=== PATIENT | male | born 1940 | race Caucasian/White ===

== ENCOUNTER 2017-08-22 21:49 | Inpatient (IN) | payer OTHER ==
--- OUTSIDE RECORDS SUMMARY | 2017-08-22 21:52 | XMS REPORT | Clinical Summary ---
:1940 Author Organization [facility] Address [address] [place] [address] Phone Care Team Providers Name Role Phone Unavailable Primary Care Provider Unavailable Allergies Active Allergy Reactions Severity Noted Date Comments Penicillins Other (See Comments) 02/26/2017 Pt doesn't remember reaction; it was over 30 years ago Current Medications Prescription Sig. Disp. Refills Start Date End Date Status acetaminophen Take 2 tablets (650 30 tablet 0 03/25/2017 Active (TYLENOL) 325 MG mg total) by mouth 8 tablet every 4 (four) hours as needed for up to 360 days. allopurinol Take 1 tablet (100 0 03/26/2017 Active (ZYLOPRIM) 100 MG mg total) by mouth 8 tablet daily. amiodarone Take 1 tablet (200 0 03/26/2017 Active (PACERONE) 200 MG mg total) by mouth 8 tablet daily. aspirin 81 MG EC Take 1 tablet (81 mg 0 03/26/2017 Active tablet total) by mouth 8 daily. atorvastatin Take 1 tablet (40 mg 0 03/25/2017 Active (LIPITOR) 40 MG total) by mouth 8 tablet nightly. bisacodyl (DULCOLAX) Place 1 suppository 0 03/25/2017 Active 10 mg suppository (10 mg total) rectally daily as needed. budesonide Take 2 mLs (0.5 mg 0 03/25/2017 Active (PULMICORT) 0.5 mg/2 total) by 8 mL nebulizer nebulization 2 (two) solution times daily. gabapentin Take 2 capsules (200 0 03/25/2017 Active (NEURONTIN) 100 MG mg total) by mouth 3 8 capsule (three) times daily. glimepiride (AMARYL) Take 1 tablet (1 mg 0 03/26/2017 Active 1 MG tablet total) by mouth 8 daily with breakfast. glucagon, human Inject 1 mL (1 mg 0 03/25/2017 Active recombinant, 1 mg/mL total) SolR injection intramuscularly as needed. insulin lispro Inject 0-16 Units 10 mL 0 03/25/2017 Active (HUMALOG) 100 subcutaneously as 8 unit/mL injection needed (High blood sugar). insulin lispro Inject 0-4 Units 10 mL 0 03/25/2017 Active (HUMALOG) 100 subcutaneously every 8 unit/mL injection night as needed (High blood sugar). magnesium hydroxide Take 30 mLs by mouth 0 03/25/2017 Active (MILK OF MAGNESIA) daily as needed. 400 mg/5 mL Susp melatonin 10 mg Tab Take 10 mg by mouth 0 03/25/2017 Active nightly. pantoprazole Take 1 tablet (40 mg 0 03/25/2017 Active (PROTONIX) 40 MG total) by mouth tablet daily. QUEtiapine Take 1 tablet (25 mg 0 03/25/2017 Active (SEROQUEL) 25 MG total) by mouth tablet nightly. simethicone Take 1 tablet (80 mg 0 03/25/2017 Active (MYLICON) 80 MG total) by mouth chewable tablet every 8 (eight) hours as needed (abd gas/bloating). spironolactone Take 1 tablet (25 mg 0 03/26/2017 Active (ALDACTONE) 25 MG total) by mouth 8 tablet daily. tamsulosin (FLOMAX) Take 1 capsule (0.4 0 03/26/2017 Active 0.4 mg Cp24 24 hr mg total) by mouth capsule daily. torsemide (DEMADEX) Take 1 tablet (20 mg 0 03/26/2017 Active 20 MG tablet total) by mouth 8 daily. lidocaine (LIDODERM) Place 1 patch onto 30 patch 0 03/26/2017 5 % patch the skin daily for 7 30 days Remove & Discard patch within 12 hours or as directed by MD. vancomycin 125 Take 2.5 mLs (125 mg 100 mL 0 03/25/2017 mg/2.5 mL Syrg total) by mouth 4 7 (four) times daily for 1 day. Active Problems Problem Noted Date S/P CABG (coronary artery bypass graft) 03/25/2017 Acute drug-induced gout of right knee 03/25/2017 Acute kidney injury (HCC) 03/25/2017 PAF (paroxysmal atrial fibrillation) ([facility]) 03/25/2017 Other emphysema ([facility]) 03/25/2017 Acute systolic heart failure ([facility]) 03/03/2017 Acute respiratory failure with hypoxia ([facility]) 03/03/2017 Hyperglycemia 03/03/2017 Postoperative anemia due to acute blood loss 03/03/2017 Thrombocytopenia ([facility]) 03/03/2017 Acute pulmonary insufficiency following thoracic surgery ([facility]) 02/27/2017 Cardiogenic shock ([facility]) 02/27/2017 NSTEMI (non-ST elevated myocardial infarction) ([facility]) 02/26/2017 Coronary artery disease 02/26/2017 LVAD (left ventricular assist device) present ([facility]) 02/26/2017 Tachycardia Encounters Date Type Specialty Care Team Description 03/31/2017 Office Visit Cardiology Hiram Rowe Visit for wound MD Lex check (Primary Dx) 03/16/2017 Anesthesia Event Gastroenterology René Griggs MD 03/16/2017 Procedure Pass Gastroenterology 03/16/2017 Surgery Gastroenterology Bud, COLONOSCOPY Pedro James MD 02/27/2017 Procedure Pass 02/27/2017 Surgery Abdirizak Garza IABP INSERTION MD Sarah MCR - IP PROC ONLY 02/27/2017 Anesthesia Event Alec Haji MD 02/27/2017 Procedure Pass 02/27/2017 Surgery Hiram Rowe BYPASS,AORTO MD Lex CORONARY SIRENA/SVG 02/26/2017 Hospital Cardiology Jeni NSTEMI (non-ST - Encounter Tremayne Benitez MD elevated myocardial 03/25/2017 Elian Ray infarction) ([facility]) MD Ramirez (Primary Dx);Acute pulmonary insufficiency following thoracic surgery ([facility]);Cardiogenic shock ([facility]);LVAD (left ventricular assist device) present ([facility]);Hypovolemic shock ([facility]) 02/26/2017 Orders Only General Internal Medicine 02/26/2017 Procedure Pass 02/26/2017 Surgery Jeni, L CATH & PCI Tremayne Benitez MD after 08/21/2016 Social History Tobacco Use Types Packs/Day Years Used Date Never Assessed Sex Assigned at Date Recorded Not on file Last Filed Vital Signs Vital Sign Reading Time Taken Blood Pressure 124/58 03/25/2017 4:00 PM MANAGER LAN Pulse 82 03/25/2017 4:00 PM MANAGER LAN Temperature 36.4 C (97.5 F) 03/25/2017 4:00 PM MANAGER LAN Respiratory Rate 20 03/25/2017 4:00 PM MANAGER LAN Oxygen Saturation 95% 03/25/2017 4:00 PM MANAGER LAN Inhaled Oxygen Concentration - - Weight 94 kg (207 lb 4.8 oz) 03/24/2017 3:58 AM MANAGER LAN Height 182.9 cm (6') 02/26/2017 7:00 PM CDT Body Mass Index 28.11 03/24/2017 3:58 AM MANAGER LAN Plan of Treatment Health Maintenance Due Date Last Done Comments INFLUENZA VACCINE 02/08/2018 Implants Implanted Type Area Urinalysis Technician Device Expiration Model / Identifier Date Serial / Lot Sut Surg Stl 7 18g 18in Mls Mp M655g - [id number] [place]/Arthroscop N/A: J 09/07/2021 [id number] / Implanted: Qty: 1 on 02/27/2017 by Hiram Rowe MD y Sternum &J :ETHINANCI / [id number] Sut Surg Stl 7 18g 18in Mls Mp M655g - [id number] [place]/Arthroscop N/A: J 12/08/2021 [id number] / Implanted: Qty: 1 on 02/27/2017 by Hiram Rowe MD y Sternum &J :ETHINANCI / [id number] Sternal Zipfix Ndl Strl [id number] - [id number] Cardiovascular N/A: SYNTHES:SYNTHE 12/08/2021 [id number] / Implanted: Qty: 2 on 02/27/2017 by Hiram Rowe MD [facility] / [id number] Procedures Procedure Name Priority Date/Time Associated Diagnosis Comments COLONOSCOPY 03/16/2017 11:00 AM GI Bleed MANAGER LAN IABP INSERTION [facility] - 02/27/2017 5:03 PM cp IP PROC ONLY CDT REMOVAL,IMPELLA PUMP 02/27/2017 7:30 AM CAD CDT IABP INSERTION [facility] - 02/27/2017 7:30 AM CAD IP PROC ONLY CDT BYPASS,FEMORAL-FEMORAL 02/27/2017 7:30 AM CAD CDT ENDOSCOPIC HARVEST,VEIN 02/27/2017 7:30 AM CAD CDT BYPASS,AORTO CORONARY 02/27/2017 7:30 AM CAD SIRENA/SVG CDT L CATH & PCI 02/26/2017 7:25 PM NSTEMI CDT after 08/21/2016 Results RHYTHM STRIP - SCAN (03/30/2017 6:30 AM)Only the most recent of3 resultswithin the time period is included.EKG-SCANNED (03/26/2017 10:41 AM)PERMANENT LAB REPORT - SCAN (03/26/2017 10:41 AM)VASCULAR DIAGRAM -SCAN (03/26/2017 10:41 AM) POC-Glucose meter (03/25/2017 11:58 AM)Only the most recent of125 resultswithin the time period is included. Component Value Ref Range POC-Glucose Meter 174 (H)Comment: TESTED AT [address] 70 - 110 mg/[place] [address] Specimen Performing Laboratory Blood [address] [address] B-type Natriuretic Factor (BNP) (03/25/2017 6:58 AM)Only the most recent of5 resultswithin the time period is included. Component Value Ref Range BNP 725 (H) 0 - 100 pg/mL Specimen Performing Laboratory Blood [address] [address] Basic Metabolic Panel (03/25/2017 6:58 AM)Only the most recent of29 resultswithin the time period is included. Component Value Ref Range Sodium 140 136 - 145 meq/L Potassium 3.7 3.5 - 5.1 meq/L Chloride 104 98 - 107 meq/L CO2 28 22 - 29 meq/L BUN 25 (H) 7 - 21 mg/dL Creatinine 1.11 0.57 - 1.25 mg/dL Glucose 71 70 - 105 mg/dL Calcium 8.3 (L) 8.4 - 10.2 mg/dL EGFR 64Comment: ESTIMATED GFR IS NOT ACCURATE mL/min/1.73 sq m CREATININE CLEARANCE IN PREDICTING GLOMERULAR FILTRATION RATE. ESTIMATED GFR IS NOT APPLICABLE FOR DIALYSIS PATIENTS. Specimen Performing Laboratory Blood [address] [address] REPORT OF PROCEDURE - ENDOSCOPY URL (03/23/2017 2:36 PM)Magnesium (03/23/2017 5:44 AM)Only the most recent of37 resultswithin the time period is included. Component Value Ref Range Magnesium 1.6 1.6 - 2.6 mg/dL Specimen Performing Laboratory Blood [address] [address] CBC with platelet count + automated diff (03/22/2017 10:39 AM)Only the most recent of28 resultswithin the time period is included. Component Value Ref Range WBC 9.4 3.5 - 10.5 K/L RBC 2.69 (L) 4.63 - 6.08 M/L Hemoglobin 8.1 (L) 13.7 - 17.5 GM/DL Hematocrit 25.9 (L) 40.1 - 51.0 % MCV 96.3 (H) 79.0 - 92.2 fL MCH 30.1 25.7 - 32.2 pg MCHC 31.3 (L) 32.3 - 36.5 GM/DL RDW 17.8 (H) 11.6 - 14.4 % Platelets 274 150 - 450 K/CU MM MPV 10.0 9.4 - 12.4 fL nRBC 0 0 - 0 /100 WBC % Neutros 79 % % Lymphs 8 % % Monos 10 % % Eos 4 % % Baso 0 % # Neutros 7.39 (H) 1.78 - 5.38 K/L # Lymphs 0.72 (L) 1.32 - 3.57 K/L # Monos 0.90 (H) 0.30 - 0.82 K/L # Eos 0.33 0.04 - 0.54 K/L # Baso 0.02 0.01 - 0.08 K/L Immature Granulocytes-Relative 1 0 - 1 % Specimen Performing Laboratory Blood - Line, Venous [address] [address] CBC with platelet count + automated diff (03/22/2017 10:39 AM)Only the most recent of28 resultswithin the time period is included. Specimen Performing Laboratory Blood Narrative The following orders were created for panel order CBC with platelet count + automated diff. Procedure Abnormality Status --------- ------ CBC with platelet count ...[[id number]]AbnormalFinal result Please view results for these tests on the individual orders. TRANSFUSION SERVICE REPORT - SCAN (03/19/2017 5:02 PM)Only the most recent of12 resultswithin the time period is included.XR chest 1 view portable / bedside (03/19/2017 2:44 PM)Only the most recent of20 resultswithin the time period is included. Specimen Performing Laboratory GE RIS Narrative FINAL REPORT TECHNIQUE: Frontal chest radiograph dated 03/19/2017. CLINICAL HISTORY: CHF COMPARISON STUDY: Chest radiograph dated 03/14/2017 IMPRESSION: Right PICC is unchanged in position. Lungs are clear. No pleural effusion or pneumothorax. Cardiomediastinal silhouette is stable in size. No pulmonary edema. Midline sternotomy wires are intact and well aligned. No fracture. Signed: Angeles Wheat MD Report Verified Date/Time:03/19/2017 16:06:30 Reading Location: [facility] Radiology Reading Room Procedure Note Interface, External Ris In - 03/19/2017 4:08 PM MANAGER LAN FINAL REPORT TECHNIQUE: Frontal chest radiograph dated 03/19/2017. CLINICAL HISTORY: CHF COMPARISON STUDY: Chest radiograph dated 03/14/2017 IMPRESSION: Right PICC is unchanged in position. Lungs are clear. No pleural effusion or pneumothorax. Cardiomediastinal silhouette is stable in size. No pulmonary edema. Midline sternotomy wires are intact and well aligned. No fracture. Signed: Angeles Wheat MD Report Verified Date/Time: 03/19/2017 16:06:30 Reading Location: [facility] Radiology Reading Room Prepare Leuko-Red RBC (03/18/2017 11:54 PM)Only the most recent of6 resultswithin the time period is included. Component Value Ref Range CROSSMATCH COMPATIBLE Unit ABO A Pos UNIT NUMBER [id number] Status TRANSFUSED Blood Bank Product RED BLOOD CELLS PRODUCT CODE [id number] Specimen Performing Laboratory Other [place] Type and screen, automated (03/18/2017 6:00 AM)Only the most recent of4 resultswithin the time period is included. Component Value Ref Range ABO/RH AUTOMATED (BEAKER) A POSITIVE Ab Scrn NEGATIVE Specimen Performing Laboratory Blood [place] [address] Transfuse Leuko-Red RBC (03/17/2017 5:55 PM)Only the most recent of13 resultswithin the time period is included.Manual Differential (03/17/2017 4:19 AM)Only the most recent of3 resultswithin the time period is included. Specimen [place] [address] Prepare RBC (03/16/2017 11:54 PM)Only the most recent of4 resultswithin the time period is included. Component Value Ref Range CROSSMATCH COMPATIBLE Unit ABO A Pos UNIT NUMBER [id number] Status TRANSFUSED Blood Bank Product RED BLOOD CELLS PRODUCT CODE [id number] Specimen Performing Laboratory [place] Hemoglobin and hematocrit (03/15/2017 9:23 AM)Only the most recent of5 resultswithin the time period is included. Component Value Ref Range Hemoglobin 5.6 (LL) 13.7 - 17.5 GM/DL Hematocrit 17.6 (L) 40.1 - 51.0 % Specimen [place] [address] Clostridium difficile Toxin PCR (03/14/2017 9:08 PM) Component Value Ref Range C.Diff Toxin, PCR Detected (A) Not Detected Specimen Performing Laboratory Stool [address] [address] Narrative This qualitative real-time polymerase chain reaction assay detects the tcdB gene, encoded on the C.difficile pathogenicity locus (PaLoc).The product of tcdB , toxin B, is a cytotoxin essential for causing C.difficile-associated disease (CDAD) and is found in virtually all toxigenic C.difficile. This assay is performed for patients suspected of having either community- acquired or nosocomial CDAD.Accordingly, only symptomatic patients should be tested and formed stools will be rejected unless ileus is present (i.e., specified when ordering).Patients may be colonized with toxigenic C.difficile strains not causing active disease; therefore, clinical correlation is needed when deciding how to manage patients with a positive test result. The assay has not been validated as a test of cure as amplifiable nucleic acid may persist after effective treatment; therefore, follow-up testing of a positive result is not recommended. XR abdomen / KUB 1 view (03/14/2017 7:35 PM) Specimen Performing Laboratory GE RIS Narrative FINAL REPORT Comparison examination: None Abdomen: Nonspecific bowel gas pattern. Mildly distended air-filled stomach. Several partially fluid-filled loops of small bowel. No free intraperitoneal air. Posterior surgical constructs stabilize L3-L5. No acute skeletal abnormalities. IMPRESSION: Nonspecific bowel gas pattern. Impression: No acute abnormalities. Signed: Tejas Gomez MD Report Verified Date/Time:03/14/2017 19:47:30 Reading Location: [address] Ortho Consult Reading Room Procedure Note Interface, External Ris In - 03/14/2017 7:49 PM CDT FINAL REPORT Comparison examination: None Abdomen: Nonspecific bowel gas pattern. Mildly distended air-filled stomach. Several partially fluid-filled loops of small bowel. No free intraperitoneal air. Posterior surgical constructs stabilize L3-L5. No acute skeletal abnormalities. IMPRESSION: Nonspecific bowel gas pattern. Impression: No acute abnormalities. Signed: Tejas Gomez MD Report Verified Date/Time: 03/14/2017 19:47:30 Reading Location: [facility] C0[facility] Ortho Consult Reading Room Occult blood, stool (03/14/2017 5:23 AM) Component Value Ref Range Occult blood Positive (A) Negative Specimen Performing Laboratory Stool - Per Rectum [address] [address] XR knee complete 4 views right (03/13/2017 4:31 PM) Specimen Performing Laboratory GE RIS Narrative FINAL REPORT Right knee, four views HISTORY: Knee pain COMPARISON: None. IMPRESSION: No acute displaced fracture or dislocation. Small knee effusion. Prominent vascular calcifications. Signed: Tico Aggarwal MD Report Verified Date/Time:03/13/2017 17:53:33 Reading Location: [facility] C013 Consult Reading Room Procedure Note Interface, External Ris In - 03/13/2017 5:55 PM CDT FINAL REPORT Right knee, four views HISTORY: Knee pain COMPARISON: None. IMPRESSION: No acute displaced fracture or dislocation. Small knee effusion. Prominent vascular calcifications. Signed: Tico Aggarwal MD Report Verified Date/Time: 03/13/2017 17:53:33 Reading Location: [facility] [id number] Consult Reading Room Urine culture (03/12/2017 4:53 PM)Only the most recent of3 resultswithin the time period is included. Component Value Ref Range Result No growth Specimen Performing Laboratory Urine - Urine, [place] [address] [address] Vitamin B12 and Folate (03/12/2017 9:29 AM) Component Value Ref Range Vitamin B12 773 213 - 816 pg/mL Folate 10.8 >=7.0 ng/mL Specimen Performing Laboratory Blood - Central Venous Line [address] [address] Iron, TIBC, % sat. (without ferritin) (03/12/2017 9:29 AM) Component Value Ref Range Iron 19 (L) 40 - 160 ug/dL TIBC 155 (L) 250 - 450 ug/dL Iron % Saturation 12 (L) 20 - 55 % Specimen Performing Laboratory Blood - Central Venous Line [address] [address] aPTT (03/12/2017 9:29 AM)Only the most recent of8 resultswithin the time period is included. Component Value Ref Range PTT 37.2 (H) 22.5 - 36.0 seconds Specimen Performing Laboratory Blood - Central Venous Line [address] [address] Uric acid (03/12/2017 9:29 AM) Component Value Ref Range Uric Acid 11.6 (H) 2.6 - 7.2 mg/dL Specimen Performing Laboratory Blood - Central Venous Line [address] [address] Ferritin (03/12/2017 9:29 AM) Component Value Ref Range Ferritin 1371 (H) 5 - 275 ng/mL Specimen Performing Laboratory Blood - Central Venous Line [address] [address] PERIPHERAL VASCULAR REPORT - SCAN (03/12/2017 7:20 AM)Only the most recent of2 resultswithin the time period is included.Urinalysis w/Microscopic (03/11/2017 6:06 PM) Component Value Ref Range Color, UA Yellow Clarity, UA Hazy Specific [place], UA 1.017 1.001 - 1.035 pH, UA 5.0 5.0 - 8.0 Protein, UA 30 mg/dL (A) Negative Glucose, UA Negative Negative Ketones, UA Trace (A) Negative Bilirubin, UA Negative Negative Blood, UA Trace (A) Negative Nitrite, UA Negative Negative Leukocytes, UA Moderate (A) Negative Urobilinogen, UA 2.0 (H) 0.2 - 1.0 mg/dL RBC, UA 6 /HPF WBC, UA 31 /HPF Bacteria, UA Occasional Mucus Few Squam Epithel, UA 2 /HPF Hyaline Casts, UA 10 /LPF Specimen Source Urine, [place] Specimen Performing Laboratory Urine - Urine, [place] [address] [address] ECHOCARDIOGRAM REPORT - SCAN (03/11/2017 5:20 PM)Only the most recent of4 resultswithin the time period is included.Venous doppler legs bilateral (2016 2:01 PM)Only the most recent of2 resultswithin the time period is included. Component Value Ref Range Ejection Fraction Specimen Performing Laboratory SLE ECHO [facility]ART[facility] MKCKESSON CPACS Impressions Right Impression 1. There is no deep venous obstruction in the common femoral, profunda femoral, femoral, popliteal, posterior tibial or peroneal veins. 2. There is no superficial venous obstruction in the great saphenous vein. Left Impression 1. There is no deep venous obstruction in the common femoral, profunda femoral, femoral, popliteal or posterior tibial veins. 2. There is partial acute deep vein thrombosis of the peroneal veins. 3. The great saphenous has been harvested. Conclusions Summary Venous duplex imaging and compression of the bilateral lower extremities were performed. The veins were adequately visualized on very technically difficult patient. The right deep and superficial venous systems were patent and compressible with no evidence of thrombus. The left deep venous system was positive with acute thrombus. The left great saphenous vein had been harvested. Signature Velocities are measured in cm/s ; Diameters are measured in cm Narrative [facility] - Lower Extremities DVT Study Demographics Patient NameKAYLEY ARMIJO Date of Study 2017 76 Visit [id number] Male of 1940 Number Referring Ngozi Savage Number [id number] Physician Visual Journalist Tom Starr. InterpretingJ. Lex Rowe RVT, AMYSPkristineciBALDEMAR holt MD Procedure Type of Study: Veins: Lower Extremities DVT Study, VENOUS DOPPLER LEG, BILATERAL. Indications for Study:Edema and Dyspnea. Patient Status:STAT. Study Location:Vascular Lab. Technical Quality:Technically Difficult. - Results were reported to:Nurse(Lex) at 13:10 on 03/11/2017.. Risk Factors History of Disease + +----+--------+ !Diagnosis !Date!Comments! + +----+--------+ !History/Risk Factors: !!CAD, ACB! + +----+--------+ Procedure Note Interface, External Ris In - 03/11/2017 7:05 PM CDT [facility] - Lower Extremities DVT Study Demographics Patient Name KAYLEY ARMIJO Date of Study 03/11/2017 Age 76 Visit Number [id number] Gender Male Date of 1940 Number Referring Javid Crawford MD Room Number 1150 Physician Visual Journalist Tom Starr. Interpreting Aaron Rowe T, ARS Physician , RPVI Procedure Type of Study: Veins: Lower Extremities DVT Study, VENOUS DOPPLER LEG, BILATERAL. Indications for Study:Edema and Dyspnea. Patient Status:STAT. Study Location:Vascular Lab. Technical Quality:Technically Difficult. - Results were reported to:NurseCari) at 13:10 on 03/11/2017.. Risk Factors History of Disease + +----+--------+ !Diagnosis !Date!Comments! + +----+--------+ !History/Risk Factors: ! !CAD, ACB! + +----+--------+ Impressions Right Impression 1. There is no deep venous obstruction in the common femoral, profunda femoral, femoral, popliteal, posterior tibial or peroneal veins. 2. There is no superficial venous obstruction in the great saphenous vein. Left Impression 1. There is no deep venous obstruction in the common femoral, profunda femoral, femoral, popliteal or posterior tibial veins. 2. There is partial acute deep vein thrombosis of the peroneal veins. 3. The great saphenous has been harvested. Conclusions Summary Venous duplex imaging and compression of the bilateral lower extremities were performed. The veins were adequately visualized on very technically difficult patient. The right deep and superficial venous systems were patent and compressible with no evidence of thrombus. The left deep venous system was positive with acute thrombus. The left great saphenous vein had been harvested. Signature Velocities are measured in cm/s ; Diameters are measured in cm POC-Lactic Acid, Arterial (03/11/2017 12:43 PM) Component Value Ref Range POC-Lactic Acid, Arterial 0.8Comment: TESTED AT [address] 0.4 - 1.3 mmol/L [place] [address] Specimen Performing Laboratory Blood [facility] [address] [address] POCT-HEMATOCRIT (03/11/2017 12:37 PM) Component Value Ref Range POC-Hematocrit 25 (L)Comment: TESTED AT [address] [address] 40 - 50 % Specimen Performing Laboratory Blood [address] [address] POCT-HEMOGLOBIN (03/11/2017 12:37 PM) Component Value Ref Range POC-Hemoglobin 8.5 (L)Comment: TESTED AT [address] 13.0 - 16.8 g/[place] [address] Specimen Performing Laboratory Blood [address] [address] POCT-GLUCOSE (03/11/2017 12:37 PM) Component Value Ref Range POC-Glucose 171 (H)Comment: TESTED AT [address] 70 - 110 mg/dL [address] Specimen Performing Laboratory Blood [address] [address] POC-Sodium (03/11/2017 12:37 PM) Component Value Ref Range POC-Sodium 138Comment: TESTED AT [address] [address] 135 - 148 meq/L Specimen Performing Laboratory Blood [address] [address] POC-Potassium (03/11/2017 12:37 PM) Component Value Ref Range POC-Potassium 3.7Comment: TESTED AT [address] 3.6 - 5.5 meq/L [facility] Specimen Performing Laboratory Blood [address] [address] POC-Calcium ionized (03/11/2017 12:37 PM) Component Value Ref Range POC-Calcium Ionized 1.08 (L)Comment: TESTED AT [address] 1.12 - 1.27 mmol/L [place] [address] Specimen Performing Laboratory Blood [address] [address] POC-Blood gases, arterial (03/11/2017 12:37 PM) Component Value Ref Range Temp. Celsius-POC 37.0 FIO2-POC Comment: TESTED AT [facility] [address] [place] [address] pH, Arterial-POC 7.458 (H) 7.350 - 7.450 PCO2, Arterial-POC 42.0 35.0 - 45.0 mm Hg PO2, Arterial-POC 136.0 (H) 80.0 - 90.0 mm Hg SO2, Arterial-POC 99.0 (H) 96.0 - 97.0 % HCO3, Arterilal-POC 29.7 (H) 21.0 - 29.0 meq/L BE, Arterial-POC 6.0 (H) -2.0 - 3.0 meq/L Specimen Performing Laboratory Blood [facility] [address] [address] Limited 2D Echocardiogram (03/11/2017 11:43 AM) Component Value Ref Range Ejection Fraction Specimen Performing Laboratory SLE ECHO HEARTLAB MKCKESSON CPACS Narrative Transthoracic Echocardiography Report (TTE) Demographics Patient Name KAYLEY ARMIJO Date of Study 03/11/2017 [id number] Male Visit Number [id number] Unknown [id number] Room Number 1150 Number Date of Birth1940Referring Physician Age76 year(s)Visual Journalist Amarilis Gregory AnalystAriadna Interpreting Kana Dooley Physician Procedure Type of Study TTE procedure:LIMITED 2D ECHOCARDIOGRAM (STAT) Indications:Shortness of breath. Clinical History CAD RESPIRATORY FAILURE CAD TACHYCARDIA NSTEMI ANEMIA ACUTE SYSTOLIC HEART FAILURE HGB 8.0 HCT 25.4 % Height: 72 inches Weight: 103.87 kg (229 lbs) BSA: 2.26 m^2 BMI: 31.06 kg/m^2 HR: 89 bpm BP: 136/61 mmHg Summary 1. The following segment(s) appear akinetic: [place], base and mid inferior. LVEF by Slater's method of disk assessment is mildly reduced (45-49%) 2. The right ventricular chamber size and systolic function are within normal limits. 3. A small pericardial effusion is present . Previous Study Compared to the previous study there was no significant change. Signature Findings Rhythm/BPAtrial fibrillation with controlled ventricular response. Left Ventricle LV endocardium is well visualized with IV contrast. The left ventricle is chamber size (by vol index) is normal (male - LVED vol - 34-74ml/m2). Mild concentric LV hypertrophy. The following segment(s) appear akinetic: [place], base and mid inferior. The following segment(s) appear severely hypokinetic: base and mid anteroseptal, base and mid inferoseptal. The other segments are mildly hypokinetic. LVEF by Slater's method of disk assessment is mildly reduced (45-49%) . Left AtriumLA size is normal (16-34 ml/m2) . Right VentricleThe right ventricular chamber size and systolic function are within normal limits. Right Atrium RA size is normal. Atrial SeptumThe interatrial septum is not well visualized. Aortic Valve Mild AoV cusp calcification. Aortic annulus appears calcified . Mitral Valve Mild MV leaflet thickening. Mild mitral annular calcification. Tricuspid ValveTV is not well visualized. Pulmonic Valve PV is not visualized. AortaAortic root size (SInus of Valsalva diameter) is normal . PericardiumA small pericardial effusion is present . IVC/SVC/PA/PV/PleuralThe estimated RA pressure by IVC dynamics 0-5mmHg . Chambers/Structures Left Atrium LA Volume: 52.35 ml LA Area: 16.45 cm^ 2 LA Vol. Index: 23 ml/m^2 Left Ventricle LVIDd: 4.81 cm LV Septum Diastolic: 1.11 cm LV PW Diastolic: 1.18 cm LVEDV BP Slater's:118.8 ml LVESV BP Slater's:62.24 ml LVEF BP Slater's: 46.7 % LVOT Diameter: 2.05 cm Right Atrium RA Vol. (Sngl Plane): 73.66 ml Aorta Ao Annulus: 2.05 cm Ao Root S of Monica.: 2.8 cm Doppler/Quantitative Measurements LVOT LVOT Diameter: 2.05 cm LVOT Area: 3.3 cm^2 Procedure Note Interface, External Ris In - 03/11/2017 4:47 PM CDT Transthoracic Echocardiography Report (TTE) Demographics Patient Name KAYLEY ARMIJO Date of Study 03/11/2017 Gender Male Visit Number [id number] Race Unknown Room Number 1150 Number Date of 1940 Referring Physician Age 76 year(s) Visual Journalist Amarilis Gregory High Value Associate Debo Interpreting Kana Dooley Physician Procedure Type of Study TTE procedure:LIMITED 2D ECHOCARDIOGRAM (STAT) Indications:Shortness of breath. Clinical History CAD RESPIRATORY FAILURE CAD TACHYCARDIA NSTEMI ANEMIA ACUTE SYSTOLIC HEART FAILURE HGB 8.0 HCT 25.4 % Height: 72 inches Weight: 103.87 kg (229 lbs) BSA: 2.26 m^2 BMI: 31.06 kg/m^2 HR: 89 bpm BP: 136/61 mmHg Summary 1. The following segment(s) appear akinetic: [place], base and mid inferior. LVEF by Slater's method of disk assessment is mildly reduced (45-49%) 2. The right ventricular chamber size and systolic function are within normal limits. 3. A small pericardial effusion is present . Previous Study Compared to the previous study there was no significant change. Signature Findings Rhythm/BP Atrial fibrillation with controlled ventricular response. Left Ventricle LV endocardium is well visualized with IV contrast. The left ventricle is chamber size (by vol index) is normal (male - LVED vol - 34-74ml/m2). Mild concentric LV hypertrophy. The following segment(s) appear akinetic: [place], base and mid inferior. The following segment(s) appear severely hypokinetic: base and mid anteroseptal, base and mid inferoseptal. The other segments are mildly hypokinetic. LVEF by Slater's method of disk assessment is mildly reduced (45-49%) . Left Atrium LA size is normal (16-34 ml/m2) . Right Ventricle The right ventricular chamber size and systolic function are within normal limits. Right Atrium RA size is normal. Atrial Septum The interatrial septum is not well visualized. Aortic Valve Mild AoV cusp calcification. Aortic annulus appears calcified . Mitral Valve Mild MV leaflet thickening. Mild mitral annular calcification. Tricuspid Valve TV is not well visualized. Pulmonic Valve PV is not visualized. Aorta Aortic root size (SInus of Valsalva diameter) is normal . Pericardium A small pericardial effusion is present . IVC/SVC/PA/PV/Pleural The estimated RA pressure by IVC dynamics 0-5mmHg . Chambers/Structures Left Atrium LA Volume: 52.35 ml LA Area: 16.45 cm^2 LA Vol. Index: 23 ml/m^2 Left Ventricle LVIDd: 4.81 cm LV Septum Diastolic: 1.11 cm LV PW Diastolic: 1.18 cm LVEDV BP Slater's:118.8 ml LVESV BP Slater's:62.24 ml LVEF BP Slater's: 46.7 % LVOT Diameter: 2.05 cm Right Atrium RA Vol. (Sngl Plane): 73.66 ml Aorta Ao Annulus: 2.05 cm Ao Root S of Monica.: 2.8 cm Doppler/Quantitative Measurements LVOT LVOT Diameter: 2.05 cm LVOT Area: 3.3 cm^2 Blood culture (03/10/2017 10:36 AM)Only the most recent of5 resultswithin the time period is included. Component Value Ref Range Result No growth in 5 days Specimen Performing Laboratory Blood - Arm, Left [facility] [address] [address] Urinalysis w/Microscopic + Reflex to Culture (03/09/2017 3:52 PM)Only the most recent of2 resultswithin the time period is included. Component Value Ref Range Color, UA Yellow Clarity, UA Clear Specific [place], UA 1.009 1.001 - 1.035 pH, UA 5.0 5.0 - 8.0 Protein, UA 20 mg/dL (A) Negative Glucose, UA Negative Negative Ketones, UA Negative Negative Bilirubin, UA Negative Negative Blood, UA Small (A) Negative Nitrite, UA Negative Negative Leukocytes, UA Moderate (A) Negative Urobilinogen, UA 0.2 0.2 - 1.0 mg/dL RBC, UA 2 /HPF WBC, UA 9 /HPF Bacteria, UA Occasional Squam Epithel, UA 1 /HPF Hyaline Casts, UA 17 /LPF Specimen Source Specimen Performing Laboratory Urine - Urine, Clean Catch [address] [address] Hemoglobin A1c (03/09/2017 6:46 AM) Component Value Ref Range Hemoglobin A1C 6.0 4.3 - 6.1 % Specimen Performing Laboratory Blood - Central Venous Line [address] [address] Oxygen saturation, measured (03/07/2017 3:18 AM)Only the most recent of18 resultswithin the time period is included. Component Value Ref Range O2 Saturation (Measured) 61.8 % Specimen Performing Laboratory Blood [address] [address] Potassium (03/07/2017 3:18 AM)Only the most recent of18 resultswithin the time period is included. Component Value Ref Range Potassium 3.7 3.5 - 5.1 meq/L Specimen Performing Laboratory Blood [address] [address] Hepatic function panel (03/06/2017 3:44 AM)Only the most recent of6 resultswithin the time period is included. Component Value Ref Range Protein, Total 5.1 (L) 6.0 - 8.3 gm/dL Albumin 2.7 (L) 3.5 - 5.0 g/dL Total Bilirubin 1.9 (H) 0.2 - 1.2 mg/dL Bilirubin, Direct 1.2 (H) 0.1 - 0.5 mg/dL Alkaline Phosphatase 65 40 - 150 U/L AST 34 5 - 34 U/L ALT 27 6 - 55 U/L Specimen Performing Laboratory Blood [address] [address] 2D Echo W/Doppler(CW/PW/Color) (03/05/2017 9:56 PM)Only the most recent of3 resultswithin the time period is included. Component Value Ref Range Ejection Fraction Specimen Performing Laboratory [facility] ECHO HEARTLAB SUSAN CPACS Narrative Transthoracic Echocardiography Report (TTE) Demographics Patient Name Batool ARMIJO of Study 2016 [id number] GenderMale Visit Number [id number] Race[place] [id number] Number [id number] Number Date of Birth1940 Referring Physician Elham Mariee Age76 year(s) Visual Journalist Roger Grossman, [facility] AnalystGCuca Callaway MD [facility] Procedure Type of Study TTE procedure:2DECHO W DOPPLER(CW/PW/COLOR) (Routine) Indications:Evaluation of LV Function Post AMI. Clinical History HGB 8.1 HCT 25 % NSTEMI Height: 72 inches Weight: 102.06 kg (225 lbs) BSA: 2.24 m^2 BMI: 30.52 kg/m^2 HR: 90 bpm BP: 94/49 mmHg Summary 1. Normal LV size. LVEF is mildly depressed. LVEF is 40-44%. Wall motion abnormalities consistent with 3 vessel disease. 2. Diastology: Grade 2 diastology dysfunction. 3. Normal RV size and function 4. No significant valvular heart disease. 5. Trace TR. Estimated RVSP is 55-60 mm Hg. 6. Small pericardial effusion without signs of hemodynamic compromise. Signature Findings Technical Quality: Technically adequate exam. Left Ventricle LV endocardium is adequately visualized with IV contrast. The left ventricle is chamber size (by PSLAX dimension) is normal (male - LVIDd 4.2-5.8cm) . No evidence of LV hypertrophy. Estimated LVEF by qualitative assessment is mildly reduced (40-44%) . The LVEF was measured using Slater's bi-plane method of disk . Grade 2 diastolic dysfunction (moderately increased LA pressure). Left AtriumLA size is normal (16-34 ml/m2) . Right VentricleNormal right ventricle structure and function. Right Atrium Normal right atrium. Aortic Valve Mild thickening and calcification noted. Mitral Valve Mild mitral regurgitation. Tricuspid ValveNormal tricuspid valve structure and function. A trace of tricuspid regurgitation. Estimated peak systolic PA pressure is 55-60 mmHg . Pulmonic Valve Normal PV structure and function by limited views and Doppler. AortaNormal aorta dimensions. PericardiumA small pericardial effusion is present posteriorly . IVC/SVC/PA/PV/PleuralThe estimated RA pressure by IVC dynamics 5-10mmHg . Chambers/Structures Left Atrium LA Volume: 58.75 mlLA Area: 21.6 cm^2 LA Vol. Index: 26 ml/m^2 Left Ventricle LVIDd: 4.69 cmLVEDV 2D:101.88 ml LVIDs: 3.63 cmLVESV 2D :55.37 ml LV Septum Diastolic: 1.11 cm LV PW Diastolic: 1.09 cm LV FS: 22.6 % LV ESV (Cubed):47.83 cc LVOT Diameter: 2.1 cm LV ESV (Teich):55.53 ml LV SV (Teich):46.33 ml LV SI (Teich):20.68 ml/m^2 LVEF 2D Teich: 45.7 % Shunts QS:55.73 ml Doppler/Quantitative Measurements Aortic Valve Peak Velocity: 1.81 m/sMean Velocity: 1.24 m/s Peak Gradient: 13.06 mmHgMean Gradient: 6.98 mmHg AV Area (continuity): 2.12 cm^2 AV VTI: 26.28 cm AV DVI: 0.61 LVOT Peak Velocity: 0.99 m/s Peak Gradient: 3.91 mmHg Mean Velocity: 0.64 m/s Mean Gradient: 1.93 mmHg LVOT Diameter: 2.1 cm LVOT VTI: 16.09 cm LVOT Area: 3.46 cm^2LVOT SV:55.7 ml LVOT CO: 5.01 l/min LVOT CI: 2.24 l/min/m^2 Tricuspid Valve TR Velocity: 3.41 m/s TR Gradient: 46.63 mmHg Procedure Note Interface, External Ris In - 03/06/2017 9:27 AM CDT Transthoracic Echocardiography Report (TTE) Demographics Patient Name KAYLEY ARMIJO Date of Study 03/05/2017 Gender Male Visit Number [id number] Race Unknown Room Number C830 Number Date of 1940 Referring Physician Elham Mariee Age 76 year(s) Visual Journalist Roger Grossman [facility] High Value Associate Roger Grossman, Interpreting Clay Vasquez MD [facility] Physician Procedure Type of Study TTE procedure:2DECHO W DOPPLER(CW/PW/COLOR) (Routine) Indications:Evaluation of LV Function Post AMI. Clinical History HGB 8.1 HCT 25 % NSTEMI Height: 72 inches Weight: 102.06 kg (225 lbs) BSA: 2.24 m^2 BMI: 30.52 kg/m^2 HR: 90 bpm BP: 94/49 mmHg Summary 1. Normal LV size. LVEF is mildly depressed. LVEF is 40-44%. Wall motion abnormalities consistent with 3 vessel disease. 2. Diastology: Grade 2 diastology dysfunction. 3. Normal RV size and function 4. No significant valvular heart disease. 5. Trace TR. Estimated RVSP is 55-60 mm Hg. 6. Small pericardial effusion without signs of hemodynamic compromise. Signature Findings Technical Quality: Technically adequate exam. Left Ventricle LV endocardium is adequately visualized with IV contrast. The left ventricle is chamber size (by PSLAX dimension) is normal (male - LVIDd 4.2-5.8cm) . No evidence of LV hypertrophy. Estimated LVEF by qualitative assessment is mildly reduced (40-44%) . The LVEF was measured using Slater's bi-plane method of disk . Grade 2 diastolic dysfunction (moderately increased LA pressure). Left Atrium LA size is normal (16-34 ml/m2) . Right Ventricle Normal right ventricle structure and function. Right Atrium Normal right atrium. Aortic Valve Mild thickening and calcification noted. Mitral Valve Mild mitral regurgitation. Tricuspid Valve Normal tricuspid valve structure and function. A trace of tricuspid regurgitation. Estimated peak systolic PA pressure is 55-60 mmHg . Pulmonic Valve Normal PV structure and function by limited views and Doppler. Aorta Normal aorta dimensions. Pericardium A small pericardial effusion is present posteriorly . IVC/SVC/PA/PV/Pleural The estimated RA pressure by IVC dynamics 5-10mmHg . Chambers/Structures Left Atrium LA Volume: 58.75 ml LA Area: 21.6 cm^2 LA Vol. Index: 26 ml/m^2 Left Ventricle LVIDd: 4.69 cm LVEDV 2D:101.88 ml LVIDs: 3.63 cm LVESV 2D:55.37 ml LV Septum Diastolic: 1.11 cm LV PW Diastolic: 1.09 cm LV FS: 22.6 % LV ESV (Cubed):47.83 cc LVOT Diameter: 2.1 cm LV ESV (Teich):55.53 ml LV SV (Teich):46.33 ml LV SI (Teich):20.68 ml/m^2 LVEF 2D Teich: 45.7 % Shunts QS:55.73 ml Doppler/Quantitative Measurements Aortic Valve Peak Velocity: 1.81 m/s Mean Velocity: 1.24 m/s Peak Gradient: 13.06 mmHg Mean Gradient: 6.98 mmHg AV Area (continuity): 2.12 cm^2 AV VTI: 26.28 cm AV DVI: 0.61 LVOT Peak Velocity: 0.99 m/s Peak Gradient: 3.91 mmHg Mean Velocity: 0.64 m/s Mean Gradient: 1.93 mmHg LVOT Diameter: 2.1 cm LVOT VTI: 16.09 cm LVOT Area: 3.46 cm^2 LVOT SV:55.7 ml LVOT CO: 5.01 l/min LVOT CI: 2.24 l/min/m^2 Tricuspid Valve TR Velocity: 3.41 m/s TR Gradient: 46.63 mmHg Calcium, Ionized (03/05/2017 4:25 AM)Only the most recent of16 resultswithin the time period is included. Component Value Ref Range Calcium, Ion 1.07 (L) 1.12 - 1.27 mmol/L pH, Blood 7.57 Specimen Performing Laboratory Blood [address] [address] Blood gas, arterial (03/05/2017 4:25 AM)Only the most recent of16 resultswithin the time period is included. Component Value Ref Range pH, Arterial 7.57 (H) 7.35 - 7.45 pCO2, Arterial 31 (L) 35 - 45 mmHg pO2, Arterial 75 (L) 80 - 90 mmHg O2 Sat, Arterial 96.9 96.0 - 97.0 % HCO3, Arterial 27 21 - 29 mmol/L Base Excess, Arterial 5.2 (H) -2.0 - 3.0 mmol/L Patient Temperature 36.6 C FIO2 75.0 % Specimen Performing Laboratory Blood [address] [address] ECG 12 lead (03/04/2017 6:42 PM)Only the most recent of3 resultswithin the time period is included. Specimen Performing Laboratory GE MUSE Narrative Ventricular Rate 133 BPM Atrial Rate 133 BPM P-R Interval 154 ms QRS Duration 74 ms Q-T Interval 262 ms QTC Calculation(Bazett) 389 ms P [place] 241 degrees R [place] 67 degrees T [place] 196 degrees Atrial flutter with 2 to 1 block Anteroseptal infarct (cited on or before 26-FEB-2017) ST & T wave abnormality, consider lateral ischemia Abnormal ECG Confirmed by MD Shakira, Rigo ([id number]) on 03/05/2017 10:33:56 AM Procedure Note Interface, External Ris In - 03/05/2017 10:34 AM CDT Ventricular Rate 133 BPM Atrial Rate 133 BPM P-R Interval 154 ms QRS Duration 74 ms Q-T Interval 262 ms QTC Calculation(Bazett) 389 ms P [place] 241 degrees R [place] 67 degrees T [place] 196 degrees Atrial flutter with 2 to 1 block Anteroseptal infarct (cited on or before 26-FEB-2017) ST & T wave abnormality, consider lateral ischemia Abnormal ECG Confirmed by MD Rosenberg Roberto ([id number]) on 03/05/2017 10:33:56 AM PT/aPTT (03/04/2017 4:33 AM)Only the most recent of6 resultswithin the time period is included. Component Value Ref Range Protime 16.5 (H) 11.7 - 14.7 seconds INR 1.3 <=5.9 PTT 34.6 22.5 - 36.0 seconds Specimen Performing Laboratory Blood [address] [address] Narrative RECOMMENDED COUMADIN/WARFARIN INR THERAPY RANGES STANDARD DOSE: 2.0 - 3.0 Includes: PROPHYLAXIS for venous thrombosis, systemic embolization; TREATMENT for venous thrombosis and/or pulmonary embolus. HIGH RISK: Target INR is 2.5-3.5 for patients with mechanical heart valves. Prothrombin time/INR (03/04/2017 4:33 AM)Only the most recent of7 resultswithin the time period is included. Component Value Ref Range Protime 16.5 (H) 11.7 - 14.7 seconds INR 1.3 <=5.9 Specimen Performing Laboratory Blood [address] [address] Narrative RECOMMENDED COUMADIN/WARFARIN INR THERAPY RANGES STANDARD DOSE: 2.0 - 3.0 Includes: PROPHYLAXIS for venous thrombosis, systemic embolization; TREATMENT for venous thrombosis and/or pulmonary embolus. HIGH RISK: Target INR is 2.5-3.5 for patients with mechanical heart valves. Insert arterial line (03/03/2017 11:41 PM) Narrative Don Dumont PA 03/03/2017 11:41 PM Insert Arterial Line Date/Time: 03/03/2017 11:38 PM Performed by: DON DUMONT Authorized by: DON DUMONT Consent: Verbal consent obtained. Written consent not obtained. Risks and benefits: risks, benefits and alternatives were discussed Consent given by: patient Patient understanding: patient states understanding of the procedure being performed Patient consent: the patient's understanding of the procedure matches consent given Procedure consent: procedure consent matches procedure scheduled Patient identity confirmed: verbally with patient, arm band, provided demographic data and hospital-assigned identification number Time out: Immediately prior to procedure a "time out" was called to verify the correct patient, procedure, equipment, academic support specialist and site/side marked as required. Preparation: Patient was prepped and draped in the usual sterile fashion. Indications: multiple ABGs and hemodynamic monitoring Location: left radial Anesthesia: local infiltration Anesthesia: Local Anesthetic: lidocaine 1% without epinephrine Anesthetic total: 4 mL Sedation: Patient sedated: no Manish's test normal: yes Needle gauge: 20 Seldinger technique used: Rewire. Number of attempts: 1 Post-procedure: line sutured Post-procedure CMS: unchanged Patient tolerance: Patient tolerated the procedure well with no immediate complications CBC (Hemogram only) (03/03/2017 8:43 PM)Only the most recent of3 resultswithin the time period is included. Component Value Ref Range WBC 13.4 (H) 3.5 - 10.5 K/L RBC 2.70 (L) 4.63 - 6.08 M/L Hemoglobin 8.0 (L) 13.7 - 17.5 GM/DL Hematocrit 24.5 (L) 40.1 - 51.0 % MCV 90.7 79.0 - 92.2 fL MCH 29.6 25.7 - 32.2 pg MCHC 32.7 32.3 - 36.5 GM/DL RDW 15.1 (H) 11.6 - 14.4 % Platelets 94 (L) 150 - 450 K/CU MM MPV 11.6 9.4 - 12.4 fL nRBC 2 (H) 0 - 0 /100 WBC Specimen Performing Laboratory Blood - Line, Arterial [address] [address] Lactate dehydrogenase (LDH) (03/03/2017 3:13 AM)Only the most recent of6 resultswithin the time period is included. Component Value Ref Range LDH 688 (H) 125 - 220 U/L Specimen Performing Laboratory Blood - Line, Arterial [address] [address] CARDIAC CATH REPORT - SCAN (03/02/2017 10:50 PM)Only the most recent of2 resultswithin the time period is included.Lactic acid, arterial, whole blood ( 4:33 PM)Only the most recent of5 resultswithin the time period is included. Component Value Ref Range Lactate, Art 1.2 0.5 - 2.2 mmol/L Specimen Performing Laboratory Blood, Arterial [address] [address] Narrative Effective 09/12/2015: Units/Reference Range Change New: 0.5-2.2 mmol/LPrevious: 5-20 mg/dL Glucose-Stat Lab (03/02/2017 8:58 AM)Only the most recent of13 resultswithin the time period is included. Component Value Ref Range Glucose 99 70 - 110 mg/dL Specimen Performing Laboratory Blood, Arterial [address] [address] Vancomycin level, random (03/02/2017 4:20 AM) Component Value Ref Range Vancomycin Rm 27.4 ug/mL Specimen Performing Laboratory Blood [address] [address] Narrative Reference Range: No Normals RRL Critical Labs (ABG,NA,K,H&H,GLU) (03/01/2017 11:58 AM)Only the most recent of9 resultswithin the time period is included. Specimen Performing Laboratory Blood, Arterial Narrative The following orders were created for panel order RRL Critical Labs (ABG,NA,K,H&H,GLU). Procedure Abnormality Status --------- ------ Blood gas, arterial[[id number]]AbnormalFinal result Sodium Na-Stat Lab[[id number]] NormalFinal result Potassium-Stat Lab[[id number]] Glucose-Stat Lab[[id number]] HGB/HCT (H&H)-Stat Lab[[id number]] AbnormalFinal result Please view results for these tests on the individual orders. Sodium Na-Stat Lab (03/01/2017 11:58 AM)Only the most recent of11 resultswithin the time period is included. Component Value Ref Range Sodium 145 135 - 148 meq/L Specimen Performing Laboratory Blood, Arterial [address] [address] HGB/HCT (H&H)-Stat Lab (03/01/2017 11:58 AM)Only the most recent of11 resultswithin the time period is included. Component Value Ref Range Hemoglobin 9.2 (L) 13.0 - 16.8 g/dL Hematocrit 27.0 (L) 40.0 - 50.0 % Specimen Performing Laboratory Blood, Arterial [address] [address] Vancomycin level, trough (03/01/2017 11:58 AM) Component Value Ref Range Vancomycin Tr 39.8 (HH) 10.0 - 20.0 ug/mL Specimen Performing Laboratory Blood [address] [address] Prepare plasma (02/28/2017 11:55 PM)Only the most recent of2 resultswithin the time period is included. Component Value Ref Range Unit ABO A Pos UNIT NUMBER [id number] Status TRANSFUSED Blood Bank Product FFP PRODUCT CODE L1228A12 Unit ABO A Neg UNIT NUMBER [id number] Status TRANSFUSED Blood Bank Product FFP PRODUCT CODE [id number] Specimen Performing Laboratory SAFETRACE [place] Prepare PLT (02/28/2017 11:54 PM) Component Value Ref Range Unit ABO B Pos UNIT NUMBER [id number] Status TRANSFUSED Blood Bank Product PLATELETS PRODUCT CODE W1025B70 Unit ABO A Pos UNIT NUMBER [id number] Status TRANSFUSED Blood Bank Product PLATELETS PRODUCT CODE K6723L56 Specimen Performing Laboratory [employer] [place] Prepare cryoprecipitate (02/28/2017 11:54 PM) Component Value Ref Range Unit ABO O Pos UNIT NUMBER [id number] Status TRANSFUSED Blood Bank Product CRYOPRECIPITATE PRODUCT CODE [id number] Unit ABO O Pos UNIT NUMBER [id number] Status TRANSFUSED Blood Bank Product CRYOPRECIPITATE PRODUCT CODE [id number] Specimen Performing Laboratory [place] [place] Glucose (02/28/2017 5:21 AM) Component Value Ref Range Glucose 137 (H) 70 - 105 mg/dL Specimen Performing Laboratory Blood [address] [address] Narrative PRN - repeat glucose levels every 1 hour or as specified by insulin titration orders until glucose level is less than 450 mg/dL Potassium-Stat Lab (02/28/2017 12:24 AM)Only the most recent of10 resultswithin the time period is included. Component Value Ref Range Potassium 4.1 3.6 - 5.5 meq/L Specimen Performing Laboratory Blood, Arterial [address] [address] Thromboelastograph (TEG) (02/27/2017 2:08 PM)Only the most recent of2 resultswithin the time period is included. Component Value Ref Range TEG Activated Clotting Time 5.5 4.0 - 7.0 minutes TEG Fibrinogen Activity 68.4 61.0 - 73.0 degrees TEG Platelet Aggregation 63.9 55.0 - 65.0 MM TEG Fibrinolysis 0.0 0.0 - 5.0 % TEG-H Activated Clotting Time 5.3 4.0 - 7.0 minutes TEG-H Fibrinogen Activity 70.6 61.0 - 73.0 degrees TEG-H Platelet Aggregation 62.9 55.0 - 65.0 MM TEG-H Fibrinolysis 0.0 0.0 - 5.0 % Specimen Performing Laboratory Blood [address] [address] Fibrinogen (02/27/2017 2:07 PM)Only the most recent of3 resultswithin the time period is included. Component Value Ref Range Fibrinogen 317 225 - 434 mg/dl Specimen Performing Laboratory Blood [address] [address] Comprehensive metabolic panel (02/27/2017 2:07 PM) Component Value Ref Range Protein, Total 4.9 (L)Comment: Specimen slightly hemolyzed 6.0 - 8.3 gm/dL Albumin 3.0 (L)Comment: Specimen slightly hemolyzed 3.5 - 5.0 g/dL Alkaline Phosphatase 40 40 - 150 U/L Total Bilirubin 2.2 (H)Comment: Specimen slightly hemolyzed 0.2 - 1.2 mg/dL Sodium 146 (H) 136 - 145 meq/L Potassium 3.4 (L)Comment: Specimen slightly hemolyzed 3.5 - 5.1 meq/L Chloride 108 (H) 98 - 107 meq/L CO2 22 22 - 29 meq/L BUN 43 (H) 7 - 21 mg/dL Creatinine 1.86 (H)Comment: Specimen slightly hemolyzed 0.57 - 1.25 mg/dL Glucose 209 (H) 70 - 105 mg/dL Calcium 8.0 (L) 8.4 - 10.2 mg/dL AST 140 (H)Comment: Specimen slightly hemolyzed 5 - 34 U/L ALT 24Comment: Specimen slightly hemolyzed 6 - 55 U/L EGFR 35Comment: ESTIMATED GFR IS NOT ACCURATE mL/min/1.73 sq m CREATININE CLEARANCE IN PREDICTING GLOMERULAR FILTRATION RATE. ESTIMATED GFR IS NOT APPLICABLE FOR DIALYSIS PATIENTS. Specimen Performing Laboratory Blood [address] [address] Platelet count (02/27/2017 12:48 PM)Only the most recent of2 resultswithin the time period is included. Component Value Ref Range Platelets 151 150 - 450 K/CU MM Specimen Performing Laboratory Blood [address] [address] ANESTHESIA ERIS (02/27/2017 10:32 AM) Chandler Barney MD 02/27/2017 10:32 AM ERIS Date: 02/27/2017 8:00 AM Sex: Male Location: OR Requesting Physician: HIRAM ROWE Examiner: CHANDLER DE LEON Indication: ACBIntubatedSedated Patient screened for esoph disease: Yes Insertion: easy Probe Type: multiplane Modalities: 2D, CFM, CWD and PWD Aorta Size Dissection Plaque Thick Plaque Mobile Ascending Ao normal NoNo Ao Arch normal NoNo Descending Ao normal NoNo Valves Annulus Stenosis Area (cm3) Gradient Regurgitation Leaflet Morphology Leaflet Motion Not Visualized Aortic valve normal none none normal normal Mitral valve normal none mild (2+) normal normal Tricuspid normal none trivial (1+) normal normal Atria Size SEC Thrombus Tumor Device Right Atrium normal No No No Left Atrium normal No Nodevice Interatrial Septum: Morphology: normal ASD: Shunt: Interventricular Septum: Morphology: normal Defect: Shunt: Ventricles Cavity size Dimension Hypertrophy Thrombus Global FXN EF Right ventricle normal Left ventricle normal Pre Intervention Summary: 76 yo male with CAD here for ACB LV: moderately depressed LVEF of about 30-35%, diskinetic, IL and inferior hypokinetic, grade 2 diastolic dysfunction (E/A 1, S/D 0.7) LA: Chamber size appears normal AV: trileaflet morphology, Impella visualized across AV MV: normal morphology, mild to moderate MR IAS: no PFO visualized with CFD niquist limit at 20cm/s RV: systolic function and chamber size appear normal RA: chamber size appears normal TV: normal morphology, trace TR PV: not well visualized Ao: no dissection or aneurysm, grade 3 (<5mm) atherosclerotic plaque in descending thoracic Ao Post Intervention Summary:S/p ACB x3 LV: , IL and inf pan with improved kinetics, LVEF preserved AV: Impella across AV into LV MV: moderate MR remains Ao: no dissection, impella visualized All other findings unchanged, findings discussed with surgeon Procedure Note Chandler De Leon MD - 02/27/2017 9:28 AM CDT Formatting of this note may be different from the original. ERIS Date: 02/27/2017 8:00 AM Sex: Male Location: OR Requesting Physician: HIRAM ROWE Examiner: CHANDLER DE LEON Indication: ACB Intubated Sedated Patient screened for esoph disease: Yes Insertion: easy Probe Type: multiplane Modalities: 2D, CFM, CWD and PWD Aorta Size Dissection Plaque Thick Plaque Mobile Ascending Ao normal No No Ao Arch normal No No Descending Ao normal No No Valves Annulus Stenosis Area (cm3) Gradient Regurgitation Leaflet Morphology Leaflet Motion Not Visualized Aortic valve normal none none normal normal Mitral valve normal none mild (2+) normal normal Tricuspid normal none trivial (1+) normal normal Atria Size SEC Thrombus Tumor Device Right Atrium normal No No No Left Atrium normal No No device Interatrial Septum: Morphology: normal ASD: Shunt: Interventricular Septum: Morphology: normal Defect: Shunt: Ventricles Cavity size Dimension Hypertrophy Thrombus Global FXN EF Right ventricle normal Left ventricle normal Pre Intervention Summary: 76 yo male with CAD here for ACB LV: moderately depressed LVEF of about 30-35%, diskinetic, IL and inferior hypokinetic, grade 2 diastolic dysfunction (E/A 1, S/D 0.7) LA: Chamber size appears normal AV: trileaflet morphology, Impella visualized across AV MV: normal morphology, mild to moderate MR IAS: no PFO visualized with CFD niquist limit at 20cm/s RV: systolic function and chamber size appear normal RA: chamber size appears normal TV: normal morphology, trace TR PV: not well visualized Ao: no dissection or aneurysm, grade 3 (<5mm) atherosclerotic plaque in descending thoracic Ao Post Intervention Summary: S/p ACB x3 LV: , IL and inf pan with improved kinetics, LVEF preserved AV: Impella across AV into LV MV: moderate MR remains Ao: no dissection, impella visualized All other findings unchanged, findings discussed with surgeon POC ACTIVATED CLOTTING TIME (02/27/2017 10:16 AM)Only the most recent of6 resultswithin the time period is included. Component Value Ref Range Activated Clotting Time 125Comment: TESTED AT [address] sec [id number] Specimen Performing Laboratory Blood [address] [address] Blood gas, venous (02/27/2017 8:31 AM) Component Value Ref Range pH, Harsha 7.15 (LL) 7.32 - 7.42 pCO2, Harsha 65 (H) 41 - 51 mmHg pO2, Harsha 49 (H) 25 - 40 mmHg O2 Sat, Harsha 73.8 (H) 40.0 - 70.0 % HCO3, Harsha 22 21 - 29 mmol/L Base Excess, Harsha -6.4 (L) -2.0 - 3.0 mmol/L Patient Temperature 36.5 C FIO2 80.0 % Specimen Performing Laboratory Blood [address] [address] Troponin I (02/27/2017 5:37 AM)Only the most recent of3 resultswithin the time period is included. Component Value Ref Range Troponin I 76.70 (HH) 0.00 - 0.03 ng/mL Specimen Performing Laboratory Blood [address] [address] Narrative Troponin I (TnI) levels must be interpreted in the context of the presenting symptoms and the clinical findings. Elevated TnI levels indicate myocardial damage, but are not specific for ischemic heart disease. Elevated TnI levels are seen in patients with other cardiac conditions (including myocarditis and congestive heart failure), and slight TnI elevations occur in patients with other conditions, including sepsis, renal failure, acidosis, acute neurological disease, and persistent tachyarrhythmia. Creatine Kinase (CK), Total and MB (02/27/2017 5:37 AM)Only the most recent of3 resultswithin the time period is included. Component Value Ref Range Total CK 3294 (H) 29 - 200 U/L CK-MB 349.7 (H) 0.0 - 6.6 ng/mL MB Relative Index 10.6 % Specimen Performing Laboratory Blood [facility] [address] [address] Narrative CK-MB Reference Range: <6.7Normal 6.7-10.0Borderline >10.0 Abnormal after 08/21/2016
--- OUTSIDE RECORDS SUMMARY | 2017-08-22 21:58 | XMS REPORT ---
:1940 [facility] Address [address] [place] [address] [address] [place] [address] Care Team Providers Name Role Phone Eli CHOUDHARY Unavailable Unavailable Problems This patient has no known problems. Allergies, Adverse Reactions, Alerts This patient has no known allergies or adverse reactions. Medications This patient has no known medications. Results Test Description Test Time Test Comments Text Results Atomic Results Result Comments POCT-GLUCOSE METER 2017-03-25 12:22:00 Test Item Value Reference Range Comments POC-GLUCOSE METER (BEAKER) (test 174 mg/dL 70-110 TESTED AT [facility] [address] [facility] pkut=6852) [facility] [address] BASIC METABOLIC [id number] 09:41:00 Test Item Value Reference Range Comments SODIUM (BEAKER) (test 140 meq/L 136-145 mlic=901) POTASSIUM (BEAKER) (test 3.7 meq/L 3.5-5.1 gcca=679) CHLORIDE (BEAKER) (test 104 meq/L 98-107 jrhr=405) CO2 (BEAKER) (test 28 meq/L 22-29 nupr=294) BLOOD UREA NITROGEN 25 mg/dL 7-21 (BEAKER) (test ippb=245) CREATININE (BEAKER) (test 1.11 mg/dL 0.57-1.25 hctb=966) GLUCOSE RANDOM (BEAKER) 71 mg/dL 70-105 (test xgvi=442) CALCIUM (BEAKER) (test 8.3 mg/dL 8.4-10.2 rtzy=297) EGFR (BEAKER) (test 64 mL/min/1.73 sq m ESTIMATED GFR IS NOT pime=0024) ACCURATE CREATININE CLEARANCE IN PREDICTING GLOMERULAR FILTRATION RATE. ESTIMATED GFR IS NOT APPLICABLE FOR DIALYSIS PATIENTS. B-TYPE NATRIURETIC FACTOR (BNP)2017-03-25 09:40:00 Test Item Value Reference Range Comments B-TYPE NATRIURETIC PEPTIDE (BEAKER) (test 725 pg/mL 0-100 upkl=583) POCT-GLUCOSE [id number] 08:47:00 Test Item Value Reference Range Comments POC-GLUCOSE METER (BEAKER) 99 mg/dL 70-110 TESTED AT [address] (test cdqw=1875) [facility] [address] POCT-GLUCOSE [id number] 21:43:00 Test Item Value Reference Range Comments POC-GLUCOSE METER (BEAKER) 107 mg/dL 70-110 TESTED AT [address] (test zlul=5549) [facility] [address] POCT-GLUCOSE [id number] 17:51:00 Test Item Value Reference Range Comments POC-GLUCOSE METER (BEAKER) 77 mg/dL 70-110 TESTED AT [address] (test skzy=0348) [facility] [address] POCT-GLUCOSE [id number] 17:51:00 Test Item Value Reference Range Comments POC-GLUCOSE METER (BEAKER) 60 mg/dL 70-110 TESTED AT [address] (test jbie=6730) [facility] [address] POCT-GLUCOSE [id number] 12:29:00 Test Item Value Reference Range Comments POC-GLUCOSE METER (BEAKER) 155 mg/dL 70-110 TESTED AT [address] (test iwoh=5297) [facility] [address] POCT-GLUCOSE [id number] 07:30:00 Test Item Value Reference Range Comments POC-GLUCOSE METER (BEAKER) 77 mg/dL 70-110 TESTED AT [address] (test apce=8021) [facility] [address] POCT-GLUCOSE [id number] 22:14:00 Test Item Value Reference Range Comments POC-GLUCOSE METER (BEAKER) 105 mg/dL 70-110 TESTED AT [address] (test arxm=4031) [facility] [address] POCT-GLUCOSE [id number] 19:15:00 Test Item Value Reference Range Comments POC-GLUCOSE METER (BEAKER) 141 mg/dL 70-110 TESTED AT [address] (test pzvu=2737) [facility] [address] POCT-GLUCOSE [id number] 16:59:00 Test Item Value Reference Range Comments POC-GLUCOSE METER (BEAKER) 59 mg/dL 70-110 Notified SILVIA SIMS/TESTED AT [facility] (test yyhw=6726) [address] [place] [address] POCT-GLUCOSE [id number] 12:29:00 Test Item Value Reference Range Comments POC-GLUCOSE METER (BEAKER) 128 mg/dL 70-110 TESTED AT [address] (test wbrc=0414) [facility] [address] POCT-GLUCOSE [id number] 08:44:00 Test Item Value Reference Range Comments POC-GLUCOSE METER (BEAKER) 83 mg/dL 70-110 TESTED AT [address] (test lerm=8788) [facility] [address] POCT-GLUCOSE [id number] 08:34:00 Test Item Value Reference Range Comments POC-GLUCOSE METER (BEAKER) 78 mg/dL 70-110 TESTED AT [address] (test tlme=4212) [facility] [address] BASIC METABOLIC [id number] 07:15:00 Test Item Value Reference Range Comments SODIUM (BEAKER) (test 141 meq/L 136-145 jaki=353) POTASSIUM (BEAKER) (test 3.8 meq/L 3.5-5.1 bojx=857) CHLORIDE (BEAKER) (test 104 meq/L 98-107 ayrj=246) CO2 (BEAKER) (test 26 meq/L 22-29 wrcw=779) BLOOD UREA NITROGEN 32 mg/dL 7-21 (BEAKER) (test enks=080) CREATININE (BEAKER) (test 1.29 mg/dL 0.57-1.25 qgkn=898) GLUCOSE RANDOM (BEAKER) 70 mg/dL 70-105 (test pvdr=710) CALCIUM (BEAKER) (test 7.9 mg/dL 8.4-10.2 qklg=373) EGFR (BEAKER) (test 54 mL/min/1.73 sq m ESTIMATED GFR IS NOT hiwj=2286) ACCURATE CREATININE CLEARANCE IN PREDICTING GLOMERULAR FILTRATION RATE. ESTIMATED GFR IS NOT APPLICABLE FOR DIALYSIS PATIENTS. [id number] 06:56:00 Test Item Value Reference Range Comments MAGNESIUM (BEAKER) (test bpth=827) 1.6 mg/dL 1.6-2.6 POCT-GLUCOSE [id number] 22:13:00 Test Item Value Reference Range Comments POC-GLUCOSE METER (BEAKER) 99 mg/dL 70-110 TESTED AT [facility] [address] [facility] (test tolm=3334) [facility] [address] POCT-GLUCOSE [id number] 17:29:00 Test Item Value Reference Range Comments POC-GLUCOSE METER (BEAKER) 97 mg/dL 70-110 TESTED AT [facility] [address] [facility] (test sgve=2664) [facility] [address] POCT-GLUCOSE [id number] 17:11:00 Test Item Value Reference Range Comments POC-GLUCOSE METER (BEAKER) 65 mg/dL 70-110 Notified SILVIA SIMS/TESTED AT [facility] (test edkm=1018) [address] [facility] [address] BASIC METABOLIC [id number] 11:20:00 Test Item Value Reference Range Comments SODIUM (BEAKER) (test 139 meq/L 136-145 bsdq=529) POTASSIUM (BEAKER) (test 3.9 meq/L 3.5-5.1 mgyj=339) CHLORIDE (BEAKER) (test 103 meq/L 98-107 tuze=353) CO2 (BEAKER) (test 28 meq/L 22-29 mwab=686) BLOOD UREA NITROGEN 28 mg/dL 7-21 (BEAKER) (test bvul=715) CREATININE (BEAKER) (test 1.26 mg/dL 0.57-1.25 qupk=949) GLUCOSE RANDOM (BEAKER) 119 mg/dL 70-105 (test hyds=632) CALCIUM (BEAKER) (test 7.7 mg/dL 8.4-10.2 dzic=516) EGFR (BEAKER) (test 55 mL/min/1.73 sq m ESTIMATED GFR IS NOT gjnh=6025) ACCURATE CREATININE CLEARANCE IN PREDICTING GLOMERULAR FILTRATION RATE. ESTIMATED GFR IS NOT APPLICABLE FOR DIALYSIS PATIENTS. [id number] 11:15:00 Test Item Value Reference Range Comments MAGNESIUM (BEAKER) (test uksn=689) 1.8 mg/dL 1.6-2.6 CBC W/PLT COUNT & AUTO [id number] 10:52:00 Test Item Value Reference Range Comments WHITE BLOOD CELL COUNT (BEAKER) (test otfu=030) 9.4 K/ L 3.5-10.5 RED BLOOD CELL COUNT (BEAKER) (test dryp=203) 2.69 M/ L 4.63-6.08 HEMOGLOBIN (BEAKER) (test okym=772) 8.1 GM/DL 13.7-17.5 HEMATOCRIT (BEAKER) (test vbqe=651) 25.9 % 40.1-51.0 MEAN CORPUSCULAR VOLUME (BEAKER) (test tuio=731) 96.3 fL 79.0-92.2 MEAN CORPUSCULAR HEMOGLOBIN (BEAKER) (test 30.1 pg 25.7-32.2 onbt=151) MEAN CORPUSCULAR HEMOGLOBIN CONC (BEAKER) (test 31.3 GM/DL 32.3-36.5 iqoo=174) RED CELL DISTRIBUTION WIDTH (BEAKER) (test 17.8 % 11.6-14.4 avdh=146) PLATELET COUNT (BEAKER) (test uzgn=229) 274 K/CU MM 150-450 MEAN PLATELET VOLUME (BEAKER) (test lrkj=651) 10.0 fL 9.4-12.4 NUCLEATED RED BLOOD CELLS (BEAKER) (test 0 /100 WBC 0-0 hvrg=065) NEUTROPHILS RELATIVE PERCENT (BEAKER) (test 79 % phns=320) LYMPHOCYTES RELATIVE PERCENT (BEAKER) (test 8 % tpep=580) MONOCYTES RELATIVE PERCENT (BEAKER) (test 10 % mqwt=751) EOSINOPHILS RELATIVE PERCENT (BEAKER) (test 4 % foql=840) BASOPHILS RELATIVE PERCENT (BEAKER) (test 0 % idlt=155) NEUTROPHILS ABSOLUTE COUNT (BEAKER) (test 7.39 K/ L 1.78-5.38 iyqp=554) LYMPHOCYTES ABSOLUTE COUNT (BEAKER) (test 0.72 K/ L 1.32-3.57 nndo=066) MONOCYTES ABSOLUTE COUNT (BEAKER) (test 0.90 K/ L 0.30-0.82 xpke=430) EOSINOPHILS ABSOLUTE COUNT (BEAKER) (test 0.33 K/ L 0.04-0.54 powq=517) BASOPHILS ABSOLUTE COUNT (BEAKER) (test 0.02 K/ L 0.01-0.08 lmdh=514) IMMATURE GRANULOCYTES-RELATIVE PERCENT (BEAKER) 1 % 0-1 (test ygqj=0275) POCT-GLUCOSE [id number] 08:24:00 Test Item Value Reference Range Comments POC-GLUCOSE METER (BEAKER) 127 mg/dL 70-110 TESTED AT [address] (test ndlj=8795) [facility] [address] POCT-GLUCOSE [id number] 22:18:00 Test Item Value Reference Range Comments POC-GLUCOSE METER (BEAKER) 220 mg/dL 70-110 TESTED AT [address] (test aqih=1149) [facility] [address] POCT-GLUCOSE [id number] 16:58:00 Test Item Value Reference Range Comments POC-GLUCOSE METER (BEAKER) 87 mg/dL 70-110 TESTED AT [address] (test cfsk=5054) [facility] [address] POCT-GLUCOSE [id number] 12:47:00 Test Item Value Reference Range Comments POC-GLUCOSE METER (BEAKER) 96 mg/dL 70-110 TESTED AT [address] (test pzww=9251) [facility] [address] POCT-GLUCOSE [id number] 09:40:00 Test Item Value Reference Range Comments POC-GLUCOSE METER (BEAKER) 159 mg/dL 70-110 TESTED AT [address] (test dyop=0201) [facility] [address] BASIC METABOLIC [id number] 07:52:00 Test Item Value Reference Range Comments SODIUM (BEAKER) (test 140 meq/L 136-145 ejgs=511) POTASSIUM (BEAKER) (test 3.7 meq/L 3.5-5.1 eacv=076) CHLORIDE (BEAKER) (test 104 meq/L 98-107 ijew=296) CO2 (BEAKER) (test 28 meq/L 22-29 yurw=761) BLOOD UREA NITROGEN 32 mg/dL 7-21 (BEAKER) (test gcxp=707) CREATININE (BEAKER) (test 1.17 mg/dL 0.57-1.25 fyea=019) GLUCOSE RANDOM (BEAKER) 74 mg/dL 70-105 (test cvro=467) CALCIUM (BEAKER) (test 7.8 mg/dL 8.4-10.2 tack=494) EGFR (BEAKER) (test 60 mL/min/1.73 sq m ESTIMATED GFR IS NOT exlw=9058) ACCURATE CREATININE CLEARANCE IN PREDICTING GLOMERULAR FILTRATION RATE. ESTIMATED GFR IS NOT APPLICABLE FOR DIALYSIS PATIENTS. CBC W/PLT COUNT & AUTO [id number] 06:46:00 Test Item Value Reference Range Comments WHITE BLOOD CELL COUNT (BEAKER) (test bvcs=872) 9.8 K/ L 3.5-10.5 RED BLOOD CELL COUNT (BEAKER) (test yhvc=041) 2.71 M/ L 4.63-6.08 HEMOGLOBIN (BEAKER) (test stob=543) 8.2 GM/DL 13.7-17.5 HEMATOCRIT (BEAKER) (test fqvq=646) 26.1 % 40.1-51.0 MEAN CORPUSCULAR VOLUME (BEAKER) (test xoah=278) 96.3 fL 79.0-92.2 MEAN CORPUSCULAR HEMOGLOBIN (BEAKER) (test 30.3 pg 25.7-32.2 hgvy=999) MEAN CORPUSCULAR HEMOGLOBIN CONC (BEAKER) (test 31.4 GM/DL 32.3-36.5 eusr=908) RED CELL DISTRIBUTION WIDTH (BEAKER) (test 17.8 % 11.6-14.4 tbcw=813) PLATELET COUNT (BEAKER) (test egat=334) 252 K/CU MM 150-450 MEAN PLATELET VOLUME (BEAKER) (test pbtt=998) 10.2 fL 9.4-12.4 NUCLEATED RED BLOOD CELLS (BEAKER) (test 0 /100 WBC 0-0 halv=426) NEUTROPHILS RELATIVE PERCENT (BEAKER) (test 75 % tcvl=908) LYMPHOCYTES RELATIVE PERCENT (BEAKER) (test 11 % sddl=854) MONOCYTES RELATIVE PERCENT (BEAKER) (test 10 % viah=434) EOSINOPHILS RELATIVE PERCENT (BEAKER) (test 4 % payf=909) BASOPHILS RELATIVE PERCENT (BEAKER) (test 0 % nckf=815) NEUTROPHILS ABSOLUTE COUNT (BEAKER) (test 7.29 K/ L 1.78-5.38 bgys=559) LYMPHOCYTES ABSOLUTE COUNT (BEAKER) (test 1.08 K/ L 1.32-3.57 phpe=585) MONOCYTES ABSOLUTE COUNT (BEAKER) (test 0.95 K/ L 0.30-0.82 bhog=694) EOSINOPHILS ABSOLUTE COUNT (BEAKER) (test 0.39 K/ L 0.04-0.54 kyjp=278) BASOPHILS ABSOLUTE COUNT (BEAKER) (test 0.01 K/ L 0.01-0.08 jwjf=960) IMMATURE GRANULOCYTES-RELATIVE PERCENT (BEAKER) 1 % 0-1 (test dbvs=7885) POCT-GLUCOSE [id number] 22:05:00 Test Item Value Reference Range Comments POC-GLUCOSE METER (BEAKER) 121 mg/dL 70-110 TESTED AT [address] (test ikkr=9535) [place] [address]30 POCT-GLUCOSE [id number] 16:47:00 Test Item Value Reference Range Comments POC-GLUCOSE METER (BEAKER) 103 mg/dL 70-110 TESTED AT [address] (test iivb=8846) [place] [address]30 POCT-GLUCOSE [id number] 13:03:00 Test Item Value Reference Range Comments POC-GLUCOSE METER (BEAKER) 107 mg/dL 70-110 TESTED AT [address] (test gokp=0722) [place] [address] POCT-GLUCOSE [id number] 08:19:00 Test Item Value Reference Range Comments POC-GLUCOSE METER (BEAKER) 132 mg/dL 70-110 TESTED AT [address] (test cpbj=5409) [place] [address]30 BASIC METABOLIC [id number] 07:13:00 Test Item Value Reference Range Comments SODIUM (BEAKER) (test 139 meq/L 136-145 nsqw=680) POTASSIUM (BEAKER) (test 4.0 meq/L 3.5-5.1 rkqx=770) CHLORIDE (BEAKER) (test 103 meq/L 98-107 aidr=852) CO2 (BEAKER) (test 27 meq/L 22-29 twnw=271) BLOOD UREA NITROGEN 35 mg/dL 7-21 (BEAKER) (test bvrg=297) CREATININE (BEAKER) (test 1.14 mg/dL 0.57-1.25 ytgy=726) GLUCOSE RANDOM (BEAKER) 110 mg/dL 70-105 (test wbha=852) CALCIUM (BEAKER) (test 7.9 mg/dL 8.4-10.2 qmsj=613) EGFR (BEAKER) (test 62 mL/min/1.73 sq m ESTIMATED GFR IS NOT twud=5790) ACCURATE CREATININE CLEARANCE IN PREDICTING GLOMERULAR FILTRATION RATE. ESTIMATED GFR IS NOT APPLICABLE FOR DIALYSIS PATIENTS. [id number] 06:53:00 Test Item Value Reference Range Comments MAGNESIUM (BEAKER) (test pzgn=231) 1.9 mg/dL 1.6-2.6 B-TYPE NATRIURETIC FACTOR (BNP)2017-03-20 06:52:00 Test Item Value Reference Range Comments B-TYPE NATRIURETIC PEPTIDE (BEAKER) (test 849 pg/mL 0-100 dwiv=261) CBC W/PLT COUNT & AUTO [id number] 06:26:00 Test Item Value Reference Range Comments WHITE BLOOD CELL COUNT (BEAKER) (test aups=715) 10.6 K/ L 3.5-10.5 RED BLOOD CELL COUNT (BEAKER) (test emqi=166) 2.89 M/ L 4.63-6.08 HEMOGLOBIN (BEAKER) (test uyuc=202) 8.5 GM/DL 13.7-17.5 HEMATOCRIT (BEAKER) (test bklr=405) 27.7 % 40.1-51.0 MEAN CORPUSCULAR VOLUME (BEAKER) (test kacu=823) 95.8 fL 79.0-92.2 MEAN CORPUSCULAR HEMOGLOBIN (BEAKER) (test 29.4 pg 25.7-32.2 ivep=613) MEAN CORPUSCULAR HEMOGLOBIN CONC (BEAKER) (test 30.7 GM/DL 32.3-36.5 oqfw=625) RED CELL DISTRIBUTION WIDTH (BEAKER) (test 18.2 % 11.6-14.4 gnad=578) PLATELET COUNT (BEAKER) (test hymm=443) 252 K/CU MM 150-450 MEAN PLATELET VOLUME (BEAKER) (test eafd=271) 10.3 fL 9.4-12.4 NUCLEATED RED BLOOD CELLS (BEAKER) (test 0 /100 WBC 0-0 hykc=670) NEUTROPHILS RELATIVE PERCENT (BEAKER) (test 74 % ruef=595) LYMPHOCYTES RELATIVE PERCENT (BEAKER) (test 12 % bxim=345) MONOCYTES RELATIVE PERCENT (BEAKER) (test 10 % gojp=928) EOSINOPHILS RELATIVE PERCENT (BEAKER) (test 4 % askp=033) BASOPHILS RELATIVE PERCENT (BEAKER) (test 0 % wqwe=144) NEUTROPHILS ABSOLUTE COUNT (BEAKER) (test 7.82 K/ L 1.78-5.38 cktd=931) LYMPHOCYTES ABSOLUTE COUNT (BEAKER) (test 1.22 K/ L 1.32-3.57 zigf=313) MONOCYTES ABSOLUTE COUNT (BEAKER) (test 1.03 K/ L 0.30-0.82 datu=138) EOSINOPHILS ABSOLUTE COUNT (BEAKER) (test 0.37 K/ L 0.04-0.54 kuor=827) BASOPHILS ABSOLUTE COUNT (BEAKER) (test 0.01 K/ L 0.01-0.08 ubgu=226) IMMATURE GRANULOCYTES-RELATIVE PERCENT (BEAKER) 1 % 0-1 (test kdbc=8410) POCT-GLUCOSE [id number] 22:01:00 Test Item Value Reference Range Comments POC-GLUCOSE METER (BEAKER) 166 mg/dL 70-110 TESTED AT [address] (test gapz=7512) [place] [address] POCT-GLUCOSE [id number] 17:31:00 Test Item Value Reference Range Comments POC-GLUCOSE METER (BEAKER) 120 mg/dL 70-110 TESTED AT [address] (test ktzq=1817) [place] [address] RAD, CHEST, 1 VIEW, NON [id number] 16:06:00Reason for exam:->chfShould this be performed at the bedside?->YesFINAL REPORT TECHNIQUE: Frontal chest radiograph dated 03/19/2017. CLINICAL HISTORY: CHF COMPARISON STUDY: Chest radiograph dated 03/14/2017 IMPRESSION: Right PICC is unchanged inposition. Lungs are clear. No pleural effusion or pneumothorax. Cardiomediastinal silhouette is stable in size. No pulmonary edema. Midline sternotomy wires are intact and well aligned. No fracture. Signed: Angeles Wheat Verified Date/Time: 03/19/2017 16:06:30 Reading Location: [facility] Radiology Reading Room POCT-GLUCOSE [id number] 12:02:00 Test Item Value Reference Range Comments POC-GLUCOSE METER (BEAKER) 219 mg/dL 70-110 TESTED AT [address] (test idew=5231) [place] [address] CBC W/PLT COUNT & AUTO [id number] 08:05:00 Test Item Value Reference Range Comments WHITE BLOOD CELL COUNT (BEAKER) (test dgry=818) 13.1 K/ L 3.5-10.5 RED BLOOD CELL COUNT (BEAKER) (test tjcl=994) 2.76 M/ L 4.63-6.08 HEMOGLOBIN (BEAKER) (test rebk=840) 8.2 GM/DL 13.7-17.5 HEMATOCRIT (BEAKER) (test zajq=046) 26.4 % 40.1-51.0 MEAN CORPUSCULAR VOLUME (BEAKER) (test klfi=826) 95.7 fL 79.0-92.2 MEAN CORPUSCULAR HEMOGLOBIN (BEAKER) (test 29.7 pg 25.7-32.2 wqsp=286) MEAN CORPUSCULAR HEMOGLOBIN CONC (BEAKER) (test 31.1 GM/DL 32.3-36.5 jfjm=237) RED CELL DISTRIBUTION WIDTH (BEAKER) (test 18.5 % 11.6-14.4 iwoj=204) PLATELET COUNT (BEAKER) (test qjno=382) 253 K/CU MM 150-450 MEAN PLATELET VOLUME (BEAKER) (test zlpb=560) 10.7 fL 9.4-12.4 NUCLEATED RED BLOOD CELLS (BEAKER) (test 0 /100 WBC 0-0 qpwf=361) NEUTROPHILS RELATIVE PERCENT (BEAKER) (test 76 % mnzr=100) LYMPHOCYTES RELATIVE PERCENT (BEAKER) (test 11 % uauz=359) MONOCYTES RELATIVE PERCENT (BEAKER) (test 9 % unkv=756) EOSINOPHILS RELATIVE PERCENT (BEAKER) (test 3 % qjwj=472) BASOPHILS RELATIVE PERCENT (BEAKER) (test 0 % ibue=230) NEUTROPHILS ABSOLUTE COUNT (BEAKER) (test 9.91 K/ L 1.78-5.38 dzap=403) LYMPHOCYTES ABSOLUTE COUNT (BEAKER) (test 1.38 K/ L 1.32-3.57 sfca=109) MONOCYTES ABSOLUTE COUNT (BEAKER) (test 1.17 K/ L 0.30-0.82 gbta=677) EOSINOPHILS ABSOLUTE COUNT (BEAKER) (test 0.39 K/ L 0.04-0.54 zqcj=544) BASOPHILS ABSOLUTE COUNT (BEAKER) (test 0.02 K/ L 0.01-0.08 pylx=801) IMMATURE GRANULOCYTES-RELATIVE PERCENT (BEAKER) 2 % 0-1 (test guvh=1934) POCT-GLUCOSE [id number] 07:47:00 Test Item Value Reference Range Comments POC-GLUCOSE METER (BEAKER) 132 mg/dL 70-110 TESTED AT [address] (test yiah=6609) [place] [id number] BASIC METABOLIC [id number] 07:41:00 Test Item Value Reference Range Comments SODIUM (BEAKER) (test 142 meq/L 136-145 ddsp=157) POTASSIUM (BEAKER) (test 4.0 meq/L 3.5-5.1 sukv=953) CHLORIDE (BEAKER) (test 105 meq/L 98-107 eobf=739) CO2 (BEAKER) (test 29 meq/L 22-29 dkps=575) BLOOD UREA NITROGEN 38 mg/dL 7-21 (BEAKER) (test bkjb=963) CREATININE (BEAKER) (test 1.02 mg/dL 0.57-1.25 cecb=401) GLUCOSE RANDOM (BEAKER) 114 mg/dL 70-105 (test xfby=171) CALCIUM (BEAKER) (test 7.9 mg/dL 8.4-10.2 euic=237) EGFR (BEAKER) (test 71 mL/min/1.73 sq m ESTIMATED GFR IS NOT miet=7935) ACCURATE CREATININE CLEARANCE IN PREDICTING GLOMERULAR FILTRATION RATE. ESTIMATED GFR IS NOT APPLICABLE FOR DIALYSIS PATIENTS. [id number] 07:31:00 Test Item Value Reference Range Comments MAGNESIUM (BEAKER) (test xdln=664) 1.5 mg/dL 1.6-2.6 POCT-GLUCOSE [id number] 22:20:00 Test Item Value Reference Range Comments POC-GLUCOSE METER (BEAKER) 161 mg/dL 70-110 TESTED AT [address] (test hars=6716) [facility] [address] POCT-GLUCOSE [id number] 17:02:00 Test Item Value Reference Range Comments POC-GLUCOSE METER (BEAKER) 149 mg/dL 70-110 TESTED AT [address] (test wfxx=7755) [facility] [address] POCT-GLUCOSE [id number] 12:17:00 Test Item Value Reference Range Comments POC-GLUCOSE METER (BEAKER) 145 mg/dL 70-110 TESTED AT [address] (test skcq=9494) [place] [address] POCT-GLUCOSE [id number] 09:00:00 Test Item Value Reference Range Comments POC-GLUCOSE METER (BEAKER) 133 mg/dL 70-110 TESTED AT [facility] [address] [facility] (test sauk=0890) [facility] [address] BASIC METABOLIC [id number] 06:55:00 Test Item Value Reference Range Comments SODIUM (BEAKER) (test 142 meq/L 136-145 fjck=866) POTASSIUM (BEAKER) (test 4.6 meq/L 3.5-5.1 ouls=979) CHLORIDE (BEAKER) (test 112 meq/L 98-107 xkmn=097) CO2 (BEAKER) (test 24 meq/L 22-29 jbyq=982) BLOOD UREA NITROGEN 42 mg/dL 7-21 (BEAKER) (test bokn=047) CREATININE (BEAKER) (test 0.87 mg/dL 0.57-1.25 evrq=633) GLUCOSE RANDOM (BEAKER) 121 mg/dL 70-105 (test qqce=945) CALCIUM (BEAKER) (test 7.8 mg/dL 8.4-10.2 okdm=476) EGFR (BEAKER) (test 85 mL/min/1.73 sq m ESTIMATED GFR IS NOT twhh=7019) ACCURATE CREATININE CLEARANCE IN PREDICTING GLOMERULAR FILTRATION RATE. ESTIMATED GFR IS NOT APPLICABLE FOR DIALYSIS PATIENTS. [id number] 06:53:00 Test Item Value Reference Range Comments MAGNESIUM (BEAKER) (test oumh=684) 1.5 mg/dL 1.6-2.6 CBC W/PLT COUNT & AUTO [id number] 06:27:00 Test Item Value Reference Range Comments WHITE BLOOD CELL COUNT (BEAKER) (test agao=310) 12.9 K/ L 3.5-10.5 RED BLOOD CELL COUNT (BEAKER) (test xqcx=040) 2.60 M/ L 4.63-6.08 HEMOGLOBIN (BEAKER) (test nyua=272) 7.7 GM/DL 13.7-17.5 HEMATOCRIT (BEAKER) (test gzpm=734) 24.8 % 40.1-51.0 MEAN CORPUSCULAR VOLUME (BEAKER) (test mepn=619) 95.4 fL 79.0-92.2 MEAN CORPUSCULAR HEMOGLOBIN (BEAKER) (test 29.6 pg 25.7-32.2 zvzs=841) MEAN CORPUSCULAR HEMOGLOBIN CONC (BEAKER) (test 31.0 GM/DL 32.3-36.5 bted=881) RED CELL DISTRIBUTION WIDTH (BEAKER) (test 18.1 % 11.6-14.4 eeze=240) PLATELET COUNT (BEAKER) (test rpyx=137) 222 K/CU MM 150-450 MEAN PLATELET VOLUME (BEAKER) (test ugaz=636) 10.3 fL 9.4-12.4 NUCLEATED RED BLOOD CELLS (BEAKER) (test 0 /100 WBC 0-0 ujrc=333) NEUTROPHILS RELATIVE PERCENT (BEAKER) (test 77 % ypnu=951) LYMPHOCYTES RELATIVE PERCENT (BEAKER) (test 10 % hlzy=813) MONOCYTES RELATIVE PERCENT (BEAKER) (test 10 % bkgu=240) EOSINOPHILS RELATIVE PERCENT (BEAKER) (test 2 % nucb=281) BASOPHILS RELATIVE PERCENT (BEAKER) (test 0 % atud=951) NEUTROPHILS ABSOLUTE COUNT (BEAKER) (test 9.86 K/ L 1.78-5.38 zyew=205) LYMPHOCYTES ABSOLUTE COUNT (BEAKER) (test 1.30 K/ L 1.32-3.57 pbye=938) MONOCYTES ABSOLUTE COUNT (BEAKER) (test 1.30 K/ L 0.30-0.82 bcie=394) EOSINOPHILS ABSOLUTE COUNT (BEAKER) (test 0.25 K/ L 0.04-0.54 wlpf=269) BASOPHILS ABSOLUTE COUNT (BEAKER) (test 0.00 K/ L 0.01-0.08 rkew=083) IMMATURE GRANULOCYTES-RELATIVE PERCENT (BEAKER) 1 % 0-1 (test edrj=7368) POCT-GLUCOSE [id number] 21:42:00 Test Item Value Reference Range Comments POC-GLUCOSE METER (BEAKER) 199 mg/dL 70-110 TESTED AT [address] (test wgkm=6771) [facility] [address] POCT-GLUCOSE [id number] 17:08:00 Test Item Value Reference Range Comments POC-GLUCOSE METER (BEAKER) 189 mg/dL 70-110 TESTED AT [address] (test zbxv=5114) [facility] [address] POCT-GLUCOSE [id number] 12:58:00 Test Item Value Reference Range Comments POC-GLUCOSE METER (BEAKER) 185 mg/dL 70-110 TESTED AT [facility] [address] [facility] (test qqge=6473) [facility] [address] POCT-GLUCOSE [id number] 08:35:00 Test Item Value Reference Range Comments POC-GLUCOSE METER (BEAKER) 144 mg/dL 70-110 TESTED AT [facility] [address] [facility] (test qmlt=0217) [facility] [address] BASIC METABOLIC [id number] 05:38:00 Test Item Value Reference Range Comments SODIUM (BEAKER) (test 140 meq/L 136-145 xori=031) POTASSIUM (BEAKER) (test 4.7 meq/L 3.5-5.1 ypfq=337) CHLORIDE (BEAKER) (test 111 meq/L 98-107 zeex=215) CO2 (BEAKER) (test 24 meq/L 22-29 knex=062) BLOOD UREA NITROGEN 46 mg/dL 7-21 (BEAKER) (test nkxq=675) CREATININE (BEAKER) (test 0.97 mg/dL 0.57-1.25 kbjb=140) GLUCOSE RANDOM (BEAKER) 136 mg/dL 70-105 (test atqi=281) CALCIUM (BEAKER) (test 7.4 mg/dL 8.4-10.2 ntmm=733) EGFR (BEAKER) (test 75 mL/min/1.73 sq m ESTIMATED GFR IS NOT xmgz=0500) ACCURATE CREATININE CLEARANCE IN PREDICTING GLOMERULAR FILTRATION RATE. ESTIMATED GFR IS NOT APPLICABLE FOR DIALYSIS PATIENTS. [id number] 05:33:00 Test Item Value Reference Range Comments MAGNESIUM (BEAKER) (test vcek=061) 1.8 mg/dL 1.6-2.6 CBC W/PLT COUNT & AUTO [id number] 05:03:00 Test Item Value Reference Range Comments WHITE BLOOD CELL COUNT (BEAKER) (test yusj=464) 12.4 K/ L 3.5-10.5 RED BLOOD CELL COUNT (BEAKER) (test wpec=399) 2.34 M/ L 4.63-6.08 HEMOGLOBIN (BEAKER) (test vtfb=918) 7.1 GM/DL 13.7-17.5 HEMATOCRIT (BEAKER) (test aurz=276) 22.1 % 40.1-51.0 MEAN CORPUSCULAR VOLUME (BEAKER) (test tbea=263) 94.4 fL 79.0-92.2 MEAN CORPUSCULAR HEMOGLOBIN (BEAKER) (test 30.3 pg 25.7-32.2 nkgi=184) MEAN CORPUSCULAR HEMOGLOBIN CONC (BEAKER) (test 32.1 GM/DL 32.3-36.5 stbt=113) RED CELL DISTRIBUTION WIDTH (BEAKER) (test 15.3 % 11.6-14.4 uweq=510) PLATELET COUNT (BEAKER) (test zehs=105) 241 K/CU MM 150-450 MEAN PLATELET VOLUME (BEAKER) (test yviv=495) 10.3 fL 9.4-12.4 NUCLEATED RED BLOOD CELLS (BEAKER) (test 1 /100 WBC 0-0 lpcx=317) NEUTROPHILS RELATIVE PERCENT (BEAKER) (test 79 % oayf=407) LYMPHOCYTES RELATIVE PERCENT (BEAKER) (test 9 % xgma=765) MONOCYTES RELATIVE PERCENT (BEAKER) (test 10 % cniv=092) EOSINOPHILS RELATIVE PERCENT (BEAKER) (test 1 % yacv=492) BASOPHILS RELATIVE PERCENT (BEAKER) (test 0 % wjrb=206) NEUTROPHILS ABSOLUTE COUNT (BEAKER) (test 9.72 K/ L 1.78-5.38 juea=816) LYMPHOCYTES ABSOLUTE COUNT (BEAKER) (test 1.07 K/ L 1.32-3.57 utwt=481) MONOCYTES ABSOLUTE COUNT (BEAKER) (test 1.27 K/ L 0.30-0.82 ujnp=291) EOSINOPHILS ABSOLUTE COUNT (BEAKER) (test 0.11 K/ L 0.04-0.54 hvhf=392) BASOPHILS ABSOLUTE COUNT (BEAKER) (test 0.00 K/ L 0.01-0.08 supf=401) IMMATURE GRANULOCYTES-RELATIVE PERCENT (BEAKER) 2 % 0-1 (test oxhq=6847) POCT-GLUCOSE [id number] 21:31:00 Test Item Value Reference Range Comments POC-GLUCOSE METER (BEAKER) 234 mg/dL 70-110 TESTED AT [facility] [address] [facility] (test hpqv=2395) [facility] [address] CLOSTRIDIUM DIFFICILE TOXIN [id number] 14:08:00 Test Item Value Reference Range Comments CLOSTRIDIUM DIFFICILE TOXIN, PCR (BEAKER) (test Detected Not Detected uhwf=3186) This qualitative real-time polymerase chain reaction assay detects the tcdB gene , encoded on the C.difficile pathogenicity locus (PaLoc). The product of tcdB, toxin B, is a cytotoxin essential for causing C.difficile-associated disease ( CDAD) and is found in virtually all toxigenic C.difficile.This assay is performed for patients suspected of having either community-acquired or nosocomial CDAD. Accordingly, only symptomatic patients should be tested and formed stools will be rejected unless ileus is present (i.e., specified when ordering). Patients may be colonized with toxigenic C.difficile strains not causing active disease; therefore, clinical correlation is needed when deciding how to manage patients with a positive test result.The assay has not been validated as a test of cure as amplifiable nucleic acid may persist after effective treatment; therefore, follow-up testing of a positive result is not recommended.POCT-GLUCOSE [id number] 13:58:00 Test Item Value Reference Range Comments POC-GLUCOSE METER ([employer]) 186 mg/dL 70-110 TESTED AT [address] (test iljd=8626) [place] [address] POCT-GLUCOSE [id number] 12:45:00 Test Item Value Reference Range Comments POC-GLUCOSE METER ([employer]) 189 mg/dL 70-110 TESTED AT [address] (test yetv=0745) [place] [address] CBC W/PLT COUNT & AUTO [id number] 07:52:00 Test Item Value Reference Range Comments WHITE BLOOD CELL COUNT 14.0 K/ L 3.5-10.5 (BEAKER) (test fxda=329) RED BLOOD CELL COUNT (BEAKER) 2.91 M/ L 4.63-6.08 (test omed=982) HEMOGLOBIN (BEAKER) (test 8.6 GM/DL 13.7-17.5 Discordant result compared jerd=119) to previous result; clinical correlation required. HEMATOCRIT (BEAKER) (test 26.5 % 40.1-51.0 prgc=918) MEAN CORPUSCULAR VOLUME 91.1 fL 79.0-92.2 (BEAKER) (test bynu=473) MEAN CORPUSCULAR HEMOGLOBIN 29.6 pg 25.7-32.2 (BEAKER) (test jcvy=903) MEAN CORPUSCULAR HEMOGLOBIN 32.5 GM/DL 32.3-36.5 CONC (BEAKER) (test qjuz=726) RED CELL DISTRIBUTION WIDTH 14.7 % 11.6-14.4 (BEAKER) (test xocx=384) PLATELET COUNT (BEAKER) (test 268 K/CU MM 150-450 Discordant result compared expz=039) to previous result; clinical correlation required. MEAN PLATELET VOLUME (BEAKER) 10.7 fL 9.4-12.4 (test gaub=885) NUCLEATED RED BLOOD CELLS 0 /100 WBC 0-0 (BEAKER) (test ahtc=878) NEUTROPHILS RELATIVE PERCENT 78 % (BEAKER) (test dnvo=723) LYMPHOCYTES RELATIVE PERCENT 9 % (BEAKER) (test obyw=225) MONOCYTES RELATIVE PERCENT 11 % (BEAKER) (test sahk=613) EOSINOPHILS RELATIVE PERCENT 0 % (BEAKER) (test pdbj=190) BASOPHILS RELATIVE PERCENT 0 % (BEAKER) (test wars=698) NEUTROPHILS ABSOLUTE COUNT 10.94 K/ L 1.78-5.38 (BEAKER) (test inwx=189) LYMPHOCYTES ABSOLUTE COUNT 1.19 K/ L 1.32-3.57 (BEAKER) (test ffnf=789) MONOCYTES ABSOLUTE COUNT 1.52 K/ L 0.30-0.82 (BEAKER) (test eqsy=058) EOSINOPHILS ABSOLUTE COUNT 0.04 K/ L 0.04-0.54 (BEAKER) (test kfyx=708) BASOPHILS ABSOLUTE COUNT 0.01 K/ L 0.01-0.08 (BEAKER) (test sfko=800) IMMATURE 2 % 0-1 GRANULOCYTES-RELATIVE PERCENT (BEAKER) (test parp=6398) BASIC METABOLIC [id number] 07:35:00 Test Item Value Reference Range Comments SODIUM (BEAKER) (test 143 meq/L 136-145 qjry=606) POTASSIUM (BEAKER) (test 4.8 meq/L 3.5-5.1 scjy=577) CHLORIDE (BEAKER) (test 112 meq/L 98-107 dvxm=677) CO2 (BEAKER) (test 24 meq/L 22-29 ayre=738) BLOOD UREA NITROGEN 67 mg/dL 7-21 (BEAKER) (test kozm=129) CREATININE (BEAKER) (test 1.03 mg/dL 0.57-1.25 qari=828) GLUCOSE RANDOM (BEAKER) 139 mg/dL 70-105 (test jyrh=254) CALCIUM (BEAKER) (test 7.5 mg/dL 8.4-10.2 tvzb=860) EGFR (BEAKER) (test 70 mL/min/1.73 sq m ESTIMATED GFR IS NOT vlzf=6276) ACCURATE CREATININE CLEARANCE IN PREDICTING GLOMERULAR FILTRATION RATE. ESTIMATED GFR IS NOT APPLICABLE FOR DIALYSIS PATIENTS. [id number] 07:27:00 Test Item Value Reference Range Comments MAGNESIUM (BEAKER) (test olyt=167) 2.0 mg/dL 1.6-2.6 POCT-GLUCOSE [id number] 21:41:00 Test Item Value Reference Range Comments POC-GLUCOSE METER (BEAKER) 182 mg/dL 70-110 TESTED AT [address] (test rbmq=0386) [place] [id number] POCT-GLUCOSE [id number] 17:23:00 Test Item Value Reference Range Comments POC-GLUCOSE METER (BEAKER) 306 mg/dL 70-110 Notified SILVIA SIMS/TESTED AT [facility] (test gvdf=4422) [address] [place], [place] [id number] POCT-GLUCOSE [id number] 12:16:00 Test Item Value Reference Range Comments POC-GLUCOSE METER (BEAKER) 220 mg/dL 70-110 TESTED AT [address] (test airk=2277) [facility] [address] BLOOD [id number] 11:00:00 Test Item Value Reference Range Comments CULTURE (BEAKER) (test dyxa=0994) No growth in 5 days BLOOD [id number] 11:00:00 Test Item Value Reference Range Comments CULTURE (BEAKER) (test cqkk=1007) No growth in 5 days HEMOGLOBIN AND [id number] 10:15:00 Test Item Value Reference Range Comments HEMOGLOBIN (BEAKER) (test poii=067) 5.6 GM/DL 13.7-17.5 HEMATOCRIT (BEAKER) (test oeom=650) 17.6 % 40.1-51.0 POCT-GLUCOSE [id number] 07:49:00 Test Item Value Reference Range Comments POC-GLUCOSE METER (BEAKER) 171 mg/dL 70-110 TESTED AT [address] (test snph=6507) [facility] [address] CBC W/PLT COUNT & AUTO [id number] 07:11:00 Test Item Value Reference Range Comments WHITE BLOOD CELL COUNT (BEAKER) (test vupk=788) 13.0 K/ L 3.5-10.5 RED BLOOD CELL COUNT (BEAKER) (test aaen=002) 2.11 M/ L 4.63-6.08 HEMOGLOBIN (BEAKER) (test rgfc=322) 6.3 GM/DL 13.7-17.5 HEMATOCRIT (BEAKER) (test vcvx=134) 19.4 % 40.1-51.0 MEAN CORPUSCULAR VOLUME (BEAKER) (test ostq=346) 91.9 fL 79.0-92.2 MEAN CORPUSCULAR HEMOGLOBIN (BEAKER) (test 29.9 pg 25.7-32.2 zzhn=792) MEAN CORPUSCULAR HEMOGLOBIN CONC (BEAKER) (test 32.5 GM/DL 32.3-36.5 eays=560) RED CELL DISTRIBUTION WIDTH (BEAKER) (test 14.9 % 11.6-14.4 habn=211) PLATELET COUNT (BEAKER) (test ewhj=521) 335 K/CU MM 150-450 MEAN PLATELET VOLUME (BEAKER) (test ovfi=914) 10.7 fL 9.4-12.4 NUCLEATED RED BLOOD CELLS (BEAKER) (test 0 /100 WBC 0-0 rtyv=083) NEUTROPHILS RELATIVE PERCENT (BEAKER) (test 80 % cxkx=489) LYMPHOCYTES RELATIVE PERCENT (BEAKER) (test 8 % seuh=766) MONOCYTES RELATIVE PERCENT (BEAKER) (test 11 % cvaz=552) EOSINOPHILS RELATIVE PERCENT (BEAKER) (test 0 % ruwg=849) BASOPHILS RELATIVE PERCENT (BEAKER) (test 0 % cmgy=678) NEUTROPHILS ABSOLUTE COUNT (BEAKER) (test 10.37 K/ L 1.78-5.38 swcg=193) LYMPHOCYTES ABSOLUTE COUNT (BEAKER) (test 1.02 K/ L 1.32-3.57 kghh=392) MONOCYTES ABSOLUTE COUNT (BEAKER) (test 1.48 K/ L 0.30-0.82 oqdh=284) EOSINOPHILS ABSOLUTE COUNT (BEAKER) (test 0.00 K/ L 0.04-0.54 ofmb=838) BASOPHILS ABSOLUTE COUNT (BEAKER) (test 0.00 K/ L 0.01-0.08 ubol=430) IMMATURE GRANULOCYTES-RELATIVE PERCENT (BEAKER) 1 % 0-1 (test lrpx=3404) CBC W/PLT COUNT & AUTO [id number] 04:21:00 Test Item Value Reference Range Comments WHITE BLOOD CELL COUNT (BEAKER) (test uncc=367) 11.0 K/ L 3.5-10.5 RED BLOOD CELL COUNT (BEAKER) (test uxqk=160) 2.38 M/ L 4.63-6.08 HEMOGLOBIN (BEAKER) (test pkxa=571) 6.9 GM/DL 13.7-17.5 HEMATOCRIT (BEAKER) (test oajc=636) 21.3 % 40.1-51.0 MEAN CORPUSCULAR VOLUME (BEAKER) (test ybsd=731) 89.5 fL 79.0-92.2 MEAN CORPUSCULAR HEMOGLOBIN (BEAKER) (test 29.0 pg 25.7-32.2 dphq=906) MEAN CORPUSCULAR HEMOGLOBIN CONC (BEAKER) (test 32.4 GM/DL 32.3-36.5 weia=133) RED CELL DISTRIBUTION WIDTH (BEAKER) (test 14.6 % 11.6-14.4 hxea=274) PLATELET COUNT (BEAKER) (test oygo=478) 342 K/CU MM 150-450 MEAN PLATELET VOLUME (BEAKER) (test ncas=430) 10.6 fL 9.4-12.4 NUCLEATED RED BLOOD CELLS (BEAKER) (test 0 /100 WBC 0-0 hjxx=659) NEUTROPHILS RELATIVE PERCENT (BEAKER) (test 84 % hifo=500) LYMPHOCYTES RELATIVE PERCENT (BEAKER) (test 4 % gdli=904) MONOCYTES RELATIVE PERCENT (BEAKER) (test 11 % yikm=684) EOSINOPHILS RELATIVE PERCENT (BEAKER) (test 0 % vgge=740) BASOPHILS RELATIVE PERCENT (BEAKER) (test 0 % ocry=311) NEUTROPHILS ABSOLUTE COUNT (BEAKER) (test 9.22 K/ L 1.78-5.38 zzwl=420) LYMPHOCYTES ABSOLUTE COUNT (BEAKER) (test 0.45 K/ L 1.32-3.57 xfoo=128) MONOCYTES ABSOLUTE COUNT (BEAKER) (test 1.18 K/ L 0.30-0.82 djzo=553) EOSINOPHILS ABSOLUTE COUNT (BEAKER) (test 0.00 K/ L 0.04-0.54 ilcb=373) BASOPHILS ABSOLUTE COUNT (BEAKER) (test 0.01 K/ L 0.01-0.08 zgkx=269) IMMATURE GRANULOCYTES-RELATIVE PERCENT (BEAKER) 1 % 0-1 (test nkgw=6880) BASIC METABOLIC [id number] 01:04:00 Test Item Value Reference Range Comments SODIUM (BEAKER) (test 138 meq/L 136-145 cgin=409) POTASSIUM (BEAKER) (test 5.1 meq/L 3.5-5.1 dxwe=073) CHLORIDE (BEAKER) (test 107 meq/L 98-107 bkfc=934) CO2 (BEAKER) (test 25 meq/L 22-29 cslz=801) BLOOD UREA NITROGEN 88 mg/dL 7-21 (BEAKER) (test riel=322) CREATININE (BEAKER) (test 1.20 mg/dL 0.57-1.25 udvl=884) GLUCOSE RANDOM (BEAKER) 191 mg/dL 70-105 (test gbza=297) CALCIUM (BEAKER) (test 7.2 mg/dL 8.4-10.2 eord=905) EGFR (BEAKER) (test 59 mL/min/1.73 sq m ESTIMATED GFR IS NOT egrr=9261) ACCURATE CREATININE CLEARANCE IN PREDICTING GLOMERULAR FILTRATION RATE. ESTIMATED GFR IS NOT APPLICABLE FOR DIALYSIS PATIENTS. [id number] 00:54:00 Test Item Value Reference Range Comments MAGNESIUM (BEAKER) (test whlq=127) 2.3 mg/dL 1.6-2.6 POCT-GLUCOSE [id number] 21:30:00 Test Item Value Reference Range Comments POC-GLUCOSE METER (BEAKER) 212 mg/dL 70-110 TESTED AT [facility] [address] [facility] (test cwpr=5082) [place] [address] RAD, ABDOMEN/KUB, 1 VIEW [id number] 19:47:00Reason for exam:->abdominal painFINAL REPORT Comparison examination: None Abdomen: Nonspecific bowel gas pattern. Mildly distended air-filled stomach. Several partially fluid-filled loops of small bowel. No free intraperitoneal air. Posterior surgical constructs stabilize L3-L5. No acute skeletal abnormalities. IMPRESSION: Nonspecific bowel gas pattern. Impression: No acute abnormalities. Signed: Tejas Gomez MDReport Verified Date/Time: 03/14/2017 19:47:30 Reading Location: [facility] C013X Ortho Consult Reading Room POCT-GLUCOSE [id number] 18:07: 00 Test Item Value Reference Range Comments POC-GLUCOSE METER (BEAKER) 285 mg/dL 70-110 TESTED AT [address] (test krpg=4497) [place] [address] RAD, CHEST, 1 VIEW, NON [id number] 17:31:00Reason for exam:->shortness of breathShould this be performed at the bedside?->YesFINAL REPORT AP chest HISTORY: Shortness of breath COMPARISON: 03/11/2017 IMPRESSION:Cardiomegaly noted. Right arm PICC present with tip at upper SVC. No focal airspace disease, pleural effusion or pneumothorax. Signed: Lulú Rossort Verified Date/Time: 03/14/2017 17:31:55 Reading Location: [facility] C013X Ortho Consult Reading Room URINE [id number] 12:45:00 Test Item Value Reference Range Comments CULTURE (BEAKER) (test dxyb=6915) No growth POCT-GLUCOSE [id number] 12:15:00 Test Item Value Reference Range Comments POC-GLUCOSE METER (BEAKER) 194 mg/dL 70-110 TESTED AT [address] (test hnuz=7367) [place] [address] HEMOGLOBIN AND [id number] 12:10:00 Test Item Value Reference Range Comments HEMOGLOBIN (BEAKER) (test exso=719) 6.3 GM/DL 13.7-17.5 HEMATOCRIT (BEAKER) (test veqv=555) 20.2 % 40.1-51.0 OCCULT BLOOD, [id number] 08:38:00 Test Item Value Reference Range Comments FECAL OCCULT BLOOD (BEAKER) (test ipme=436) Positive Negative POCT-GLUCOSE [id number] 07:50:00 Test Item Value Reference Range Comments POC-GLUCOSE METER (BEAKER) 170 mg/dL 70-110 TESTED AT [facility] [address] [facility] (test drph=7608) [facility] [address] BASIC METABOLIC [id number] 06:57:00 Test Item Value Reference Range Comments SODIUM (BEAKER) (test 136 meq/L 136-145 nvgh=599) POTASSIUM (BEAKER) (test 4.2 meq/L 3.5-5.1 rhbs=174) CHLORIDE (BEAKER) (test 101 meq/L 98-107 gruu=088) CO2 (BEAKER) (test 25 meq/L 22-29 cufr=068) BLOOD UREA NITROGEN 83 mg/dL 7-21 (BEAKER) (test erah=612) CREATININE (BEAKER) (test 1.43 mg/dL 0.57-1.25 mvra=990) GLUCOSE RANDOM (BEAKER) 142 mg/dL 70-105 (test uioi=828) CALCIUM (BEAKER) (test 7.7 mg/dL 8.4-10.2 deeg=616) EGFR (BEAKER) (test 48 mL/min/1.73 sq m ESTIMATED GFR IS NOT zouz=6236) ACCURATE CREATININE CLEARANCE IN PREDICTING GLOMERULAR FILTRATION RATE. ESTIMATED GFR IS NOT APPLICABLE FOR DIALYSIS PATIENTS. [id number] 06:37:00 Test Item Value Reference Range Comments MAGNESIUM (BEAKER) (test bbtv=183) 2.3 mg/dL 1.6-2.6 CBC W/PLT COUNT & AUTO [id number] 05:33:00 Test Item Value Reference Range Comments WHITE BLOOD CELL COUNT (BEAKER) (test bwxd=488) 10.6 K/ L 3.5-10.5 RED BLOOD CELL COUNT (BEAKER) (test lqdn=402) 2.48 M/ L 4.63-6.08 HEMOGLOBIN (BEAKER) (test kwto=965) 7.1 GM/DL 13.7-17.5 HEMATOCRIT (BEAKER) (test jvcq=639) 22.5 % 40.1-51.0 MEAN CORPUSCULAR VOLUME (BEAKER) (test cyea=917) 90.7 fL 79.0-92.2 MEAN CORPUSCULAR HEMOGLOBIN (BEAKER) (test 28.6 pg 25.7-32.2 yimi=023) MEAN CORPUSCULAR HEMOGLOBIN CONC (BEAKER) (test 31.6 GM/DL 32.3-36.5 skls=491) RED CELL DISTRIBUTION WIDTH (BEAKER) (test 15.7 % 11.6-14.4 iiwr=547) PLATELET COUNT (BEAKER) (test cweb=470) 455 K/CU MM 150-450 MEAN PLATELET VOLUME (BEAKER) (test stdo=358) 10.7 fL 9.4-12.4 NUCLEATED RED BLOOD CELLS (BEAKER) (test 0 /100 WBC 0-0 zpox=029) NEUTROPHILS RELATIVE PERCENT (BEAKER) (test 84 % sajx=964) LYMPHOCYTES RELATIVE PERCENT (BEAKER) (test 4 % ivey=648) MONOCYTES RELATIVE PERCENT (BEAKER) (test 11 % rmjs=095) EOSINOPHILS RELATIVE PERCENT (BEAKER) (test 0 % ddlf=741) BASOPHILS RELATIVE PERCENT (BEAKER) (test 0 % umnf=195) NEUTROPHILS ABSOLUTE COUNT (BEAKER) (test 8.90 K/ L 1.78-5.38 pnry=518) LYMPHOCYTES ABSOLUTE COUNT (BEAKER) (test 0.43 K/ L 1.32-3.57 uenv=184) MONOCYTES ABSOLUTE COUNT (BEAKER) (test 1.15 K/ L 0.30-0.82 bqms=784) EOSINOPHILS ABSOLUTE COUNT (BEAKER) (test 0.01 K/ L 0.04-0.54 fgvr=821) BASOPHILS ABSOLUTE COUNT (BEAKER) (test 0.00 K/ L 0.01-0.08 fnxb=704) IMMATURE GRANULOCYTES-RELATIVE PERCENT (BEAKER) 1 % 0-1 (test pagg=9107) POCT-GLUCOSE [id number] 00:43:00 Test Item Value Reference Range Comments POC-GLUCOSE METER (BEAKER) 202 mg/dL 70-110 TESTED AT [facility] [address] [facility] (test madf=8392) [facility] [address] RAD, KNEE, COMPLETE (4 VIEWS), [id number] 17:53:00Reason for exam:-> right knee painFINAL REPORT Right knee, four views HISTORY: Knee pain COMPARISON: None. IMPRESSION: No acute displaced fracture or dislocation. Small knee effusion. Prominent vascular calcifications. Signed: Tico Aggarwal MDReport Verified Date/Time: 03/13/2017 17:53:33 Reading Location: [facility] C013W Consult Reading Room POCT-GLUCOSE [id number] 17:04:00 Test Item Value Reference Range Comments POC-GLUCOSE METER (BEAKER) 212 mg/dL 70-110 TESTED AT [place] [id number] [facility] (test uzad=6130) [facility] [address] POCT-GLUCOSE [id number] 12:48:00 Test Item Value Reference Range Comments POC-GLUCOSE METER (BEAKER) 204 mg/dL 70-110 TESTED AT [address] (test ahfs=1908) [facility] [address] POCT-GLUCOSE [id number] 08:31:00 Test Item Value Reference Range Comments POC-GLUCOSE METER (BEAKER) 175 mg/dL 70-110 TESTED AT [place] [id number] [facility] (test smut=9237) [facility] [address] [id number] 06:48:00 Test Item Value Reference Range Comments MAGNESIUM (BEAKER) (test pzqc=970) 2.3 mg/dL 1.6-2.6 BASIC METABOLIC [id number] 06:48:00 Test Item Value Reference Range Comments SODIUM (BEAKER) (test 136 meq/L 136-145 ydhw=815) POTASSIUM (BEAKER) (test 4.2 meq/L 3.5-5.1 wqzc=640) CHLORIDE (BEAKER) (test 100 meq/L 98-107 sfnd=827) CO2 (BEAKER) (test 23 meq/L 22-29 ymln=802) BLOOD UREA NITROGEN 73 mg/dL 7-21 (BEAKER) (test gfnb=903) CREATININE (BEAKER) (test 1.67 mg/dL 0.57-1.25 qvrd=403) GLUCOSE RANDOM (BEAKER) 163 mg/dL 70-105 (test azkz=755) CALCIUM (BEAKER) (test 8.1 mg/dL 8.4-10.2 uhnb=001) EGFR (BEAKER) (test 40 mL/min/1.73 sq m ESTIMATED GFR IS NOT uqri=3842) ACCURATE CREATININE CLEARANCE IN PREDICTING GLOMERULAR FILTRATION RATE. ESTIMATED GFR IS NOT APPLICABLE FOR DIALYSIS PATIENTS. CBC W/PLT COUNT & AUTO [id number] 06:22:00 Test Item Value Reference Range Comments WHITE BLOOD CELL COUNT (BEAKER) (test cjwy=024) 13.9 K/ L 3.5-10.5 RED BLOOD CELL COUNT (BEAKER) (test zimh=332) 2.78 M/ L 4.63-6.08 HEMOGLOBIN (BEAKER) (test ycsy=343) 7.9 GM/DL 13.7-17.5 HEMATOCRIT (BEAKER) (test yrck=148) 25.2 % 40.1-51.0 MEAN CORPUSCULAR VOLUME (BEAKER) (test cdas=253) 90.6 fL 79.0-92.2 MEAN CORPUSCULAR HEMOGLOBIN (BEAKER) (test 28.4 pg 25.7-32.2 gabu=569) MEAN CORPUSCULAR HEMOGLOBIN CONC (BEAKER) (test 31.3 GM/DL 32.3-36.5 pucj=003) RED CELL DISTRIBUTION WIDTH (BEAKER) (test 15.7 % 11.6-14.4 zzxy=533) PLATELET COUNT (BEAKER) (test xwdn=223) 451 K/CU MM 150-450 MEAN PLATELET VOLUME (BEAKER) (test tblg=453) 10.9 fL 9.4-12.4 NUCLEATED RED BLOOD CELLS (BEAKER) (test 0 /100 WBC 0-0 bfoo=487) NEUTROPHILS RELATIVE PERCENT (BEAKER) (test 88 % ighc=661) LYMPHOCYTES RELATIVE PERCENT (BEAKER) (test 3 % ihio=721) MONOCYTES RELATIVE PERCENT (BEAKER) (test 8 % yzmd=582) EOSINOPHILS RELATIVE PERCENT (BEAKER) (test 0 % fokq=244) BASOPHILS RELATIVE PERCENT (BEAKER) (test 0 % nkzk=192) NEUTROPHILS ABSOLUTE COUNT (BEAKER) (test 12.20 K/ L 1.78-5.38 scta=420) LYMPHOCYTES ABSOLUTE COUNT (BEAKER) (test 0.48 K/ L 1.32-3.57 qqny=649) MONOCYTES ABSOLUTE COUNT (BEAKER) (test 1.16 K/ L 0.30-0.82 htmu=947) EOSINOPHILS ABSOLUTE COUNT (BEAKER) (test 0.00 K/ L 0.04-0.54 bdpb=722) BASOPHILS ABSOLUTE COUNT (BEAKER) (test 0.01 K/ L 0.01-0.08 ivcu=937) IMMATURE GRANULOCYTES-RELATIVE PERCENT (BEAKER) 1 % 0-1 (test edsf=6930) POCT-GLUCOSE [id number] 21:09:00 Test Item Value Reference Range Comments POC-GLUCOSE METER (BEAKER) 285 mg/dL 70-110 TESTED AT [address] (test nmoj=0213) [facility] [address] POCT-GLUCOSE [id number] 17:29:00 Test Item Value Reference Range Comments POC-GLUCOSE METER (BEAKER) 206 mg/dL 70-110 TESTED AT [address] (test cudl=0717) [facility] [address] POCT-GLUCOSE [id number] 12:35:00 Test Item Value Reference Range Comments POC-GLUCOSE METER (BEAKER) 175 mg/dL 70-110 TESTED AT [address] (test aehv=7703) [facility] [address] [id number] 12:02:00 Test Item Value Reference Range Comments FERRITIN (BEAKER) (test onev=711) 1371 ng/mL 5-275 VITAMIN B12 AND [id number] 12:02:00 Test Item Value Reference Range Comments VITAMIN B12 (BEAKER) (test zdws=916) 773 pg/mL 213-816 FOLATE (BEAKER) (test rsdx=943) 10.8 ng/mL >=7.0 IRON, TIBC, % SAT. (WITHOUT FERRITIN)2017-03-12 10:30:00 Test Item Value Reference Range Comments IRON (BEAKER) (test psrl=280) 19 ug/dL 40-160 TOTAL IRON BINDING CAPACITY (BEAKER) (test 155 ug/dL 250-450 sqls=656) IRON % SATURATION (2) (BEAKER) (test aehg=3844) 12 % 20-55 URIC [id number] 10:22:00 Test Item Value Reference Range Comments URIC ACID (BEAKER) (test wddy=371) 11.6 mg/dL 2.6-7.2 [id number] 09:49:00 Test Item Value Reference Range Comments PARTIAL THROMBOPLASTIN TIME (BEAKER) (test 37.2 seconds 22.5-36.0 zkhw=316) HEMOGLOBIN AND [id number] 09:41:00 Test Item Value Reference Range Comments HEMOGLOBIN (BEAKER) (test vrqc=065) 8.1 GM/DL 13.7-17.5 HEMATOCRIT (BEAKER) (test twyz=701) 25.9 % 40.1-51.0 POCT-GLUCOSE [id number] 08:44:00 Test Item Value Reference Range Comments POC-GLUCOSE METER (BEAKER) 135 mg/dL 70-110 TESTED AT [facility] [address] [facility] (test qpcx=2252) [facility] [address] BASIC METABOLIC [id number] 07:17:00 Test Item Value Reference Range Comments SODIUM (BEAKER) (test 137 meq/L 136-145 ahys=026) POTASSIUM (BEAKER) (test 3.8 meq/L 3.5-5.1 dacq=966) CHLORIDE (BEAKER) (test 100 meq/L 98-107 khbz=102) CO2 (BEAKER) (test 27 meq/L 22-29 tscs=244) BLOOD UREA NITROGEN 65 mg/dL 7-21 (BEAKER) (test oiyy=606) CREATININE (BEAKER) (test 1.71 mg/dL 0.57-1.25 lfib=604) GLUCOSE RANDOM (BEAKER) 125 mg/dL 70-105 (test ticf=108) CALCIUM (BEAKER) (test 7.7 mg/dL 8.4-10.2 zpax=264) EGFR (BEAKER) (test 39 mL/min/1.73 sq m ESTIMATED GFR IS NOT nxuk=0524) ACCURATE CREATININE CLEARANCE IN PREDICTING GLOMERULAR FILTRATION RATE. ESTIMATED GFR IS NOT APPLICABLE FOR DIALYSIS PATIENTS. CBC W/PLT COUNT & AUTO [id number] 07:11:00 Test Item Value Reference Range Comments WHITE BLOOD CELL COUNT (BEAKER) (test ulwk=740) 13.6 K/ L 3.5-10.5 RED BLOOD CELL COUNT (BEAKER) (test pwck=913) 2.52 M/ L 4.63-6.08 HEMOGLOBIN (BEAKER) (test szdr=768) 7.4 GM/DL 13.7-17.5 HEMATOCRIT (BEAKER) (test uxnd=728) 23.2 % 40.1-51.0 MEAN CORPUSCULAR VOLUME (BEAKER) (test wihf=751) 92.1 fL 79.0-92.2 MEAN CORPUSCULAR HEMOGLOBIN (BEAKER) (test 29.4 pg 25.7-32.2 fdhr=473) MEAN CORPUSCULAR HEMOGLOBIN CONC (BEAKER) (test 31.9 GM/DL 32.3-36.5 dvjz=562) RED CELL DISTRIBUTION WIDTH (BEAKER) (test 15.8 % 11.6-14.4 kfut=947) PLATELET COUNT (BEAKER) (test vqpm=482) 404 K/CU MM 150-450 MEAN PLATELET VOLUME (BEAKER) (test imyx=132) 11.1 fL 9.4-12.4 NUCLEATED RED BLOOD CELLS (BEAKER) (test 0 /100 WBC 0-0 lenj=582) NEUTROPHILS RELATIVE PERCENT (BEAKER) (test 80 % caaq=766) LYMPHOCYTES RELATIVE PERCENT (BEAKER) (test 6 % ykzh=743) MONOCYTES RELATIVE PERCENT (BEAKER) (test 12 % ohwr=830) EOSINOPHILS RELATIVE PERCENT (BEAKER) (test 2 % fgpo=525) BASOPHILS RELATIVE PERCENT (BEAKER) (test 0 % pjra=495) NEUTROPHILS ABSOLUTE COUNT (BEAKER) (test 10.89 K/ L 1.78-5.38 mbgp=614) LYMPHOCYTES ABSOLUTE COUNT (BEAKER) (test 0.76 K/ L 1.32-3.57 ggej=049) MONOCYTES ABSOLUTE COUNT (BEAKER) (test 1.61 K/ L 0.30-0.82 zgdl=690) EOSINOPHILS ABSOLUTE COUNT (BEAKER) (test 0.21 K/ L 0.04-0.54 sqmc=068) BASOPHILS ABSOLUTE COUNT (BEAKER) (test 0.02 K/ L 0.01-0.08 hope=589) IMMATURE GRANULOCYTES-RELATIVE PERCENT (BEAKER) 1 % 0-1 (test ozra=5203) [id number] 07:10:00 Test Item Value Reference Range Comments MAGNESIUM (BEAKER) (test vicb=953) 1.8 mg/dL 1.6-2.6 [id number] 01:45:00 Test Item Value Reference Range Comments PARTIAL THROMBOPLASTIN TIME (BEAKER) (test 64.3 seconds 22.5-36.0 xbot=729) POCT-GLUCOSE [id number] 21:25:00 Test Item Value Reference Range Comments POC-GLUCOSE METER (BEAKER) 193 mg/dL 70-110 TESTED AT [address] (test czmd=6009) [facility] [address] URINALYSIS W/ [id number] 19:13:00 Test Item Value Reference Range Comments COLOR (BEAKER) (test hzar=749) Yellow CLARITY (BEAKER) (test oaah=126) Hazy SPECIFIC GRAVITY UA (BEAKER) (test hdnk=285) 1.017 1.001-1.035 PH UA (BEAKER) (test uqbs=800) 5.0 5.0-8.0 PROTEIN UA (BEAKER) (test hvze=899) 30 mg/dL Negative GLUCOSE UA (BEAKER) (test lrfl=720) Negative Negative KETONES UA (BEAKER) (test wpew=804) Trace Negative BILIRUBIN UA (BEAKER) (test aalp=352) Negative Negative BLOOD UA (BEAKER) (test sfim=871) Trace Negative NITRITE UA (BEAKER) (test boat=820) Negative Negative LEUKOCYTE ESTERASE UA (BEAKER) (test xelh=713) Moderate Negative UROBILINOGEN UA (BEAKER) (test bwmo=399) 2.0 mg/dL 0.2-1.0 RBC UA (BEAKER) (test srdk=682) 6 /HPF WBC UA (BEAKER) (test sdsx=570) 31 /HPF BACTERIA (BEAKER) (test zsrm=662) Occasional MUCUS (BEAKER) (test szif=4485) Few SQUAMOUS EPITHELIAL (BEAKER) (test hvgw=688) 2 /HPF HYALINE CASTS (BEAKER) (test jhud=432) 10 /LPF SOURCE(BEAKER) (test qtjk=0773) Urine, Olmos [id number] 18:13:00 Test Item Value Reference Range Comments PARTIAL THROMBOPLASTIN TIME (BEAKER) (test 40.5 seconds 22.5-36.0 ycpq=180) Prior to initiating heparinPOCT-GLUCOSE [id number] 16:52:00 Test Item Value Reference Range Comments POC-GLUCOSE METER (BEAKER) 200 mg/dL 70-110 TESTED AT [address] (test cuwf=5753) [facility] [address] POCT-LACTIC ACID, [id number] 12:54:00 Test Item Value Reference Range Comments POC-LACTIC ACID, ARTERIAL 0.8 mmol/L 0.4-1.3 TESTED AT [address] (BEAKER) (test pryx=9440) [place] [address] POCT-BLOOD GASES, [id number] 12:54:00 Test Item Value Reference Range Comments TEMP, CELSIUS-POC (BEAKER) 37.0 (test ostz=6714) FIO2-POC (BEAKER) (test TESTED AT [address] vvbu=2693) [place] [address] PH, ARTERIAL-POC (BEAKER) 7.458 7.350-7.450 (test kzwm=6003) PCO2, ARTERIAL-POC (BEAKER) 42.0 mm Hg 35.0-45.0 (test jmdo=9581) PO2, ARTERIAL-POC (BEAKER) 136.0 mm Hg 80.0-90.0 (test qazs=2079) SO2, ARTERIAL-POC (BEAKER) 99.0 % 96.0-97.0 (test vtwj=6660) HCO3, ARTERIAL-POC (BEAKER) 29.7 meq/L 21.0-29.0 (test cowr=9332) BASE EXCESS, ARTERIAL-POC 6.0 meq/L -2.0-3.0 (BEAKER) (test qtvw=8816) [id number] 12:54:00 Test Item Value Reference Range Comments POC-SODIUM (BEAKER) (test 138 meq/L 135-148 TESTED AT [address] qocf=2095) [place] [address] [id number] 12:54:00 Test Item Value Reference Range Comments POC-POTASSIUM (BEAKER) (test 3.7 meq/L 3.6-5.5 TESTED AT [address] tbwz=4253) [place] [address] [id number] 12:54:00 Test Item Value Reference Range Comments POC-GLUCOSE (BEAKER) (test 171 mg/dL 70-110 TESTED AT [address] mwkl=3425) [place] [address] POCT-CALCIUM [id number] 12:54:00 Test Item Value Reference Range Comments POC-CALCIUM IONIZED (BEAKER) 1.08 mmol/L 1.12-1.27 TESTED AT [address] (test wxhq=0083) [place] [address] [id number] 12:54:00 Test Item Value Reference Range Comments POC-HEMATOCRIT (BEAKER) (test 25 % 40-50 TESTED AT [address] yykx=1934) [place] [address] [id number] 12:54:00 Test Item Value Reference Range Comments POC-HEMOGLOBIN (BEAKER) 8.5 g/dL 13.0-16.8 TESTED AT [address] (test jjpi=9485) [place] [address] POCT-GLUCOSE [id number] 12:19:00 Test Item Value Reference Range Comments POC-GLUCOSE METER (BEAKER) 229 mg/dL 70-110 TESTED AT [address] (test qnyw=1663) [place] [address] URINE [id number] 12:15:00 Test Item Value Reference Range Comments CULTURE (BEAKER) (test ecjo=2709) No growth RAD, CHEST, 1 VIEW, NON [id number] 11:46:00Reason for exam:->short of breathShould this be performed at the bedside?->YesFINAL REPORT Chest one view. Clinical history: short of breath Comparison: March 09, 2017 Discussion: A frontal chest is provided. Cardiac silhouette is enlarged. Right PICC line is in stable position. There is mild degree of central vascular prominence. Small bilateral pleural effusions are present, with mild bibasilar atelectasis. No pneumothorax. Status post median sternotomy. No acute osseous abnormality. Signed: Alayna Munoz Verified Date/Time: 03/11/2017 11:46:39 Reading Location: [facility] Radiology Reading Room 11: 46 AMPOCT-GLUCOSE [id number] 08:01:00 Test Item Value Reference Range Comments POC-GLUCOSE METER (BEAKER) 166 mg/dL 70-110 TESTED AT [address] (test mmkw=9728) [facility] [address] BASIC METABOLIC [id number] 06:35:00 Test Item Value Reference Range Comments SODIUM (BEAKER) (test 140 meq/L 136-145 hudm=523) POTASSIUM (BEAKER) (test 3.8 meq/L 3.5-5.1 bxjc=066) CHLORIDE (BEAKER) (test 102 meq/L 98-107 xllr=950) CO2 (BEAKER) (test 27 meq/L 22-29 nrxq=664) BLOOD UREA NITROGEN 57 mg/dL 7-21 (BEAKER) (test sznv=011) CREATININE (BEAKER) (test 1.38 mg/dL 0.57-1.25 smcn=493) GLUCOSE RANDOM (BEAKER) 134 mg/dL 70-105 (test mujy=575) CALCIUM (BEAKER) (test 7.9 mg/dL 8.4-10.2 nhqa=266) EGFR (BEAKER) (test 50 mL/min/1.73 sq m ESTIMATED GFR IS NOT fpob=6482) ACCURATE CREATININE CLEARANCE IN PREDICTING GLOMERULAR FILTRATION RATE. ESTIMATED GFR IS NOT APPLICABLE FOR DIALYSIS PATIENTS. [id number] 06:32:00 Test Item Value Reference Range Comments MAGNESIUM (BEAKER) (test zrdx=367) 1.9 mg/dL 1.6-2.6 CBC W/PLT COUNT & AUTO [id number] 06:18:00 Test Item Value Reference Range Comments WHITE BLOOD CELL COUNT (BEAKER) (test send=154) 13.7 K/ L 3.5-10.5 RED BLOOD CELL COUNT (BEAKER) (test zxue=804) 2.72 M/ L 4.63-6.08 HEMOGLOBIN (BEAKER) (test kdpx=297) 8.0 GM/DL 13.7-17.5 HEMATOCRIT (BEAKER) (test puzr=509) 25.4 % 40.1-51.0 MEAN CORPUSCULAR VOLUME (BEAKER) (test uxaa=675) 93.4 fL 79.0-92.2 MEAN CORPUSCULAR HEMOGLOBIN (BEAKER) (test 29.4 pg 25.7-32.2 gkov=445) MEAN CORPUSCULAR HEMOGLOBIN CONC (BEAKER) (test 31.5 GM/DL 32.3-36.5 wexs=763) RED CELL DISTRIBUTION WIDTH (BEAKER) (test 15.7 % 11.6-14.4 ffnu=503) PLATELET COUNT (BEAKER) (test pxbe=648) 390 K/CU MM 150-450 MEAN PLATELET VOLUME (BEAKER) (test dkxg=962) 10.6 fL 9.4-12.4 NUCLEATED RED BLOOD CELLS (BEAKER) (test 0 /100 WBC 0-0 llie=191) NEUTROPHILS RELATIVE PERCENT (BEAKER) (test 81 % ivkh=992) LYMPHOCYTES RELATIVE PERCENT (BEAKER) (test 5 % wvht=809) MONOCYTES RELATIVE PERCENT (BEAKER) (test 12 % rgvc=997) EOSINOPHILS RELATIVE PERCENT (BEAKER) (test 1 % mjoh=862) BASOPHILS RELATIVE PERCENT (BEAKER) (test 0 % jdoy=246) NEUTROPHILS ABSOLUTE COUNT (BEAKER) (test 11.16 K/ L 1.78-5.38 zqvz=183) LYMPHOCYTES ABSOLUTE COUNT (BEAKER) (test 0.63 K/ L 1.32-3.57 pslv=723) MONOCYTES ABSOLUTE COUNT (BEAKER) (test 1.62 K/ L 0.30-0.82 kbov=843) EOSINOPHILS ABSOLUTE COUNT (BEAKER) (test 0.19 K/ L 0.04-0.54 mwoi=026) BASOPHILS ABSOLUTE COUNT (BEAKER) (test 0.03 K/ L 0.01-0.08 bdrr=370) IMMATURE GRANULOCYTES-RELATIVE PERCENT (BEAKER) 1 % 0-1 (test mzkt=8414) POCT-GLUCOSE [id number] 17:10:00 Test Item Value Reference Range Comments POC-GLUCOSE METER (BEAKER) 127 mg/dL 70-110 TESTED AT [address] (test yojc=4242) [place] [address] POCT-GLUCOSE [id number] 12:25:00 Test Item Value Reference Range Comments POC-GLUCOSE METER (BEAKER) 163 mg/dL 70-110 TESTED AT [address] (test vfxp=7780) [place] [id number] CBC W/PLT COUNT & AUTO [id number] 08:00:00 Test Item Value Reference Range Comments WHITE BLOOD CELL COUNT (BEAKER) (test blzs=593) 14.8 K/ L 3.5-10.5 RED BLOOD CELL COUNT (BEAKER) (test rxmx=118) 2.91 M/ L 4.63-6.08 HEMOGLOBIN (BEAKER) (test iped=734) 8.4 GM/DL 13.7-17.5 HEMATOCRIT (BEAKER) (test qoyv=149) 26.9 % 40.1-51.0 MEAN CORPUSCULAR VOLUME (BEAKER) (test ojpx=907) 92.4 fL 79.0-92.2 MEAN CORPUSCULAR HEMOGLOBIN (BEAKER) (test 28.9 pg 25.7-32.2 tsrq=763) MEAN CORPUSCULAR HEMOGLOBIN CONC (BEAKER) (test 31.2 GM/DL 32.3-36.5 uezu=005) RED CELL DISTRIBUTION WIDTH (BEAKER) (test 15.7 % 11.6-14.4 flwo=230) PLATELET COUNT (BEAKER) (test vrpp=843) 381 K/CU MM 150-450 MEAN PLATELET VOLUME (BEAKER) (test ylcd=051) 11.0 fL 9.4-12.4 NUCLEATED RED BLOOD CELLS (BEAKER) (test 0 /100 WBC 0-0 yxor=095) NEUTROPHILS RELATIVE PERCENT (BEAKER) (test 82 % bfoi=176) LYMPHOCYTES RELATIVE PERCENT (BEAKER) (test 5 % ayiu=279) MONOCYTES RELATIVE PERCENT (BEAKER) (test 10 % vhuf=264) EOSINOPHILS RELATIVE PERCENT (BEAKER) (test 2 % qcof=952) BASOPHILS RELATIVE PERCENT (BEAKER) (test 0 % jeos=336) NEUTROPHILS ABSOLUTE COUNT (BEAKER) (test 12.14 K/ L 1.78-5.38 wlfg=574) LYMPHOCYTES ABSOLUTE COUNT (BEAKER) (test 0.75 K/ L 1.32-3.57 yoti=010) MONOCYTES ABSOLUTE COUNT (BEAKER) (test 1.48 K/ L 0.30-0.82 elmh=602) EOSINOPHILS ABSOLUTE COUNT (BEAKER) (test 0.30 K/ L 0.04-0.54 jypm=005) BASOPHILS ABSOLUTE COUNT (BEAKER) (test 0.03 K/ L 0.01-0.08 tysu=337) IMMATURE GRANULOCYTES-RELATIVE PERCENT (BEAKER) 1 % 0-1 (test udmq=1975) BASIC METABOLIC [id number] 07:57:00 Test Item Value Reference Range Comments SODIUM (BEAKER) (test 138 meq/L 136-145 heiz=044) POTASSIUM (BEAKER) (test 3.5 meq/L 3.5-5.1 srwc=465) CHLORIDE (BEAKER) (test 99 meq/L 98-107 sgri=167) CO2 (BEAKER) (test 26 meq/L 22-29 lvgf=588) BLOOD UREA NITROGEN 55 mg/dL 7-21 (BEAKER) (test gmdq=333) CREATININE (BEAKER) (test 1.50 mg/dL 0.57-1.25 afac=794) GLUCOSE RANDOM (BEAKER) 132 mg/dL 70-105 (test ruhu=102) CALCIUM (BEAKER) (test 7.9 mg/dL 8.4-10.2 pmwb=895) EGFR (BEAKER) (test 45 mL/min/1.73 sq m ESTIMATED GFR IS NOT jikl=6141) ACCURATE CREATININE CLEARANCE IN PREDICTING GLOMERULAR FILTRATION RATE. ESTIMATED GFR IS NOT APPLICABLE FOR DIALYSIS PATIENTS. [id number] 07:42:00 Test Item Value Reference Range Comments MAGNESIUM (BEAKER) (test hwyk=282) 1.9 mg/dL 1.6-2.6 POCT-GLUCOSE [id number] 07:28:00 Test Item Value Reference Range Comments POC-GLUCOSE METER (BEAKER) 145 mg/dL 70-110 TESTED AT [address] (test ivgy=5993) [place] [address] POCT-GLUCOSE [id number] 22:13:00 Test Item Value Reference Range Comments POC-GLUCOSE METER (BEAKER) 170 mg/dL 70-110 TESTED AT [address] (test okis=5886) [place] [address] POCT-GLUCOSE [id number] 17:10:00 Test Item Value Reference Range Comments POC-GLUCOSE METER (BEAKER) 133 mg/dL 70-110 TESTED AT [address] (test czxq=9433) [place] [address] URINALYSIS W/ REFLEX URINE [id number] 16:29:00 Test Item Value Reference Range Comments COLOR (BEAKER) (test avwh=827) Yellow CLARITY (BEAKER) (test azgs=819) Clear SPECIFIC GRAVITY UA (BEAKER) (test yrum=647) 1.009 1.001-1.035 PH UA (BEAKER) (test kwdl=357) 5.0 5.0-8.0 PROTEIN UA (BEAKER) (test bkou=888) 20 mg/dL Negative GLUCOSE UA (BEAKER) (test pltr=491) Negative Negative KETONES UA (BEAKER) (test qovy=323) Negative Negative BILIRUBIN UA (BEAKER) (test fakc=225) Negative Negative BLOOD UA (BEAKER) (test sfrl=367) Small Negative NITRITE UA (BEAKER) (test qywf=807) Negative Negative LEUKOCYTE ESTERASE UA (BEAKER) (test rxnl=360) Moderate Negative UROBILINOGEN UA (BEAKER) (test kimz=802) 0.2 mg/dL 0.2-1.0 RBC UA (BEAKER) (test gfao=647) 2 /HPF WBC UA (BEAKER) (test ltui=870) 9 /HPF BACTERIA (BEAKER) (test fxhg=910) Occasional SQUAMOUS EPITHELIAL (BEAKER) (test fwtg=827) 1 /HPF HYALINE CASTS (BEAKER) (test gxae=365) 17 /LPF SOURCE(BEAKER) (test yflx=5503) HEMOGLOBIN [id number] 11:49:00 Test Item Value Reference Range Comments HEMOGLOBIN A1C (BEAKER) (test hclh=206) 6.0 % 4.3-6.1 POCT-GLUCOSE [id number] 09:00:00 Test Item Value Reference Range Comments POC-GLUCOSE METER (BEAKER) 139 mg/dL 70-110 TESTED AT [facility] [address] [facility] (test gybl=8244) [facility] [address] RAD, CHEST, 1 VIEW, NON [id number] 08:51:00Reason for exam:->s/po cabgShould this be performed at the bedside?->YesFINAL REPORT Two frontal chest images compared to March 08, 2017 Discussion: Sternal wires, right PICC line, cardiac prominence are similar. Lungs grossly clear. No effusion orpneumothorax. IMPRESSIONS: No significant change Signed: Hiram Tavares Verified Date/Time: 03/09/2017 08:51:10 [facility] Electronically signedby: HIRAM TAVARES M.D. on 03/09/2017 08:51 AMB-TYPE NATRIURETIC FACTOR (BNP)2017-03-09 08: 33:00 Test Item Value Reference Range Comments B-TYPE NATRIURETIC PEPTIDE (BEAKER) (test 2872 pg/mL 0-100 bqwr=028) BASIC METABOLIC [id number] 08:30:00 Test Item Value Reference Range Comments SODIUM (BEAKER) (test 139 meq/L 136-145 fyzn=982) POTASSIUM (BEAKER) (test 3.6 meq/L 3.5-5.1 xpqu=209) CHLORIDE (BEAKER) (test 100 meq/L 98-107 gomw=265) CO2 (BEAKER) (test 29 meq/L 22-29 gimn=377) BLOOD UREA NITROGEN 50 mg/dL 7-21 (BEAKER) (test jjqo=578) CREATININE (BEAKER) (test 1.45 mg/dL 0.57-1.25 srjq=948) GLUCOSE RANDOM (BEAKER) 124 mg/dL 70-105 (test zxrg=133) CALCIUM (BEAKER) (test 7.9 mg/dL 8.4-10.2 hequ=189) EGFR (BEAKER) (test 47 mL/min/1.73 sq m ESTIMATED GFR IS NOT ubfo=7489) ACCURATE CREATININE CLEARANCE IN PREDICTING GLOMERULAR FILTRATION RATE. ESTIMATED GFR IS NOT APPLICABLE FOR DIALYSIS PATIENTS. [id number] 08:26:00 Test Item Value Reference Range Comments MAGNESIUM (BEAKER) (test tdlp=950) 1.9 mg/dL 1.6-2.6 CBC W/PLT COUNT & AUTO [id number] 07:33:00 Test Item Value Reference Range Comments WHITE BLOOD CELL COUNT (BEAKER) (test qeha=201) 16.0 K/ L 3.5-10.5 RED BLOOD CELL COUNT (BEAKER) (test wfhu=939) 2.97 M/ L 4.63-6.08 HEMOGLOBIN (BEAKER) (test gtmv=414) 8.6 GM/DL 13.7-17.5 HEMATOCRIT (BEAKER) (test cxck=420) 27.2 % 40.1-51.0 MEAN CORPUSCULAR VOLUME (BEAKER) (test abyq=160) 91.6 fL 79.0-92.2 MEAN CORPUSCULAR HEMOGLOBIN (BEAKER) (test 29.0 pg 25.7-32.2 flmt=123) MEAN CORPUSCULAR HEMOGLOBIN CONC (BEAKER) (test 31.6 GM/DL 32.3-36.5 wecx=622) RED CELL DISTRIBUTION WIDTH (BEAKER) (test 15.9 % 11.6-14.4 mnjk=405) PLATELET COUNT (BEAKER) (test nlqz=608) 342 K/CU MM 150-450 MEAN PLATELET VOLUME (BEAKER) (test vipu=177) 11.1 fL 9.4-12.4 NUCLEATED RED BLOOD CELLS (BEAKER) (test 0 /100 WBC 0-0 xqnb=516) NEUTROPHILS RELATIVE PERCENT (BEAKER) (test 81 % jrmz=697) LYMPHOCYTES RELATIVE PERCENT (BEAKER) (test 5 % zxjq=020) MONOCYTES RELATIVE PERCENT (BEAKER) (test 10 % zsem=715) EOSINOPHILS RELATIVE PERCENT (BEAKER) (test 3 % jncp=475) BASOPHILS RELATIVE PERCENT (BEAKER) (test 0 % sysf=120) NEUTROPHILS ABSOLUTE COUNT (BEAKER) (test 12.95 K/ L 1.78-5.38 krit=510) LYMPHOCYTES ABSOLUTE COUNT (BEAKER) (test 0.87 K/ L 1.32-3.57 seig=438) MONOCYTES ABSOLUTE COUNT (BEAKER) (test 1.57 K/ L 0.30-0.82 aymz=978) EOSINOPHILS ABSOLUTE COUNT (BEAKER) (test 0.43 K/ L 0.04-0.54 kxhx=942) BASOPHILS ABSOLUTE COUNT (BEAKER) (test 0.02 K/ L 0.01-0.08 evqm=840) IMMATURE GRANULOCYTES-RELATIVE PERCENT (BEAKER) 1 % 0-1 (test ozmp=9141) POCT-GLUCOSE [id number] 21:21:00 Test Item Value Reference Range Comments POC-GLUCOSE METER (BEAKER) 158 mg/dL 70-110 TESTED AT [address] (test gcsj=5997) [facility] [address] CBC W/PLT COUNT & AUTO [id number] 07:48:00 Test Item Value Reference Range Comments WHITE BLOOD CELL COUNT (BEAKER) (test nuuw=615) 14.5 K/ L 3.5-10.5 RED BLOOD CELL COUNT (BEAKER) (test rdxp=550) 3.06 M/ L 4.63-6.08 HEMOGLOBIN (BEAKER) (test figb=221) 8.9 GM/DL 13.7-17.5 HEMATOCRIT (BEAKER) (test cuke=342) 27.9 % 40.1-51.0 MEAN CORPUSCULAR VOLUME (BEAKER) (test tear=441) 91.2 fL 79.0-92.2 MEAN CORPUSCULAR HEMOGLOBIN (BEAKER) (test 29.1 pg 25.7-32.2 gcea=674) MEAN CORPUSCULAR HEMOGLOBIN CONC (BEAKER) (test 31.9 GM/DL 32.3-36.5 stvm=427) RED CELL DISTRIBUTION WIDTH (BEAKER) (test 16.1 % 11.6-14.4 qmfb=021) PLATELET COUNT (BEAKER) (test wjnu=090) 265 K/CU MM 150-450 MEAN PLATELET VOLUME (BEAKER) (test kqaj=707) 11.3 fL 9.4-12.4 NUCLEATED RED BLOOD CELLS (BEAKER) (test 0 /100 WBC 0-0 ajnu=023) NEUTROPHILS RELATIVE PERCENT (BEAKER) (test 78 % asix=541) LYMPHOCYTES RELATIVE PERCENT (BEAKER) (test 6 % eqmw=691) MONOCYTES RELATIVE PERCENT (BEAKER) (test 12 % rfby=618) EOSINOPHILS RELATIVE PERCENT (BEAKER) (test 2 % iyyy=035) BASOPHILS RELATIVE PERCENT (BEAKER) (test 0 % yjru=583) NEUTROPHILS ABSOLUTE COUNT (BEAKER) (test 11.31 K/ L 1.78-5.38 iqbj=052) LYMPHOCYTES ABSOLUTE COUNT (BEAKER) (test 0.90 K/ L 1.32-3.57 free=461) MONOCYTES ABSOLUTE COUNT (BEAKER) (test 1.73 K/ L 0.30-0.82 sguv=864) EOSINOPHILS ABSOLUTE COUNT (BEAKER) (test 0.35 K/ L 0.04-0.54 kdhn=897) BASOPHILS ABSOLUTE COUNT (BEAKER) (test 0.03 K/ L 0.01-0.08 anli=205) IMMATURE GRANULOCYTES-RELATIVE PERCENT (BEAKER) 1 % 0-1 (test luco=9072) BASIC METABOLIC [id number] 07:35:00 Test Item Value Reference Range Comments SODIUM (BEAKER) (test 139 meq/L 136-145 vshi=375) POTASSIUM (BEAKER) (test 3.7 meq/L 3.5-5.1 ruxq=107) CHLORIDE (BEAKER) (test 101 meq/L 98-107 mfce=518) CO2 (BEAKER) (test 28 meq/L 22-29 nhrk=563) BLOOD UREA NITROGEN 40 mg/dL 7-21 (BEAKER) (test gqce=115) CREATININE (BEAKER) (test 1.32 mg/dL 0.57-1.25 ysdn=930) GLUCOSE RANDOM (BEAKER) 121 mg/dL 70-105 (test lyvq=487) CALCIUM (BEAKER) (test 7.7 mg/dL 8.4-10.2 wsmn=434) EGFR (BEAKER) (test 53 mL/min/1.73 sq m ESTIMATED GFR IS NOT hnfm=3588) ACCURATE CREATININE CLEARANCE IN PREDICTING GLOMERULAR FILTRATION RATE. ESTIMATED GFR IS NOT APPLICABLE FOR DIALYSIS PATIENTS. [id number] 07:34:00 Test Item Value Reference Range Comments MAGNESIUM (BEAKER) (test iqrb=882) 1.9 mg/dL 1.6-2.6 RAD, CHEST, 1 VIEW, NON [id number] 06:21:00Reason for exam:->s/po cabgShould this be performed at the bedside?->YesFINAL REPORT Comparison exam: 03/07/2017 No pneumothorax, focal pulmonary consolidation, or significant pleural effusion. Stable cardiomediastinal contours. Right PICC line terminates in the superior vena cava. Signed: Tejas Gomezeport Verified Date/Time: 03/08/2017 06:21:33 Reading Location : [address] Ortho Consult Reading Room RAD, CHEST, 1 VIEW, NON [id number] 06:58: 00Reason for exam:->s/po cabgShould this be performed at the bedside?-> YesFINAL REPORT Comparison exam: 03/06/2017 No pneumothorax, focal pulmonary consolidation, or significant pleural effusion. Stable cardiomediastinal contours. Right PICC line terminates in the superior vena cava. Signed: Tejas Gomezeport Verified Date/Time: 06:58:21 Reading Location: [address] Ortho Consult Reading Room BASIC METABOLIC [id number] 04:38:00 Test Item Value Reference Range Comments SODIUM (BEAKER) (test 140 meq/L 136-145 iwsf=001) POTASSIUM (BEAKER) (test 3.7 meq/L 3.5-5.1 npuy=295) CHLORIDE (BEAKER) (test 101 meq/L 98-107 dxwx=762) CO2 (BEAKER) (test 28 meq/L 22-29 ekvk=799) BLOOD UREA NITROGEN 44 mg/dL 7-21 (BEAKER) (test hesz=207) CREATININE (BEAKER) (test 1.41 mg/dL 0.57-1.25 lvrn=579) GLUCOSE RANDOM (BEAKER) 138 mg/dL 70-105 (test ovzg=871) CALCIUM (BEAKER) (test 7.9 mg/dL 8.4-10.2 yjzz=004) EGFR (BEAKER) (test 49 mL/min/1.73 sq m ESTIMATED GFR IS NOT kaga=7769) ACCURATE CREATININE CLEARANCE IN PREDICTING GLOMERULAR FILTRATION RATE. ESTIMATED GFR IS NOT APPLICABLE FOR DIALYSIS PATIENTS. Specimen slightly [id number] 04:34:00 Test Item Value Reference Range Comments POTASSIUM (BEAKER) (test xwjr=900) 3.7 meq/L 3.5-5.1 [id number] 04:34:00 Test Item Value Reference Range Comments MAGNESIUM (BEAKER) (test ukck=779) 2.1 mg/dL 1.6-2.6 B-TYPE NATRIURETIC FACTOR (BNP)2017-03-07 04:09:00 Test Item Value Reference Range Comments B-TYPE NATRIURETIC PEPTIDE (BEAKER) (test 2921 pg/mL 0-100 kdgx=767) CBC W/PLT COUNT & AUTO [id number] 04:02:00 Test Item Value Reference Range Comments WHITE BLOOD CELL COUNT (BEAKER) (test jwmp=876) 13.0 K/ L 3.5-10.5 RED BLOOD CELL COUNT (BEAKER) (test ikzu=352) 3.09 M/ L 4.63-6.08 HEMOGLOBIN (BEAKER) (test jthr=759) 8.9 GM/DL 13.7-17.5 HEMATOCRIT (BEAKER) (test ryvq=253) 28.0 % 40.1-51.0 MEAN CORPUSCULAR VOLUME (BEAKER) (test qkik=005) 90.6 fL 79.0-92.2 MEAN CORPUSCULAR HEMOGLOBIN (BEAKER) (test 28.8 pg 25.7-32.2 yqlv=494) MEAN CORPUSCULAR HEMOGLOBIN CONC (BEAKER) (test 31.8 GM/DL 32.3-36.5 plal=388) RED CELL DISTRIBUTION WIDTH (BEAKER) (test 16.0 % 11.6-14.4 ugbv=395) PLATELET COUNT (BEAKER) (test ywcu=971) 231 K/CU MM 150-450 MEAN PLATELET VOLUME (BEAKER) (test kycb=627) 11.4 fL 9.4-12.4 NUCLEATED RED BLOOD CELLS (BEAKER) (test 0 /100 WBC 0-0 pbbj=006) NEUTROPHILS RELATIVE PERCENT (BEAKER) (test 75 % ggpc=032) LYMPHOCYTES RELATIVE PERCENT (BEAKER) (test 8 % pata=532) MONOCYTES RELATIVE PERCENT (BEAKER) (test 14 % fumh=319) EOSINOPHILS RELATIVE PERCENT (BEAKER) (test 3 % ehpa=933) BASOPHILS RELATIVE PERCENT (BEAKER) (test 0 % mcnr=388) NEUTROPHILS ABSOLUTE COUNT (BEAKER) (test 9.74 K/ L 1.78-5.38 wkmq=660) LYMPHOCYTES ABSOLUTE COUNT (BEAKER) (test 0.99 K/ L 1.32-3.57 onlk=428) MONOCYTES ABSOLUTE COUNT (BEAKER) (test 1.76 K/ L 0.30-0.82 nunm=238) EOSINOPHILS ABSOLUTE COUNT (BEAKER) (test 0.37 K/ L 0.04-0.54 rpzy=767) BASOPHILS ABSOLUTE COUNT (BEAKER) (test 0.02 K/ L 0.01-0.08 gcbg=931) IMMATURE GRANULOCYTES-RELATIVE PERCENT (BEAKER) 1 % 0-1 (test mvfh=4874) OXYGEN SATURATION, [id number] 03:27:00 Test Item Value Reference Range Comments O2 SATURATION (MEASURED) (BEAKER) (test tsts=4706) 61.8 % BLOOD [id number] 00:00:00 Test Item Value Reference Range Comments CULTURE (BEAKER) (test xvda=6458) No growth in 5 days BLOOD [id number] 00:00:00 Test Item Value Reference Range Comments CULTURE (BEAKER) (test fzwb=5218) No growth in 5 days [id number] 18:44:00 Test Item Value Reference Range Comments POTASSIUM (BEAKER) (test lgwm=044) 4.0 meq/L 3.5-5.1 [id number] 18:44:00 Test Item Value Reference Range Comments MAGNESIUM (BEAKER) (test wqcz=144) 2.2 mg/dL 1.6-2.6 OXYGEN SATURATION, [id number] 18:19:00 Test Item Value Reference Range Comments O2 SATURATION (MEASURED) (BEAKER) (test amzg=8547) 56.6 % [id number] 14:59:00 Test Item Value Reference Range Comments POTASSIUM (BEAKER) (test dezw=687) 3.8 meq/L 3.5-5.1 [id number] 14:59:00 Test Item Value Reference Range Comments MAGNESIUM (BEAKER) (test jtde=294) 1.9 mg/dL 1.6-2.6 OXYGEN SATURATION, [id number] 14:42:00 Test Item Value Reference Range Comments O2 SATURATION (MEASURED) (BEAKER) (test kprh=8910) 54.4 % [id number] 07:20:00 Test Item Value Reference Range Comments POTASSIUM (BEAKER) (test ttom=714) 3.7 meq/L 3.5-5.1 [id number] 07:20:00 Test Item Value Reference Range Comments MAGNESIUM (BEAKER) (test gotz=506) 2.2 mg/dL 1.6-2.6 RAD, CHEST, 1 VIEW, NON [id number] 07:02:00Reason for exam:->s/po cabgShould this be performed at the bedside?->YesFINAL REPORT Comparison exam: 03/05/2017 Mild pulmonary venous congestion unchanged. Stable cardiomediastinal contours. Right PICC line terminates in the superior vena cava. Signed: Tejas Gomez Verified Date/ Time: 03/06/2017 07:02:29 Reading Location: [address] Reading Room BASIC METABOLIC [id number] 04:31:00 Test Item Value Reference Range Comments SODIUM (BEAKER) (test 140 meq/L 136-145 vpym=440) POTASSIUM (BEAKER) (test 3.4 meq/L 3.5-5.1 xrim=079) CHLORIDE (BEAKER) (test 103 meq/L 98-107 duzt=288) CO2 (BEAKER) (test 26 meq/L 22-29 scyt=615) BLOOD UREA NITROGEN 49 mg/dL 7-21 (BEAKER) (test abvg=125) CREATININE (BEAKER) (test 1.47 mg/dL 0.57-1.25 ohde=084) GLUCOSE RANDOM (BEAKER) 136 mg/dL 70-105 (test uavl=410) CALCIUM (BEAKER) (test 7.8 mg/dL 8.4-10.2 nuwq=501) EGFR (BEAKER) (test 46 mL/min/1.73 sq m ESTIMATED GFR IS NOT rdns=6183) ACCURATE CREATININE CLEARANCE IN PREDICTING GLOMERULAR FILTRATION RATE. ESTIMATED GFR IS NOT APPLICABLE FOR DIALYSIS PATIENTS. HEPATIC FUNCTION [id number] 04:25:00 Test Item Value Reference Range Comments TOTAL PROTEIN (BEAKER) (test zuem=396) 5.1 gm/dL 6.0-8.3 ALBUMIN (BEAKER) (test mtbg=5776) 2.7 g/dL 3.5-5.0 BILIRUBIN TOTAL (BEAKER) (test krxn=867) 1.9 mg/dL 0.2-1.2 BILIRUBIN DIRECT (BEAKER) (test jufw=413) 1.2 mg/dL 0.1-0.5 ALKALINE PHOSPHATASE (BEAKER) (test obhp=578) 65 U/L 40-150 AST (SGOT) (BEAKER) (test xxhq=751) 34 U/L 5-34 ALT (SGPT) (BEAKER) (test plps=386) 27 U/L 6-55 CBC W/PLT COUNT & AUTO [id number] 04:10:00 Test Item Value Reference Range Comments WHITE BLOOD CELL COUNT (BEAKER) (test vbso=798) 13.1 K/ L 3.5-10.5 RED BLOOD CELL COUNT (BEAKER) (test lsqx=936) 2.42 M/ L 4.63-6.08 HEMOGLOBIN (BEAKER) (test kenl=539) 7.2 GM/DL 13.7-17.5 HEMATOCRIT (BEAKER) (test kamc=290) 22.6 % 40.1-51.0 MEAN CORPUSCULAR VOLUME (BEAKER) (test pyqw=687) 93.4 fL 79.0-92.2 MEAN CORPUSCULAR HEMOGLOBIN (BEAKER) (test 29.8 pg 25.7-32.2 pyie=070) MEAN CORPUSCULAR HEMOGLOBIN CONC (BEAKER) (test 31.9 GM/DL 32.3-36.5 svfx=815) RED CELL DISTRIBUTION WIDTH (BEAKER) (test 15.6 % 11.6-14.4 edfa=027) PLATELET COUNT (BEAKER) (test fmbj=452) 178 K/CU MM 150-450 MEAN PLATELET VOLUME (BEAKER) (test ygut=915) 11.8 fL 9.4-12.4 NUCLEATED RED BLOOD CELLS (BEAKER) (test 0 /100 WBC 0-0 rnhi=324) NEUTROPHILS RELATIVE PERCENT (BEAKER) (test 76 % dnkw=516) LYMPHOCYTES RELATIVE PERCENT (BEAKER) (test 7 % acrv=626) MONOCYTES RELATIVE PERCENT (BEAKER) (test 13 % mcim=932) EOSINOPHILS RELATIVE PERCENT (BEAKER) (test 3 % twhe=158) BASOPHILS RELATIVE PERCENT (BEAKER) (test 0 % vtlj=963) NEUTROPHILS ABSOLUTE COUNT (BEAKER) (test 9.94 K/ L 1.78-5.38 oees=583) LYMPHOCYTES ABSOLUTE COUNT (BEAKER) (test 0.91 K/ L 1.32-3.57 klot=193) MONOCYTES ABSOLUTE COUNT (BEAKER) (test 1.68 K/ L 0.30-0.82 kfqt=498) EOSINOPHILS ABSOLUTE COUNT (BEAKER) (test 0.37 K/ L 0.04-0.54 ikvp=599) BASOPHILS ABSOLUTE COUNT (BEAKER) (test 0.02 K/ L 0.01-0.08 rlqh=961) IMMATURE GRANULOCYTES-RELATIVE PERCENT (BEAKER) 2 % 0-1 (test ttkv=7566) [id number] 01:39:00 Test Item Value Reference Range Comments MAGNESIUM (BEAKER) (test 2.1 mg/dL 1.6-2.6 Specimen slightly hemolyzed vhiu=516) Check Serum Potassium level 2 hours after oral potassium replacement completed or 30 min after intravenous potassium replacement.[id number] 01:39:00 Test Item Value Reference Range Comments POTASSIUM (BEAKER) (test 3.7 meq/L 3.5-5.1 Specimen slightly hemolyzed lzbv=128) Check Serum Potassium level 2 hours after oral potassium replacement completed or 30 min after intravenous potassium replacement.OXYGEN SATURATION, [id number] 20:14:00 Test Item Value Reference Range Comments O2 SATURATION (MEASURED) (BEAKER) (test psoh=7219) 53.9 % POCT-GLUCOSE [id number] 18:21:00 Test Item Value Reference Range Comments POC-GLUCOSE METER (BEAKER) 168 mg/dL 70-110 TESTED AT [address] (test ppup=5694) [place] [address] [id number] 17:33:00 Test Item Value Reference Range Comments POTASSIUM (BEAKER) (test dbwl=464) 3.8 meq/L 3.5-5.1 [id number] 17:33:00 Test Item Value Reference Range Comments MAGNESIUM (BEAKER) (test wkck=907) 1.7 mg/dL 1.6-2.6 OXYGEN SATURATION, [id number] 15:22:00 Test Item Value Reference Range Comments O2 SATURATION (MEASURED) (BEAKER) (test kqph=0632) 40.3 % POCT-GLUCOSE [id number] 12:30:00 Test Item Value Reference Range Comments POC-GLUCOSE METER (BEAKER) 146 mg/dL 70-110 TESTED AT [address] (test eodh=4858) [place] [address] [id number] 09:28:00 Test Item Value Reference Range Comments POTASSIUM (BEAKER) (test tesc=640) 3.5 meq/L 3.5-5.1 [id number] 09:28:00 Test Item Value Reference Range Comments MAGNESIUM (BEAKER) (test xbxg=266) 2.1 mg/dL 1.6-2.6 POCT-GLUCOSE [id number] 07:37:00 Test Item Value Reference Range Comments POC-GLUCOSE METER (BEAKER) 156 mg/dL 70-110 TESTED AT [address] (test hqgf=3870) [place] [address] BLOOD GAS, [id number] 05:50:00 Test Item Value Reference Range Comments PH ARTERIAL (BEAKER) (test kbmf=599) 7.57 7.35-7.45 PCO2 ARTERIAL (BEAKER) (test pkaf=196) 31 mmHg 35-45 PO2 ARTERIAL (BEAKER) (test popo=519) 75 mmHg 80-90 O2 SATURATION ARTERIAL (BEAKER) (test onml=547) 96.9 % 96.0-97.0 HCO3 ARTERIAL (BEAKER) (test kikw=061) 27 mmol/L 21-29 BASE EXCESS ARTERIAL (BEAKER) (test zhiu=433) 5.2 mmol/L -2.0-3.0 PATIENT TEMPERATURE (BEAKER) (test mpyb=3447) 36.6 C FIO2 (BEAKER) (test agrr=1243) 75.0 % BASIC METABOLIC [id number] 05:07:00 Test Item Value Reference Range Comments SODIUM (BEAKER) (test 141 meq/L 136-145 rxcd=950) POTASSIUM (BEAKER) (test 3.7 meq/L 3.5-5.1 tbsy=860) CHLORIDE (BEAKER) (test 103 meq/L 98-107 vbkm=819) CO2 (BEAKER) (test 24 meq/L 22-29 prkl=915) BLOOD UREA NITROGEN 55 mg/dL 7-21 (BEAKER) (test xdmf=721) CREATININE (BEAKER) (test 1.67 mg/dL 0.57-1.25 wcnt=358) GLUCOSE RANDOM (BEAKER) 163 mg/dL 70-105 (test srdb=038) CALCIUM (BEAKER) (test 8.3 mg/dL 8.4-10.2 axkn=763) EGFR (BEAKER) (test 40 mL/min/1.73 sq m ESTIMATED GFR IS NOT zqst=7249) ACCURATE CREATININE CLEARANCE IN PREDICTING GLOMERULAR FILTRATION RATE. ESTIMATED GFR IS NOT APPLICABLE FOR DIALYSIS PATIENTS. Specimen slightly ictericCBC W/PLT COUNT & AUTO [id number] 04:43 :00 Test Item Value Reference Range Comments WHITE BLOOD CELL COUNT (BEAKER) (test sqnt=639) 13.7 K/ L 3.5-10.5 RED BLOOD CELL COUNT (BEAKER) (test ucvq=721) 2.74 M/ L 4.63-6.08 HEMOGLOBIN (BEAKER) (test leqr=683) 8.1 GM/DL 13.7-17.5 HEMATOCRIT (BEAKER) (test dypg=160) 25.0 % 40.1-51.0 MEAN CORPUSCULAR VOLUME (BEAKER) (test scfy=735) 91.2 fL 79.0-92.2 MEAN CORPUSCULAR HEMOGLOBIN (BEAKER) (test 29.6 pg 25.7-32.2 eubn=919) MEAN CORPUSCULAR HEMOGLOBIN CONC (BEAKER) (test 32.4 GM/DL 32.3-36.5 qxra=286) RED CELL DISTRIBUTION WIDTH (BEAKER) (test 15.5 % 11.6-14.4 popy=548) PLATELET COUNT (BEAKER) (test qtuf=840) 158 K/CU MM 150-450 MEAN PLATELET VOLUME (BEAKER) (test uztz=077) 11.7 fL 9.4-12.4 NUCLEATED RED BLOOD CELLS (BEAKER) (test 1 /100 WBC 0-0 jilp=307) NEUTROPHILS RELATIVE PERCENT (BEAKER) (test 79 % npfr=216) LYMPHOCYTES RELATIVE PERCENT (BEAKER) (test 6 % ymkq=844) MONOCYTES RELATIVE PERCENT (BEAKER) (test 13 % fdxg=397) EOSINOPHILS RELATIVE PERCENT (BEAKER) (test 1 % pdee=687) BASOPHILS RELATIVE PERCENT (BEAKER) (test 0 % sqrz=833) NEUTROPHILS ABSOLUTE COUNT (BEAKER) (test 10.84 K/ L 1.78-5.38 zqkl=869) LYMPHOCYTES ABSOLUTE COUNT (BEAKER) (test 0.80 K/ L 1.32-3.57 twsd=376) MONOCYTES ABSOLUTE COUNT (BEAKER) (test 1.76 K/ L 0.30-0.82 ojxt=155) EOSINOPHILS ABSOLUTE COUNT (BEAKER) (test 0.09 K/ L 0.04-0.54 dpja=034) BASOPHILS ABSOLUTE COUNT (BEAKER) (test 0.01 K/ L 0.01-0.08 jmgh=960) IMMATURE GRANULOCYTES-RELATIVE PERCENT (BEAKER) 1 % 0-1 (test etou=7078) CALCIUM, [id number] 04:43:00 Test Item Value Reference Range Comments CALCIUM IONIZED (BEAKER) (test xnrh=241) 1.07 mmol/L 1.12-1.27 PH, BLOOD (BEAKER) (test uiqf=3780) 7.57 RAD, CHEST, 1 VIEW, NON [id number] 04:23:00Reason for exam:->s/po cabgShould this be performed at the bedside?->YesFINAL REPORT EXAMINATION: AP PORTABLE CHEST RADIOGRAPH CLINICAL INDICATION: Cardiomyopathy, shortness of breath IMPRESSION: Compared with 03/04/2017. The heart is enlarged but stable. Mediastinal contours are also unchanged. Opacities are again noted in the perihilar regions and lung bases worrisome for a combination of mild edema and atelectatic lung. Small superimposed bilateral pleural effusions are also suspected. No evidence of new lung consolidation or pneumothorax. A right upper extremity central line is again noted with the tip projecting over the superior vena cava.In summary, no significant interval change. Constellation of findings worrisome for fluid overload/heart failure. Signed: Aren Garcia MDReport Verified Date/Time: 03/05/2017 04:23:47 Reading Location: [address] Reading Room [id number] 02:54:00 Test Item Value Reference Range Comments POTASSIUM (BEAKER) (test kksx=576) 3.6 meq/L 3.5-5.1 [id number] 02:54:00 Test Item Value Reference Range Comments MAGNESIUM (BEAKER) (test jfdq=590) 2.3 mg/dL 1.6-2.6 POCT-GLUCOSE [id number] 22:50:00 Test Item Value Reference Range Comments POC-GLUCOSE METER (BEAKER) 158 mg/dL 70-110 TESTED AT [facility] [address] [facility] (test ywar=4547) [facility] [address] [id number] 21:22:00 Test Item Value Reference Range Comments POTASSIUM (BEAKER) (test rzqq=848) 3.7 meq/L 3.5-5.1 [id number] 21:22:00 Test Item Value Reference Range Comments MAGNESIUM (BEAKER) (test xwso=483) 1.9 mg/dL 1.6-2.6 CALCIUM, [id number] 20:22:00 Test Item Value Reference Range Comments CALCIUM IONIZED (BEAKER) (test hpgu=304) 1.06 mmol/L 1.12-1.27 PH, BLOOD (BEAKER) (test hcsm=7834) 7.50 Check serum Ionized Calcium level after 4 hours after IV Calcium replacement.POCT-GLUCOSE [id number] 17:16:00 Test Item Value Reference Range Comments POC-GLUCOSE METER (BEAKER) 143 mg/dL 70-110 TESTED AT [address] (test qzmc=0789) [place] [address] POCT-GLUCOSE [id number] 17:14:00 Test Item Value Reference Range Comments POC-GLUCOSE METER (BEAKER) 133 mg/dL 70-110 TESTED AT [address] (test kyfr=3075) [place] [address] CALCIUM, [id number] 14:57:00 Test Item Value Reference Range Comments CALCIUM IONIZED (BEAKER) (test mvqb=002) 1.06 mmol/L 1.12-1.27 PH, BLOOD (BEAKER) (test rxkc=3590) 7.56 Check serum Ionized Calcium level after 4 hours after IV Calcium replacement.POCT-GLUCOSE [id number] 12:54:00 Test Item Value Reference Range Comments POC-GLUCOSE METER (BEAKER) 96 mg/dL 70-110 TESTED AT [address] (test pwky=7456) [place] [address] [id number] 11:52:00 Test Item Value Reference Range Comments POTASSIUM (BEAKER) (test hoae=704) 3.7 meq/L 3.5-5.1 [id number] 11:52:00 Test Item Value Reference Range Comments MAGNESIUM (BEAKER) (test dazg=930) 2.4 mg/dL 1.6-2.6 POCT-GLUCOSE [id number] 11:05:00 Test Item Value Reference Range Comments POC-GLUCOSE METER (BEAKER) 116 mg/dL 70-110 TESTED AT [address] (test tqvx=1947) [place] [address] POCT-GLUCOSE [id number] 09:27:00 Test Item Value Reference Range Comments POC-GLUCOSE METER (BEAKER) 127 mg/dL 70-110 TESTED AT [address] (test zdbs=3595) [place] [id number] CALCIUM, [id number] 08:34:00 Test Item Value Reference Range Comments CALCIUM IONIZED (BEAKER) (test xamb=512) 1.07 mmol/L 1.12-1.27 PH, BLOOD (BEAKER) (test lvmp=0872) 7.53 OXYGEN SATURATION, [id number] 07:36:00 Test Item Value Reference Range Comments O2 SATURATION (MEASURED) (BEAKER) (test xvdb=7971) 68.8 % [id number] 07:23:00 Test Item Value Reference Range Comments POTASSIUM (BEAKER) (test fwfp=433) 3.7 meq/L 3.5-5.1 [id number] 07:23:00 Test Item Value Reference Range Comments MAGNESIUM (BEAKER) (test jnmd=157) 1.9 mg/dL 1.6-2.6 POCT-GLUCOSE [id number] 06:49:00 Test Item Value Reference Range Comments POC-GLUCOSE METER (BEAKER) 121 mg/dL 70-110 TESTED AT [address] (test mkxc=5611) [place] [address] RAD, CHEST, 1 VIEW, NON [id number] 05:49:00Reason for exam:->s/po cabgShould this be performed at the bedside?->YesFINAL REPORT Comparison exam: 03/03/2017 Pulmonary venous congestion and retrocardiac left lower lobe atelectasis/consolidation unchanged. Stable cardiomediastinal contours. Right PICC line terminates in the superior vena cava. Signed: Tejas Gomez MDReport Verified Date/Time: 03/04/2017 05:49: 17 Reading Location: [address] Ortho Consult Reading Room BASIC METABOLIC [id number] 05:00:00 Test Item Value Reference Range Comments SODIUM (BEAKER) (test 140 meq/L 136-145 efye=329) POTASSIUM (BEAKER) (test 3.6 meq/L 3.5-5.1 tqjr=138) CHLORIDE (BEAKER) (test 103 meq/L 98-107 fkla=241) CO2 (BEAKER) (test 26 meq/L 22-29 srsn=104) BLOOD UREA NITROGEN 54 mg/dL 7-21 (BEAKER) (test paxk=954) CREATININE (BEAKER) (test 1.79 mg/dL 0.57-1.25 ikpg=135) GLUCOSE RANDOM (BEAKER) 118 mg/dL 70-105 (test zyqo=157) CALCIUM (BEAKER) (test 8.3 mg/dL 8.4-10.2 zwsx=082) EGFR (BEAKER) (test 37 mL/min/1.73 sq m ESTIMATED GFR IS NOT rcrb=1993) ACCURATE CREATININE CLEARANCE IN PREDICTING GLOMERULAR FILTRATION RATE. ESTIMATED GFR IS NOT APPLICABLE FOR DIALYSIS PATIENTS. CBC W/PLT COUNT & AUTO [id number] 04:58:00 Test Item Value Reference Range Comments WHITE BLOOD CELL COUNT (BEAKER) (test oxlw=837) 14.3 K/ L 3.5-10.5 RED BLOOD CELL COUNT (BEAKER) (test sodt=205) 2.66 M/ L 4.63-6.08 HEMOGLOBIN (BEAKER) (test viyt=168) 7.8 GM/DL 13.7-17.5 HEMATOCRIT (BEAKER) (test tjmx=433) 24.1 % 40.1-51.0 MEAN CORPUSCULAR VOLUME (BEAKER) (test ogus=962) 90.6 fL 79.0-92.2 MEAN CORPUSCULAR HEMOGLOBIN (BEAKER) (test 29.3 pg 25.7-32.2 ehoe=009) MEAN CORPUSCULAR HEMOGLOBIN CONC (BEAKER) (test 32.4 GM/DL 32.3-36.5 cjqq=452) RED CELL DISTRIBUTION WIDTH (BEAKER) (test 15.2 % 11.6-14.4 rwzf=567) PLATELET COUNT (BEAKER) (test fivy=598) 110 K/CU MM 150-450 MEAN PLATELET VOLUME (BEAKER) (test tyts=789) 12.0 fL 9.4-12.4 NUCLEATED RED BLOOD CELLS (BEAKER) (test 2 /100 WBC 0-0 nwmw=537) NEUTROPHILS RELATIVE PERCENT (BEAKER) (test 78 % zmrm=710) LYMPHOCYTES RELATIVE PERCENT (BEAKER) (test 6 % avxp=578) MONOCYTES RELATIVE PERCENT (BEAKER) (test 14 % zwpu=732) EOSINOPHILS RELATIVE PERCENT (BEAKER) (test 1 % ojin=054) BASOPHILS RELATIVE PERCENT (BEAKER) (test 0 % tdzv=102) NEUTROPHILS ABSOLUTE COUNT (BEAKER) (test 11.13 K/ L 1.78-5.38 srep=776) LYMPHOCYTES ABSOLUTE COUNT (BEAKER) (test 0.82 K/ L 1.32-3.57 wiky=849) MONOCYTES ABSOLUTE COUNT (BEAKER) (test 1.99 K/ L 0.30-0.82 krfp=233) EOSINOPHILS ABSOLUTE COUNT (BEAKER) (test 0.11 K/ L 0.04-0.54 emdp=781) BASOPHILS ABSOLUTE COUNT (BEAKER) (test 0.01 K/ L 0.01-0.08 ueqp=972) IMMATURE GRANULOCYTES-RELATIVE PERCENT (BEAKER) 2 % 0-1 (test tsdm=5159) [id number] 04:55:00 Test Item Value Reference Range Comments PROTIME (BEAKER) (test buhp=462) 16.5 seconds 11.7-14.7 INR (BEAKER) (test aost=978) 1.3 <=5.9 PARTIAL THROMBOPLASTIN TIME (BEAKER) (test 34.6 seconds 22.5-36.0 bvqy=942) RECOMMENDED COUMADIN/WARFARIN INR THERAPY RANGESSTANDARD DOSE: 2.0 - 3.0 Includes: PROPHYLAXIS forvenous thrombosis, systemic embolization; TREATMENT for venous thrombosis and/or pulmonary embolus.HIGH RISK: Target INR is 2.5-3.5 for patients with mechanical heart valves.PROTHROMBIN [id number] 04:54: 00 Test Item Value Reference Range Comments PROTIME (BEAKER) (test mrfg=410) 16.5 seconds 11.7-14.7 INR (BEAKER) (test zrgm=419) 1.3 <=5.9 RECOMMENDED COUMADIN/WARFARIN INR THERAPY RANGESSTANDARD DOSE: 2.0 - 3.0 Includes: PROPHYLAXIS forvenous thrombosis, systemic embolization; TREATMENT for venous thrombosis and/or pulmonary embolus.HIGH RISK: Target INR is 2.5-3.5 for patients with mechanical heart valves.POCT-GLUCOSE [id number] 04:35:00 Test Item Value Reference Range Comments POC-GLUCOSE METER (BEAKER) 129 mg/dL 70-110 TESTED AT [address] (test oewm=3712) [place] [id number] POCT-GLUCOSE [id number] 02:41:00 Test Item Value Reference Range Comments POC-GLUCOSE METER (BEAKER) 112 mg/dL 70-110 TESTED AT [address] (test dist=2725) [place] [address] BLOOD [id number] 01:00:00 Test Item Value Reference Range Comments CULTURE (BEAKER) (test yuxq=8774) No growth in 5 days [id number] 00:21:00 Test Item Value Reference Range Comments POTASSIUM (BEAKER) (test wwhn=456) 3.7 meq/L 3.5-5.1 [id number] 00:21:00 Test Item Value Reference Range Comments MAGNESIUM (BEAKER) (test snhj=370) 2.2 mg/dL 1.6-2.6 POCT-GLUCOSE [id number] 00:09:00 Test Item Value Reference Range Comments POC-GLUCOSE METER (BEAKER) 125 mg/dL 70-110 TESTED AT [address] (test akfk=9606) [place] [address] POCT-GLUCOSE [id number] 22:16:00 Test Item Value Reference Range Comments POC-GLUCOSE METER (BEAKER) 105 mg/dL 70-110 TESTED AT [address] (test biuw=2096) [place] [address] CBC (HEMOGRAM ONLY)2017-03-03 21:16:00 Test Item Value Reference Range Comments WHITE BLOOD CELL COUNT (BEAKER) (test ilqh=491) 13.4 K/ L 3.5-10.5 RED BLOOD CELL COUNT (BEAKER) (test jjlj=455) 2.70 M/ L 4.63-6.08 HEMOGLOBIN (BEAKER) (test zsfb=852) 8.0 GM/DL 13.7-17.5 HEMATOCRIT (BEAKER) (test oarf=695) 24.5 % 40.1-51.0 MEAN CORPUSCULAR VOLUME (BEAKER) (test sdyh=499) 90.7 fL 79.0-92.2 MEAN CORPUSCULAR HEMOGLOBIN (BEAKER) (test 29.6 pg 25.7-32.2 tzrb=338) MEAN CORPUSCULAR HEMOGLOBIN CONC (BEAKER) (test 32.7 GM/DL 32.3-36.5 wfuq=591) RED CELL DISTRIBUTION WIDTH (BEAKER) (test 15.1 % 11.6-14.4 zbmc=069) PLATELET COUNT (BEAKER) (test fqrf=047) 94 K/CU MM 150-450 MEAN PLATELET VOLUME (BEAKER) (test jzpc=733) 11.6 fL 9.4-12.4 NUCLEATED RED BLOOD CELLS (BEAKER) (test 2 /100 WBC 0-0 nwai=475) CALCIUM, [id number] 21:05:00 Test Item Value Reference Range Comments CALCIUM IONIZED (BEAKER) (test xeyt=565) 1.03 mmol/L 1.12-1.27 PH, BLOOD (BEAKER) (test ayei=5663) 7.56 POCT-GLUCOSE [id number] 20:57:00 Test Item Value Reference Range Comments POC-GLUCOSE METER (BEAKER) 110 mg/dL 70-110 TESTED AT [address] (test egsf=3268) [place] [address] OXYGEN SATURATION, [id number] 19:00:00 Test Item Value Reference Range Comments O2 SATURATION (MEASURED) (BEAKER) (test ktyq=7121) 77.0 % [id number] 18:41:00 Test Item Value Reference Range Comments POTASSIUM (BEAKER) (test kqwv=496) 3.3 meq/L 3.5-5.1 [id number] 18:41:00 Test Item Value Reference Range Comments MAGNESIUM (BEAKER) (test jsxs=483) 2.1 mg/dL 1.6-2.6 POCT-GLUCOSE [id number] 16:26:00 Test Item Value Reference Range Comments POC-GLUCOSE METER (BEAKER) 112 mg/dL 70-110 TESTED AT [address] (test zihl=8446) [place] [address] POCT-GLUCOSE [id number] 13:14:00 Test Item Value Reference Range Comments POC-GLUCOSE METER (BEAKER) 112 mg/dL 70-110 TESTED AT [address] (test pyda=1815) [place] [address] [id number] 13:12:00 Test Item Value Reference Range Comments POTASSIUM (BEAKER) (test ldpq=824) 3.2 meq/L 3.5-5.1 [id number] 13:12:00 Test Item Value Reference Range Comments MAGNESIUM (BEAKER) (test kadf=169) 2.3 mg/dL 1.6-2.6 OXYGEN SATURATION, [id number] 12:35:00 Test Item Value Reference Range Comments O2 SATURATION (MEASURED) (BEAKER) (test vims=6955) 70.6 % RAD, CHEST, 1 VIEW, NON [id number] 11:20:00Reason for exam:->post picc line insertionShould this be performed at the bedside?->YesFINAL REPORT Chest one view. Clinical history: post picc line insertion Comparison: 03/03/2017 Discussion: A frontal chest is provided. There is interval placement of a right PICC line, tip projects over the SVC. [place] catheter is in stable position. Cardiomediastinal contours are unchanged. No pneumothorax. No significant effusion. Retrocardiac opacity may reflect atelectasis or consolidation. Signed: Alayna Munoz Verified Date/Time: 11:20:30 Reading Location: [facility] Radiology Reading Room POCT-GLUCOSE [id number] 11:02:00 Test Item Value Reference Range Comments POC-GLUCOSE METER (BEAKER) 127 mg/dL 70-110 TESTED AT [address] (test srif=6804) [facility] [address] RAD, CHEST, 1 VIEW, NON [id number] 10:25:00Reason for exam:->s/po cabgShould this be performed at the bedside?->YesFINAL REPORT Chest one view. Clinical history: s/po cabg Comparison: 03/02/2017 Discussion: A frontal chest is provided. [place] catheter is in stable position. Cardiomediastinal contours are unchanged. No new consolidation, no pneumothorax, or significant effusion. Signed: Tammy, Alayna MDReport Verified Date/ Time: 03/03/2017 10:25:58 Reading Location: [facility] Radiology Reading Room POCT -GLUCOSE [id number] 09:13:00 Test Item Value Reference Range Comments POC-GLUCOSE METER (BEAKER) 136 mg/dL 70-110 TESTED AT [address] (test cipn=4856) [facility] [address] POCT-GLUCOSE [id number] 07:00:00 Test Item Value Reference Range Comments POC-GLUCOSE METER (BEAKER) 132 mg/dL 70-110 TESTED AT [address] (test thpq=6247) [facility] [address] POCT-GLUCOSE [id number] 05:36:00 Test Item Value Reference Range Comments POC-GLUCOSE METER (BEAKER) 145 mg/dL 70-110 TESTED AT [address] (test ajqt=9635) [facility] [address] POCT-GLUCOSE [id number] 05:36:00 Test Item Value Reference Range Comments POC-GLUCOSE METER (BEAKER) 142 mg/dL 70-110 TESTED AT [address] (test mcag=7949) [facility] [address] OXYGEN SATURATION, [id number] 05:21:00 Test Item Value Reference Range Comments O2 SATURATION (MEASURED) (BEAKER) (test tdwe=6804) 51.5 % CALCIUM, [id number] 05:13:00 Test Item Value Reference Range Comments CALCIUM IONIZED (BEAKER) (test lxrt=243) 1.03 mmol/L 1.12-1.27 PH, BLOOD (BEAKER) (test ogps=8876) 7.48 [id number] 04:09:00 Test Item Value Reference Range Comments MAGNESIUM (BEAKER) (test funr=693) 2.2 mg/dL 1.6-2.6 BASIC METABOLIC [id number] 04:09:00 Test Item Value Reference Range Comments SODIUM (BEAKER) (test 141 meq/L 136-145 gbdl=612) POTASSIUM (BEAKER) (test 3.5 meq/L 3.5-5.1 bdoo=804) CHLORIDE (BEAKER) (test 101 meq/L 98-107 alui=405) CO2 (BEAKER) (test 26 meq/L 22-29 ghbh=582) BLOOD UREA NITROGEN 69 mg/dL 7-21 (BEAKER) (test fegk=912) CREATININE (BEAKER) (test 2.14 mg/dL 0.57-1.25 hdlz=822) GLUCOSE RANDOM (BEAKER) 126 mg/dL 70-105 (test jzhu=271) CALCIUM (BEAKER) (test 8.0 mg/dL 8.4-10.2 lsvo=902) EGFR (BEAKER) (test 30 mL/min/1.73 sq m ESTIMATED GFR IS NOT oapd=0916) ACCURATE CREATININE CLEARANCE IN PREDICTING GLOMERULAR FILTRATION RATE. ESTIMATED GFR IS NOT APPLICABLE FOR DIALYSIS PATIENTS. HEPATIC FUNCTION [id number] 04:09:00 Test Item Value Reference Range Comments TOTAL PROTEIN (BEAKER) (test naoj=151) 5.4 gm/dL 6.0-8.3 ALBUMIN (BEAKER) (test xqjy=7850) 3.0 g/dL 3.5-5.0 BILIRUBIN TOTAL (BEAKER) (test bing=993) 2.1 mg/dL 0.2-1.2 BILIRUBIN DIRECT (BEAKER) (test aurc=220) 1.4 mg/dL 0.1-0.5 ALKALINE PHOSPHATASE (BEAKER) (test tocl=090) 56 U/L 40-150 AST (SGOT) (BEAKER) (test zpbe=799) 39 U/L 5-34 ALT (SGPT) (BEAKER) (test xsom=843) 22 U/L 6-55 LACTATE DEHYDROGENASE (LDH)2017-03-03 04:09:00 Test Item Value Reference Range Comments LACTATE DEHYDROGENASE (BEAKER) (test ngnj=196) 688 U/L 125-220 PT/[id number] 03:58:00 Test Item Value Reference Range Comments PROTIME (BEAKER) (test bbny=389) 17.5 seconds 11.7-14.7 INR (BEAKER) (test tqmc=238) 1.4 <=5.9 PARTIAL THROMBOPLASTIN TIME (BEAKER) (test 37.8 seconds 22.5-36.0 mkvs=767) RECOMMENDED COUMADIN/WARFARIN INR THERAPY RANGESSTANDARD DOSE: 2.0 - 3.0 Includes: PROPHYLAXIS forvenous thrombosis, systemic embolization; TREATMENT for venous thrombosis and/or pulmonary embolus.HIGH RISK: Target INR is 2.5-3.5 for patients with mechanical heart valves.PROTHROMBIN [id number] 03:57: 00 Test Item Value Reference Range Comments PROTIME (BEAKER) (test uyik=484) 17.5 seconds 11.7-14.7 INR (BEAKER) (test fnbb=497) 1.4 <=5.9 RECOMMENDED COUMADIN/WARFARIN INR THERAPY RANGESSTANDARD DOSE: 2.0 - 3.0 Includes: PROPHYLAXIS forvenous thrombosis, systemic embolization; TREATMENT for venous thrombosis and/or pulmonary embolus.HIGH RISK: Target INR is 2.5-3.5 for patients with mechanical heart valves.CBC W/PLT COUNT & AUTO [id number] 03:56:00 Test Item Value Reference Range Comments WHITE BLOOD CELL COUNT (BEAKER) (test syfo=881) 17.1 K/ L 3.5-10.5 RED BLOOD CELL COUNT (BEAKER) (test txmr=973) 2.57 M/ L 4.63-6.08 HEMOGLOBIN (BEAKER) (test ypzy=783) 7.5 GM/DL 13.7-17.5 HEMATOCRIT (BEAKER) (test wams=538) 23.4 % 40.1-51.0 MEAN CORPUSCULAR VOLUME (BEAKER) (test kxpt=367) 91.1 fL 79.0-92.2 MEAN CORPUSCULAR HEMOGLOBIN (BEAKER) (test 29.2 pg 25.7-32.2 hgrs=346) MEAN CORPUSCULAR HEMOGLOBIN CONC (BEAKER) (test 32.1 GM/DL 32.3-36.5 gktw=418) RED CELL DISTRIBUTION WIDTH (BEAKER) (test 15.5 % 11.6-14.4 kyyv=510) PLATELET COUNT (BEAKER) (test fwpw=699) 77 K/CU MM 150-450 MEAN PLATELET VOLUME (BEAKER) (test bcep=269) 11.8 fL 9.4-12.4 NUCLEATED RED BLOOD CELLS (BEAKER) (test 3 /100 WBC 0-0 exan=503) NEUTROPHILS RELATIVE PERCENT (BEAKER) (test 80 % cadj=170) LYMPHOCYTES RELATIVE PERCENT (BEAKER) (test 6 % giax=498) MONOCYTES RELATIVE PERCENT (BEAKER) (test 13 % eisw=977) EOSINOPHILS RELATIVE PERCENT (BEAKER) (test 1 % xwir=020) BASOPHILS RELATIVE PERCENT (BEAKER) (test 0 % lodj=104) NEUTROPHILS ABSOLUTE COUNT (BEAKER) (test 13.62 K/ L 1.78-5.38 fwuy=891) LYMPHOCYTES ABSOLUTE COUNT (BEAKER) (test 1.06 K/ L 1.32-3.57 pyix=635) MONOCYTES ABSOLUTE COUNT (BEAKER) (test glpp=527) 2.15 K/ L 0.30-0.82 EOSINOPHILS ABSOLUTE COUNT (BEAKER) (test 0.13 K/ L 0.04-0.54 rrcn=169) BASOPHILS ABSOLUTE COUNT (BEAKER) (test lffn=909) 0.02 K/ L 0.01-0.08 IMMATURE GRANULOCYTES-RELATIVE PERCENT (BEAKER) 1 % 0-1 (test pzyg=7552) POCT-GLUCOSE [id number] 03:23:00 Test Item Value Reference Range Comments POC-GLUCOSE METER (BEAKER) 133 mg/dL 70-110 TESTED AT [address] (test exqg=3661) [place] [address] POCT-GLUCOSE [id number] 02:07:00 Test Item Value Reference Range Comments POC-GLUCOSE METER (BEAKER) 161 mg/dL 70-110 TESTED AT [address] (test tway=2070) [place] [address] [id number] 01:02:00 Test Item Value Reference Range Comments POTASSIUM (BEAKER) (test 4.0 meq/L 3.5-5.1 Specimen slightly hemolyzed mcti=240) POCT-GLUCOSE [id number] 00:43:00 Test Item Value Reference Range Comments POC-GLUCOSE METER (BEAKER) 147 mg/dL 70-110 TESTED AT [address] (test rikf=8703) [place] [address] POCT-GLUCOSE [id number] 00:06:00 Test Item Value Reference Range Comments POC-GLUCOSE METER (BEAKER) 172 mg/dL 70-110 TESTED AT [address] (test hdwu=4224) [place] [address] [id number] 23:12:00 Test Item Value Reference Range Comments MAGNESIUM (BEAKER) (test mfef=382) 2.4 mg/dL 1.6-2.6 POCT-GLUCOSE [id number] 23:08:00 Test Item Value Reference Range Comments POC-GLUCOSE METER (BEAKER) 173 mg/dL 70-110 TESTED AT [address] (test toww=5830) [facility] [address] RAD, CHEST, 1 VIEW, NON [id number] 23:00:00Reason for exam:->acute pulmonary edemaFINAL REPORT Comparison: 03/02/2017 at 8: 00 AM TECHNIQUE: Single view of the chest FINDINGS: Interval removal of bilateral chest tubes. No other significant change. No gross pneumothorax. Signed: Jonh Machado Verified Date/Time: 03/02/2017 23:00:14 Reading Location: [address] Consult Reading Room BLOOD GAS, [id number] 22:58:00 Test Item Value Reference Range Comments PH ARTERIAL (BEAKER) (test kzrr=737) 7.51 7.35-7.45 PCO2 ARTERIAL (BEAKER) (test fibl=608) 37 mmHg 35-45 PO2 ARTERIAL (BEAKER) (test iswq=750) 95 mmHg 80-90 O2 SATURATION ARTERIAL (BEAKER) (test ijxz=759) 97.9 % 96.0-97.0 HCO3 ARTERIAL (BEAKER) (test gpfh=544) 29 mmol/L 21-29 BASE EXCESS ARTERIAL (BEAKER) (test qvoa=759) 5.2 mmol/L -2.0-3.0 PATIENT TEMPERATURE (BEAKER) (test epuq=5592) 36.8 C FIO2 (BEAKER) (test fkzq=8898) 100.0 % CALCIUM, [id number] 22:58:00 Test Item Value Reference Range Comments CALCIUM IONIZED (BEAKER) (test sjcj=980) 1.02 mmol/L 1.12-1.27 PH, BLOOD (BEAKER) (test wmxm=7694) 7.51 POCT-GLUCOSE [id number] 21:29:00 Test Item Value Reference Range Comments POC-GLUCOSE METER (BEAKER) 178 mg/dL 70-110 TESTED AT [address] (test qfzq=4116) [facility] [address] [id number] 20:42:00 Test Item Value Reference Range Comments POTASSIUM (BEAKER) (test kpxe=032) 4.1 meq/L 3.5-5.1 Check Serum Potassium level 2 hours after oral potassium replacement completed or 30 min after intravenous potassium replacement.CBC (HEMOGRAM ONLY)2017-03-02 20:27:00 Test Item Value Reference Range Comments WHITE BLOOD CELL COUNT (BEAKER) (test vsdl=280) 16.1 K/ L 3.5-10.5 RED BLOOD CELL COUNT (BEAKER) (test jybl=566) 2.63 M/ L 4.63-6.08 HEMOGLOBIN (BEAKER) (test aktt=044) 7.8 GM/DL 13.7-17.5 HEMATOCRIT (BEAKER) (test mshc=222) 24.2 % 40.1-51.0 MEAN CORPUSCULAR VOLUME (BEAKER) (test kpgs=209) 92.0 fL 79.0-92.2 MEAN CORPUSCULAR HEMOGLOBIN (BEAKER) (test 29.7 pg 25.7-32.2 uder=706) MEAN CORPUSCULAR HEMOGLOBIN CONC (BEAKER) (test 32.2 GM/DL 32.3-36.5 ttfo=773) RED CELL DISTRIBUTION WIDTH (BEAKER) (test 15.8 % 11.6-14.4 ulah=710) PLATELET COUNT (BEAKER) (test kith=998) 82 K/CU MM 150-450 MEAN PLATELET VOLUME (BEAKER) (test xtvv=175) 11.8 fL 9.4-12.4 NUCLEATED RED BLOOD CELLS (BEAKER) (test 2 /100 WBC 0-0 hzlc=233) POCT-GLUCOSE [id number] 20:16:00 Test Item Value Reference Range Comments POC-GLUCOSE METER (BEAKER) 203 mg/dL 70-110 TESTED AT [address] (test jhyn=0641) [place] [id number] POCT-GLUCOSE [id number] 18:55:00 Test Item Value Reference Range Comments POC-GLUCOSE METER (BEAKER) 154 mg/dL 70-110 TESTED AT [address] (test smxg=2622) [place] [id number] 17:41:00 Test Item Value Reference Range Comments MAGNESIUM (BEAKER) (test kcsv=572) 2.1 mg/dL 1.6-2.6 [id number] 17:41:00 Test Item Value Reference Range Comments POTASSIUM (BEAKER) (test itbx=538) 3.6 meq/L 3.5-5.1 BASIC METABOLIC [id number] 17:41:00 Test Item Value Reference Range Comments SODIUM (BEAKER) (test 146 meq/L 136-145 zpau=541) POTASSIUM (BEAKER) (test 3.6 meq/L 3.5-5.1 tlml=067) CHLORIDE (BEAKER) (test 107 meq/L 98-107 rqcz=297) CO2 (BEAKER) (test 26 meq/L 22-29 mxtr=461) BLOOD UREA NITROGEN 65 mg/dL 7-21 (BEAKER) (test mugj=916) CREATININE (BEAKER) (test 2.05 mg/dL 0.57-1.25 jmjf=766) GLUCOSE RANDOM (BEAKER) 118 mg/dL 70-105 (test totg=255) CALCIUM (BEAKER) (test 7.7 mg/dL 8.4-10.2 vwqc=372) EGFR (BEAKER) (test 32 mL/min/1.73 sq m ESTIMATED GFR IS NOT cnrn=3804) ACCURATE CREATININE CLEARANCE IN PREDICTING GLOMERULAR FILTRATION RATE. ESTIMATED GFR IS NOT APPLICABLE FOR DIALYSIS PATIENTS. LACTIC ACID, ARTERIAL, WHOLE [id number] 17:39:00 Test Item Value Reference Range Comments LACTATE BLOOD ARTERIAL (2) (BEAKER) (test 1.2 mmol/L 0.5-2.2 ebgk=0486) Effective 09/12/2015: Units/Reference Range ChangeNew: 0.5-2.2 mmol/L Previous: 5 -20 mg/dLPOCT-GLUCOSE [id number] 16:59:00 Test Item Value Reference Range Comments POC-GLUCOSE METER (BEAKER) 135 mg/dL 70-110 TESTED AT [facility] [address] [facility] (test uvte=4676) [facility] [address] HEMOGLOBIN AND [id number] 16:50:00 Test Item Value Reference Range Comments HEMOGLOBIN (BEAKER) (test aztg=729) 8.0 g/dL 13.0-16.8 HEMATOCRIT (BEAKER) (test ahpt=305) 24.0 % 40.0-50.0 CALCIUM, [id number] 16:48:00 Test Item Value Reference Range Comments CALCIUM IONIZED (BEAKER) (test llpw=181) 0.96 mmol/L 1.12-1.27 PH, BLOOD (BEAKER) (test zhcf=6473) 7.48 OXYGEN SATURATION, [id number] 16:48:00 Test Item Value Reference Range Comments O2 SATURATION (MEASURED) (BEAKER) (test vvyr=6144) 46.5 % POCT-GLUCOSE [id number] 13:38:00 Test Item Value Reference Range Comments POC-GLUCOSE METER (BEAKER) 187 mg/dL 70-110 TESTED AT [address] (test mqzm=1050) [facility] [address] POCT-GLUCOSE [id number] 13:38:00 Test Item Value Reference Range Comments POC-GLUCOSE METER (BEAKER) 110 mg/dL 70-110 TESTED AT [address] (test aqnk=5773) [facility] [address] OXYGEN SATURATION, [id number] 09:23:00 Test Item Value Reference Range Comments O2 SATURATION (MEASURED) (BEAKER) (test yurr=1086) 47.2 % LACTIC ACID, ARTERIAL, WHOLE [id number] 09:15:00 Test Item Value Reference Range Comments LACTATE BLOOD ARTERIAL (2) (BEAKER) (test 0.9 mmol/L 0.5-2.2 sazz=9645) Effective 09/12/2015: Units/Reference Range ChangeNew: 0.5-2.2 mmol/L Previous: 5 -20 mg/dLGLUCOSE-STAT [id number] 09:01:00 Test Item Value Reference Range Comments GLUCOSE RANDOM (BEAKER) (test kpgw=948) 99 mg/dL 70-110 BLOOD GAS, [id number] 09:01:00 Test Item Value Reference Range Comments PH ARTERIAL (BEAKER) (test dnmq=002) 7.50 7.35-7.45 PCO2 ARTERIAL (BEAKER) (test lzvh=024) 42 mmHg 35-45 PO2 ARTERIAL (BEAKER) (test figr=656) 169 mmHg 80-90 O2 SATURATION ARTERIAL (BEAKER) (test pynp=051) 99.3 % 96.0-97.0 HCO3 ARTERIAL (BEAKER) (test vmvc=591) 32 mmol/L 21-29 BASE EXCESS ARTERIAL (BEAKER) (test grnt=105) 8.0 mmol/L -2.0-3.0 PATIENT TEMPERATURE (BEAKER) (test yyoe=3951) 36.9 C FIO2 (BEAKER) (test hevj=8536) 100.0 % RAD, CHEST, 1 VIEW, NON [id number] 08:13:00Reason for exam:->eval pulmonary edema/atelectasisFINAL REPORT Chest one view INDICATION: Pulmonary edema, atelectasis COMPARISON: 03/01/2017 at 0607 IMPRESSION: IABP catheter tip terminates 3.68 m below the aortic arch apex. The remaining support devices are stable. Median sternotomy changes are noted. The cardiac silhouette is enlarged. Mediastinal prominence is stable. Pulmonary edema is similar in appearance. Left retrocardiac consolidation or atelectasis remains present likely with adjacent small pleural effusion. No definite pneumothorax is seen. Signed: Jeff Wu MDReport Verified Date/Time: 03/02/2017 08:13:35 Reading Location: [facility] Radiology Reading Room RAD, CHEST, 1 VIEW, NON [id number] 06:26:00Reason for exam:->s/po cabgShould this be performed at the bedside?->YesFINAL REPORT RAD , CHEST, 1 VIEW, NON DEPT INDICATION: s/po cabg COMPARISON: Prior day's exam FINDINGS: Portable frontal view of the chest. IMPRESSION: Support Lines: Intra-aortic balloon pump marker is no longer identified. The patient has been extubated. Enteric tube is beenremoved. Remaining support catheters and hardware are stable. Lungs and pleura: Lungs are normally expanded. There is no focal airspace disease. Questionable trace left effusion. No pneumothorax.Heart and mediastinum: Stable contours. Stable surgical changes.Additional findings: None. Signed: JR Sharma Robert MDReport Verified Date/Time: 03/02/2017 06:26:05 Reading Location: [facility] B1 C013Y CT Body Reading Room VANCOMYCIN LEVEL, [id number] 04:57:00 Test Item Value Reference Range Comments VANCOMYCIN RANDOM (BEAKER) (test nhut=775) 27.4 ug/mL Reference Range: No NormalsCBC W/PLT COUNT & AUTO [id number] 04: 57:00 Test Item Value Reference Range Comments WHITE BLOOD CELL COUNT (BEAKER) (test qjdv=419) 15.1 K/ L 3.5-10.5 RED BLOOD CELL COUNT (BEAKER) (test kbma=338) 2.80 M/ L 4.63-6.08 HEMOGLOBIN (BEAKER) (test zmzv=116) 8.0 GM/DL 13.7-17.5 HEMATOCRIT (BEAKER) (test ktre=464) 25.6 % 40.1-51.0 MEAN CORPUSCULAR VOLUME (BEAKER) (test yacm=591) 91.4 fL 79.0-92.2 MEAN CORPUSCULAR HEMOGLOBIN (BEAKER) (test 28.6 pg 25.7-32.2 hogs=495) MEAN CORPUSCULAR HEMOGLOBIN CONC (BEAKER) (test 31.3 GM/DL 32.3-36.5 aafq=996) RED CELL DISTRIBUTION WIDTH (BEAKER) (test 15.7 % 11.6-14.4 zpwk=767) PLATELET COUNT (BEAKER) (test ucan=833) 89 K/CU MM 150-450 MEAN PLATELET VOLUME (BEAKER) (test uyfw=184) 11.9 fL 9.4-12.4 NUCLEATED RED BLOOD CELLS (BEAKER) (test 1 /100 WBC 0-0 cfbb=733) NEUTROPHILS RELATIVE PERCENT (BEAKER) (test 82 % slpe=319) LYMPHOCYTES RELATIVE PERCENT (BEAKER) (test 5 % zeai=278) MONOCYTES RELATIVE PERCENT (BEAKER) (test 12 % xkvr=965) EOSINOPHILS RELATIVE PERCENT (BEAKER) (test 0 % sddi=089) BASOPHILS RELATIVE PERCENT (BEAKER) (test 0 % lchq=900) NEUTROPHILS ABSOLUTE COUNT (BEAKER) (test 12.37 K/ L 1.78-5.38 hdwb=574) LYMPHOCYTES ABSOLUTE COUNT (BEAKER) (test 0.78 K/ L 1.32-3.57 rbhv=461) MONOCYTES ABSOLUTE COUNT (BEAKER) (test yryz=496) 1.79 K/ L 0.30-0.82 EOSINOPHILS ABSOLUTE COUNT (BEAKER) (test 0.01 K/ L 0.04-0.54 xhan=964) BASOPHILS ABSOLUTE COUNT (BEAKER) (test hzlx=332) 0.02 K/ L 0.01-0.08 IMMATURE GRANULOCYTES-RELATIVE PERCENT (BEAKER) 1 % 0-1 (test gmrv=4820) [id number] 04:55:00 Test Item Value Reference Range Comments PROTIME (BEAKER) (test qowo=361) 18.2 seconds 11.7-14.7 INR (BEAKER) (test jeql=645) 1.5 <=5.9 PARTIAL THROMBOPLASTIN TIME (BEAKER) (test 37.0 seconds 22.5-36.0 vsml=626) RECOMMENDED COUMADIN/WARFARIN INR THERAPY RANGESSTANDARD DOSE: 2.0 - 3.0 Includes: PROPHYLAXIS forvenous thrombosis, systemic embolization; TREATMENT for venous thrombosis and/or pulmonary embolus.HIGH RISK: Target INR is 2.5-3.5 for patients with mechanical heart valves.BASIC METABOLIC [id number] 04:54: 00 Test Item Value Reference Range Comments SODIUM (BEAKER) (test 149 meq/L 136-145 wvdc=846) POTASSIUM (BEAKER) (test 4.1 meq/L 3.5-5.1 Specimen slightly pnhf=367) hemolyzed CHLORIDE (BEAKER) (test 106 meq/L 98-107 ozaz=731) CO2 (BEAKER) (test 30 meq/L 22-29 tjlz=634) BLOOD UREA NITROGEN 62 mg/dL 7-21 (BEAKER) (test lapj=037) CREATININE (BEAKER) (test 2.04 mg/dL 0.57-1.25 Specimen slightly swrd=340) hemolyzed GLUCOSE RANDOM (BEAKER) 121 mg/dL 70-105 (test lhsv=082) CALCIUM (BEAKER) (test 8.0 mg/dL 8.4-10.2 owar=065) EGFR (BEAKER) (test 32 mL/min/1.73 sq m ESTIMATED GFR IS NOT vwai=4923) ACCURATE CREATININE CLEARANCE IN PREDICTING GLOMERULAR FILTRATION RATE. ESTIMATED GFR IS NOT APPLICABLE FOR DIALYSIS PATIENTS. Specimen slightly ictericHEPATIC FUNCTION [id number] 04:54:00 Test Item Value Reference Range Comments TOTAL PROTEIN (BEAKER) (test 6.1 gm/dL 6.0-8.3 Specimen slightly hemolyzed qpmf=616) ALBUMIN (BEAKER) (test 3.2 g/dL 3.5-5.0 Specimen slightly hemolyzed vtnu=5043) BILIRUBIN TOTAL (BEAKER) (test 3.1 mg/dL 0.2-1.2 Specimen slightly hemolyzed jqio=633) BILIRUBIN DIRECT (BEAKER) (test 1.5 mg/dL 0.1-0.5 Specimen slightly hemolyzed zbnm=318) ALKALINE PHOSPHATASE (BEAKER) 50 U/L 40-150 (test ntue=679) AST (SGOT) (BEAKER) (test 58 U/L 5-34 Specimen slightly hemolyzed hjag=918) ALT (SGPT) (BEAKER) (test 23 U/L 6-55 Specimen slightly hemolyzed htpg=645) Specimen slightly ictericLACTATE DEHYDROGENASE (LDH)2017-03-02 04:54:00 Test Item Value Reference Range Comments LACTATE DEHYDROGENASE (BEAKER) 877 U/L 125-220 Specimen slightly hemolyzed (test dstp=310) GLUCOSE-STAT [id number] 04:48:00 Test Item Value Reference Range Comments GLUCOSE RANDOM (BEAKER) (test jfdv=136) 112 mg/dL 70-110 CALCIUM, [id number] 04:47:00 Test Item Value Reference Range Comments CALCIUM IONIZED (BEAKER) (test uias=057) 0.97 mmol/L 1.12-1.27 PH, BLOOD (BEAKER) (test pqfa=2443) 7.47 OXYGEN SATURATION, [id number] 04:46:00 Test Item Value Reference Range Comments O2 SATURATION (MEASURED) (BEAKER) (test ytki=2072) 55.3 % POCT-GLUCOSE [id number] 03:51:00 Test Item Value Reference Range Comments POC-GLUCOSE METER (BEAKER) 118 mg/dL 70-110 TESTED AT [facility] [address] [facility] (test edbz=1417) [facility] [address] POCT-GLUCOSE [id number] 00:07:00 Test Item Value Reference Range Comments POC-GLUCOSE METER (BEAKER) 137 mg/dL 70-110 TESTED AT [address] (test wkom=7502) [facility] [address] POCT-GLUCOSE [id number] 22:02:00 Test Item Value Reference Range Comments POC-GLUCOSE METER (BEAKER) 156 mg/dL 70-110 TESTED AT [address] (test alee=8330) [facility] [address] POCT-GLUCOSE [id number] 20:52:00 Test Item Value Reference Range Comments POC-GLUCOSE METER (BEAKER) 150 mg/dL 70-110 TESTED AT [address] (test azgb=0175) [facility] [address] CBC W/PLT COUNT & AUTO [id number] 20:14:00 Test Item Value Reference Range Comments WHITE BLOOD CELL COUNT (BEAKER) (test flbo=388) 14.4 K/ L 3.5-10.5 RED BLOOD CELL COUNT (BEAKER) (test jyxg=877) 2.54 M/ L 4.63-6.08 HEMOGLOBIN (BEAKER) (test btan=898) 7.7 GM/DL 13.7-17.5 HEMATOCRIT (BEAKER) (test htzw=659) 23.4 % 40.1-51.0 MEAN CORPUSCULAR VOLUME (BEAKER) (test qoza=719) 92.1 fL 79.0-92.2 MEAN CORPUSCULAR HEMOGLOBIN (BEAKER) (test 30.3 pg 25.7-32.2 oziv=301) MEAN CORPUSCULAR HEMOGLOBIN CONC (BEAKER) (test 32.9 GM/DL 32.3-36.5 etsd=693) RED CELL DISTRIBUTION WIDTH (BEAKER) (test 15.4 % 11.6-14.4 bzpr=513) PLATELET COUNT (BEAKER) (test csos=220) 89 K/CU MM 150-450 MEAN PLATELET VOLUME (BEAKER) (test klvv=004) 10.9 fL 9.4-12.4 NUCLEATED RED BLOOD CELLS (BEAKER) (test 1 /100 WBC 0-0 ccgw=028) NEUTROPHILS RELATIVE PERCENT (BEAKER) (test 80 % ekja=027) LYMPHOCYTES RELATIVE PERCENT (BEAKER) (test 6 % qvit=516) MONOCYTES RELATIVE PERCENT (BEAKER) (test 13 % midc=245) EOSINOPHILS RELATIVE PERCENT (BEAKER) (test 0 % igvd=971) BASOPHILS RELATIVE PERCENT (BEAKER) (test 0 % cxyk=933) NEUTROPHILS ABSOLUTE COUNT (BEAKER) (test 11.49 K/ L 1.78-5.38 linf=566) LYMPHOCYTES ABSOLUTE COUNT (BEAKER) (test 0.92 K/ L 1.32-3.57 nxvc=101) MONOCYTES ABSOLUTE COUNT (BEAKER) (test ahqo=055) 1.87 K/ L 0.30-0.82 EOSINOPHILS ABSOLUTE COUNT (BEAKER) (test 0.00 K/ L 0.04-0.54 yejb=929) BASOPHILS ABSOLUTE COUNT (BEAKER) (test njip=565) 0.02 K/ L 0.01-0.08 IMMATURE GRANULOCYTES-RELATIVE PERCENT (BEAKER) 1 % 0-1 (test ktqv=7513) (MANUAL DIFFERENTIAL)2017-03-01 20:14:00 Test Item Value Reference Range Comments TOTAL COUNTED (BEAKER) (test klbo=4955) WBC MORPHOLOGY (BEAKER) (test agvv=592) Normal PLT MORPHOLOGY (BEAKER) (test iezs=531) Normal RBC MORPHOLOGY (BEAKER) (test gaht=464) Normal OXYGEN SATURATION, [id number] 19:51:00 Test Item Value Reference Range Comments O2 SATURATION (MEASURED) (BEAKER) (test ovii=9144) 58.4 % CALCIUM, [id number] 19:37:00 Test Item Value Reference Range Comments CALCIUM IONIZED (BEAKER) (test qytg=821) 1.00 mmol/L 1.12-1.27 PH, BLOOD (BEAKER) (test ikxm=4903) 7.53 OXYGEN SATURATION, [id number] 19:08:00 Test Item Value Reference Range Comments O2 SATURATION (MEASURED) (BEAKER) (test upss=7253) 58.9 % LACTIC ACID, ARTERIAL, WHOLE [id number] 18:33:00 Test Item Value Reference Range Comments LACTATE BLOOD ARTERIAL (2) (BEAKER) (test 1.5 mmol/L 0.5-2.2 rpmv=2616) Effective 09/12/2015: Units/Reference Range ChangeNew: 0.5-2.2 mmol/L Previous: 5 -20 mg/[id number] 18:11:00 Test Item Value Reference Range Comments POTASSIUM (BEAKER) (test rsry=315) 3.8 meq/L 3.5-5.1 OXYGEN SATURATION, [id number] 18:01:00 Test Item Value Reference Range Comments O2 SATURATION (MEASURED) (BEAKER) (test zynn=6332) 98.1 % HEMOGLOBIN AND [id number] 17:59:00 Test Item Value Reference Range Comments HEMOGLOBIN (BEAKER) (test oowr=114) 7.4 GM/DL 13.7-17.5 HEMATOCRIT (BEAKER) (test hasj=074) 23.2 % 40.1-51.0 POCT-GLUCOSE [id number] 17:05:00 Test Item Value Reference Range Comments POC-GLUCOSE METER (BEAKER) 146 mg/dL 70-110 TESTED AT [address] (test ibql=4495) [facility] [address] POCT-GLUCOSE [id number] 15:53:00 Test Item Value Reference Range Comments POC-GLUCOSE METER (BEAKER) 146 mg/dL 70-110 TESTED AT [address] (test mngd=6854) [facility] [address] URINALYSIS W/ REFLEX URINE [id number] 15:05:00 Test Item Value Reference Range Comments COLOR (BEAKER) (test nwwm=372) Light Yellow CLARITY (BEAKER) (test mrdp=894) Clear SPECIFIC GRAVITY UA (BEAKER) (test yzaj=082) 1.006 1.001-1.035 PH UA (BEAKER) (test kqxm=281) 5.5 5.0-8.0 PROTEIN UA (BEAKER) (test pcqz=016) Negative Negative GLUCOSE UA (BEAKER) (test xpcl=115) Negative Negative KETONES UA (BEAKER) (test scmx=083) Negative Negative BILIRUBIN UA (BEAKER) (test gnys=997) Negative Negative BLOOD UA (BEAKER) (test vwdd=947) Moderate Negative NITRITE UA (BEAKER) (test hloj=480) Negative Negative LEUKOCYTE ESTERASE UA (BEAKER) (test jgxs=580) Negative Negative UROBILINOGEN UA (BEAKER) (test haqr=694) 0.2 mg/dL 0.2-1.0 RBC UA (BEAKER) (test jlcr=982) 1 /HPF WBC UA (BEAKER) (test ycjz=117) 2 /HPF BACTERIA (BEAKER) (test jkxb=289) Occasional MUCUS (BEAKER) (test ycnp=3164) Rare SQUAMOUS EPITHELIAL (BEAKER) (test qjxn=337) < /HPF HYALINE CASTS (BEAKER) (test eslc=716) 2 /LPF SOURCE(BEAKER) (test pebz=9111) BASIC METABOLIC [id number] 14:10:00 Test Item Value Reference Range Comments SODIUM (BEAKER) (test 149 meq/L 136-145 awkc=728) POTASSIUM (BEAKER) (test 4.0 meq/L 3.5-5.1 qtqi=667) CHLORIDE (BEAKER) (test 105 meq/L 98-107 hnxy=574) CO2 (BEAKER) (test 31 meq/L 22-29 kulu=145) BLOOD UREA NITROGEN 51 mg/dL 7-21 (BEAKER) (test eiqu=259) CREATININE (BEAKER) (test 1.97 mg/dL 0.57-1.25 jdtd=931) GLUCOSE RANDOM (BEAKER) 128 mg/dL 70-105 (test ptnt=977) CALCIUM (BEAKER) (test 8.5 mg/dL 8.4-10.2 myqu=549) EGFR (BEAKER) (test 33 mL/min/1.73 sq m ESTIMATED GFR IS NOT jfnb=7833) ACCURATE CREATININE CLEARANCE IN PREDICTING GLOMERULAR FILTRATION RATE. ESTIMATED GFR IS NOT APPLICABLE FOR DIALYSIS PATIENTS. Specimen slightly ictericPOCT-GLUCOSE [id number] 13:38:00 Test Item Value Reference Range Comments POC-GLUCOSE METER (BEAKER) 119 mg/dL 70-110 TESTED AT [address] (test docg=3624) [place] [address] POCT-GLUCOSE [id number] 13:38:00 Test Item Value Reference Range Comments POC-GLUCOSE METER (BEAKER) 112 mg/dL 70-110 TESTED AT [address] (test pnkc=3528) [place] [address] POCT-GLUCOSE [id number] 13:38:00 Test Item Value Reference Range Comments POC-GLUCOSE METER (BEAKER) 106 mg/dL 70-110 TESTED AT [address] (test ioob=6162) [place] [address] POCT-GLUCOSE [id number] 13:38:00 Test Item Value Reference Range Comments POC-GLUCOSE METER (BEAKER) 123 mg/dL 70-110 TESTED AT [address] (test kjhq=0622) [place] [address] VANCOMYCIN LEVEL, [id number] 12:53:00 Test Item Value Reference Range Comments VANCOMYCIN TROUGH (BEAKER) (test hpbq=026) 39.8 ug/mL 10.0-20.0 BLOOD GAS, [id number] 12:07:00 Test Item Value Reference Range Comments PH ARTERIAL (BEAKER) (test jctn=489) 7.56 7.35-7.45 PCO2 ARTERIAL (BEAKER) (test fzfa=404) 38 mmHg 35-45 PO2 ARTERIAL (BEAKER) (test mmnv=396) 104 mmHg 80-90 O2 SATURATION ARTERIAL (BEAKER) (test psic=307) 98.3 % 96.0-97.0 HCO3 ARTERIAL (BEAKER) (test gyop=920) 33 mmol/L 21-29 BASE EXCESS ARTERIAL (BEAKER) (test aqqy=820) 9.9 mmol/L -2.0-3.0 PATIENT TEMPERATURE (BEAKER) (test dmme=6333) 37.0 C FIO2 (BEAKER) (test qmuj=9541) 100.0 % HGB/HCT (H&H) - STAT [id number] 12:07:00 Test Item Value Reference Range Comments HEMOGLOBIN (BEAKER) (test erld=831) 9.2 g/dL 13.0-16.8 HEMATOCRIT (BEAKER) (test jxft=168) 27.0 % 40.0-50.0 SODIUM NA-STAT [id number] 12:05:00 Test Item Value Reference Range Comments SODIUM (BEAKER) (test xced=687) 145 meq/L 135-148 POCT-GLUCOSE [id number] 09:28:00 Test Item Value Reference Range Comments POC-GLUCOSE METER (BEAKER) 131 mg/dL 70-110 TESTED AT [address] (test vwbl=7026) [place] [id number] CBC W/PLT COUNT & AUTO [id number] 08:05:00 Test Item Value Reference Range Comments WHITE BLOOD CELL COUNT (BEAKER) (test vdhd=938) 16.1 K/ L 3.5-10.5 RED BLOOD CELL COUNT (BEAKER) (test voyn=859) 2.94 M/ L 4.63-6.08 HEMOGLOBIN (BEAKER) (test qjhw=600) 8.8 GM/DL 13.7-17.5 HEMATOCRIT (BEAKER) (test auqr=998) 26.5 % 40.1-51.0 MEAN CORPUSCULAR VOLUME (BEAKER) (test eoak=330) 90.1 fL 79.0-92.2 MEAN CORPUSCULAR HEMOGLOBIN (BEAKER) (test 29.9 pg 25.7-32.2 vuwp=678) MEAN CORPUSCULAR HEMOGLOBIN CONC (BEAKER) (test 33.2 GM/DL 32.3-36.5 tuaz=863) RED CELL DISTRIBUTION WIDTH (BEAKER) (test 15.7 % 11.6-14.4 taxx=544) PLATELET COUNT (BEAKER) (test yhse=776) 119 K/CU MM 150-450 MEAN PLATELET VOLUME (BEAKER) (test unxj=701) 11.3 fL 9.4-12.4 NUCLEATED RED BLOOD CELLS (BEAKER) (test 1 /100 WBC 0-0 fhpj=650) IMMATURE GRANULOCYTES-RELATIVE PERCENT (BEAKER) 1 % 0-1 (test yicf=3940) (MANUAL DIFFERENTIAL)2017-03-01 08:05:00 Test Item Value Reference Range Comments NEUTROPHILS - REL (DIFF) (BEAKER) (test 80 % lrjy=3068) LYMPHOCYTES - REL (DIFF) (BEAKER) (test 5 % edqa=5132) MONOCYTES - REL (DIFF) (BEAKER) (test rwwm=8321) 8 % BANDS - REL (DIFF) (BEAKER) (test oblr=0675) 7 % 0-10 NEUTROPHILS - ABS (DIFF) (BEAKER) (test 12.88 K/ L 1.80-8.00 enof=6897) LYMPHOCYTES - ABS (DIFF) (BEAKER) (test 0.81 K/ L 1.48-4.50 regg=3577) MONOCYTES - ABS (DIFF) (BEAKER) (test mkqi=4658) 1.29 K/ L 0.00-1.30 BANDS-ABS (DIFF) (BEAKER) (test qkcb=3894) 1.1 K/ L 0.0-0.8 TOTAL COUNTED (BEAKER) (test sndw=4951) 100 BANDS + SEGMENTED NEUTROPHILS (BEAKER) (test 14.01 scvm=8312) MANUAL NRBC PER 100 CELLS (BEAKER) (test 2 /100 WBC 0-0 lnjs=0960) WBC MORPHOLOGY (BEAKER) (test eefz=521) Normal PLT MORPHOLOGY (BEAKER) (test ttlo=921) Normal RBC MORPHOLOGY (BEAKER) (test iivt=060) Normal POCT-GLUCOSE [id number] 06:45:00 Test Item Value Reference Range Comments POC-GLUCOSE METER (BEAKER) 183 mg/dL 70-110 TESTED AT [facility] [address] [facility] (test wbdh=0221) [facility] [address] RAD, CHEST, 1 VIEW, NON [id number] 06:37:00Reason for exam:->s/po cabgShould this be performed at the bedside?->YesFINAL REPORT RAD, CHEST, 1 VIEW, NON DEPT INDICATION: s/po cabg COMPARISON: Prior day's exam FINDINGS: Portable frontal view of the chest. IMPRESSION: Support Lines: Grossly stable position of intra-aortic balloon pump marker projecting approximately 4 cm below the superior border of the aortic arch. Remaining support hardware is stable. Lungs and pleura: Scattered subsegmental atelectasis without focal consolidation. No effusion or pneumothorax.Heart and mediastinum: Stable contours. Stable surgical changes.Additional findings: None. Signed: JR Sharma Robert MDReport Verified Date/Time: 03/01/2017 06:37:36 Reading Location: [facility] C013Y CT Body Reading Room [id number] 04: 52:00 Test Item Value Reference Range Comments MAGNESIUM (BEAKER) (test zcjn=734) 2.1 mg/dL 1.6-2.6 BASIC METABOLIC [id number] 04:52:00 Test Item Value Reference Range Comments SODIUM (BEAKER) (test 145 meq/L 136-145 frak=456) POTASSIUM (BEAKER) (test 3.9 meq/L 3.5-5.1 hoey=940) CHLORIDE (BEAKER) (test 104 meq/L 98-107 cinx=098) CO2 (BEAKER) (test 31 meq/L 22-29 msvh=926) BLOOD UREA NITROGEN 47 mg/dL 7-21 (BEAKER) (test nenc=919) CREATININE (BEAKER) (test 1.90 mg/dL 0.57-1.25 lixh=760) GLUCOSE RANDOM (BEAKER) 138 mg/dL 70-105 (test mdnw=680) CALCIUM (BEAKER) (test 8.4 mg/dL 8.4-10.2 krwt=398) EGFR (BEAKER) (test 35 mL/min/1.73 sq m ESTIMATED GFR IS NOT agpa=7297) ACCURATE CREATININE CLEARANCE IN PREDICTING GLOMERULAR FILTRATION RATE. ESTIMATED GFR IS NOT APPLICABLE FOR DIALYSIS PATIENTS. Specimen slightly ictericLACTATE DEHYDROGENASE (LDH)2017-03-01 04:52:00 Test Item Value Reference Range Comments LACTATE DEHYDROGENASE (BEAKER) (test paqh=549) 940 U/L 125-220 [id number] 04:30:00 Test Item Value Reference Range Comments PROTIME (BEAKER) (test fexv=318) 16.9 seconds 11.7-14.7 INR (BEAKER) (test mckw=897) 1.4 <=5.9 PARTIAL THROMBOPLASTIN TIME (BEAKER) (test 28.2 seconds 22.5-36.0 llzz=785) RECOMMENDED COUMADIN/WARFARIN INR THERAPY RANGESSTANDARD DOSE: 2.0 - 3.0 Includes: PROPHYLAXIS forvenous thrombosis, systemic embolization; TREATMENT for venous thrombosis and/or pulmonary embolus.HIGH RISK: Target INR is 2.5-3.5 for patients with mechanical heart valves.PROTHROMBIN TIME/[id number] 04:29: 00 Test Item Value Reference Range Comments PROTIME (BEAKER) (test bjae=158) 16.9 seconds 11.7-14.7 INR (BEAKER) (test cyfh=572) 1.4 <=5.9 RECOMMENDED COUMADIN/WARFARIN INR THERAPY RANGESSTANDARD DOSE: 2.0 - 3.0 Includes: PROPHYLAXIS forvenous thrombosis, systemic embolization; TREATMENT for venous thrombosis and/or pulmonary embolus.HIGH RISK: Target INR is 2.5-3.5 for patients with mechanical heart valves.POCT-GLUCOSE [id number] 04:12:00 Test Item Value Reference Range Comments POC-GLUCOSE METER (BEAKER) 151 mg/dL 70-110 TESTED AT [address] (test drhu=0104) [facility] [address] POCT-GLUCOSE [id number] 02:41:00 Test Item Value Reference Range Comments POC-GLUCOSE METER (BEAKER) 145 mg/dL 70-110 TESTED AT [address] (test bwnn=2414) [facility] [address] POCT-GLUCOSE [id number] 00:27:00 Test Item Value Reference Range Comments POC-GLUCOSE METER (BEAKER) 145 mg/dL 70-110 TESTED AT [address] (test yvep=4464) [facility] [address] POCT-GLUCOSE [id number] 18:47:00 Test Item Value Reference Range Comments POC-GLUCOSE METER (BEAKER) 159 mg/dL 70-110 TESTED AT [address] (test iokc=1822) [facility] [address] POCT-GLUCOSE [id number] 17:13:00 Test Item Value Reference Range Comments POC-GLUCOSE METER (BEAKER) 147 mg/dL 70-110 TESTED AT [address] (test tmtx=9795) [facility] [address] POCT-GLUCOSE [id number] 15:28:00 Test Item Value Reference Range Comments POC-GLUCOSE METER (BEAKER) 135 mg/dL 70-110 TESTED AT [address] (test jmfq=1377) [facility] [address] POCT-GLUCOSE [id number] 13:32:00 Test Item Value Reference Range Comments POC-GLUCOSE METER (BEAKER) 140 mg/dL 70-110 TESTED AT [address] (test zvov=2946) [facility] [address] POCT-GLUCOSE [id number] 13:32:00 Test Item Value Reference Range Comments POC-GLUCOSE METER (BEAKER) 118 mg/dL 70-110 TESTED AT [address] (test tino=1650) [facility] [address] POCT-GLUCOSE [id number] 10:37:00 Test Item Value Reference Range Comments POC-GLUCOSE METER (BEAKER) 102 mg/dL 70-110 TESTED AT [address] (test lslr=5565) [place] [id number] POCT-GLUCOSE [id number] 09:19:00 Test Item Value Reference Range Comments POC-GLUCOSE METER (BEAKER) 136 mg/dL 70-110 TESTED AT [address] (test jgma=0847) [place] [address] POCT-GLUCOSE [id number] 08:11:00 Test Item Value Reference Range Comments POC-GLUCOSE METER (BEAKER) 150 mg/dL 70-110 TESTED AT [address] (test ffyv=8826) [place] [address] POCT-GLUCOSE [id number] 07:32:00 Test Item Value Reference Range Comments POC-GLUCOSE METER (BEAKER) 131 mg/dL 70-110 TESTED AT [address] (test ubat=1194) [place] [address] POCT-GLUCOSE [id number] 07:32:00 Test Item Value Reference Range Comments POC-GLUCOSE METER (BEAKER) 147 mg/dL 70-110 TESTED AT [address] (test qgxq=8525) [place] [id number] BASIC METABOLIC [id number] 06:26:00 Test Item Value Reference Range Comments SODIUM (BEAKER) (test 143 meq/L 136-145 vpny=959) POTASSIUM (BEAKER) (test 4.5 meq/L 3.5-5.1 rarp=451) CHLORIDE (BEAKER) (test 109 meq/L 98-107 mmxi=522) CO2 (BEAKER) (test 26 meq/L 22-29 fhtu=942) BLOOD UREA NITROGEN 45 mg/dL 7-21 (BEAKER) (test lqef=040) CREATININE (BEAKER) (test 1.89 mg/dL 0.57-1.25 zdpo=653) GLUCOSE RANDOM (BEAKER) 138 mg/dL 70-105 (test jsko=301) CALCIUM (BEAKER) (test 7.9 mg/dL 8.4-10.2 ywcq=058) EGFR (BEAKER) (test 35 mL/min/1.73 sq m ESTIMATED GFR IS NOT rhyq=7938) ACCURATE CREATININE CLEARANCE IN PREDICTING GLOMERULAR FILTRATION RATE. ESTIMATED GFR IS NOT APPLICABLE FOR DIALYSIS PATIENTS. [id number] 06:25:00 Test Item Value Reference Range Comments MAGNESIUM (BEAKER) (test nuwc=878) 2.4 mg/dL 1.6-2.6 HEPATIC FUNCTION [id number] 06:25:00 Test Item Value Reference Range Comments TOTAL PROTEIN (BEAKER) (test mvcs=525) 4.8 gm/dL 6.0-8.3 ALBUMIN (BEAKER) (test fqjx=0067) 2.8 g/dL 3.5-5.0 BILIRUBIN TOTAL (BEAKER) (test qdjy=078) 2.4 mg/dL 0.2-1.2 BILIRUBIN DIRECT (BEAKER) (test mmvu=867) 1.8 mg/dL 0.1-0.5 ALKALINE PHOSPHATASE (BEAKER) (test kapc=065) 44 U/L 40-150 AST (SGOT) (BEAKER) (test egdx=964) 161 U/L 5-34 ALT (SGPT) (BEAKER) (test rhgb=962) 35 U/L 6-55 LACTATE DEHYDROGENASE (LDH)2017-02-28 06:25:00 Test Item Value Reference Range Comments LACTATE DEHYDROGENASE (BEAKER) (test vjzr=301) 989 U/L 125-220 [id number] 06:19:00 Test Item Value Reference Range Comments GLUCOSE RANDOM (BEAKER) (test dwxq=858) 137 mg/dL 70-105 PRN - repeat glucose levels every 1 hour or as specified by insulin titration orders until glucose level is less than 450 mg/dLCBC W/PLT COUNT & AUTO [id number] 06:07:00 Test Item Value Reference Range Comments WHITE BLOOD CELL COUNT (BEAKER) (test saul=433) 14.3 K/ L 3.5-10.5 RED BLOOD CELL COUNT (BEAKER) (test unxw=985) 2.76 M/ L 4.63-6.08 HEMOGLOBIN (BEAKER) (test ersb=747) 8.3 GM/DL 13.7-17.5 HEMATOCRIT (BEAKER) (test paxy=406) 24.4 % 40.1-51.0 MEAN CORPUSCULAR VOLUME (BEAKER) (test ahku=379) 88.4 fL 79.0-92.2 MEAN CORPUSCULAR HEMOGLOBIN (BEAKER) (test 30.1 pg 25.7-32.2 cycf=950) MEAN CORPUSCULAR HEMOGLOBIN CONC (BEAKER) (test 34.0 GM/DL 32.3-36.5 eyds=651) RED CELL DISTRIBUTION WIDTH (BEAKER) (test 16.0 % 11.6-14.4 thfj=959) PLATELET COUNT (BEAKER) (test ancu=200) 114 K/CU MM 150-450 MEAN PLATELET VOLUME (BEAKER) (test vgzh=161) 10.9 fL 9.4-12.4 NUCLEATED RED BLOOD CELLS (BEAKER) (test 0 /100 WBC 0-0 svcz=918) NEUTROPHILS RELATIVE PERCENT (BEAKER) (test 81 % qfyf=830) LYMPHOCYTES RELATIVE PERCENT (BEAKER) (test 6 % zvum=722) MONOCYTES RELATIVE PERCENT (BEAKER) (test 13 % iwbl=054) EOSINOPHILS RELATIVE PERCENT (BEAKER) (test 0 % bgsq=399) BASOPHILS RELATIVE PERCENT (BEAKER) (test 0 % uhac=057) NEUTROPHILS ABSOLUTE COUNT (BEAKER) (test 11.53 K/ L 1.78-5.38 wybu=487) LYMPHOCYTES ABSOLUTE COUNT (BEAKER) (test 0.79 K/ L 1.32-3.57 evbc=710) MONOCYTES ABSOLUTE COUNT (BEAKER) (test 1.87 K/ L 0.30-0.82 cfnm=663) EOSINOPHILS ABSOLUTE COUNT (BEAKER) (test 0.00 K/ L 0.04-0.54 uunq=982) BASOPHILS ABSOLUTE COUNT (BEAKER) (test 0.01 K/ L 0.01-0.08 cxbz=842) IMMATURE GRANULOCYTES-RELATIVE PERCENT (BEAKER) 0 % 0-1 (test wibv=0450) CALCIUM, [id number] 06:05:00 Test Item Value Reference Range Comments CALCIUM IONIZED (BEAKER) (test xcfj=302) 1.07 mmol/L 1.12-1.27 PH, BLOOD (BEAKER) (test ncuh=7609) 7.45 PT/[id number] 06:04:00 Test Item Value Reference Range Comments PROTIME (BEAKER) (test ymes=048) 17.1 seconds 11.7-14.7 INR (BEAKER) (test wfmp=006) 1.4 <=5.9 PARTIAL THROMBOPLASTIN TIME (BEAKER) (test 32.1 seconds 22.5-36.0 qbuy=257) RECOMMENDED COUMADIN/WARFARIN INR THERAPY RANGESSTANDARD DOSE: 2.0 - 3.0 Includes: PROPHYLAXIS forvenous thrombosis, systemic embolization; TREATMENT for venous thrombosis and/or pulmonary embolus.HIGH RISK: Target INR is 2.5-3.5 for patients with mechanical heart valves.BLOOD GAS, [id number] 05:48:00 Test Item Value Reference Range Comments PH ARTERIAL (BEAKER) (test kala=578) 7.44 7.35-7.45 PCO2 ARTERIAL (BEAKER) (test eduj=005) 42 mmHg 35-45 PO2 ARTERIAL (BEAKER) (test vrwi=096) 167 mmHg 80-90 O2 SATURATION ARTERIAL (BEAKER) (test uqfj=144) 99.1 % 96.0-97.0 HCO3 ARTERIAL (BEAKER) (test vyau=095) 28 mmol/L 21-29 BASE EXCESS ARTERIAL (BEAKER) (test zcrg=034) 3.3 mmol/L -2.0-3.0 PATIENT TEMPERATURE (BEAKER) (test qblc=9701) 38.0 C FIO2 (BEAKER) (test qxyd=5278) 55.0 % OXYGEN SATURATION, [id number] 05:45:00 Test Item Value Reference Range Comments O2 SATURATION (MEASURED) (BEAKER) (test ugiv=3686) 59.3 % For occult hypoperfusionRAD, CHEST, 1 VIEW, NON [id number] 04:53:00Reason for exam:->s/po cabgShould this be performed at the bedside?->YesFINAL REPORT CLINICAL INDICATION: Postop Comparison: 2016 at 1449 hours The cardiomediastinal contours are stable. Central pulmonary vascular congestion has partially improved. Bilateral infrahilar opacities may reflect atelectasis but pneumonitis should be excluded clinically. There is no pneumothorax. The radiopaque tip of an IABP is approximately 6 cm caudal to the superior margin of the aortic arch. Support lines are otherwise stable. Signed: Jordan Mastersort Verified Date/Time: 02/28/2017 04:53:29 Reading Location : [address] Reading Room [id number] 01:07:00 Test Item Value Reference Range Comments MAGNESIUM (BEAKER) (test natu=559) 2.4 mg/dL 1.6-2.6 LACTIC ACID, ARTERIAL, WHOLE [id number] 01:04:00 Test Item Value Reference Range Comments LACTATE BLOOD ARTERIAL (2) (BEAKER) (test 2.4 mmol/L 0.5-2.2 wmby=7639) Effective 09/12/2015: Units/Reference Range ChangeNew: 0.5-2.2 mmol/L Previous: 5 -20 mg/dLBLOOD GAS, [id number] 00:32:00 Test Item Value Reference Range Comments PH ARTERIAL (BEAKER) (test zdus=652) 7.42 7.35-7.45 PCO2 ARTERIAL (BEAKER) (test flml=481) 42 mmHg 35-45 PO2 ARTERIAL (BEAKER) (test nocf=006) 103 mmHg 80-90 O2 SATURATION ARTERIAL (BEAKER) (test nyoh=682) 97.7 % 96.0-97.0 HCO3 ARTERIAL (BEAKER) (test yojt=355) 27 mmol/L 21-29 BASE EXCESS ARTERIAL (BEAKER) (test woxb=358) 2.0 mmol/L -2.0-3.0 PATIENT TEMPERATURE (BEAKER) (test kwpf=6838) 37.3 C FIO2 (BEAKER) (test sjrt=3694) 60.0 % GLUCOSE-STAT [id number] 00:32:00 Test Item Value Reference Range Comments GLUCOSE RANDOM (BEAKER) (test twjq=804) 209 mg/dL 70-110 HGB/HCT (H&H) - STAT [id number] 00:32:00 Test Item Value Reference Range Comments HEMOGLOBIN (BEAKER) (test cgpp=666) 8.7 g/dL 13.0-16.8 HEMATOCRIT (BEAKER) (test cfxd=581) 26.0 % 40.0-50.0 CALCIUM, [id number] 00:32:00 Test Item Value Reference Range Comments CALCIUM IONIZED (BEAKER) (test adpw=452) 1.09 mmol/L 1.12-1.27 PH, BLOOD (BEAKER) (test eqxl=0939) 7.43 SODIUM NA-STAT [id number] 00:31:00 Test Item Value Reference Range Comments SODIUM (BEAKER) (test wqbw=811) 139 meq/L 135-148 POTASSIUM-STAT [id number] 00:31:00 Test Item Value Reference Range Comments POTASSIUM (BEAKER) (test dior=573) 4.1 meq/L 3.6-5.5 CBC (HEMOGRAM ONLY)2017-02-27 21:05:00 Test Item Value Reference Range Comments WHITE BLOOD CELL COUNT (BEAKER) (test zxew=128) 12.4 K/ L 3.5-10.5 RED BLOOD CELL COUNT (BEAKER) (test maoc=603) 2.80 M/ L 4.63-6.08 HEMOGLOBIN (BEAKER) (test sqyc=403) 8.4 GM/DL 13.7-17.5 HEMATOCRIT (BEAKER) (test ozuf=693) 24.7 % 40.1-51.0 MEAN CORPUSCULAR VOLUME (BEAKER) (test zrzx=068) 88.2 fL 79.0-92.2 MEAN CORPUSCULAR HEMOGLOBIN (BEAKER) (test 30.0 pg 25.7-32.2 ptav=609) MEAN CORPUSCULAR HEMOGLOBIN CONC (BEAKER) (test 34.0 GM/DL 32.3-36.5 tcya=939) RED CELL DISTRIBUTION WIDTH (BEAKER) (test 15.6 % 11.6-14.4 pfox=235) PLATELET COUNT (BEAKER) (test nous=831) 106 K/CU MM 150-450 MEAN PLATELET VOLUME (BEAKER) (test xjaq=781) 10.1 fL 9.4-12.4 NUCLEATED RED BLOOD CELLS (BEAKER) (test 0 /100 WBC 0-0 hduk=389) GLUCOSE-STAT [id number] 21:01:00 Test Item Value Reference Range Comments GLUCOSE RANDOM (BEAKER) (test zjai=140) 233 mg/dL 70-110 BLOOD GAS, [id number] 21:01:00 Test Item Value Reference Range Comments PH ARTERIAL (BEAKER) (test fije=113) 7.46 7.35-7.45 PCO2 ARTERIAL (BEAKER) (test rxjv=664) 34 mmHg 35-45 PO2 ARTERIAL (BEAKER) (test gnig=708) 120 mmHg 80-90 O2 SATURATION ARTERIAL (BEAKER) (test wdvn=611) 98.6 % 96.0-97.0 HCO3 ARTERIAL (BEAKER) (test nvyw=471) 24 mmol/L 21-29 BASE EXCESS ARTERIAL (BEAKER) (test jmzq=054) 0.2 mmol/L -2.0-3.0 PATIENT TEMPERATURE (BEAKER) (test pcko=6291) 36.6 C FIO2 (BEAKER) (test yriu=8091) 75.0 % RAD, CHEST, 1 VIEW, NON [id number] 16:07:00Reason for exam:->s/p sternotomyShould this be performed at the bedside?->YesFINAL REPORT Portable chest. MEDICAL HISTORY: Status post sternotomy. COMPARISON STUDY: February 27, 2017. FINDINGS: The cardiac silhouette is enlarged. The patient is status poststernotomy. A [place] catheter, bilateral chest tubes, nasogastric tube, mediastinal drain and endotracheal tube are seen. Mild interstitial markings are noted with scattered atelectatic changes. No pleural effusion or pneumothorax is seen. IMPRESSION: Status post sternotomy with multiple support lines in place. Signed: Josiah Lopez Verified Date/Time: 02/27/2017 16:07:39 Reading Location: [address] Ortho Consult Reading Room RAD, CHEST, 1 VIEW, NON [id number] 15:44:00Reason for exam:-> post op cabgShould this be performed at the bedside?->YesFINAL REPORT Chest one view Discussion: IABP marker 5 cm below the aortic knob. Pulmonary catheter, support tubes, drainage tubes in place. Mild pulmonary congestion. No effusionor pneumothorax. Signed: Hiram Tavares Verified Date/Time: 02/27/2017 15:44:40 Reading Location: [facility] [id number] Consult Reading Room 03 :44 PMCALCIUM, [id number] 15:40:00 Test Item Value Reference Range Comments CALCIUM IONIZED (BEAKER) (test yewc=336) 1.10 mmol/L 1.12-1.27 PH, BLOOD (BEAKER) (test tfht=2477) 7.40 SODIUM NA-STAT [id number] 15:40:00 Test Item Value Reference Range Comments SODIUM (BEAKER) (test koly=945) 141 meq/L 135-148 BLOOD GAS, [id number] 15:40:00 Test Item Value Reference Range Comments PH ARTERIAL (BEAKER) (test orzn=734) 7.40 7.35-7.45 PCO2 ARTERIAL (BEAKER) (test ianl=037) 34 mmHg 35-45 PO2 ARTERIAL (BEAKER) (test olhx=223) 91 mmHg 80-90 O2 SATURATION ARTERIAL (BEAKER) (test aont=818) 97.4 % 96.0-97.0 HCO3 ARTERIAL (BEAKER) (test mpos=396) 21 mmol/L 21-29 BASE EXCESS ARTERIAL (BEAKER) (test giqo=016) -3.5 mmol/L -2.0-3.0 PATIENT TEMPERATURE (BEAKER) (test ujic=2339) 35.7 C FIO2 (BEAKER) (test gpqt=0416) 75.0 % POTASSIUM-STAT [id number] 15:40:00 Test Item Value Reference Range Comments POTASSIUM (BEAKER) (test hvrp=390) 2.9 meq/L 3.6-5.5 GLUCOSE-STAT [id number] 15:40:00 Test Item Value Reference Range Comments GLUCOSE RANDOM (BEAKER) (test gwid=497) 223 mg/dL 70-110 HGB/HCT (H&H) - STAT [id number] 15:40:00 Test Item Value Reference Range Comments HEMOGLOBIN (BEAKER) (test jnlv=375) 8.4 g/dL 13.0-16.8 HEMATOCRIT (BEAKER) (test gubw=823) 25.0 % 40.0-50.0 CBC W/PLT COUNT & AUTO [id number] 15:32:00 Test Item Value Reference Range Comments WHITE BLOOD CELL COUNT (BEAKER) (test cgpj=412) 14.7 K/ L 3.5-10.5 RED BLOOD CELL COUNT (BEAKER) (test dvqd=602) 2.52 M/ L 4.63-6.08 HEMOGLOBIN (BEAKER) (test fjbf=105) 7.6 GM/DL 13.7-17.5 HEMATOCRIT (BEAKER) (test cthk=263) 23.1 % 40.1-51.0 MEAN CORPUSCULAR VOLUME (BEAKER) (test klsn=213) 91.7 fL 79.0-92.2 MEAN CORPUSCULAR HEMOGLOBIN (BEAKER) (test 30.2 pg 25.7-32.2 sxqk=331) MEAN CORPUSCULAR HEMOGLOBIN CONC (BEAKER) (test 32.9 GM/DL 32.3-36.5 fisu=498) RED CELL DISTRIBUTION WIDTH (BEAKER) (test 15.2 % 11.6-14.4 kuia=365) PLATELET COUNT (BEAKER) (test isty=105) 136 K/CU MM 150-450 MEAN PLATELET VOLUME (BEAKER) (test xxcr=399) 10.3 fL 9.4-12.4 NUCLEATED RED BLOOD CELLS (BEAKER) (test 0 /100 WBC 0-0 vrqt=053) NEUTROPHILS RELATIVE PERCENT (BEAKER) (test 80 % uyef=897) LYMPHOCYTES RELATIVE PERCENT (BEAKER) (test 5 % waqd=225) MONOCYTES RELATIVE PERCENT (BEAKER) (test 14 % ibhd=173) EOSINOPHILS RELATIVE PERCENT (BEAKER) (test 0 % vwzs=021) BASOPHILS RELATIVE PERCENT (BEAKER) (test 0 % lgnn=626) NEUTROPHILS ABSOLUTE COUNT (BEAKER) (test 11.69 K/ L 1.78-5.38 qmun=272) LYMPHOCYTES ABSOLUTE COUNT (BEAKER) (test 0.77 K/ L 1.32-3.57 ukjh=254) MONOCYTES ABSOLUTE COUNT (BEAKER) (test 2.09 K/ L 0.30-0.82 cwhq=769) EOSINOPHILS ABSOLUTE COUNT (BEAKER) (test 0.01 K/ L 0.04-0.54 dmmw=394) BASOPHILS ABSOLUTE COUNT (BEAKER) (test 0.01 K/ L 0.01-0.08 ibcl=100) IMMATURE GRANULOCYTES-RELATIVE PERCENT (BEAKER) 1 % 0-1 (test hqnl=9635) THROMBOELASTOGRAPH (TEG)2017-02-27 15:25:00 Test Item Value Reference Range Comments TEG ACTIVATED CLOTTING TIME (BEAKER) (test 5.5 minutes 4.0-7.0 uhpu=5270) TEG FIBRINOGEN ACTIVITY (BEAKER) (test 68.4 degrees 61.0-73.0 uggi=1670) TEG PLT. AGGREGATION (BEAKER) (test xont=5876) 63.9 MM 55.0-65.0 TEG FIBRINOLYSIS (BEAKER) (test kvvf=9205) 0.0 % 0.0-5.0 TGH ACTIVATED CLOTTING TIME (BEAKER) (test 5.3 minutes 4.0-7.0 swjj=1003) TGH FIBRINOGEN ACTIVITY (BEAKER) (test 70.6 degrees 61.0-73.0 vvqw=4676) TGH PLT. AGGREGATION (BEAKER) (test udal=6354) 62.9 MM 55.0-65.0 TGH FIBRINOLYSIS (BEAKER) (test rgbt=2914) 0.0 % 0.0-5.0 [id number] 15:09:00 Test Item Value Reference Range Comments MAGNESIUM (BEAKER) (test 2.9 mg/dL 1.6-2.6 Specimen slightly hemolyzed zdeh=112) COMPREHENSIVE METABOLIC [id number] 15:09:00 Test Item Value Reference Range Comments TOTAL PROTEIN (BEAKER) 4.9 gm/dL 6.0-8.3 Specimen slightly (test mhhz=872) hemolyzed ALBUMIN (BEAKER) (test 3.0 g/dL 3.5-5.0 Specimen slightly qexk=7216) hemolyzed ALKALINE PHOSPHATASE 40 U/L 40-150 (BEAKER) (test jdpw=678) BILIRUBIN TOTAL (BEAKER) 2.2 mg/dL 0.2-1.2 Specimen slightly (test tvdx=790) hemolyzed SODIUM (BEAKER) (test 146 meq/L 136-145 osym=498) POTASSIUM (BEAKER) (test 3.4 meq/L 3.5-5.1 Specimen slightly ncvh=918) hemolyzed CHLORIDE (BEAKER) (test 108 meq/L 98-107 kngb=008) CO2 (BEAKER) (test 22 meq/L 22-29 ofwg=737) BLOOD UREA NITROGEN 43 mg/dL 7-21 (BEAKER) (test wbbf=758) CREATININE (BEAKER) (test 1.86 mg/dL 0.57-1.25 Specimen slightly obbb=896) hemolyzed GLUCOSE RANDOM (BEAKER) 209 mg/dL 70-105 (test xumt=868) CALCIUM (BEAKER) (test 8.0 mg/dL 8.4-10.2 aqsz=189) AST (SGOT) (BEAKER) (test 140 U/L 5-34 Specimen slightly bawn=955) hemolyzed ALT (SGPT) (BEAKER) (test 24 U/L 6-55 Specimen slightly eotp=317) hemolyzed EGFR (BEAKER) (test 35 mL/min/1.73 sq m ESTIMATED GFR IS NOT sbzs=6270) ACCURATE CREATININE CLEARANCE IN PREDICTING GLOMERULAR FILTRATION RATE. ESTIMATED GFR IS NOT APPLICABLE FOR DIALYSIS PATIENTS. LACTIC ACID, ARTERIAL, WHOLE [id number] 15:03:00 Test Item Value Reference Range Comments LACTATE BLOOD ARTERIAL (2) 8.1 mmol/L 0.5-2.2 Specimen slightly hemolyzed (BEAKER) (test urir=3006) Effective 09/12/2015: Units/Reference Range ChangeNew: 0.5-2.2 mmol/L Previous: 5 -20 mg/[id number] 14:38:00 Test Item Value Reference Range Comments PARTIAL THROMBOPLASTIN TIME (BEAKER) (test 41.1 seconds 22.5-36.0 vtut=114) [id number] 14:37:00 Test Item Value Reference Range Comments FIBRINOGEN LEVEL (BEAKER) (test oktx=075) 317 mg/dl 225-434 PROTHROMBIN [id number] 14:36:00 Test Item Value Reference Range Comments PROTIME (BEAKER) (test egyp=057) 18.7 seconds 11.7-14.7 INR (BEAKER) (test fzoi=026) 1.6 <=5.9 RECOMMENDED COUMADIN/WARFARIN INR THERAPY RANGESSTANDARD DOSE: 2.0 - 3.0 Includes: PROPHYLAXIS forvenous thrombosis, systemic embolization; TREATMENT for venous thrombosis and/or pulmonary embolus.HIGH RISK: Target INR is 2.5-3.5 for patients with mechanical heart valves.OXYGEN SATURATION, [id number] 14:22:00 Test Item Value Reference Range Comments O2 SATURATION (MEASURED) (BEAKER) (test ceju=5374) 61.7 % BLOOD GAS, [id number] 14:22:00 Test Item Value Reference Range Comments PH ARTERIAL (BEAKER) (test kntj=222) 7.35 7.35-7.45 PCO2 ARTERIAL (BEAKER) (test qalk=452) 42 mmHg 35-45 PO2 ARTERIAL (BEAKER) (test awvg=845) 52 mmHg 80-90 O2 SATURATION ARTERIAL (BEAKER) (test opxo=810) 87.7 % 96.0-97.0 HCO3 ARTERIAL (BEAKER) (test ekvr=032) 23 mmol/L 21-29 BASE EXCESS ARTERIAL (BEAKER) (test nqis=741) -2.9 mmol/L -2.0-3.0 PATIENT TEMPERATURE (BEAKER) (test driy=7127) 35.4 C FIO2 (BEAKER) (test zwmc=2938) 60.0 % GLUCOSE-STAT [id number] 14:22:00 Test Item Value Reference Range Comments GLUCOSE RANDOM (BEAKER) (test plca=078) 197 mg/dL 70-110 POTASSIUM-STAT [id number] 14:22:00 Test Item Value Reference Range Comments POTASSIUM (BEAKER) (test etyr=458) 3.2 meq/L 3.6-5.5 HGB/HCT (H&H) - STAT [id number] 14:22:00 Test Item Value Reference Range Comments HEMOGLOBIN (BEAKER) (test iyty=332) 9.5 g/dL 13.0-16.8 HEMATOCRIT (BEAKER) (test lhhf=924) 28.0 % 40.0-50.0 CALCIUM, [id number] 14:22:00 Test Item Value Reference Range Comments CALCIUM IONIZED (BEAKER) (test xsld=808) 1.08 mmol/L 1.12-1.27 PH, BLOOD (BEAKER) (test bsaa=6790) 7.35 SODIUM NA-STAT [id number] 14:21:00 Test Item Value Reference Range Comments SODIUM (BEAKER) (test piek=095) 141 meq/L 135-148 [id number] 13:11:00 Test Item Value Reference Range Comments PARTIAL THROMBOPLASTIN TIME (BEAKER) (test 41.4 seconds 22.5-36.0 dsrb=310) PROTHROMBIN [id number] 13:10:00 Test Item Value Reference Range Comments PROTIME (BEAKER) (test zdsu=151) 18.9 seconds 11.7-14.7 INR ([facility]) (test qdjm=777) 1.6 <=5.9 RECOMMENDED COUMADIN/WARFARIN INR THERAPY RANGESSTANDARD DOSE: 2.0 - 3.0 Includes: PROPHYLAXIS forvenous thrombosis, systemic embolization; TREATMENT for venous thrombosis and/or pulmonary embolus.HIGH RISK: Target INR is 2.5-3.5 for patients with mechanical heart valves.[id number] 13:10:00 Test Item Value Reference Range Comments FIBRINOGEN LEVEL ([facility]) (test itca=749) 434 mg/dl 225-434 [id number] 13:08:00 Test Item Value Reference Range Comments ACTIVATED CLOTTING TIME 125 sec TESTED AT [address] ([facility]) (test tfvt=771) [place] [address] [id number] 13:08:00 Test Item Value Reference Range Comments ACTIVATED CLOTTING TIME 659 sec TESTED AT [address] ([facility]) (test qfpy=179) [place] [address] [id number] 13:08:00 Test Item Value Reference Range Comments ACTIVATED CLOTTING TIME 648 sec TESTED AT [address] ([facility]) (test bown=389) [place] [address] [id number] 13:08:00 Test Item Value Reference Range Comments ACTIVATED CLOTTING TIME 742 sec TESTED AT [address] ([facility]) (test cgcq=666) [place] [address] [id number] 13:08:00 Test Item Value Reference Range Comments ACTIVATED CLOTTING TIME > sec OUTSIDE MEASURING RANGETESTED ([facility]) (test arat=939) AT [place] [address] PLATELET [id number] 13:02:00 Test Item Value Reference Range Comments PLATELET COUNT ([facility]) (test jjuh=925) 151 K/CU MM 150-450 CALCIUM, [id number] 12:21:00 Test Item Value Reference Range Comments CALCIUM IONIZED ([facility]) (test wstw=875) 1.19 mmol/L 1.12-1.27 PH, BLOOD ([facility]) (test pasx=4860) 7.23 THROMBOELASTOGRAPH (TEG)[id number] 11:31:00 Test Item Value Reference Range Comments TEG ACTIVATED CLOTTING TIME (BEAKER) (test 11.7 minutes 4.0-7.0 voha=5719) TEG FIBRINOGEN ACTIVITY (BEAKER) (test 60.9 degrees 61.0-73.0 shtk=5353) TEG PLT. AGGREGATION (BEAKER) (test uyoa=1850) 57.8 MM 55.0-65.0 TGH ACTIVATED CLOTTING TIME (BEAKER) (test 11.3 minutes 4.0-7.0 rpmt=5780) TGH FIBRINOGEN ACTIVITY (BEAKER) (test 61.3 degrees 61.0-73.0 rvvh=1104) TGH PLT. AGGREGATION (BEAKER) (test camd=4860) 57.1 MM 55.0-65.0 SODIUM NA-STAT [id number] 11:27:00 Test Item Value Reference Range Comments SODIUM (BEAKER) (test dmtp=149) 137 meq/L 135-148 POTASSIUM-STAT [id number] 11:27:00 Test Item Value Reference Range Comments POTASSIUM (BEAKER) (test wony=110) 4.3 meq/L 3.6-5.5 BLOOD GAS, [id number] 11:27:00 Test Item Value Reference Range Comments PH ARTERIAL (BEAKER) (test mwqe=159) 7.24 7.35-7.45 PCO2 ARTERIAL (BEAKER) (test crxc=243) 53 mmHg 35-45 PO2 ARTERIAL (BEAKER) (test josx=160) 70 mmHg 80-90 O2 SATURATION ARTERIAL (BEAKER) (test gnqq=189) 91.9 % 96.0-97.0 HCO3 ARTERIAL (BEAKER) (test kkuo=731) 22 mmol/L 21-29 BASE EXCESS ARTERIAL (BEAKER) (test uxfg=252) -5.3 mmol/L -2.0-3.0 PATIENT TEMPERATURE (BEAKER) (test emht=7092) 36.3 C FIO2 (BEAKER) (test jtya=1208) 96.0 % GLUCOSE-STAT [id number] 11:27:00 Test Item Value Reference Range Comments GLUCOSE RANDOM (BEAKER) (test zneg=348) 224 mg/dL 70-110 HGB/HCT (H&H) - STAT [id number] 11:27:00 Test Item Value Reference Range Comments HEMOGLOBIN (BEAKER) (test cjfb=571) 10.3 g/dL 13.0-16.8 HEMATOCRIT (BEAKER) (test tyjj=846) 30.0 % 40.0-50.0 [id number] 10:50:00 Test Item Value Reference Range Comments FIBRINOGEN LEVEL (BEAKER) (test fikh=369) 325 mg/dl 225-434 [id number] 10:50:00 Test Item Value Reference Range Comments PARTIAL THROMBOPLASTIN TIME (BEAKER) (test 37.6 seconds 22.5-36.0 ldpk=407) PLATELET [id number] 10:50:00 Test Item Value Reference Range Comments PLATELET COUNT (BEAKER) (test gmci=464) 74 K/CU MM 150-450 PROTHROMBIN [id number] 10:49:00 Test Item Value Reference Range Comments PROTIME (BEAKER) (test fgpd=747) 24.5 seconds 11.7-14.7 INR (BEAKER) (test nlja=221) 2.2 <=5.9 RECOMMENDED COUMADIN/WARFARIN INR THERAPY RANGESSTANDARD DOSE: 2.0 - 3.0 Includes: PROPHYLAXIS forvenous thrombosis, systemic embolization; TREATMENT for venous thrombosis and/or pulmonary embolus.HIGH RISK: Target INR is 2.5-3.5 for patients with mechanical heart valves.POTASSIUM-STAT [id number] 10:29:00 Test Item Value Reference Range Comments POTASSIUM (BEAKER) (test gurr=742) 4.4 meq/L 3.6-5.5 BLOOD GAS, [id number] 10:29:00 Test Item Value Reference Range Comments PH ARTERIAL (BEAKER) (test pxtk=255) 7.25 7.35-7.45 PCO2 ARTERIAL (BEAKER) (test eseq=833) 45 mmHg 35-45 PO2 ARTERIAL (BEAKER) (test dltj=109) 140 mmHg 80-90 O2 SATURATION ARTERIAL (BEAKER) (test yjlm=833) 98.4 % 96.0-97.0 HCO3 ARTERIAL (BEAKER) (test qrmh=594) 20 mmol/L 21-29 BASE EXCESS ARTERIAL (BEAKER) (test ciyj=910) -7.2 mmol/L -2.0-3.0 PATIENT TEMPERATURE (BEAKER) (test pylm=9132) 36.8 C FIO2 (BEAKER) (test kkuu=0422) 100.0 % SODIUM NA-STAT [id number] 10:29:00 Test Item Value Reference Range Comments SODIUM (BEAKER) (test jwll=546) 134 meq/L 135-148 GLUCOSE-STAT [id number] 10:29:00 Test Item Value Reference Range Comments GLUCOSE RANDOM (BEAKER) (test ltbt=611) 225 mg/dL 70-110 HGB/HCT (H&H) - STAT [id number] 10:29:00 Test Item Value Reference Range Comments HEMOGLOBIN (BEAKER) (test lmwu=625) 9.4 g/dL 13.0-16.8 HEMATOCRIT (BEAKER) (test ayka=843) 28.0 % 40.0-50.0 CALCIUM, [id number] 10:29:00 Test Item Value Reference Range Comments CALCIUM IONIZED (BEAKER) (test noix=557) 1.05 mmol/L 1.12-1.27 PH, BLOOD (BEAKER) (test yrmm=4550) 7.25 SODIUM NA-STAT [id number] 09:37:00 Test Item Value Reference Range Comments SODIUM (BEAKER) (test mjtz=947) 132 meq/L 135-148 POTASSIUM-STAT [id number] 09:37:00 Test Item Value Reference Range Comments POTASSIUM (BEAKER) (test lowb=087) 5.6 meq/L 3.6-5.5 HGB/HCT (H&H) - STAT [id number] 09:37:00 Test Item Value Reference Range Comments HEMOGLOBIN (BEAKER) (test yatb=475) 8.7 g/dL 13.0-16.8 HEMATOCRIT (BEAKER) (test hhpj=144) 26.0 % 40.0-50.0 BLOOD GAS, [id number] 09:36:00 Test Item Value Reference Range Comments PH ARTERIAL (BEAKER) (test nyia=377) 7.35 7.35-7.45 PCO2 ARTERIAL (BEAKER) (test ecwk=096) 44 mmHg 35-45 PO2 ARTERIAL (BEAKER) (test ydcg=711) 324 mmHg 80-90 O2 SATURATION ARTERIAL (BEAKER) (test kaez=090) 99.7 % 96.0-97.0 HCO3 ARTERIAL (BEAKER) (test aecw=185) 24 mmol/L 21-29 BASE EXCESS ARTERIAL (BEAKER) (test uvki=690) -2.0 mmol/L -2.0-3.0 PATIENT TEMPERATURE (BEAKER) (test wewi=0576) 36.3 C FIO2 (BEAKER) (test ujuo=5207) 75.0 % GLUCOSE-STAT [id number] 09:36:00 Test Item Value Reference Range Comments GLUCOSE RANDOM (BEAKER) (test tiew=464) 183 mg/dL 70-110 GLUCOSE-STAT [id number] 09:20:00 Test Item Value Reference Range Comments GLUCOSE RANDOM (BEAKER) (test onwv=070) 172 mg/dL 70-110 SODIUM NA-STAT [id number] 09:20:00 Test Item Value Reference Range Comments SODIUM (BEAKER) (test pdcz=813) 132 meq/L 135-148 POTASSIUM-STAT [id number] 09:20:00 Test Item Value Reference Range Comments POTASSIUM (BEAKER) (test cigz=251) 5.8 meq/L 3.6-5.5 HGB/HCT (H&H) - STAT [id number] 09:20:00 Test Item Value Reference Range Comments HEMOGLOBIN (BEAKER) (test ymbw=001) 8.4 g/dL 13.0-16.8 HEMATOCRIT (BEAKER) (test iveg=699) 25.0 % 40.0-50.0 BLOOD GAS, [id number] 09:19:00 Test Item Value Reference Range Comments PH ARTERIAL (BEAKER) (test ndcz=891) 7.41 7.35-7.45 PCO2 ARTERIAL (BEAKER) (test mwlm=766) 38 mmHg 35-45 PO2 ARTERIAL (BEAKER) (test jqfj=369) 304 mmHg 80-90 O2 SATURATION ARTERIAL (BEAKER) (test zmdh=924) 99.7 % 96.0-97.0 HCO3 ARTERIAL (BEAKER) (test ylej=548) 24 mmol/L 21-29 BASE EXCESS ARTERIAL (BEAKER) (test dctu=374) -1.5 mmol/L -2.0-3.0 PATIENT TEMPERATURE (BEAKER) (test brlk=3028) 33.5 C FIO2 (BEAKER) (test evmf=2649) 70.0 % GLUCOSE-STAT [id number] 08:56:00 Test Item Value Reference Range Comments GLUCOSE RANDOM (BEAKER) (test xlmv=862) 172 mg/dL 70-110 SODIUM NA-STAT [id number] 08:56:00 Test Item Value Reference Range Comments SODIUM (BEAKER) (test zlzm=147) 132 meq/L 135-148 HGB/HCT (H&H) - STAT [id number] 08:56:00 Test Item Value Reference Range Comments HEMOGLOBIN (BEAKER) (test ngah=694) 6.9 g/dL 13.0-16.8 HEMATOCRIT (BEAKER) (test khzr=861) 20.0 % 40.0-50.0 BLOOD GAS, [id number] 08:55:00 Test Item Value Reference Range Comments PH ARTERIAL (BEAKER) (test qoqp=282) 7.31 7.35-7.45 PCO2 ARTERIAL (BEAKER) (test svjg=477) 54 mmHg 35-45 PO2 ARTERIAL (BEAKER) (test bsej=933) 424 mmHg 80-90 O2 SATURATION ARTERIAL (BEAKER) (test yztg=152) 99.8 % 96.0-97.0 HCO3 ARTERIAL (BEAKER) (test zril=918) 28 mmol/L 21-29 BASE EXCESS ARTERIAL (BEAKER) (test spup=370) 0.5 mmol/L -2.0-3.0 PATIENT TEMPERATURE (BEAKER) (test tfyf=5436) 31.0 C FIO2 (BEAKER) (test fijq=0075) 80.0 % POTASSIUM-STAT [id number] 08:54:00 Test Item Value Reference Range Comments POTASSIUM (BEAKER) (test qurm=692) 5.0 meq/L 3.6-5.5 BLOOD GAS, [id number] 08:38:00 Test Item Value Reference Range Comments PH VENOUS (BEAKER) (test kgqy=540) 7.15 7.32-7.42 PCO2 VENOUS (BEAKER) (test omfw=068) 65 mmHg 41-51 PO2 VENOUS (BEAKER) (test pvsw=770) 49 mmHg 25-40 O2 SATURATION VENOUS (BEAKER) (test jhxc=536) 73.8 % 40.0-70.0 HCO3 VENOUS (BEAKER) (test urhb=769) 22 mmol/L 21-29 BASE EXCESS VENOUS (BEAKER) (test sqhp=783) -6.4 mmol/L -2.0-3.0 PATIENT TEMPERATURE (BEAKER) (test wxdg=5429) 36.5 C FIO2 (BEAKER) (test neok=8893) 80.0 % BLOOD GAS, [id number] 08:37:00 Test Item Value Reference Range Comments PH ARTERIAL (BEAKER) (test cyzj=793) 7.17 7.35-7.45 PCO2 ARTERIAL (BEAKER) (test jffe=208) 60 mmHg 35-45 PO2 ARTERIAL (BEAKER) (test yfaf=655) 362 mmHg 80-90 O2 SATURATION ARTERIAL (BEAKER) (test vewv=459) 99.7 % 96.0-97.0 HCO3 ARTERIAL (BEAKER) (test vnjx=892) 22 mmol/L 21-29 BASE EXCESS ARTERIAL (BEAKER) (test ngfq=009) -6.5 mmol/L -2.0-3.0 PATIENT TEMPERATURE (BEAKER) (test haul=5426) 36.5 C FIO2 (BEAKER) (test swpl=0250) 80.0 % HGB/HCT (H&H) - STAT [id number] 08:37:00 Test Item Value Reference Range Comments HEMOGLOBIN (BEAKER) (test sicd=175) 5.8 g/dL 13.0-16.8 HEMATOCRIT (BEAKER) (test hqbw=936) 17.0 % 40.0-50.0 SODIUM NA-STAT [id number] 08:36:00 Test Item Value Reference Range Comments SODIUM (BEAKER) (test ifci=844) 131 meq/L 135-148 GLUCOSE-STAT [id number] 08:36:00 Test Item Value Reference Range Comments GLUCOSE RANDOM (BEAKER) (test apti=028) 165 mg/dL 70-110 POTASSIUM-STAT [id number] 08:35:00 Test Item Value Reference Range Comments POTASSIUM (BEAKER) (test yfnp=499) 4.4 meq/L 3.6-5.5 TROPONIN [id number] 08:03:00 Test Item Value Reference Range Comments TROPONIN I (BEAKER) (test zxyn=004) 76.70 ng/mL 0.00-0.03 Troponin I (TnI) levels must be interpreted [...] failure, acidosis, acute neurological disease, and persistent tachyarrhythmia.BLOOD GAS, [id number] 07:58:00 Test Item Value Reference Range Comments PH ARTERIAL (BEAKER) (test rotn=158) 7.36 7.35-7.45 PCO2 ARTERIAL (BEAKER) (test csjv=021) 43 mmHg 35-45 PO2 ARTERIAL (BEAKER) (test cqpa=092) 194 mmHg 80-90 O2 SATURATION ARTERIAL (BEAKER) (test chzu=726) 99.3 % 96.0-97.0 HCO3 ARTERIAL (BEAKER) (test bfsc=444) 24 mmol/L 21-29 BASE EXCESS ARTERIAL (BEAKER) (test ennv=616) -1.7 mmol/L -2.0-3.0 PATIENT TEMPERATURE (BEAKER) (test tsbu=8509) 36.0 C FIO2 (BEAKER) (test imfo=4729) 100.0 % SODIUM NA-STAT [id number] 07:58:00 Test Item Value Reference Range Comments SODIUM (BEAKER) (test jnog=550) 132 meq/L 135-148 GLUCOSE-STAT [id number] 07:58:00 Test Item Value Reference Range Comments GLUCOSE RANDOM (BEAKER) (test biew=556) 146 mg/dL 70-110 HGB/HCT (H&H) - STAT [id number] 07:58:00 Test Item Value Reference Range Comments HEMOGLOBIN (BEAKER) (test zoel=732) 9.8 g/dL 13.0-16.8 HEMATOCRIT (BEAKER) (test xmfm=956) 29.0 % 40.0-50.0 POTASSIUM-STAT [id number] 07:57:00 Test Item Value Reference Range Comments POTASSIUM (BEAKER) (test vjhj=251) 4.3 meq/L 3.6-5.5 CREATINE KINASE (CK), TOTAL AND [id number] 07:56:00 Test Item Value Reference Range Comments CREATINE KINASE TOTAL (BEAKER) (test ukqn=481) 3294 U/L 29-200 CREATINE KINASE-MB (BEAKER) (test mguo=759) 349.7 ng/mL 0.0-6.6 CREATINE KINASE-MB INDEX (BEAKER) (test 10.6 % pjfk=130) CK-MB Reference Range:<6.7 Normal6.7-10.0 Borderline>10.0 AbnormalB-TYPE NATRIURETIC FACTOR (BNP)2017-02-27 06:42:00 Test Item Value Reference Range Comments B-TYPE NATRIURETIC PEPTIDE (BEAKER) (test 2050 pg/mL 0-100 kabz=918) BASIC METABOLIC [id number] 06:35:00 Test Item Value Reference Range Comments SODIUM (BEAKER) (test 137 meq/L 136-145 veuo=593) POTASSIUM (BEAKER) (test 4.9 meq/L 3.5-5.1 Specimen slightly pjrn=249) hemolyzed CHLORIDE (BEAKER) (test 106 meq/L 98-107 kbpn=376) CO2 (BEAKER) (test 22 meq/L 22-29 xmgg=460) BLOOD UREA NITROGEN 46 mg/dL 7-21 (BEAKER) (test pklf=865) CREATININE (BEAKER) (test 1.99 mg/dL 0.57-1.25 Specimen slightly mcax=486) hemolyzed GLUCOSE RANDOM (BEAKER) 162 mg/dL 70-105 (test zyft=140) CALCIUM (BEAKER) (test 7.9 mg/dL 8.4-10.2 zhhk=012) EGFR (BEAKER) (test 33 mL/min/1.73 sq m ESTIMATED GFR IS NOT apvm=6367) ACCURATE CREATININE CLEARANCE IN PREDICTING GLOMERULAR FILTRATION RATE. ESTIMATED GFR IS NOT APPLICABLE FOR DIALYSIS PATIENTS. LACTATE DEHYDROGENASE (LDH)2017-02-27 06:35:00 Test Item Value Reference Range Comments LACTATE DEHYDROGENASE (BEAKER) 905 U/L 125-220 Specimen slightly hemolyzed (test jcat=282) [id number] 06:20:00 Test Item Value Reference Range Comments MAGNESIUM (BEAKER) (test 2.8 mg/dL 1.6-2.6 Specimen slightly hemolyzed gbwm=575) HEPATIC FUNCTION [id number] 06:20:00 Test Item Value Reference Range Comments TOTAL PROTEIN (BEAKER) (test 6.0 gm/dL 6.0-8.3 Specimen slightly hemolyzed mkfg=701) ALBUMIN (BEAKER) (test 3.2 g/dL 3.5-5.0 Specimen slightly hemolyzed rjht=4000) BILIRUBIN TOTAL (BEAKER) (test 0.9 mg/dL 0.2-1.2 Specimen slightly hemolyzed didi=278) BILIRUBIN DIRECT (BEAKER) (test 0.4 mg/dL 0.1-0.5 Specimen slightly hemolyzed bkfn=131) ALKALINE PHOSPHATASE (BEAKER) 55 U/L 40-150 (test mfkw=366) AST (SGOT) (BEAKER) (test 196 U/L 5-34 Specimen slightly hemolyzed vxbw=000) ALT (SGPT) (BEAKER) (test 43 U/L 6-55 Specimen slightly hemolyzed bevg=764) [id number] 06:06:00 Test Item Value Reference Range Comments PROTIME (BEAKER) (test vatm=807) 15.9 seconds 11.7-14.7 INR (BEAKER) (test orde=553) 1.3 <=5.9 PARTIAL THROMBOPLASTIN TIME (BEAKER) (test 51.9 seconds 22.5-36.0 bclv=206) RECOMMENDED COUMADIN/WARFARIN INR THERAPY RANGESSTANDARD DOSE: 2.0 - 3.0 Includes: PROPHYLAXIS forvenous thrombosis, systemic embolization; TREATMENT for venous thrombosis and/or pulmonary embolus.HIGH RISK: Target INR is 2.5-3.5 for patients with mechanical heart valves.CBC W/PLT COUNT & AUTO [id number] 05:56:00 Test Item Value Reference Range Comments WHITE BLOOD CELL COUNT (BEAKER) (test efuo=943) 13.2 K/ L 3.5-10.5 RED BLOOD CELL COUNT (BEAKER) (test rykb=880) 3.07 M/ L 4.63-6.08 HEMOGLOBIN (BEAKER) (test jyrt=588) 9.1 GM/DL 13.7-17.5 HEMATOCRIT (BEAKER) (test udsp=271) 28.9 % 40.1-51.0 MEAN CORPUSCULAR VOLUME (BEAKER) (test zyam=396) 94.1 fL 79.0-92.2 MEAN CORPUSCULAR HEMOGLOBIN (BEAKER) (test 29.6 pg 25.7-32.2 gpjz=975) MEAN CORPUSCULAR HEMOGLOBIN CONC (BEAKER) (test 31.5 GM/DL 32.3-36.5 ybyl=524) RED CELL DISTRIBUTION WIDTH (BEAKER) (test 13.7 % 11.6-14.4 judd=744) PLATELET COUNT (BEAKER) (test osev=236) 198 K/CU MM 150-450 MEAN PLATELET VOLUME (BEAKER) (test zgyn=410) 10.9 fL 9.4-12.4 NUCLEATED RED BLOOD CELLS (BEAKER) (test 0 /100 WBC 0-0 nhpv=852) NEUTROPHILS RELATIVE PERCENT (BEAKER) (test 82 % acze=190) LYMPHOCYTES RELATIVE PERCENT (BEAKER) (test 7 % nqdb=505) MONOCYTES RELATIVE PERCENT (BEAKER) (test 11 % opir=128) EOSINOPHILS RELATIVE PERCENT (BEAKER) (test 0 % xikl=063) BASOPHILS RELATIVE PERCENT (BEAKER) (test 0 % guww=940) NEUTROPHILS ABSOLUTE COUNT (BEAKER) (test 10.83 K/ L 1.78-5.38 srnz=148) LYMPHOCYTES ABSOLUTE COUNT (BEAKER) (test 0.91 K/ L 1.32-3.57 svnq=461) MONOCYTES ABSOLUTE COUNT (BEAKER) (test 1.39 K/ L 0.30-0.82 quht=707) EOSINOPHILS ABSOLUTE COUNT (BEAKER) (test 0.00 K/ L 0.04-0.54 rmjm=935) BASOPHILS ABSOLUTE COUNT (BEAKER) (test 0.01 K/ L 0.01-0.08 kjzk=085) IMMATURE GRANULOCYTES-RELATIVE PERCENT (BEAKER) 1 % 0-1 (test lmuy=5018) RAD, CHEST, 1 VIEW, NON [id number] 05:16:00Reason for exam:->s/p impellaShould this be performed at the bedside?->YesFINAL REPORT RAD, CHEST, 1 VIEW, NON DEPT INDICATION: s/p impella COMPARISON: Prior day's exam FINDINGS: Portable frontal view of the chest. IMPRESSION: Support Lines: Stable positioning of the femoral approach Impella device. Lungs and pleura: No interval development of focal airspace disease. Suspected subsegmental atelectasis at the bases. No pneumothorax.Heart and mediastinum: Stable contours. Additional findings: None. Signed: JR Sharma Robert MDReport VerifiedDate/Time: 02/27/2017 05:16:25 Reading Location: [facility] [id number] CT Body Reading Room Electronically signed by: BRADY SHARMA on 05:16 [id number] 03:21:00 Test Item Value Reference Range Comments PARTIAL THROMBOPLASTIN TIME (BEAKER) (test 46.1 seconds 22.5-36.0 kagk=875) TROPONIN [id number] 00:34:00 Test Item Value Reference Range Comments TROPONIN I (BEAKER) (test jbhj=096) 44.29 ng/mL 0.00-0.03 Troponin I (TnI) levels must be interpreted [...] failure, acidosis, acute neurological disease, and persistent tachyarrhythmia.LACTATE DEHYDROGENASE (LDH)2017-02-27 00 :30:00 Test Item Value Reference Range Comments LACTATE DEHYDROGENASE (BEAKER) 681 U/L 125-220 Specimen slightly hemolyzed (test rsbh=790) CREATINE KINASE (CK), TOTAL AND [id number] 00:29:00 Test Item Value Reference Range Comments CREATINE KINASE TOTAL (BEAKER) (test bfut=031) 2390 U/L 29-200 CREATINE KINASE-MB (BEAKER) (test zbwl=589) 287.4 ng/mL 0.0-6.6 CREATINE KINASE-MB INDEX (BEAKER) (test 12.0 % nqig=722) CK-MB Reference Range:<6.7 Normal6.7-10.0 Borderline>10.0 AbnormalHEPATIC FUNCTION [id number] 00:29:00 Test Item Value Reference Range Comments TOTAL PROTEIN (BEAKER) (test 6.2 gm/dL 6.0-8.3 Specimen slightly hemolyzed qglf=888) ALBUMIN (BEAKER) (test 3.3 g/dL 3.5-5.0 Specimen slightly hemolyzed zbui=7006) BILIRUBIN TOTAL (BEAKER) (test 0.8 mg/dL 0.2-1.2 Specimen slightly hemolyzed zpkz=286) BILIRUBIN DIRECT (BEAKER) (test 0.3 mg/dL 0.1-0.5 Specimen slightly hemolyzed wrud=820) ALKALINE PHOSPHATASE (BEAKER) 55 U/L 40-150 (test hjqx=129) AST (SGOT) (BEAKER) (test 145 U/L 5-34 Specimen slightly hemolyzed mbkv=149) ALT (SGPT) (BEAKER) (test 37 U/L 6-55 Specimen slightly hemolyzed rexz=104) OXYGEN SATURATION, [id number] 23:56:00 Test Item Value Reference Range Comments O2 SATURATION (MEASURED) (BEAKER) (test tkdb=2392) 28.1 % BASIC METABOLIC [id number] 23:54:00 Test Item Value Reference Range Comments SODIUM (BEAKER) (test 135 meq/L 136-145 jvgq=232) POTASSIUM (BEAKER) (test 5.4 meq/L 3.5-5.1 Specimen slightly hzlf=127) hemolyzed CHLORIDE (BEAKER) (test 105 meq/L 98-107 ffrl=854) CO2 (BEAKER) (test 19 meq/L 22-29 fomt=417) BLOOD UREA NITROGEN 44 mg/dL 7-21 (BEAKER) (test qhrw=638) CREATININE (BEAKER) (test 2.07 mg/dL 0.57-1.25 Specimen slightly tume=705) hemolyzed GLUCOSE RANDOM (BEAKER) 192 mg/dL 70-105 (test cala=406) CALCIUM (BEAKER) (test 7.9 mg/dL 8.4-10.2 cpji=692) EGFR (BEAKER) (test 31 mL/min/1.73 sq m ESTIMATED GFR IS NOT wwjf=3549) ACCURATE CREATININE CLEARANCE IN PREDICTING GLOMERULAR FILTRATION RATE. ESTIMATED GFR IS NOT APPLICABLE FOR DIALYSIS PATIENTS. RAD, CHEST, 1 VIEW, NON [id number] 23:34:00Reason for exam:->s/p impellaShould this be performed at the bedside?->YesFINAL REPORT Chest, one view. HISTORY: Line placement COMPARISON: None. IMPRESSION: Tip of the Impella device overlies the left ventricle. Cardiomediastinal silhouette is enlarged. Mild interstitial edema. No focal consolidation. No large pleural effusion or pneumothorax. No acute osseous abnormality. Partially visualized orthopedic spinal hardware in the lumbar spine. Signed:Tico Aggarwal MDReport Verified Date/Time: 02/26/2017 23:34:49 Reading Location: [facility] [id number] Consult Reading Room [id number] 22:56:00 Test Item Value Reference Range Comments PARTIAL THROMBOPLASTIN TIME (BEAKER) (test 156.3 seconds 22.5-36.0 jxmn=438) Prior to initiating heparinPROTHROMBIN TIME/[id number] 22:48:00 Test Item Value Reference Range Comments PROTIME (BEAKER) (test xgqa=600) 18.0 seconds 11.7-14.7 INR (BEAKER) (test bvzy=721) 1.5 <=5.9 RECOMMENDED COUMADIN/WARFARIN INR THERAPY RANGESSTANDARD DOSE: 2.0 - 3.0 Includes: PROPHYLAXIS forvenous thrombosis, systemic embolization; TREATMENT for venous thrombosis and/or pulmonary embolus.HIGH RISK: Target INR is 2.5-3.5 for patients with mechanical heart valves.Prior to initiating heparinCBC W/PLT COUNT & AUTO [id number] 22:44:00 Test Item Value Reference Range Comments WHITE BLOOD CELL COUNT (BEAKER) (test ukcj=118) 15.4 K/ L 3.5-10.5 RED BLOOD CELL COUNT (BEAKER) (test jkhn=250) 3.42 M/ L 4.63-6.08 HEMOGLOBIN (BEAKER) (test ezqu=096) 10.5 GM/DL 13.7-17.5 HEMATOCRIT (BEAKER) (test iehs=261) 32.3 % 40.1-51.0 MEAN CORPUSCULAR VOLUME (BEAKER) (test zkoe=531) 94.4 fL 79.0-92.2 MEAN CORPUSCULAR HEMOGLOBIN (BEAKER) (test 30.7 pg 25.7-32.2 bxgg=860) MEAN CORPUSCULAR HEMOGLOBIN CONC (BEAKER) (test 32.5 GM/DL 32.3-36.5 hfwa=943) RED CELL DISTRIBUTION WIDTH (BEAKER) (test 13.5 % 11.6-14.4 sbsx=311) PLATELET COUNT (BEAKER) (test oqsn=432) 223 K/CU MM 150-450 MEAN PLATELET VOLUME (BEAKER) (test cuyc=371) 11.0 fL 9.4-12.4 NUCLEATED RED BLOOD CELLS (BEAKER) (test 0 /100 WBC 0-0 oynr=162) NEUTROPHILS RELATIVE PERCENT (BEAKER) (test 85 % kwnl=935) LYMPHOCYTES RELATIVE PERCENT (BEAKER) (test 5 % jiwz=823) MONOCYTES RELATIVE PERCENT (BEAKER) (test 10 % kcnq=295) EOSINOPHILS RELATIVE PERCENT (BEAKER) (test 0 % wvnp=781) BASOPHILS RELATIVE PERCENT (BEAKER) (test 0 % poex=844) NEUTROPHILS ABSOLUTE COUNT (BEAKER) (test 12.99 K/ L 1.78-5.38 dfyt=092) LYMPHOCYTES ABSOLUTE COUNT (BEAKER) (test 0.76 K/ L 1.32-3.57 znwt=956) MONOCYTES ABSOLUTE COUNT (BEAKER) (test 1.51 K/ L 0.30-0.82 xxpb=623) EOSINOPHILS ABSOLUTE COUNT (BEAKER) (test 0.00 K/ L 0.04-0.54 erxe=751) BASOPHILS ABSOLUTE COUNT (BEAKER) (test 0.02 K/ L 0.01-0.08 qwvs=880) IMMATURE GRANULOCYTES-RELATIVE PERCENT (BEAKER) 1 % 0-1 (test qsbx=0994) [id number] 21:03:00 Test Item Value Reference Range Comments ACTIVATED CLOTTING TIME 219 sec TESTED AT [facility] [address] (BEAKER) (test gqnr=645) [place] [address] TROPONIN [id number] 20:41:00 Test Item Value Reference Range Comments TROPONIN I (BEAKER) (test lvor=770) 19.84 ng/mL 0.00-0.03 Troponin I (TnI) levels must be interpreted [...] failure, acidosis, acute neurological disease, and persistent tachyarrhythmia.CREATINE KINASE (CK), TOTAL AND [id number] 20:38:00 Test Item Value Reference Range Comments CREATINE KINASE TOTAL (BEAKER) (test unwc=856) 2092 U/L 29-200 CREATINE KINASE-MB (BEAKER) (test qrkv=611) 275.4 ng/mL 0.0-6.6 CREATINE KINASE-MB INDEX (BEAKER) (test 13.2 % pxow=731) CK-MB Reference Range:<6.7 Normal6.7-10.0 Borderline>10.0 Abnormal
[2017-08-22] MEDS ORDERED: NA CHLORIDE 0.9% 0 ML ONE (22:14)
[2017-08-22] MEDS ORDERED: NA CHLORIDE 0.9% 1,000 ML ONE (22:17)
[2017-08-22 22:59] LABS: Absolute Lymphocytes (CBC) 0.5 K/uL (0.7-4.9); Absolute Monocytes 1.2 K/uL (0.1-1.3); Absolute Neutrophil 15.6 K/uL (1.8-8.0); Basophils % 2.2 % (0-1.3); Eosinophils % 0.2 % (0-4.4); Hematocrit 21.1 % (39.6-49.0); Lymphocytes % 2.9 % (15.3-44.8); MCH 27.8 pg (27.0-35.0); MCV 85.4 fL (80-100); MPV 8.7 fL (7.6-11.3); Monocytes % 6.6 % (3.3-12.3); RBC Red Blood Cell Count 2.46 M/uL (4.33-5.43)
[2017-08-22 23:01] LABS: Protime INR 1.43
[2017-08-22 23:13] LABS: Potassium 3.5 mEq/L (3.6-5.0)
[2017-08-22 23:19] LABS: Albumin 1.8 g/dL (3.2-5.5); Bilirubin Direct 0.2 mg/dL (0-0.2); Bilirubin Total 0.7 mg/dL (0.3-1.2); Protein, Total 5.4 g/dL (6.0-8.3)
[2017-08-23 00:04] LABS: Anisocytosis 1+; Blood Morphology Comment NOTED (NOT SEEN); Platelet Estimate ADEQ; Polychromasia 1+
--- NOTE | 2017-08-23 03:10 | ER ---
Nurse's Notes [facility] Name: Daquan Marcelo Age: 76 yrs Sex: Male : 1940 Arrival Date: 08/22/2017 Time: 21:59 Bed 4 Private MD: Diagnosis: Other sepsis;Lobar pneumonia, unspecified organism Presentation: 08/22 21:45 Presenting complaint: EMS states: they were toned out for report of pt being bb hypotensive after dialysis today and pt was hypoxic on arrival with sats in the 80s. Transition of care: patient was received from another setting of care ([facility]. Onset of symptoms was August 22, 2017. Care prior to arrival: Glucose check: 191 Oxygen administered. via nasal cannula. 21:45 Method Of Arrival: EMS: [facility] bb 21:45 Acuity: CHRISTINA 2 bb Triage Assessment: 23:19 General: Appears uncomfortable, Behavior is calm, cooperative. Respiratory: Reports Pt. rk2 confused Onset: The symptoms/episode began/occurred today, the patient has severe shortness of breath. Historical: - Allergies: 22:14 GABAPENTIN; bb 22:14 PENICILLINS; bb 22:14 Sulfa (Sulfonamide Antibiotics); bb - Home Meds: 22:14 Omeprazole Oral [Active]; Risperdal 0.5 mg Oral tab [Active]; warfarin 2 mg Oral tab bb [Active]; amiodarone 200 mg Oral tab [Active]; Levaquin 250 mg Oral tab [Active]; metoprolol tartrate 50 mg Oral tab [Active]; Pulmicort 0.5 mg/2 mL Inhl nbsp 2 mL 2 times per day [Active]; doxycycline hyclate 100 mg Oral cap [Active]; tamsulosin 0.4 mg oral cp24 [Active]; ipratropium-albuterol 0.5 mg-3 mg(2.5 mg base)/3 mL Inhl nebu 3 mL 4 times per day [Active]; digoxin 125 mcg Oral tab [Active]; midodrine 5 mg oral tab [Active]; - PMHx: 22:14 Diabetes - NIDDM; Hypertension; Asthma; ESRD; pressure ulcers; bb - PSHx: 22:14 triple bypass 02/2017; back sx 03/2017; bb - Immunization history:: Adult Immunizations unknown. - Social history:: Smoking status: unknown. Screenin:09 Abuse screen: Denies threats or abuse. Nutritional screening: No deficits noted. rk2 Tuberculosis screening: No symptoms or risk factors identified. Fall Risk Secondary diagnosis (15 points) IV access (20 points). Mental Status- Overestimates/Forgets Limitations (15 pts.). Assessment: 23:11 Pain: Unable to use pain scale. Patient is disoriented. Neuro: Level of Consciousness rk2 is awake, confused. Cardiovascular: Rhythm is sinus rhythm 1st degree AV block. Respiratory: Airway is patent Respiratory effort is even, labored, Breath sounds are clear in right upper lobe, left upper lobe, right middle lobe and left lower lobe Breath sounds are diminished in left lower lobe. GI: Feeding Tube. Derm: Skin is dry, Skin is pale, Skin temperature is warm. 23:32 Reassessment: Notified provider that pt. BP was low after receiving NS bolus of 500 ml. rk2 Verbal order given to give additional 250 ml bolus and re-evaluate. Family \T\ pt. beside \T\ this time. 08/23 00:26 Reassessment: Pt. sleeping in room \T\ this time... family \T\ bedside. BP increased to rk 2 92/49 after 2nd fluid bolus. 01:25 Reassessment: Pt. sleeping in room \T\ this time, family \T\ bedside. Pt. appears to be rk 2 resting more comfortable \T\ this time. 02:09 Reassessment: Pt. transported to [place] on stretcher... nurse \T\ bedside. rk2 02:30 Reassessment: RECD REPORT FROM SUPRIYA VEGA. 76YO WM P/W SOB AND HYPOTENSION FROM [facility] AFTER DIALYSIS. LABS GROSSLY ABNORMAL. ADMIT PENDING. 04:00 Reassessment: PER ADMIT MD, PT OKAY TO ADMIT TO FLOOR 2/2 DNR. bp 05:30 Reassessment: Pt stable, ready to transport to floor. tl2 Vital Signs: 08/22 21:55 BP 95 / 44; Pulse 102; Resp 28 S; Temp 97.2(A); Pulse Ox 87% on R/A; Weight 90.72 kg bb (R); Height 6 ft. 2 in. (187.96 cm) (R); 22:15 BP 79 / 45; Pulse 101; Resp 24; Pulse Ox 97% on 6 lpm NC; rk2 22:30 BP 99 / 52; Pulse 98; Resp 25; rk2 23:04 BP 94 / 52; Pulse 96; Resp 22; Pulse Ox 97% on 6 lpm NC; rk2 23:28 BP 86 / 53; Pulse 94; Resp 25; Pulse Ox 94% on NC; rk2 08/23 00:07 BP 89 / 49; Pulse 97; Resp 25; Pulse Ox 97% on 6 lpm NC; rk2 00:19 BP 92 / 49; Pulse 94; Resp 23; Pulse Ox 99% on 6 lpm NC; rk2 00:33 BP 97 / 52; Pulse 95; Resp 23; Pulse Ox 100% on 6 lpm NC; rk2 01:00 BP 97 / 52; Pulse 93; Resp 22; Pulse Ox 99% on 6 lpm NC; rk2 01:30 BP 95 / 51; Pulse 93; Resp 25; Pulse Ox 100% on 6 lpm NC; rk2 02:30 BP 85 / 47; Pulse 94; Resp 22; Pulse Ox 90% ; bp 02:57 BP 90 / 49; Pulse 94; Resp 27; Pulse Ox 97% on 30% Venturi mask; tl2 03:00 BP 78 / 48; Pulse 94; Resp 24; Pulse Ox 96% on 30% Venturi mask; tl2 03:30 BP 94 / 43; Pulse 95; Resp 26; Pulse Ox 95% on 30% Venturi mask; tl2 04:02 BP 98 / 32; Pulse 94; Resp 29; Pulse Ox 96% on Venturi mask; bp 04:16 BP 92 / 47; Pulse 94; Resp 25; Pulse Ox 94% on 30% Venturi mask; tl2 04:54 BP 95 / 53; Pulse 93; Resp 24; Pulse Ox 93% on 30% Venturi mask; tl2 08/22 21:55 Body Mass Index 25.68 (90.72 kg, 187.96 cm) bb ED Course: 08/22 21:45 Arm band placed on Patient placed in an exam room, on a stretcher, on director of education and training, bb on pulse oximetry. 21:59 Patient arrived in ED. am2 22:02 Triage completed. bb 22:03 Roger Godinez MD is Attending Physician. gs 22:04 Amberly Oakley RN is Primary Nurse. tl2 22:54 Missed attempt(s): 18 gauge in right antecubital area. Bleeding controlled, band aid bb applied, catheter tip intact. Inserted saline lock: 18 gauge in right forearm, using aseptic technique. Blood collected. 22:55 Chest Single View XRAY Sent. rk2 22:57 X-ray completed. Portable x-ray completed in exam room. Patient tolerated procedure la2 poorly. 23:01 Chest Single View XRAY In Process Unspecified. EDMS 23:05 Notified ED physician of a critical lab result(s). Hgb 6.8 Dr Godinez notified no new bb orders received. 23:09 Patient has correct armband on for positive identification. Bed in low position. Call rk2 light in reach. Side rails up X2. Adult w/ patient. computer repair engineer on. Pulse ox on. 23:51 Notified ED physician of a critical lab result(s). troponin of 0.53 Dr Godinez notified bb no new orders received. 04 02:42 Chest For Pe Angio In Process Unspecified. EDMS 02:42 Primary Nurse role handed off by Amberly Oakley, SILVIA bp 02:42 Rodrigue Campbell, SILVIA is Primary Nurse. bp 02:55 No provider procedures requiring assistance completed. Patient admitted, IV remains in bp place. Oxygen administration via Venturi mask \T\ 6L/min - 30%. 03:05 Zara Willis MD is Hospitalizing Provider. gs 03:20 Inserted saline lock: 22 gauge in left antecubital area, using aseptic technique. Blood jb5 collected. Administered Medications: 08/22 22:54 Drug: NS 0.9% 500 ml Route: IV; Rate: bolus; Site: right forearm; bb 08/23 03:45 Follow up: IV Status: Completed infusion bp 03:45 Not Given (Physician Discretion): Zosyn 2.25 grams IVPB once over 60 mins; (mix in NS bp 100 mL) 04:00 Drug: Aztreonam 1 grams Route: IVPB; Infused Over: 30 mins; Site: right antecubital; bp 04:00 Follow up: IV Status: Infusion continued upon admission bp 05:21 Not Given (Sent with pt to the floor): vancoMYCIN 1 grams IVPB once over 2 hrs tl2 Outcome: 03:00 Admitted to Med/surg accompanied by tech, family with patient, via stretcher, room 214, tl2 with oxygen, with chart, Report called to SILVIA Ramirez 03:09 Decision to Hospitalize by Provider. 04:03 Condition: OKAY FOR ADMIT, PER MD ellis 04:03 Instructed on the need for admit. 05:35 Patient left the ED. bb Signatures: Dispatcher [employer] EDMS Luana Abad RN RN bb Amberly Oakley RN RN tl2 Lor Zimmerman jb5 Yanely Quigley am2 Roger Godinez MD MD gs Ardoin, Leslie la2 Rodrigue Campbell RN RN bp Supriya Parra RN RN rk2 Corrections: (The following items were deleted from the chart) 0414 22:15 22:14 BP 95 / 44; Pulse 102bpm; Resp 28bpm; Spontaneous; Pulse Ox 87% RA; Temp 97.2F bb Axillary; 90.72 kg Reported; Height 6 ft. 2 in. Reported; BMI: 25.6; bb 23:50 23:11 Respiratory: Airway is patent Respiratory effort is even, labored, Breath sounds rk2 are clear in right upper lobe, left upper lobe, right middle lobe and left lower lobe Breath sounds are diminished in right lower lobe rk2
--- NOTE | 2017-08-23 03:10 | EDPHYS ---
Physician Documentation [facility] Name: Daquan Marcelo Age: 76 yrs Sex: Male : 1940 Arrival Date: 08/22/2017 Time: 21:59 Bed 4 Private MD: ED Physician Roger Godinez HPI: 08/23 03:10 This 76 yrs old Male presents to ER via EMS with complaints of Respiratory gs Distress, Foot Pain. 03:11 The patient has shortness of breath that occurred at a group home or assisted living facility. Onset: The symptoms/episode began/occurred acutely, just prior to arrival. Duration: The symptoms are continuous. The patient's shortness of breath is aggravated by nothing, is alleviated by nothing. Associated signs and symptoms: Pertinent negatives: chest pain. Severity of symptoms: At their worst the symptoms were severe in the emergency department the symptoms are unchanged. 03:12 Associated signs and symptoms: Pertinent positives: hypotension. gs Historical: - Allergies: 08/22 22:14 GABAPENTIN; bb 22:14 PENICILLINS; bb 22:14 Sulfa (Sulfonamide Antibiotics); bb - Home Meds: 22:14 Omeprazole Oral [Active]; Risperdal 0.5 mg Oral tab [Active]; warfarin 2 mg Oral tab bb [Active]; amiodarone 200 mg Oral tab [Active]; Levaquin 250 mg Oral tab [Active]; metoprolol tartrate 50 mg Oral tab [Active]; Pulmicort 0.5 mg/2 mL Inhl nbsp 2 mL 2 times per day [Active]; doxycycline hyclate 100 mg Oral cap [Active]; tamsulosin 0.4 mg oral cp24 [Active]; ipratropium-albuterol 0.5 mg-3 mg(2.5 mg base)/3 mL Inhl nebu 3 mL 4 times per day [Active]; digoxin 125 mcg Oral tab [Active]; midodrine 5 mg oral tab [Active]; - PMHx: 22:14 Diabetes - NIDDM; Hypertension; Asthma; ESRD; pressure ulcers; bb - PSHx: 22:14 triple bypass 02/2017; back sx 03/2017; bb - Immunization history:: Adult Immunizations unknown. - Social history:: Smoking status: unknown. ROS: 08/23 03:12 Unable to obtain ROS due to baseline dementia, patient distress. gs Exam: 03:12 Head/Face: Normocephalic, atraumatic. Eyes: Pupils equal round and reactive to light, gs extra-ocular motions intact. Lids and lashes normal. Conjunctiva and sclera are non-icteric and not injected. Cornea within normal limits. Periorbital areas with no swelling, redness, or edema. ENT: Nares patent. No nasal discharge, no septal abnormalities noted. Tympanic membranes are normal and external auditory canals are clear. Oropharynx with no redness, swelling, or masses, exudates, or evidence of obstruction, uvula midline. Mucous membranes moist. Neck: Trachea midline, no thyromegaly or masses palpated, and no cervical lymphadenopathy. Supple, full range of motion without nuchal rigidity, or vertebral point tenderness. No Meningismus. Chest/axilla: Normal chest wall appearance and motion. Nontender with no deformity. No lesions are appreciated. 03:12 Constitutional: The patient appears alert, awake, in obvious distress, severely distressed. 03:12 Cardiovascular: Rate: tachycardic, Rhythm: regular, Pulses: thready. 03:12 ECG was reviewed by the Attending Physician. 03:12 Respiratory: severe repiratory distress is noted, Respirations: tachypnea. 03:12 Abdomen/GI: Palpation: soft. 03:12 Musculoskeletal/extremity: wounds noted wounds b/l feet. 03:12 Neuro: Orientation: to person, Cranial nerves: no acute changes, Motor: moves all fours. Vital Signs: 08/22 21:55 BP 95 / 44; Pulse 102; Resp 28 S; Temp 97.2(A); Pulse Ox 87% on R/A; Weight 90.72 kg bb (R); Height 6 ft. 2 in. (187.96 cm) (R); 22:15 BP 79 / 45; Pulse 101; Resp 24; Pulse Ox 97% on 6 lpm NC; rk2 22:30 BP 99 / 52; Pulse 98; Resp 25; rk2 23:04 BP 94 / 52; Pulse 96; Resp 22; Pulse Ox 97% on 6 lpm NC; rk2 23:28 BP 86 / 53; Pulse 94; Resp 25; Pulse Ox 94% on NC; rk2 08/23 00:07 BP 89 / 49; Pulse 97; Resp 25; Pulse Ox 97% on 6 lpm NC; rk2 00:19 BP 92 / 49; Pulse 94; Resp 23; Pulse Ox 99% on 6 lpm NC; rk2 00:33 BP 97 / 52; Pulse 95; Resp 23; Pulse Ox 100% on 6 lpm NC; rk2 01:00 BP 97 / 52; Pulse 93; Resp 22; Pulse Ox 99% on 6 lpm NC; rk2 01:30 BP 95 / 51; Pulse 93; Resp 25; Pulse Ox 100% on 6 lpm NC; rk2 02:30 BP 85 / 47; Pulse 94; Resp 22; Pulse Ox 90% ; bp 02:57 BP 90 / 49; Pulse 94; Resp 27; Pulse Ox 97% on 30% Venturi mask; tl2 03:00 BP 78 / 48; Pulse 94; Resp 24; Pulse Ox 96% on 30% Venturi mask; tl2 03:30 BP 94 / 43; Pulse 95; Resp 26; Pulse Ox 95% on 30% Venturi mask; tl2 04:02 BP 98 / 32; Pulse 94; Resp 29; Pulse Ox 96% on Venturi mask; bp 04:16 BP 92 / 47; Pulse 94; Resp 25; Pulse Ox 94% on 30% Venturi mask; tl2 04:54 BP 95 / 53; Pulse 93; Resp 24; Pulse Ox 93% on 30% Venturi mask; tl2 08/22 21:55 Body Mass Index 25.68 (90.72 kg, 187.96 cm) bb MDM: 08/22 22:03 Patient medically screened. 08/23 03:19 Differential diagnosis: CHF exacerbation, Chronic Obstructive Pulmonary Disease gs Myocardial Infarction pneumonia. Data reviewed: vital signs, nurses notes, and as a result, I will admit patient. Counseling: I had a detailed discussion with the patient and/or guardian regarding: family and pt wants to be DNR/DNI. 08/22 22:12 Order name: Basic Metabolic Panel; Complete Time: 01:06 08/22 22:12 Order name: Blood Culture Adult (2) 08/22 22:12 Order name: BNP; Complete Time: 01:06 08/22 22:12 Order name: CBC with Diff; Complete Time: 01:06 08/22 22:12 Order name: Lactate; Complete Time: 01:06 08/22 22:12 Order name: LFT's; Complete Time: 01:06 gs 08/22 22:12 Order name: Lipase; Complete Time: 01:06 gs 08/22 22:12 Order name: Procalcitonin; Complete Time: 01:06 gs 08/22 22:12 Order name: Protime (+inr); Complete Time: 01:06 gs 08/22 22:12 Order name: Troponin (emerg Dept Use Only); Complete Time: 01:06 gs 08/22 22:12 Order name: Chest Single View XRAY gs 08/22 22:55 Order name: Glucose, Ancillary Testing; Complete Time: 01:06 EDMS 08/22 23:02 Order name: Manual Differential; Complete Time: 01:06 EDMS 08/23 03:22 Order name: Digoxin; Complete Time: 05:22 gs 08/22 22:12 Order name: Accucheck; Complete Time: 22:55 gs 08/22 22:12 Order name: Cardiac monitoring; Complete Time: 22:55 gs 08/22 22:12 Order name: EKG - Nurse/Tech; Complete Time: :55 gs 08/22 22:12 Order name: IV Saline Lock - Large Bore; Complete Time: 22:55 gs 08/22 22:12 Order name: Labs collected and sent; Complete Time: :55 08/22 22:12 Order name: O2 Per Protocol; Complete Time: :55 gs 08/22 22:12 Order name: O2 Sat Monitoring; Complete Time: 22:55 08/23 01:59 Order name: Chest For Pe Angio EDMS EC:12 Rate is 105 beats/min. Rhythm is regular, Sinus tachycardia. GA interval is prolonged. gs QRS interval is prolonged. T waves are Flattened. Clinical impression: NSR w/ Non-specific ST/T Changes. Interpreted by me. Administered Medications: 08/22 22:54 Drug: NS 0.9% 500 ml Route: IV; Rate: bolus; Site: right forearm; bb 08/23 03:45 Follow up: IV Status: Completed infusion bp 03:45 Not Given (Physician Discretion): Zosyn 2.25 grams IVPB once over 60 mins; (mix in NS bp 100 mL) 04:00 Drug: Aztreonam 1 grams Route: IVPB; Infused Over: 30 mins; Site: right antecubital; bp 04:00 Follow up: IV Status: Infusion continued upon admission bp 05:21 Not Given (Sent with pt to the floor): vancoMYCIN 1 grams IVPB once over 2 hrs tl2 Disposition: 03:19 Critical Care:. Disposition: 08/23/17 03:09 Hospitalization ordered by Zara Willis for Inpatient Admission. Preliminary diagnosis are Other sepsis, Lobar pneumonia, unspecified organism. - Bed requested for Telemetry/MedSurg (Inpatient). - Status is Inpatient Admission. bb - Condition is Stable. - Problem is new. - Symptoms have improved. UTI on Admission? No Critical care time excluding procedures: 03:19 Critical care time: Bedside Care: 10 minutes, Consultation: 10 minutes, Family gs Intervention: 10 minutes. Total time: 30 minutes Signatures: Dispatcher [employer] EDMS Luana Abad RN RN bb Garcia, Cindy, RN RN Roger Mario MD MD Rodrigue Campbell RN RN bp Knox, Taylor RN tl2 Corrections: (The following items were deleted from the chart) 02:42 02:22 Chest For PE Angio+CT.RAD.BRZ ordered. EDNV EDMS 05:21 04/ 22:12 Urine Dipstick-Ancillary ordered. tl2
[2017-08-23] MEDS ORDERED: PIPER/TAZO/NS 2.25gm 2.25 GM/50 ML BAG ONE (03:15)
[2017-08-23] MEDS ORDERED: NA CHLORIDE 0.9% 100 ML IV ONE ×2 (03:54→05:08)
[2017-08-23] MEDS ORDERED: AZTREONAM 1 GM/VIAL ONE (03:54)
[2017-08-23] MEDS ORDERED: NA CHLORIDE 0.9% 1,000 ML ONE (04:05)
[2017-08-23] MEDS ORDERED: ONDANSETRON 4 MG/2 ML VIAL IV PRN (04:44)
[2017-08-23] MEDS ORDERED: NA CHLORIDE 0.9% 1,000 ML IV SCH (05:00)
[2017-08-23] MEDS ORDERED: VANCOMYCIN 1 GM/VIAL ONE (05:08)
[2017-08-23 05:33] VITALS: BMI 23.1
[2017-08-23] MEDS ORDERED: GLUCAGON 1 MG/VIAL IM PRN (05:40)
[2017-08-23] MEDS ORDERED: D50W 25 GM/50 ML SYRINGE IV PRN (05:40)
--- NOTE | 2017-08-23 05:42 | P.HP ---
Certification for Inpatient Patient admitted to: Inpatient With expected LOS: >2 Midnights Practitioner: I am a practitioner with admitting privileges, knowledge of patient current condition, hospital course, and medical plan of care. Services: Services provided to patient in accordance with Admission requirements found in Title 42 Section 412.3 of the Code of Federal Regulations Patient History Date of Service: 08/23/17 Reason for admission: sepsis History of Present Illness: Mr Marcelo is a 76 years old male with history of CAD, S/P CABG, ESRD on HE, COPD , HTN, DM II, resident o f a care home, who today after had HD, start with SOB and weakness. No history of fever or chills. According to his daughter, he has had more cough, with thick creamy secretions. At arrival he was obtunded, on respiratory distress, O2 Sat was 80% on RA. He was placed on hi flow oxygen, improving his O2 sat. Lab work remarkable for leukocytosis with bandemia, elevated procalcitonin. Also Digoxine level was remarkable elevated. CT chest shows right lower lobe infiltrate with pleural effusion. Allergies Penicillins Allergy (Verified 08/23/17 05:40) Unknown Sulfa (Sulfonamide Antibiotics) Allergy (Verified 08/23/17 05:40) Anaphylaxis Home Medications: Metformin ER [Glucophage ER*] 500 mg PO DAILY 02/26/17 Gabapentin [Neurontin*] 300 mg PO TID 06/01/17 Hydrocodone 10/APAP 325 [[place] 10/325*] 1 tab PO QID 06/01/17 Spironolactone 25 mg PO DAILY 06/01/17 Tamsulosin HCl 1 tab PO DAILY 06/01/17 Albuterol Neb [Proventil 0.083% Neb Soln] 2.5 mg NEB [id number] #60 amp 06/18/17 Amiodarone HCl [Cordarone*] 400 mg PO BID #60 tab 06/18/17 Arformoterol Tartrate [Brovana] 15 mcg NEB BIDRESP #60 vial.neb 06/18/17 Bisacodyl [Dulcolax*] 10 mg PO DAILYPRN PRN #30 tab 06/18/17 Ipratropium Neb [Atrovent*] 0.5 mg NEB [id number] #60 amp 06/18/17 Metolazone [Zaroxolyn*] 5 mg PO DAILY #30 tab 02/08/18 Pantoprazole Sodium [Protonix] 40 mg PO BID #60 tablet. 06/18/17 Micafungin Sodium [Mycamine*] 100 mg IV DAILY #15 vial 06/26/17 - Past Medical/Surgical History Diabetic: Yes -: Diabetes -: Hypertension -: COPD -: Anxiety -: kidney stones -: CHF -: Appendectomy -: Back surgery -: Triple Bypass February 2017 - Family History Father -: Heart disease Notes: [place] - Social History Smoking Status: Former smoker Alcohol use: No CD- Drugs: No Caffeine use: Yes Place of Residence: [facility] Review of Systems 10-point ROS is otherwise unremarkable Physical Examination - Physical Exam General: Alert, Mild distress (due to dyspnea) HEENT: Atraumatic, PERRLA, Mucous membr. moist/pink, EOMI, Sclerae nonicteric Neck: Supple, 2+ carotid pulse no bruit, No LAD, Without JVD or thyroid abnormality Respiratory: Diminished, Crackles/rales (bibasilar crackles more on the right) Cardiovascular: Regular rate/rhythm, Normal S1 S2 Gastrointestinal: Normal bowel sounds, No tenderness Musculoskeletal: No tenderness Integumentary: No rashes Neurological: Normal strength at 5/5 x4 extr, Normal tone, Normal affect, Abnormal speech (slurred) Lymphatics: No axilla or inguinal lymphadenopathy - Studies Laboratory Data (last 24 hrs) 08/22/17 20:46: PT 16.9 H, INR 1.43 08/22/17 20:46: WBC 17.7 H, Hgb 6.8 L*, Hct 21.1 L, Plt Count 280 08/22/17 20:46: B-Natriuretic Peptide 4342 H 08/22/17 20:46: Sodium 134 L, Potassium 3.5 L, BUN 18, Creatinine 1.01, Glucose 155 H, Total Bilirubin 0.7, AST 41, ALT 30, Alkaline Phosphatase 78, Lipase 14 L Assessment and Plan - Problems (Diagnosis) (1) Acute encephalopathy Current Visit: Yes Status: Acute (2) Elevated digoxin level Current Visit: Yes Status: Acute (3) Dysphagia Current Visit: No Status: Acute Qualifiers: Dysphagia type: other dysphagia Qualified Code(s): R13.19 - Other dysphagia (4) Pneumonia Current Visit: No Status: Acute Qualifiers: Pneumonia type: due to unspecified organism Laterality: bilateral Lung location: lower lobe of lung Qualified Code(s): J18.9 - Pneumonia, unspecified organism (5) COPD (chronic obstructive pulmonary disease) Onset Date: 06/01/17 Current Visit: No Status: Chronic Qualifiers: COPD type: chronic bronchitis Chronic bronchitis type: unspecified Qualified Code(s): J42 - Unspecified chronic bronchitis (6) Coronary artery disease Onset Date: 06/01/17 Current Visit: No Status: Chronic Qualifiers: Coronary Disease-Associated Artery/Lesion type: [place] artery [place] vs. transplanted heart: [place] heart Associated angina: without angina Qualified Code(s): I25.10 - Atherosclerotic heart disease of [place] coronary artery without angina pectoris (7) Hypertension Current Visit: No Status: Chronic Qualifiers: Hypertension type: essential hypertension Qualified Code(s): I10 - Essential (primary) hypertension (8) Respiratory failure Current Visit: No Status: Resolved Qualifiers: Chronicity: acute Respiratory failure complication: hypoxia Qualified Code(s): J96.01 - Acute respiratory failure with hypoxia - Plan The patient will be admitted to the hospital due to acute respiratory failure with hypoxemia, secondary to right lower lobe pneumonia, possible aspirative. Will conver empirically with Aztreonam (pnicillin allergy) and Vancomycin. Digoxine level elevated, will be addressed with HD. Will order SSI, resume tube feeding once verified formula. - Advance Directives Does patient have a Living Will: No Does patient have a Durable POA for Healthcare: Yes - Code Status/Comfort Care Code Status Assessed: Yes Code Status: Do Not Intubate
[2017-08-23] MEDS ORDERED: AZTREONAM 1 GM/VIAL IV SCH ×2 (06:00→14:00)
[2017-08-23] MEDS ORDERED: VANCOMYCIN 1.5 GM in NA CHLORIDE 0.9% 500 ML IVPB SCH ×2 (07:00→17:00)
[2017-08-23] MEDS: INSULIN -REGULAR HUMAN 50 UNIT/0.5 ML ML SQ SCH ×4 (07:30→21:00)
[2017-08-23] MEDS ORDERED: IPRATROPIUM BROM 0.5MG/2.5ML NEB SCH (08:00)
[2017-08-23] MEDS ORDERED: ALBUTEROL 2.5 MG/3 ML NEB SOL NEB SCH (08:00)
--- NOTE | 2017-08-23 08:21 | RAD REPORT ---
EXAM DESCRIPTION: CT - Chest For Pe Angio - 08/23/2017 7:07 am CLINICAL HISTORY: Hypotension, shortness of breath A preliminary written report was provided at the time of the study, and the report was reviewed prio r to final dictation. COMPARISON: Chest film August 22 TECHNIQUE: Dynamically enhanced 3 mm thick images of the chest were obtained during administration o f approximately 150mL Isovue 370 IV contrast. Coronal and oblique reconstruction images were generate d and reviewed. Exam utilizes a protocol to evaluate the pulmonary arterial tree. All CT scans are performed using dose optimization technique as appropriate and may include automated exposure control or mA/KV adjustment according to patient size. FINDINGS: No pulmonary emboli are identified. There is motion degradation present that limits assess ment of the subsegmental or far peripheral branches. The aorta as imaged shows no acute or suspicious finding. Cardiomegaly is present without pericardial thickening or effusion. Partial atelectasis noted in each lower lobe. Minimal left-side and small to moderate right-sided ple ural effusions are present. No pleural based mass and no pneumothorax. Interlobular septal thickening is present likely from volume overload. Patchy airspace opacities in the lingula left upper lobe and anterior inferior most aspect of the right upper lobe favored to be atelectasis or alveolar edema. P neumonia would be possible but lesser in likelihood. No mediastinal or hilar suspicious masses. No chest wall masses or abnormal axillary lymphadenopathy. Right-sided dialysis catheter is in place. Tip of the long arm of the double-lumen catheter is in the right atrium. Sternotomy wires are in place. IMPRESSION: No pulmonary emboli identified. Bilateral pleural effusions with partial atelectasis of each lower lobe. Interlobular septal thickening and patchy airspace opacities believed be related to volume overload o r CHF rather than pneumonia.
[2017-08-23] MEDS ORDERED: VANCOMYCIN 1 GM in NA CHLORIDE 0.9% 500 ML IVPB SCH (09:00)
[2017-08-23] MEDS ORDERED: AZTREONAM 1 GM in NA CHLORIDE 0.9% 100 ML IV SCH (10:00)
--- NOTE | 2017-08-23 10:11 | RAD REPORT ---
EXAM DESCRIPTION: RAD - Chest Single View - 08/22/2017 11:01 pm CLINICAL HISTORY: Shortness of breath COMPARISON: June 23 TECHNIQUE: AP portable chest image was obtained 2255 hours . FINDINGS: Right lung base pleural effusion is present. There is bilateral lung base atelectasis, rig ht greater than left. Interstitial markings are prominent suggesting a component of volume overload. Heart size is upper normal. Double-lumen dialysis catheter is in place. Long arm of the catheter is i n the right atrium. Heart size is normal. No pneumothorax. No gross bony abnormality seen. No acute a ortic findings suspected. IMPRESSION: Probable mild diffuse interstitial edema from volume overload. Right base opacification is most likely pleural effusion and atelectasis rather than pneumonia.
[2017-08-23] MEDS ORDERED: ALBUTEROL 2.5 MG/3 ML NEB SOL NEB PRN (11:14)
[2017-08-23] MEDS ORDERED: IPRATROPIUM BROM 0.5MG/2.5ML NEB PRN (11:14)
[2017-08-23] MEDS ORDERED: FUROSEMIDE 40 MG/4 ML VIAL IV ONE ×2 (11:51→16:48)
[2017-08-23 11:57] LABS: Arterial Blood Carboxyhemoglob 1.9 % (0-1.5); Blood Gas Oxyhemoglobin 89.3 % (94-97); Blood O2 Saturation 93.1 % (92-98.5)
[2017-08-23 12:06] LABS: Absolute Lymphocytes (CBC) 0.5 K/uL (0.7-4.9); Absolute Monocytes 1.6 K/uL (0.1-1.3); Absolute Neutrophil 18.2 K/uL (1.8-8.0); Basophils % 0.2 % (0-1.3); Eosinophils % 0.1 % (0-4.4); Hematocrit 22.7 % (39.6-49.0); Lymphocytes % 2.2 % (15.3-44.8); MCH 27.1 pg (27.0-35.0); MCV 87.4 fL (80-100); Monocytes % 7.9 % (3.3-12.3)
[2017-08-23] MEDS ORDERED: TRAMADOL HCL 50 MG TAB FT PRN (12:06)
[2017-08-23] MEDS ORDERED: ACETAMINOPHEN 500 MG TAB FT PRN (12:06)
--- NOTE | 2017-08-23 12:15 | P.PN ---
Subjective Date of Service: 08/23/17 Chief Complaint: sepsis Pt seen and examined at bedside. Chart reviewed. Mr Marcelo is well known to me from last admission. He apparently has a PEG tube placed now. Came to the hospital for SOB and weakness. Pt was given extensive oral care today where there was a lot of secretions that came out. Sputum was sent for culture. Mr Marcelo was feeling better after the oral care. Review of Systems 10-point ROS is otherwise unremarkable Physical Examination - Vital Signs Temperature: 96.9 F Blood Pressure: 92/48 Pulse: 92 Respirations: 20 Pulse Ox (%): 91 - Physical Exam General: Alert, Cachectic, Mild distress, Other (Anasarca and very debilated man ) HEENT: Atraumatic, Other (Poor Dentition ) Neck: Supple Respiratory: Clear to auscultation bilaterally, Normal air movement, Other ( Audible Gurgles ) Cardiovascular: Regular rate/rhythm, Normal S1 S2 Gastrointestinal: Normal bowel sounds, Soft and benign, Non-distended, No tenderness Musculoskeletal: No tenderness, Swelling Integumentary: No rashes Neurological: Normal speech, Normal tone, Normal affect Lymphatics: No axilla or inguinal lymphadenopathy - Studies Laboratory Data (last 24 hrs) 08/22/17 20:46: PT 16.9 H, INR 1.43 08/22/17 20:46: WBC 17.7 H, Hgb 6.8 L*, Hct 21.1 L, Plt Count 280 08/22/17 20:46: B-Natriuretic Peptide 4342 H 08/22/17 20:46: Sodium 134 L, Potassium 3.5 L, BUN 18, Creatinine 1.01, Glucose 155 H, Total Bilirubin 0.7, AST 41, ALT 30, Alkaline Phosphatase 78, Lipase 14 L Medications List Reviewed: Yes Assessment & Plan - Problems (Diagnosis) (1) Respiratory distress Current Visit: Yes Status: Acute Plan: Acute respiratory Distress. Most Likely 2/2 to Aspiration PNA -Oral Care with Deep Suctioning today for secreation -IV vanc and zosyn -Culture pending -Pulmonology Consulted. -Xray in AM -Elevated WBC today. (2) Afib Current Visit: Yes Status: Acute Plan: Currently Digoxin level high. -Hold digoxin. Continue Amiodrone and Warfarin for now. Qualifiers: Atrial fibrillation type: chronic Qualified Code(s): I48.2 - Chronic atrial fibrillation (3) Dysphagia Current Visit: No Status: Acute Plan: S/p PEG tube placement -Feeding on hold. Qualifiers: Dysphagia type: oral phase Qualified Code(s): R13.11 - Dysphagia, oral phase (4) Anemia Current Visit: Yes Status: Acute Plan: Chronic Anemia of Renal Disease -H/H is 6.8 today. -1 unit pRBC transfusion during dialysis Qualifiers: Anemia type: due to chronic kidney disease Chronic kidney disease stage: on chronic dialysis Qualified Code(s): N18.6 - End stage renal disease; D63.1 - Anemia in chronic kidney disease; D63.1 - Anemia in chronic kidney disease; Z99.2 - Dependence on renal dialysis; Z99.2 - Dependence on renal dialysis; Z99.2 - Dependence on renal dialysis; Z99.2 - Dependence on renal dialysis (5) NSTEMI (non-ST elevated myocardial infarction) Current Visit: No Status: Acute (6) CHF (congestive heart failure) Current Visit: No Status: Chronic (7) COPD (chronic obstructive pulmonary disease) Onset Date: 06/01/17 Current Visit: No Status: Chronic Qualifiers: COPD type: chronic bronchitis Chronic bronchitis type: unspecified Qualified Code(s): J42 - Unspecified chronic bronchitis (8) Coronary artery disease Onset Date: 06/01/17 Current Visit: No Status: Chronic Qualifiers: Coronary Disease-Associated Artery/Lesion type: [place] artery [place] vs. transplanted heart: [place] heart Associated angina: without angina Qualified Code(s): I25.10 - Atherosclerotic heart disease of [place] coronary artery without angina pectoris (9) Hypertension Current Visit: No Status: Chronic Qualifiers: Hypertension type: essential hypertension Qualified Code(s): I10 - Essential (primary) hypertension Discharge Plan: [facility]sp Plan to discharge in: 72 Hours - Code Status/Comfort Care Code Status Assessed: Yes Critical Care: No
[2017-08-23 13:01] LABS: Albumin 1.6 g/dL (3.2-5.5); Bilirubin Total 0.6 mg/dL (0.3-1.2); Potassium 3.6 mEq/L (3.6-5.0)
[2017-08-23] MEDS ORDERED: NA CHLORIDE 0.9% 250 ML ONE ×2 (13:17→20:44)
[2017-08-23] MEDS: PIPER/TAZO/NS 2.25gm 2.25 GM/50 ML BAG IV SCH ×2 (13:21→20:53)
[2017-08-23 13:31] LABS: Anisocytosis 1+; Blood Morphology Comment NOTED (NOT SEEN); Hypochromasia 1+; Platelet Estimate ADEQ
[2017-08-23] MEDS ORDERED: VANCOMYCIN/NS 1 gm 1 GM/250 ML BAG IV SCH (14:30)
[2017-08-23] MEDS ORDERED: FUROSEMIDE 40 MG/4 ML VIAL ONE (16:44)
[2017-08-23] MEDS ORDERED: CEFTRIAXONE/SWI 1gm 1 GM/10 ML SYR IV SCH (17:00)
[2017-08-23] MEDS ORDERED: WARFARIN SODIUM 2 MG TAB FT SCH (17:00)
[2017-08-23 17:22] LABS: Absolute Lymphocytes (CBC) 0.5 K/uL (0.7-4.9); Absolute Neutrophil 19.3 K/uL (1.8-8.0); Eosinophils % 0.1 % (0-4.4)
[2017-08-23 17:31] LABS: Absolute Monocytes 1.7 K/uL (0.1-1.3); Basophils % 0.6 % (0-1.3); Hematocrit 21.8 % (39.6-49.0); Lymphocytes % 2.4 % (15.3-44.8); MCH 28.5 pg (27.0-35.0); MCV 86.2 fL (80-100); MPV 9.1 fL (7.6-11.3); Monocytes % 8.1 % (3.3-12.3); Potassium 3.7 mEq/L (3.6-5.0); RBC Red Blood Cell Count 2.52 M/uL (4.33-5.43)
[2017-08-23 17:42] LABS: Arterial Blood Carboxyhemoglob 1.7 % (0-1.5); Blood Gas Oxyhemoglobin 88.2 % (94-97)
--- NOTE | 2017-08-23 17:56 | RAD REPORT ---
EXAM DESCRIPTION: RAD - Chest Single View - 08/23/2017 5:16 pm CLINICAL HISTORY: Decreased O2 saturation COMPARISON: August 22 chest film, August 23 CT chest TECHNIQUE: AP portable chest image was obtained 1706 hours . FINDINGS: Double-lumen dialysis catheter remains in place. Patchy interstitial and alveolar opacitie s in the left lung field are stable. Right-sided pleural effusion and atelectasis are present similar to the earlier CT chest. Trachea is midline. . Heart and vasculature are normal. No measurable pleur al effusion and no pneumothorax. No gross bony abnormality seen. No acute aortic findings suspected. IMPRESSION: Right pleural effusion and atelectasis are present. Compared with the earlier CT study f indings are not substantially different.
--- NOTE | 2017-08-23 18:16 | P.DS ---
Admission Date: 08/23/17 Discharge Date: 08/23/17 Reason for Admission: sepsis - Problems (1) Respiratory distress Current Visit: Yes Status: Acute (2) Afib Current Visit: Yes Status: Acute Qualifiers: Atrial fibrillation type: chronic Qualified Code(s): I48.2 - Chronic atrial fibrillation (3) Dysphagia Current Visit: No Status: Acute Qualifiers: Dysphagia type: oral phase Qualified Code(s): R13.11 - Dysphagia, oral phase (4) Anemia Current Visit: Yes Status: Acute Qualifiers: Anemia type: due to chronic kidney disease Chronic kidney disease stage: on chronic dialysis Qualified Code(s): N18.6 - End stage renal disease; D63.1 - Anemia in chronic kidney disease; D63.1 - Anemia in chronic kidney disease; Z99.2 - Dependence on renal dialysis; Z99.2 - Dependence on renal dialysis; Z99.2 - Dependence on renal dialysis; Z99.2 - Dependence on renal dialysis (5) NSTEMI (non-ST elevated myocardial infarction) Current Visit: No Status: Acute (6) CHF (congestive heart failure) Current Visit: No Status: Chronic (7) COPD (chronic obstructive pulmonary disease) Onset Date: 06/01/17 Current Visit: No Status: Chronic Qualifiers: COPD type: chronic bronchitis Chronic bronchitis type: unspecified Qualified Code(s): J42 - Unspecified chronic bronchitis (8) Coronary artery disease Onset Date: 06/01/17 Current Visit: No Status: Chronic Qualifiers: Coronary Disease-Associated Artery/Lesion type: [place] artery [place] vs. transplanted heart: [place] heart Associated angina: without angina Qualified Code(s): I25.10 - Atherosclerotic heart disease of [place] coronary artery without angina pectoris (9) Hypertension Current Visit: No Status: Chronic Qualifiers: Hypertension type: essential hypertension Qualified Code(s): I10 - Essential (primary) hypertension Brief History of Present Illness: See HPI Hospital Course: Overall during the hospital stay pt's condition was declining and Overall outcome was poor. Mr Marcelo is well known to me from last admission. He apparently has a PEG tube placed now. Came to the hospital for SOB and weakness. Mr marcelo thus was admitted to the hospital for Respiratory Failure most likely 2/2 aspiration PNA vs Volume overload and Anemia of chronic disease. Mr Marcelo was started on IV vanc and zosyn. Pt was doing fairly poor. Initially Mr marcelo was on BIPA and then was weaned off to NC. He was reposives but lethargic and Alte[place]rd. Pt was given extensive oral care here in the hosptial where there was a lot of secretions noted. A ball of Sputum was collected and was sent for culture. Mr Marcelo was feeling better after the oral care. Was more responsive. Around 165 judith dennis was called, pt was found to be less responsive and had an episode of bradycardia. Pt was found to be in respiratory distress and was saturating 35 % on the venti mask. Pt was then placed on BIPAP and was given a dose of IV lasix 80mg x 1. Pt responded well to the BIPAP and became more responsive. Family members at bedside were updated and detailed conversation was done regarding pt prognosis and overall outcome. Family and POA were all in agreement of DNR/DNI and understood the disease process and poor prognosis. Family then was asked about Comfort Care and they agreed for inpatient hospice and pt was then made comfort care. Cleveland Hernandez RN charge nurse confirmed the decision over the phone with me by the POA. [facility] was contacted and pt was DC to [facility] hospice. Overall Prognosis given the comorbit condition is poor. Hospice Dx: ESCOPD with Acute Respiratory failure Vital Signs/Physical Exam: Temp Pulse Resp BP Pulse Ox 96.9 F 92 H 20 92/48 L 91 08/23/17 13:21 08/23/17 13:21 08/23/17 13:21 08/23/17 13:21 08/23/17 13:21 General: Other (Lethargic and less responsive) HEENT: Atraumatic Neck: Supple Respiratory: Diminished, Crackles/rales, Rhonchi/gurgles Cardiovascular: Regular rate/rhythm, Normal S1 S2 Gastrointestinal: Normal bowel sounds, Soft and benign, Non-distended Integumentary: Other (anasarca) Neurological: Abnormal speech, Abnormal strength, Abnormal tone, Abnormal sensation, Abnormal reflexes Laboratory Data at Discharge: WBC 21.7 K/uL (4.3-10.9) H* 08/23/17 17:06 Hgb 7.2 g/dL (13.6-17.9) L* 08/23/17 17:06 Hct 21.8 % (39.6-49.0) L 04/15/18 17:06 Plt Count 290 K/uL (152-406) 08/23/17 17:06 PT 16.9 SECONDS (9.5-12.5) H 08/22/17 20:46 INR 1.43 08/22/17 20:46 Sodium 134 mEq/L (135-145) L 08/23/17 17:06 Potassium 3.7 mEq/L (3.6-5.0) 08/23/17 17:06 BUN 26 mg/dL (6-20) H 08/23/17 17:06 Creatinine 1.29 mg/dL (0.61-1.24) H 08/23/17 17:06 Glucose 169 mg/dL (65-120) H 08/23/17 17:06 Total Bilirubin 0.6 mg/dL (0.3-1.2) 08/23/17 11:42 AST 31 IU/L (10-42) 08/23/17 11:42 ALT 28 IU/L (10-60) 08/23/17 11:42 Alkaline Phosphatase 84 IU/L (42-121) 08/23/17 11:42 B-Natriuretic Peptide 4342 pg/ml (<=100) H 08/22/17 20:46 Lipase 14 U/L (22-51) L 08/22/17 20:46 Home Medications: Tamsulosin HCl 1 tab FT DAILY 06/01/17 Albuterol Neb [Proventil 0.083% Neb Soln] 2.5 mg NEB [id number] #60 amp 06/18/17 Ipratropium Neb [Atrovent*] 0.5 mg NEB [id number] #60 amp 06/18/17 Acetaminophen [Acetaminophen Extra Strength] 500 mg FT Q6HR PRN 08/23/17 Amiodarone HCl [Cordarone Tab] 200 mg FT DAILY 08/23/17 Bisacodyl [Dulcolax*] 10 mg FT DAILYPRN PRN 08/23/17 Budesonide [Pulmicort] 2 puff IH Q12HR 08/23/17 Digoxin [Lanoxin] 0.125 mg FT DAILY 08/23/17 Doxycycline Hyclate [Vibramycin] 100 mg FT BID 08/23/17 Glucagon,Human Recombinant [Glucagon Emergency Kit] 1 mg IM PRN PRN 08/23/17 Levofloxacin [Levaquin] 250 mg FT DIRECTED 08/23/17 Metoprolol Tartrate [Lopressor] 50 mg FT BID 08/23/17 Midodrine HCl [Proamatine] 5 mg FT M,W,F 08/23/17 Omeprazole Magnesium [Prilosec] 20 mg FT Q12HR 08/23/17 Risperidone [Risperdal] 0.5 mg FT BEDTIME 08/23/17 Tramadol HCl [Ultram] 50 mg FT Q8HR PRN 08/23/17 Warfarin Sodium [Coumadin] 2 mg FT DAILY 5 PM 08/23/17
[2017-08-23 18:25] LABS: Blood Morphology Comment NOT SEEN (NOT SEEN); Platelet Estimate ADEQ; Urine White Blood Cell Casts OK
[2017-08-23] MEDS ORDERED: MORPHINE 2 MG/ML SYR IV PRN (19:39)
[2017-08-23 20:24] VITALS: O2SAT 99
[2017-08-23] MEDS: Pantoprazole (granules) 40 MG/BLIST PACKET FT SCH (20:51)
[2017-08-23] MEDS ORDERED: RISPERIDONE 0.25 MG TABLET FT SCH (21:00)
[2017-08-23] MEDS ORDERED: METOPROLOL TAR 50 MG TAB FT SCH (21:00)
[2017-08-23] MEDS ORDERED: OMEPRAZOLE MAGNESIUM 20 MG FT SCH (21:00)
--- NOTE | 2017-08-23 22:36 | EKG ---
Test Date: 2017-08-22 Test Time: 22:20:46 Paper Sealer: SHIRLEY MEASUREMENT RESULTS: Intervals: Rate: 102 DC: 256 QRSD: 98 QT: 432 QTc: 563 [place]: P: DC: 256 QRS: 44 T: 263 INTERPRETIVE STATEMENTS: Poor data quality Sinus tachycardia with 1st degree AV block Low voltage QRS ST abnormality, possible inferior subendocardial injury Anterior infarct Abnormal ECG Compared to ECG 06/23/2017 01:34:45 Atrial flutter no longer present Ventricular premature complex(es) no longer present Electronically Signed On 08-23-17 22:35:36 CDT by Andre Smallwood
[2017-08-24] MEDS: LORazepam 2 MG/ML VIAL IV PRN ×2 (01:07→08:44)
--- NOTE | 2017-08-24 03:05 | CON ---
Date of Consultation: 08/23/2017 Reason For Consultation: Elevated BUN and creatinine, fluid management, over-volume. History Of Present Illness: This is a 76-year-old gentleman, well-known to me from the dialysis, wit h significant past medical history of coronary artery disease, status post CABG; end-stage renal dise ase, status post acute kidney injury secondary to cardiorenal, on dialysis, last dialysis yesterday, dialyzed for 5 hours. The patient's blood pressure has been marginal. COPD, hypertension, and diabe arnaldo. The patient was on dialysis yesterday, developed low blood pressure. For that reason, sent to the hospital. The patient complaining of cough, hypoxemic. Today, found to have anemia, started cristy ng transfused. The patient has still shortness of breath. Poorly responsive. We have been consulted because of over-volume. Allergies: TO PENICILLIN AND SULFA. Home Medications: Include; 1.Metformin. 2.Gabapentin. 3.Flomax. 4.Amiodarone. 5.Metolazone. 6.Pantoprazole. Past Medical History: Includes; 1.Diabetes, complicated with neuropathy and nephropathy. 2.COPD. 3.Hypertension. 4.Coronary artery disease with congestive heart failure. 5.Chronic kidney disease, end-stage renal disease, status post acute kidney injury secondary to card iorenal, on dialysis TTS at [facility]. Past Surgical History: Includes; 1.Appendectomy. 2.Back surgery. 3.Triple bypass. Family History: Positive for coronary artery disease. Social History: Ex-smoker. Denied alcohol. Denied drug abuse. Review of Systems: None obtainable. Physical Examination: General: When I saw the patient, the patient was lying in bed, poorly responsive. Vital Signs: Blood pressure of 104/49, pulse of 54. Chest: Crackles, bilateral bases. More prominent in left base. Heart: S1, S2. Systolic murmur. Abdomen: Soft and nontender. Extremities: Trace edema. Laboratory Data: WBC 21.7, H and H 7.0/22.7, and platelets of 309. Sodium 135, potassium 3.6, bicar b 26, BUN 23, creatinine 1.2, and calcium of 8. Assessment And Plan: 1.End-stage renal disease, status post acute kidney injury secondary to cardiorenal over-volume. I am going to go ahead and place a [place] to follow up recovery. We will continue to monitor. The laura ent is planned for dialysis tomorrow if needed. 2.Hypertension. Currently, blood pressure is marginal. We will hold all the blood pressure medicat ions. We will try and utilize blood pressure for more ultrafiltration. 3.Congestive heart failure, over-volume. We will try to establish better volume control tomorrow. 4.Anemia of chronic kidney disease. Resume Epogen. 5.Deconditioning. With multiple comorbidities, the patient has overall poor prognosis. 6.Chronic obstructive pulmonary disease with exacerbation. We will follow up with primary. Case was discussed with Dr. Ayala. The patient has overall poor prognosis. JOHANNE/ANDREW Voice ID: [id number] Report ID: [id number]
[2017-08-24] MEDS: PIPER/TAZO/NS 2.25gm 2.25 GM/50 ML BAG IV SCH (05:00)
[2017-08-24 05:18] LABS: Absolute Lymphocytes (CBC) 0.7 K/uL (0.7-4.9); Absolute Monocytes 1.6 K/uL (0.1-1.3); Absolute Neutrophil 15.7 K/uL (1.8-8.0); Basophils % 0.7 % (0-1.3); Eosinophils % 0.1 % (0-4.4); Hematocrit 22.8 % (39.6-49.0); Lymphocytes % 3.9 % (15.3-44.8); MCH 27.6 pg (27.0-35.0); MCV 87.1 fL (80-100); MPV 9.1 fL (7.6-11.3); Monocytes % 8.6 % (3.3-12.3); RBC Red Blood Cell Count 2.62 M/uL (4.33-5.43)
[2017-08-24 05:36] LABS: Potassium 3.6 mEq/L (3.6-5.0)
[2017-08-24] MEDS: INSULIN -REGULAR HUMAN 50 UNIT/0.5 ML ML SQ SCH (07:30)
[2017-08-24] MEDS: MORPHINE 4 MG/ML SYR IV PRN ×2 (08:49→13:45)
[2017-08-24] MEDS ORDERED: TAMSULOSIN 0.4 MG SR CAP FT SCH (09:00)
[2017-08-24] MEDS ORDERED: DIGOXIN 0.125 MG TABLET FT SCH (09:00)
[2017-08-24] MEDS ORDERED: AMIODARONE HCL 200 MG TAB FT SCH (09:00)
[2017-08-24] MEDS: Pantoprazole (granules) 40 MG/BLIST PACKET FT SCH (09:15)
[2017-08-24 10:30] VITALS: BP 177/70; TEMP 98.4
[2017-08-24] MEDS ORDERED: MIDODRINE HCL 5 MG TABLET FT SCH (17:00)
--- NOTE | 2017-08-24 18:01 | PN ---
Date of Progress Note: 08/24/2017 Chief Complaint: Severe acute kidney injury. History Of Present Illness: The patient has been treated with dialysis for acute kidney injury. The patient has severe cardiorenal syndrome and currently he is very lethargic. He has congestive heart failure, COPD, respiratory failure. He had dialysis during this admission and was dialyzed for 3 hours to control hypervolemia and control cardiorenal syndrome. The patient has a Olmos catheter placed, and today there is no significant urine output. Yesterday, creatinine was 1.2 and BUN was 23. The patient has some improvement of azotemia , although after catheter was placed, there was no urine output. Today lab work showed BUN 31, creatinine 1.53. Review of Systems: Unobtainable. Physical Examination: Lungs: Coarse breath sounds bilaterally. Heart: S1, S2. Abdomen: Soft, positive bowel sounds. Extremities: Some edema present. Impression And Plan: 1. Acute kidney injury. Renal function has improved somewhat. The patient does not make urine, he developed oliguria. The patient's family decided about hospice status due to the fact that overall prognosis is very poor, and this patient has significant congestive heart failure. The patient was taking diuretics, metolazone and spironolactone. 2. The patient has diabetes, at this point patient is on insulin for diabetic management. 3. 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 Plan is to stop midodrine if systolic blood pressure is greater than 100. 4. The patient was started on broad-spectrum antibiotics for possible pneumonia and sepsis. Adjust antibiotic dose per protocol. TAMY/ANDREW Voice ID: [id number] Report ID: [id number] MELY
[2017-08-26 19:43] LABS: HBsAG Nonreactive (Nonreactive)
== END 2017-08-24 12:59 | disposition hospice, inpatient (51) | DRG 177 ==
LOC: ER 21:49 → 2ND 08-23 03:09
PROVIDERS: ADMIT Family Medicine; ATTEND Internal Medicine
PROC: 5A09357 Assistance with Respiratory Ventilation, Less than 24 Consecutive Hours, Continuous Positive Airway Pressure (ICD-10-PCS; principal; 2017-08-23)
DX: J69.0 Pneumonitis due to inhalation of food and vomit (principal); J96.01 Acute respiratory failure with hypoxia; N18.6 End stage renal disease; I50.23 Acute on chronic systolic (congestive) heart failure; I13.2 Hypertensive heart and chronic kidney disease with heart failure and with stage 5 chronic kidney disease, or end stage renal disease; J44.1 Chronic obstructive pulmonary disease with (acute) exacerbation; N17.9 Acute kidney failure, unspecified; R00.1 Bradycardia, unspecified; Z66 Do not resuscitate; D63.1 Anemia in chronic kidney disease; R13.11 Dysphagia, oral phase; L89.152 Pressure ulcer of sacral region, stage 2; L89.622 Pressure ulcer of left heel, stage 2; L89.612 Pressure ulcer of right heel, stage 2; I25.10 Atherosclerotic heart disease of native coronary artery without angina pectoris; E11.22 Type 2 diabetes mellitus with diabetic chronic kidney disease; Z95.1 Presence of aortocoronary bypass graft; Z99.2 Dependence on renal dialysis
CPT/HCPCS: 36415; 71045; 71275; 80048; 80053; 80076; 80162; 82805; 82962; 83605; 83690; 83880; 84145; 84484; 85025; 85610; 86317; 86704; 86706; 86850; 86900; 86901; 87040; 87070; 87077; 87186; 87205; 87340; 93005; 94640; 96361; 96374; 99285; J0696; J2543; J7030; P9016; Q9967

== ENCOUNTER 2017-08-24 13:00 | Inpatient (IN) | payer OTHER ==
--- OUTSIDE RECORDS SUMMARY | 2017-08-24 15:42 | XMS REPORT | Clinical Summary ---
:1940 Author Organization [facility] Address [address] [place] [address] Phone Care Team Providers Name Role Phone [...] injury (HCC) 03/25/2017 PAF (paroxysmal atrial fibrillation) ([facility]) 03/25/2017 Other emphysema ([facility]) 03/25/2017 Acute systolic heart failure ([facility]) 03/03/2017 Acute respiratory failure with hypoxia ([facility]) 03/03/2017 Hyperglycemia 03/03/2017 Postoperative anemia due to acute blood loss 03/03/2017 Thrombocytopenia ([facility]) 03/03/2017 Acute pulmonary insufficiency following thoracic surgery ([facility]) 02/27/2017 Cardiogenic shock ([facility]) 02/27/2017 NSTEMI (non-ST elevated myocardial infarction) ([facility]) 02/26/2017 Coronary artery disease 02/26/2017 LVAD (left ventricular assist device) present ([facility]) 02/26/2017 Tachycardia Encounters Date Type Specialty Care [...] MD elevated myocardial 03/25/2017 Elian Ray infarction) ([facility]) MD Ramirez (Primary Dx);Acute pulmonary insufficiency following thoracic surgery ([facility]);Cardiogenic shock ([facility]);LVAD (left ventricular assist device) present ([facility]);Hypovolemic shock ([facility]) 02/26/2017 Orders Only General Internal Medicine 02/26/2017 Procedure Pass 02/26/2017 Surgery Jeni, L CATH & PCI Tremayne Benitez MD after 08/23/2016 Social History Tobacco Use Types Packs/Day Years Used Date Never Assessed Sex Assigned at Date Recorded Not on file Last Filed Vital Signs Vital Sign Reading Time Taken Blood Pressure 124/58 03/25/2017 4:00 PM TELE TECH Pulse 82 03/25/2017 4:00 PM TELE TECH Temperature 36.4 C (97.5 F) 03/25/2017 4:00 PM TELE TECH Respiratory Rate 20 03/25/2017 4:00 PM TELE TECH Oxygen Saturation 95% 03/25/2017 4:00 PM TELE TECH Inhaled Oxygen Concentration - - Weight 94 kg (207 lb 4.8 oz) 03/24/2017 3:58 AM TELE TECH Height 182.9 cm (6') 02/26/2017 7:00 PM CDT Body Mass Index 28.11 03/24/2017 3:58 AM TELE TECH Plan of Treatment Health Maintenance Due Date Last Done Comments INFLUENZA VACCINE 02/08/2018 Implants Implanted 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 Well Service Device Expiration Model / Identifier Date Serial / Lot Sut Surg Stl 7 18g 18in Mls Mp M655g - [id number] [place]/[employer]rosc[employer] N/A: J 09/07/2021 M655G / Implanted: Qty: 1 on 02/27/2017 by Hiram Rowe MD y Sternum &J :ETHINANCI / [id number] Sut Surg Stl 7 18g 18in Mls Mp M655g - [id number] [place]/Ar[employer]rosc[employer] N/A: J 12/08/2021 M655G / Implanted: Qty: 1 on 02/27/2017 by Hiram Rowe MD y Sternum &J :ETHINANCI / [id number] Sternal Zipfix Ndl Strl 08.501.001.20s - [id number] Cardiovascular N/A: SYNTHES:SYNTHE 12/08/2021 08.501.001.20S / Implanted: Qty: 2 on 02/27/2017 by Hiram Rowe MD [facility] / [id number] Procedures Procedure Name Priority Date/Time Associated Diagnosis Comments COLONOSCOPY 03/16/2017 11:00 AM GI Bleed TELE TECH IABP INSERTION [facility] - 02/27/2017 5:03 PM cp IP PROC ONLY CDT REMOVAL,IMPELLA PUMP 02/27/2017 7:30 AM CAD CDT IABP INSERTION [facility] - 02/27/2017 7:30 AM CAD IP PROC ONLY CDT BYPASS,FEMORAL-FEMORAL 02/27/2017 7:30 AM CAD CDT ENDOSCOPIC HARVEST,VEIN 02/27/2017 7:30 AM CAD CDT BYPASS,AORTO CORONARY 02/27/2017 7:30 AM CAD SIRENA/SVG CDT L CATH & PCI 02/26/2017 7:25 PM NSTEMI CDT after 08/23/2016 Results RHYTHM STRIP - SCAN (03/30/2017 6:30 AM)Only the most recent of3 resultswithin the time period is included.EKG-SCANNED (03/26/2017 10:41 AM)PERMANENT LAB REPORT - SCAN (03/26/2017 10:41 AM)VASCULAR DIAGRAM -SCAN (03/26/2017 10:41 AM) POC-Glucose meter (03/25/2017 11:58 AM)Only the most recent of125 resultswithin the time period is included. Component Value Ref Range POC-Glucose Meter 174 (H)Comment: TESTED AT [address] 70 - 110 mg/[place] [address] Specimen Performing Laboratory Blood [address] [address] B-type Natriuretic Factor (BNP) (03/25/2017 6:58 AM)Only the most recent of5 resultswithin the time period is included. Component Value Ref Range BNP 725 (H) 0 - 100 pg/mL Specimen Performing Laboratory Blood [address] [address] Basic Metabolic Panel (03/25/2017 6:58 AM)Only the [...] FOR DIALYSIS PATIENTS. Specimen Performing Laboratory Blood [address] [address] REPORT OF PROCEDURE - ENDOSCOPY URL (03/23/2017 2:36 PM)Magnesium (03/23/2017 5:44 AM)Only the most recent of37 resultswithin the time period is included. Component Value Ref Range Magnesium 1.6 1.6 - 2.6 mg/dL Specimen Performing Laboratory Blood [address] [address] CBC with platelet count + automated diff [...] Specimen Performing Laboratory Blood - Line, Venous [address] [address] CBC with platelet count + automated diff (03/22/2017 10:39 AM)Only the most recent of28 resultswithin the time period is included. Specimen Performing Laboratory Blood Narrative The following orders were created for panel order CBC with platelet count + automated diff. Procedure Abnormality Status --------- ------ CBC with platelet count ...[[id number]]AbnormalFinal result Please view results for these tests [...] MD Report Verified Date/Time:03/19/2017 16:06:30 Reading Location: [facility] Radiology Reading Room Procedure Note Interface, External Ris In - 03/19/2017 4:08 PM TELE TECH FINAL REPORT TECHNIQUE: Frontal chest radiograph dated 03/19/2017. CLINICAL HISTORY: CHF COMPARISON STUDY: Chest radiograph dated 03/14/2017 IMPRESSION: Right PICC is unchanged in position. Lungs are clear. No pleural effusion or pneumothorax. Cardiomediastinal silhouette is stable in size. No pulmonary edema. Midline sternotomy wires are intact and well aligned. No fracture. Signed: Angeles Wheat MD Report Verified Date/Time: 03/19/2017 16:06:30 Reading Location: [facility] Radiology Reading Room Prepare Leuko-Red RBC (03/18/2017 11:54 PM)Only the most recent of6 resultswithin the time period is included. Component Value Ref Range CROSSMATCH COMPATIBLE Unit ABO A Pos UNIT NUMBER [id number] Status TRANSFUSED Blood Bank Product RED BLOOD CELLS PRODUCT CODE [id number] Specimen Performing Laboratory Other [place] Type and screen, automated (03/18/2017 6:00 AM)Only the most recent of4 resultswithin the time period is included. Component Value Ref Range ABO/RH AUTOMATED (BEAKER) A POSITIVE Ab Scrn NEGATIVE Specimen Performing Laboratory Blood [place] [address] Transfuse Leuko-Red RBC (03/17/2017 5:55 PM)Only the most recent of13 resultswithin the time period is included.Manual Differential (03/17/2017 4:19 AM)Only the most recent of3 resultswithin the time period is included. Specimen Performing [place] [address] Prepare RBC (03/16/2017 11:54 PM)Only the most recent of4 resultswithin the time period is included. Component Value Ref Range CROSSMATCH COMPATIBLE Unit ABO A Pos UNIT NUMBER [id number] Status TRANSFUSED Blood Bank Product RED BLOOD CELLS PRODUCT CODE [id number] Specimen Performing Laboratory [facility] Hemoglobin and hematocrit (03/15/2017 9:23 AM)Only the most recent of5 resultswithin the time period is included. Component Value Ref Range Hemoglobin 5.6 (LL) 13.7 - 17.5 GM/DL Hematocrit 17.6 (L) 40.1 - 51.0 % Specimen Performing [place] [address] Clostridium difficile Toxin PCR (03/14/2017 9:08 PM) Component Value Ref Range C.Diff Toxin, PCR Detected (A) Not Detected Specimen Performing Laboratory Stool [address] [address] Narrative This qualitative real-time polymerase chain reaction [...] MD Report Verified Date/Time:03/14/2017 19:47:30 Reading Location: [address] Ortho Consult Reading Room Procedure Note [...] Report Verified Date/Time: 03/14/2017 19:47:30 Reading Location: [facility] C0[facility] Ortho Consult Reading Room Occult blood, stool (03/14/2017 5:23 AM) Component Value Ref Range Occult blood Positive (A) Negative Specimen Performing Laboratory Stool - Per Rectum [address] [address] XR knee complete 4 views right (03/13/2017 4:31 PM) Specimen Performing Laboratory GE RIS Narrative FINAL REPORT Right knee, four views HISTORY: Knee pain COMPARISON: None. IMPRESSION: No acute displaced fracture or dislocation. Small knee effusion. Prominent vascular calcifications. Signed: Tico Aggarwal MD Report Verified Date/Time:03/13/2017 17:53:33 Reading Location: [facility] C013 Consult Reading Room Procedure Note Interface, External Ris In - 03/13/2017 5:55 PM CDT FINAL REPORT Right knee, four views HISTORY: Knee pain COMPARISON: None. IMPRESSION: No acute displaced fracture or dislocation. Small knee effusion. Prominent vascular calcifications. Signed: Tico Aggarwal MD Report Verified Date/Time: 03/13/2017 17:53:33 Reading Location: [facility] C013W Consult Reading Room Urine culture (03/12/2017 4:53 PM)Only the most recent of3 resultswithin the time period is included. Component Value Ref Range Result No growth Specimen Performing Laboratory Urine - Urine, [place] [address] [address] Vitamin B12 and Folate (03/12/2017 9:29 AM) Component Value Ref Range Vitamin B12 773 213 - 816 pg/mL Folate 10.8 >=7.0 ng/mL Specimen Performing Laboratory Blood - Central Venous Line [address] [address] Iron, TIBC, % sat. (without ferritin) (03/12/2017 9:29 AM) Component Value Ref Range Iron 19 (L) 40 - 160 ug/dL TIBC 155 (L) 250 - 450 ug/dL Iron % Saturation 12 (L) 20 - 55 % Specimen Performing Laboratory Blood - Central Venous Line [address] [address] aPTT (03/12/2017 9:29 AM)Only the most recent of8 resultswithin the time period is included. Component Value Ref Range PTT 37.2 (H) 22.5 - 36.0 seconds Specimen Performing Laboratory Blood - Central Venous Line [address] [address] Uric acid (03/12/2017 9:29 AM) Component Value Ref Range Uric Acid 11.6 (H) 2.6 - 7.2 mg/dL Specimen Performing Laboratory Blood - Central Venous Line [address] [address] Ferritin (03/12/2017 9:29 AM) Component Value Ref Range Ferritin 1371 (H) 5 - 275 ng/mL Specimen Performing Laboratory Blood - Central Venous Line [address] [address] PERIPHERAL VASCULAR REPORT - SCAN (03/12/2017 7:20 AM)Only the most recent of2 resultswithin the time period is included.Urinalysis w/Microscopic (03/11/2017 6:06 PM) Component Value Ref Range Color, UA Yellow Clarity, UA Hazy Specific [place], UA 1.017 1.001 - 1.035 pH, UA [...] Specimen Performing Laboratory Urine - Urine, [place] [address] [address] ECHOCARDIOGRAM REPORT - SCAN (03/11/2017 5:20 PM)Only [...] ARMIJO Date of Study 2016 76 Visit [id number] Male of 1940 Number Referring Ngozi Savage Number 1150 Physician Restorative Care Technician Tom Starr. InterpretingJ. Lex Rowe RVT, AMYSPkristineciBALDEMAR [...] of Study 03/11/2017 Age 76 Visit Number [id number] Gender Male Date of 1940 Number Referring Javid Crawford MD Room Number 1150 Physician Restorative Care Technician Tom Starr. Interpreting Aaron Rowe T, ARS [...] Range POC-Lactic Acid, Arterial 0.8Comment: TESTED AT [address] 0.4 - 1.3 mmol/L [place] [address] Specimen Performing Laboratory Blood [facility] [address] [address] POCT-HEMATOCRIT (03/11/2017 12:37 PM) Component Value Ref Range POC-Hematocrit 25 (L)Comment: TESTED AT [address] [address] 40 - 50 % Specimen Performing Laboratory Blood [address] [address] POCT-HEMOGLOBIN (03/11/2017 12:37 PM) Component Value Ref Range POC-Hemoglobin 8.5 (L)Comment: TESTED AT [address] 13.0 - 16.8 g/dL [place] [address] Specimen Performing Laboratory Blood [address] [address] POCT-GLUCOSE (03/11/2017 12:37 PM) Component Value Ref Range POC-Glucose 171 (H)Comment: TESTED AT [address] 70 - 110 mg/dL [address] Specimen Performing Laboratory Blood [address] [address] POC-Sodium (03/11/2017 12:37 PM) Component Value Ref Range POC-Sodium 138Comment: TESTED AT [address] [address] 135 - 148 meq/L Specimen Performing Laboratory Blood [address] [address] POC-Potassium (03/11/2017 12:37 PM) Component Value Ref Range POC-Potassium 3.7Comment: TESTED AT [address] 3.6 - 5.5 meq/L [facility] Specimen Performing Laboratory Blood [address] [address] POC-Calcium ionized (03/11/2017 12:37 PM) Component Value Ref Range POC-Calcium Ionized 1.08 (L)Comment: TESTED AT [address] 1.12 - 1.27 mmol/L [place] [address] Specimen Performing Laboratory Blood [address] [address] POC-Blood gases, arterial (03/11/2017 12:37 PM) Component Value Ref Range Temp. Celsius-POC 37.0 FIO2-POC Comment: TESTED AT [facility] [address] [place] [address] pH, Arterial-POC 7.458 (H) 7.350 - 7.450 PCO2, Arterial-POC 42.0 35.0 - 45.0 mm Hg PO2, Arterial-POC 136.0 (H) 80.0 - 90.0 mm Hg SO2, Arterial-POC 99.0 (H) 96.0 - 97.0 % HCO3, Arterilal-POC 29.7 (H) 21.0 - 29.0 meq/L BE, Arterial-POC 6.0 (H) -2.0 - 3.0 meq/L Specimen Performing Laboratory Blood [facility] [address] [address] Limited 2D Echocardiogram (03/11/2017 11:43 AM) Component Value Ref Range Ejection Fraction Specimen Performing Laboratory SLE ECHO HEARTLAB MKCKESSON CPACS Narrative Transthoracic Echocardiography Report (TTE) Demographics Patient Name KAYLEY ARMIJO Date of Study 03/11/2017 [id number] Male Visit Number [id number] Unknown [id number] Room Number 1150 Number Date of Birth1940Referring Physician Age76 year(s)Restorative Care Technician Amarilis Gregory AnalystAriadna Interpreting Kana Dooley Physician [...] Summary 1. The following segment(s) appear akinetic: [place], base and mid inferior. LVEF by Slater's [...] LV hypertrophy. The following segment(s) appear akinetic: [place], base and mid inferior. The following segment(s) [...] of Study 03/11/2017 Gender Male Visit Number [id number] Race Unknown Room Number 1150 Number Date of 1940 Referring Physician Age 76 year(s) Restorative Care Technician Amarilis Gregory Chief Telephone Operator Debo Interpreting Kana Dooley Physician Procedure Type of Study TTE procedure:LIMITED 2D ECHOCARDIOGRAM (STAT) Indications:Shortness of breath. Clinical History CAD RESPIRATORY FAILURE CAD TACHYCARDIA NSTEMI ANEMIA ACUTE SYSTOLIC HEART FAILURE HGB 8.0 HCT 25.4 % Height: 72 inches Weight: 103.87 kg (229 lbs) BSA: 2.26 m^2 BMI: 31.06 kg/m^2 HR: 89 bpm BP: 136/61 mmHg Summary 1. The following segment(s) appear akinetic: [place], base and mid inferior. LVEF by Slater's [...] LV hypertrophy. The following segment(s) appear akinetic: [place], base and mid inferior. The following segment(s) [...] Performing Laboratory Blood - Arm, Left [facility] [address] [address] Urinalysis w/Microscopic + Reflex to Culture (03/09/2017 3:52 PM)Only the most recent of2 resultswithin the time period is included. Component Value Ref Range Color, UA Yellow Clarity, UA Clear Specific [place], UA 1.009 1.001 - 1.035 pH, UA [...] Performing Laboratory Urine - Urine, Clean [place] [address] [address] Hemoglobin A1c (03/09/2017 6:46 AM) Component Value Ref Range Hemoglobin A1C 6.0 4.3 - 6.1 % Specimen Performing Laboratory Blood - Central Venous Line [address] [address] Oxygen saturation, measured (03/07/2017 3:18 AM)Only the most recent of18 resultswithin the time period is included. Component Value Ref Range O2 Saturation (Measured) 61.8 % Specimen Performing Laboratory Blood [address] [address] Potassium (03/07/2017 3:18 AM)Only the most recent of18 resultswithin the time period is included. Component Value Ref Range Potassium 3.7 3.5 - 5.1 meq/L Specimen Performing Laboratory Blood [address] [address] Hepatic function panel (03/06/2017 3:44 AM)Only the [...] - 55 U/L Specimen Performing Laboratory Blood [address] [address] 2D Echo W/Doppler(CW/PW/Color) (03/05/2017 9:56 PM)Only the most recent of3 resultswithin the time period is included. Component Value Ref Range Ejection Fraction Specimen Performing Laboratory [facility] ECHO HEARTLAB SUSAN CPACS Narrative Transthoracic Echocardiography Report (TTE) Demographics Patient Name Batool ARMIJO of Study 2017 [id number] GenderMale Visit Number [id number] RaceMaría [place] [id number] Number C830 Number Date of Birth1940 Referring Physician Elham Mariee Age76 year(s) Restorative Care Technician Roger Grossman, [facility] AnalystGCuca Callaway MD [facility] Procedure Type of Study TTE procedure:2DECHO W [...] of Study 03/05/2017 Gender Male Visit Number [id number] Race Unknown Room Number C830 Number Date of 1940 Referring Physician Elham Mariee Age 76 year(s) Restorative Care Technician Roger Grossman [facility] Chief Telephone Operator Roger Grossman, Interpreting Clay Vasquez MD [facility] Physician Procedure Type of Study TTE procedure:2DECHO [...] pH, Blood 7.57 Specimen Performing Laboratory Blood [address] [address] Blood gas, arterial (03/05/2017 4:25 AM)Only the [...] FIO2 75.0 % Specimen Performing Laboratory Blood [address] [address] ECG 12 lead (03/04/2017 6:42 PM)Only the most recent of3 resultswithin the time period is included. Specimen Performing Laboratory GE MUSE Narrative Ventricular Rate 133 BPM Atrial Rate 133 BPM P-R Interval 154 ms QRS Duration 74 ms Q-T Interval 262 ms QTC Calculation(Bazett) 389 ms P [place] 241 degrees R [place] 67 degrees T [place] 196 degrees Atrial flutter with 2 to [...] 262 ms QTC Calculation(Bazett) 389 ms P [place] 241 degrees R [place] 67 degrees T [place] 196 degrees Atrial flutter with 2 to [...] - 36.0 seconds Specimen Performing Laboratory Blood [address] [address] Narrative RECOMMENDED COUMADIN/WARFARIN INR THERAPY RANGES STANDARD [...] INR 1.3 <=5.9 Specimen Performing Laboratory Blood [address] [address] Narrative RECOMMENDED COUMADIN/WARFARIN INR THERAPY RANGES STANDARD [...] to verify the correct patient, procedure, equipment, customer support agent and site/side marked as required. Preparation: Patient [...] Specimen Performing Laboratory Blood - Line, Arterial [address] [address] Lactate dehydrogenase (LDH) (03/03/2017 3:13 AM)Only the most recent of6 resultswithin the time period is included. Component Value Ref Range LDH 688 (H) 125 - 220 U/L Specimen Performing Laboratory Blood - Line, Arterial [address] [address] CARDIAC CATH REPORT - SCAN (03/02/2017 10:50 PM)Only the most recent of2 resultswithin the time period is included.Lactic acid, arterial, whole blood ( 4:33 PM)Only the most recent of5 resultswithin the time period is included. Component Value Ref Range Lactate, Art 1.2 0.5 - 2.2 mmol/L Specimen Performing Laboratory Blood, Arterial [address] [address] Narrative Effective 09/12/2015: Units/Reference Range Change New: 0.5-2.2 mmol/LPrevious: 5-20 mg/dL Glucose-Stat Lab (03/02/2017 8:58 AM)Only the most recent of13 resultswithin the time period is included. Component Value Ref Range Glucose 99 70 - 110 mg/dL Specimen Performing Laboratory Blood, Arterial [address] [address] Vancomycin level, random (03/02/2017 4:20 AM) Component Value Ref Range Vancomycin Rm 27.4 ug/mL Specimen Performing Laboratory Blood [address] [address] Narrative Reference Range: No Normals RRL Critical Labs (ABG,NA,K,H&H,GLU) (03/01/2017 11:58 AM)Only the most recent of9 resultswithin the time period is included. Specimen Performing Laboratory Blood, Arterial Narrative The following orders were created for panel order RRL Critical Labs (ABG,NA,K,H&H,GLU). Procedure Abnormality Status --------- ------ Blood gas, arterial[[id number]]AbnormalFinal result Sodium Na-Stat Lab[[id number]] NormalFinal result Potassium-Stat Lab[[id number]] Glucose-Stat Lab[[id number]] HGB/HCT (H&H)-Stat Lab[[id number]] AbnormalFinal result Please view results for these tests on the individual orders. Sodium Na-Stat Lab (03/01/2017 11:58 AM)Only the most recent of11 resultswithin the time period is included. Component Value Ref Range Sodium 145 135 - 148 meq/L Specimen Performing Laboratory Blood, Arterial [address] [address] HGB/HCT (H&H)-Stat Lab (03/01/2017 11:58 AM)Only the most recent of11 resultswithin the time period is included. Component Value Ref Range Hemoglobin 9.2 (L) 13.0 - 16.8 g/dL Hematocrit 27.0 (L) 40.0 - 50.0 % Specimen Performing Laboratory Blood, Arterial [address] [address] Vancomycin level, trough (03/01/2017 11:58 AM) Component Value Ref Range Vancomycin Tr 39.8 (HH) 10.0 - 20.0 ug/mL Specimen Performing Laboratory Blood [address] [address] Prepare plasma (02/28/2017 11:55 PM)Only the most recent of2 resultswithin the time period is included. Component Value Ref Range Unit ABO A Pos UNIT NUMBER [id number] Status TRANSFUSED Blood Bank Product FFP PRODUCT CODE [id number] Unit ABO A Neg UNIT NUMBER [id number] Status TRANSFUSED Blood Bank Product FFP PRODUCT CODE [id number] Specimen Performing Laboratory [place] Prepare PLT (02/28/2017 11:54 PM) Component Value Ref Range Unit ABO B Pos UNIT NUMBER [id number] Status TRANSFUSED Blood Bank Product PLATELETS PRODUCT CODE U7837E59 Unit ABO A Pos UNIT NUMBER [id number] Status TRANSFUSED Blood Bank Product PLATELETS PRODUCT CODE S1055Q08 Specimen Performing Laboratory [place] Prepare cryoprecipitate (02/28/2017 11:54 PM) Component Value Ref Range Unit ABO O Pos UNIT NUMBER [id number] Status TRANSFUSED Blood Bank Product CRYOPRECIPITATE PRODUCT CODE Y1915W75 Unit ABO O Pos UNIT NUMBER [id number] Status TRANSFUSED Blood Bank Product CRYOPRECIPITATE PRODUCT CODE Y1892T17 Specimen Performing Laboratory [place] Glucose (02/28/2017 5:21 AM) Component Value Ref Range Glucose 137 (H) 70 - 105 mg/dL Specimen Performing Laboratory Blood [address] [address] Narrative PRN - repeat glucose levels every 1 hour or as specified by insulin titration orders until glucose level is less than 450 mg/dL Potassium-Stat Lab (02/28/2017 12:24 AM)Only the most recent of10 resultswithin the time period is included. Component Value Ref Range Potassium 4.1 3.6 - 5.5 meq/L Specimen Performing Laboratory Blood, Arterial [address] [address] Thromboelastograph (TEG) (02/27/2017 2:08 PM)Only the most [...] - 5.0 % Specimen Performing Laboratory Blood [address] [address] Fibrinogen (02/27/2017 2:07 PM)Only the most recent of3 resultswithin the time period is included. Component Value Ref Range Fibrinogen 317 225 - 434 mg/dl Specimen Performing Laboratory Blood [address] [address] Comprehensive metabolic panel (02/27/2017 2:07 PM) Component [...] FOR DIALYSIS PATIENTS. Specimen Performing Laboratory Blood [address] [address] Platelet count (02/27/2017 12:48 PM)Only the most recent of2 resultswithin the time period is included. Component Value Ref Range Platelets 151 150 - 450 K/CU MM Specimen Performing Laboratory Blood [address] [address] ANESTHESIA ERIS (02/27/2017 10:32 AM) Chandler Barney [...] Range Activated Clotting Time 125Comment: TESTED AT [address] [place] [address] Specimen Performing Laboratory Blood [address] [address] Blood gas, venous (02/27/2017 8:31 AM) Component [...] FIO2 80.0 % Specimen Performing Laboratory Blood [address] [address] Troponin I (02/27/2017 5:37 AM)Only the most recent of3 resultswithin the time period is included. Component Value Ref Range Troponin I 76.70 (HH) 0.00 - 0.03 ng/mL Specimen Performing Laboratory Blood [address] [address] Narrative Troponin I (TnI) levels must be [...] 10.6 % Specimen Performing Laboratory Blood [facility] [address] [address] Narrative CK-MB Reference Range: <6.7Normal 6.7-10.0Borderline >10.0 Abnormal after 08/23/2016
--- OUTSIDE RECORDS SUMMARY | 2017-08-24 15:48 | XMS REPORT ---
:1940 [facility] Address [address] [place] [address] [address] [place] [address] Care Team Providers Name Role Phone Eli [...] (BEAKER) (test 174 mg/dL 70-110 TESTED AT [facility] [address] oulv=4582) [facility] [address] BASIC METABOLIC [id number] 09:41:00 Test Item Value Reference Range Comments SODIUM (BEAKER) (test 140 meq/L 136-145 xxyc=433) POTASSIUM (BEAKER) (test 3.7 meq/L 3.5-5.1 sovo=663) CHLORIDE (BEAKER) (test 104 meq/L 98-107 zxyg=093) CO2 (BEAKER) (test 28 meq/L 22-29 qcmj=334) BLOOD UREA NITROGEN 25 mg/dL 7-21 (BEAKER) (test ysws=860) CREATININE (BEAKER) (test 1.11 mg/dL 0.57-1.25 hiro=103) GLUCOSE RANDOM (BEAKER) 71 mg/dL 70-105 (test ffuz=485) CALCIUM (BEAKER) (test 8.3 mg/dL 8.4-10.2 omtc=581) EGFR (BEAKER) (test 64 mL/min/1.73 sq m ESTIMATED GFR IS NOT zkbn=0904) ACCURATE CREATININE CLEARANCE IN PREDICTING GLOMERULAR FILTRATION RATE. ESTIMATED GFR IS NOT APPLICABLE FOR DIALYSIS PATIENTS. B-TYPE NATRIURETIC FACTOR (BNP)2017-03-25 09:40:00 Test Item Value Reference Range Comments B-TYPE NATRIURETIC PEPTIDE (BEAKER) (test 725 pg/mL 0-100 twaa=156) POCT-GLUCOSE [id number] 08:47:00 Test Item Value Reference Range Comments POC-GLUCOSE METER (BEAKER) 99 mg/dL 70-110 TESTED AT [address] (test qtyi=2069) [facility] [address] POCT-GLUCOSE [id number] 21:43:00 Test Item Value Reference Range Comments POC-GLUCOSE METER (BEAKER) 107 mg/dL 70-110 TESTED AT [address] (test bqaa=1133) [facility] [address] POCT-GLUCOSE [id number] 17:51:00 Test Item Value Reference Range Comments POC-GLUCOSE METER (BEAKER) 77 mg/dL 70-110 TESTED AT [address] (test ghed=6674) [facility] [address] POCT-GLUCOSE [id number] 17:51:00 Test Item Value Reference Range Comments POC-GLUCOSE METER (BEAKER) 60 mg/dL 70-110 TESTED AT [address] (test tfwr=8572) [facility] [address] POCT-GLUCOSE [id number] 12:29:00 Test Item Value Reference Range Comments POC-GLUCOSE METER (BEAKER) 155 mg/dL 70-110 TESTED AT [address] (test pxuk=5090) [facility] [address] POCT-GLUCOSE [id number] 07:30:00 Test Item Value Reference Range Comments POC-GLUCOSE METER (BEAKER) 77 mg/dL 70-110 TESTED AT [address] (test qlbk=8300) [facility] [address] POCT-GLUCOSE [id number] 22:14:00 Test Item Value Reference Range Comments POC-GLUCOSE METER (BEAKER) 105 mg/dL 70-110 TESTED AT [address] (test kobo=8727) [facility] [address] POCT-GLUCOSE [id number] 19:15:00 Test Item Value Reference Range Comments POC-GLUCOSE METER (BEAKER) 141 mg/dL 70-110 TESTED AT [address] (test qszk=8358) [facility] [address] POCT-GLUCOSE [id number] 16:59:00 Test Item Value Reference Range Comments POC-GLUCOSE METER (BEAKER) 59 mg/dL 70-110 Notified SILVIA SIMS/TESTED AT [facility] (test saey=0471) [address] [place] [address] POCT-GLUCOSE [id number] 12:29:00 Test Item Value Reference Range Comments POC-GLUCOSE METER (BEAKER) 128 mg/dL 70-110 TESTED AT [address] (test tfmr=2619) [facility] [address] POCT-GLUCOSE [id number] 08:44:00 Test Item Value Reference Range Comments POC-GLUCOSE METER (BEAKER) 83 mg/dL 70-110 TESTED AT [address] (test vbmq=6909) [facility] [address] POCT-GLUCOSE [id number] 08:34:00 Test Item Value Reference Range Comments POC-GLUCOSE METER (BEAKER) 78 mg/dL 70-110 TESTED AT [address] (test yzeq=7045) [facility] [address] BASIC METABOLIC [id number] 07:15:00 Test Item Value Reference Range Comments SODIUM (BEAKER) (test 141 meq/L 136-145 bthg=447) POTASSIUM (BEAKER) (test 3.8 meq/L 3.5-5.1 bkpr=881) CHLORIDE (BEAKER) (test 104 meq/L 98-107 tech=547) CO2 (BEAKER) (test 26 meq/L 22-29 qdrp=036) BLOOD UREA NITROGEN 32 mg/dL 7-21 (BEAKER) (test amlm=666) CREATININE (BEAKER) (test 1.29 mg/dL 0.57-1.25 urps=640) GLUCOSE RANDOM (BEAKER) 70 mg/dL 70-105 (test xwqo=128) CALCIUM (BEAKER) (test 7.9 mg/dL 8.4-10.2 wbiv=757) EGFR (BEAKER) (test 54 mL/min/1.73 sq m ESTIMATED GFR IS NOT dlaz=9422) ACCURATE CREATININE CLEARANCE IN PREDICTING GLOMERULAR FILTRATION RATE. ESTIMATED GFR IS NOT APPLICABLE FOR DIALYSIS PATIENTS. [id number] 06:56:00 Test Item Value Reference Range Comments MAGNESIUM (BEAKER) (test tzru=433) 1.6 mg/dL 1.6-2.6 POCT-GLUCOSE [id number] 22:13:00 Test Item Value Reference Range Comments POC-GLUCOSE METER (BEAKER) 99 mg/dL 70-110 TESTED AT [facility] [address] (test pnal=7538) [facility] [address] POCT-GLUCOSE [id number] 17:29:00 Test Item Value Reference Range Comments POC-GLUCOSE METER (BEAKER) 97 mg/dL 70-110 TESTED AT [facility] [address] (test cgpy=1001) [facility] [address] POCT-GLUCOSE [id number] 17:11:00 Test Item Value Reference Range Comments POC-GLUCOSE METER (BEAKER) 65 mg/dL 70-110 Notified SILVIA SIMS/TESTED AT [facility] (test eaty=5679) [address] [facility] [address] BASIC METABOLIC [id number] 11:20:00 Test Item Value Reference Range Comments SODIUM (BEAKER) (test 139 meq/L 136-145 pbtg=340) POTASSIUM (BEAKER) (test 3.9 meq/L 3.5-5.1 vmkr=791) CHLORIDE (BEAKER) (test 103 meq/L 98-107 tjty=131) CO2 (BEAKER) (test 28 meq/L 22-29 vrpp=204) BLOOD UREA NITROGEN 28 mg/dL 7-21 (BEAKER) (test xhjb=358) CREATININE (BEAKER) (test 1.26 mg/dL 0.57-1.25 jche=485) GLUCOSE RANDOM (BEAKER) 119 mg/dL 70-105 (test ohdn=095) CALCIUM (BEAKER) (test 7.7 mg/dL 8.4-10.2 zwwm=726) EGFR (BEAKER) (test 55 mL/min/1.73 sq m ESTIMATED GFR IS NOT exat=7428) ACCURATE CREATININE CLEARANCE IN PREDICTING GLOMERULAR FILTRATION RATE. ESTIMATED GFR IS NOT APPLICABLE FOR DIALYSIS PATIENTS. [id number] 11:15:00 Test Item Value Reference Range Comments MAGNESIUM (BEAKER) (test lbmi=502) 1.8 mg/dL 1.6-2.6 CBC W/PLT COUNT & AUTO [id number] 10:52:00 Test Item Value Reference Range Comments WHITE BLOOD CELL COUNT (BEAKER) (test ygle=093) 9.4 K/ L 3.5-10.5 RED BLOOD CELL COUNT (BEAKER) (test dbkl=842) 2.69 M/ L 4.63-6.08 HEMOGLOBIN (BEAKER) (test yqyj=336) 8.1 GM/DL 13.7-17.5 HEMATOCRIT (BEAKER) (test jbzx=712) 25.9 % 40.1-51.0 MEAN CORPUSCULAR VOLUME (BEAKER) (test eicr=162) 96.3 fL 79.0-92.2 MEAN CORPUSCULAR HEMOGLOBIN (BEAKER) (test 30.1 pg 25.7-32.2 pcxh=324) MEAN CORPUSCULAR HEMOGLOBIN CONC (BEAKER) (test 31.3 GM/DL 32.3-36.5 fdpo=108) RED CELL DISTRIBUTION WIDTH (BEAKER) (test 17.8 % 11.6-14.4 frci=565) PLATELET COUNT (BEAKER) (test vgwo=438) 274 K/CU MM 150-450 MEAN PLATELET VOLUME (BEAKER) (test kaqg=053) 10.0 fL 9.4-12.4 NUCLEATED RED BLOOD CELLS (BEAKER) (test 0 /100 WBC 0-0 hqww=840) NEUTROPHILS RELATIVE PERCENT (BEAKER) (test 79 % jgnd=797) LYMPHOCYTES RELATIVE PERCENT (BEAKER) (test 8 % nipn=795) MONOCYTES RELATIVE PERCENT (BEAKER) (test 10 % aqbe=460) EOSINOPHILS RELATIVE PERCENT (BEAKER) (test 4 % nxlg=713) BASOPHILS RELATIVE PERCENT (BEAKER) (test 0 % avme=857) NEUTROPHILS ABSOLUTE COUNT (BEAKER) (test 7.39 K/ L 1.78-5.38 twho=204) LYMPHOCYTES ABSOLUTE COUNT (BEAKER) (test 0.72 K/ L 1.32-3.57 ufor=386) MONOCYTES ABSOLUTE COUNT (BEAKER) (test 0.90 K/ L 0.30-0.82 zgsx=513) EOSINOPHILS ABSOLUTE COUNT (BEAKER) (test 0.33 K/ L 0.04-0.54 nmxc=876) BASOPHILS ABSOLUTE COUNT (BEAKER) (test 0.02 K/ L 0.01-0.08 znjv=426) IMMATURE GRANULOCYTES-RELATIVE PERCENT (BEAKER) 1 % 0-1 (test vgyn=1679) POCT-GLUCOSE [id number] 08:24:00 Test Item Value Reference Range Comments POC-GLUCOSE METER (BEAKER) 127 mg/dL 70-110 TESTED AT [address] (test njwj=5229) [facility] [address] POCT-GLUCOSE [id number] 22:18:00 Test Item Value Reference Range Comments POC-GLUCOSE METER (BEAKER) 220 mg/dL 70-110 TESTED AT [address] (test cgrg=2857) [facility] [address] POCT-GLUCOSE [id number] 16:58:00 Test Item Value Reference Range Comments POC-GLUCOSE METER (BEAKER) 87 mg/dL 70-110 TESTED AT [address] (test cpom=6782) [facility] [address] POCT-GLUCOSE [id number] 12:47:00 Test Item Value Reference Range Comments POC-GLUCOSE METER (BEAKER) 96 mg/dL 70-110 TESTED AT [address] (test opqg=2389) [facility] [address] POCT-GLUCOSE [id number] 09:40:00 Test Item Value Reference Range Comments POC-GLUCOSE METER (BEAKER) 159 mg/dL 70-110 TESTED AT [address] (test kfgi=1127) [facility] [address] BASIC METABOLIC [id number] 07:52:00 Test Item Value Reference Range Comments SODIUM (BEAKER) (test 140 meq/L 136-145 ferq=656) POTASSIUM (BEAKER) (test 3.7 meq/L 3.5-5.1 oobw=954) CHLORIDE (BEAKER) (test 104 meq/L 98-107 rsby=609) CO2 (BEAKER) (test 28 meq/L 22-29 emur=391) BLOOD UREA NITROGEN 32 mg/dL 7-21 (BEAKER) (test gnbd=139) CREATININE (BEAKER) (test 1.17 mg/dL 0.57-1.25 uypa=157) GLUCOSE RANDOM (BEAKER) 74 mg/dL 70-105 (test gwxr=066) CALCIUM (BEAKER) (test 7.8 mg/dL 8.4-10.2 ybcn=646) EGFR (BEAKER) (test 60 mL/min/1.73 sq m ESTIMATED GFR IS NOT cwsd=1654) ACCURATE CREATININE CLEARANCE IN PREDICTING GLOMERULAR FILTRATION RATE. ESTIMATED GFR IS NOT APPLICABLE FOR DIALYSIS PATIENTS. CBC W/PLT COUNT & AUTO [id number] 06:46:00 Test Item Value Reference Range Comments WHITE BLOOD CELL COUNT (BEAKER) (test uwth=987) 9.8 K/ L 3.5-10.5 RED BLOOD CELL COUNT (BEAKER) (test kfnn=546) 2.71 M/ L 4.63-6.08 HEMOGLOBIN (BEAKER) (test iliz=075) 8.2 GM/DL 13.7-17.5 HEMATOCRIT (BEAKER) (test akyo=210) 26.1 % 40.1-51.0 MEAN CORPUSCULAR VOLUME (BEAKER) (test xubx=048) 96.3 fL 79.0-92.2 MEAN CORPUSCULAR HEMOGLOBIN (BEAKER) (test 30.3 pg 25.7-32.2 eqtc=386) MEAN CORPUSCULAR HEMOGLOBIN CONC (BEAKER) (test 31.4 GM/DL 32.3-36.5 owdd=462) RED CELL DISTRIBUTION WIDTH (BEAKER) (test 17.8 % 11.6-14.4 vmeg=710) PLATELET COUNT (BEAKER) (test hodq=943) 252 K/CU MM 150-450 MEAN PLATELET VOLUME (BEAKER) (test wnax=500) 10.2 fL 9.4-12.4 NUCLEATED RED BLOOD CELLS (BEAKER) (test 0 /100 WBC 0-0 zxti=891) NEUTROPHILS RELATIVE PERCENT (BEAKER) (test 75 % djgn=619) LYMPHOCYTES RELATIVE PERCENT (BEAKER) (test 11 % vsgc=879) MONOCYTES RELATIVE PERCENT (BEAKER) (test 10 % vfcr=273) EOSINOPHILS RELATIVE PERCENT (BEAKER) (test 4 % plow=918) BASOPHILS RELATIVE PERCENT (BEAKER) (test 0 % ifbx=766) NEUTROPHILS ABSOLUTE COUNT (BEAKER) (test 7.29 K/ L 1.78-5.38 duxu=562) LYMPHOCYTES ABSOLUTE COUNT (BEAKER) (test 1.08 K/ L 1.32-3.57 wunb=115) MONOCYTES ABSOLUTE COUNT (BEAKER) (test 0.95 K/ L 0.30-0.82 oocr=776) EOSINOPHILS ABSOLUTE COUNT (BEAKER) (test 0.39 K/ L 0.04-0.54 ayyg=580) BASOPHILS ABSOLUTE COUNT (BEAKER) (test 0.01 K/ L 0.01-0.08 geox=626) IMMATURE GRANULOCYTES-RELATIVE PERCENT (BEAKER) 1 % 0-1 (test vhbh=4930) POCT-GLUCOSE [id number] 22:05:00 Test Item Value Reference Range Comments POC-GLUCOSE METER (BEAKER) 121 mg/dL 70-110 TESTED AT [address] (test nkkj=8876) [place] [id number] POCT-GLUCOSE [id number] 16:47:00 Test Item Value Reference Range Comments POC-GLUCOSE METER (BEAKER) 103 mg/dL 70-110 TESTED AT [address] (test iofj=2562) [place] [id number] POCT-GLUCOSE [id number] 13:03:00 Test Item Value Reference Range Comments POC-GLUCOSE METER (BEAKER) 107 mg/dL 70-110 TESTED AT [address] (test tare=9218) [place] [id number] POCT-GLUCOSE [id number] 08:19:00 Test Item Value Reference Range Comments POC-GLUCOSE METER (BEAKER) 132 mg/dL 70-110 TESTED AT [address] (test xclq=1097) [place] [id number] BASIC METABOLIC [id number] 07:13:00 Test Item Value Reference Range Comments SODIUM (BEAKER) (test 139 meq/L 136-145 hjvw=717) POTASSIUM (BEAKER) (test 4.0 meq/L 3.5-5.1 lgnh=370) CHLORIDE (BEAKER) (test 103 meq/L 98-107 pjdg=067) CO2 (BEAKER) (test 27 meq/L 22-29 gofx=307) BLOOD UREA NITROGEN 35 mg/dL 7-21 (BEAKER) (test ryng=097) CREATININE (BEAKER) (test 1.14 mg/dL 0.57-1.25 kwef=368) GLUCOSE RANDOM (BEAKER) 110 mg/dL 70-105 (test khmj=814) CALCIUM (BEAKER) (test 7.9 mg/dL 8.4-10.2 zist=061) EGFR (BEAKER) (test 62 mL/min/1.73 sq m ESTIMATED GFR IS NOT xrul=7719) ACCURATE CREATININE CLEARANCE IN PREDICTING GLOMERULAR FILTRATION RATE. ESTIMATED GFR IS NOT APPLICABLE FOR DIALYSIS PATIENTS. [id number] 06:53:00 Test Item Value Reference Range Comments MAGNESIUM (BEAKER) (test ztsb=000) 1.9 mg/dL 1.6-2.6 B-TYPE NATRIURETIC FACTOR (BNP)2017-03-20 06:52:00 Test Item Value Reference Range Comments B-TYPE NATRIURETIC PEPTIDE (BEAKER) (test 849 pg/mL 0-100 ljei=940) CBC W/PLT COUNT & AUTO [id number] 06:26:00 Test Item Value Reference Range Comments WHITE BLOOD CELL COUNT (BEAKER) (test smsd=066) 10.6 K/ L 3.5-10.5 RED BLOOD CELL COUNT (BEAKER) (test wgqn=832) 2.89 M/ L 4.63-6.08 HEMOGLOBIN (BEAKER) (test unms=892) 8.5 GM/DL 13.7-17.5 HEMATOCRIT (BEAKER) (test cwqz=400) 27.7 % 40.1-51.0 MEAN CORPUSCULAR VOLUME (BEAKER) (test rlcz=324) 95.8 fL 79.0-92.2 MEAN CORPUSCULAR HEMOGLOBIN (BEAKER) (test 29.4 pg 25.7-32.2 sive=373) MEAN CORPUSCULAR HEMOGLOBIN CONC (BEAKER) (test 30.7 GM/DL 32.3-36.5 pwex=990) RED CELL DISTRIBUTION WIDTH (BEAKER) (test 18.2 % 11.6-14.4 rjrf=670) PLATELET COUNT (BEAKER) (test rxpr=130) 252 K/CU MM 150-450 MEAN PLATELET VOLUME (BEAKER) (test xexh=746) 10.3 fL 9.4-12.4 NUCLEATED RED BLOOD CELLS (BEAKER) (test 0 /100 WBC 0-0 gabn=062) NEUTROPHILS RELATIVE PERCENT (BEAKER) (test 74 % mdbt=325) LYMPHOCYTES RELATIVE PERCENT (BEAKER) (test 12 % luqc=330) MONOCYTES RELATIVE PERCENT (BEAKER) (test 10 % yqwf=118) EOSINOPHILS RELATIVE PERCENT (BEAKER) (test 4 % kene=030) BASOPHILS RELATIVE PERCENT (BEAKER) (test 0 % lbzl=864) NEUTROPHILS ABSOLUTE COUNT (BEAKER) (test 7.82 K/ L 1.78-5.38 bxou=306) LYMPHOCYTES ABSOLUTE COUNT (BEAKER) (test 1.22 K/ L 1.32-3.57 nocu=787) MONOCYTES ABSOLUTE COUNT (BEAKER) (test 1.03 K/ L 0.30-0.82 cxtw=575) EOSINOPHILS ABSOLUTE COUNT (BEAKER) (test 0.37 K/ L 0.04-0.54 lyxy=227) BASOPHILS ABSOLUTE COUNT (BEAKER) (test 0.01 K/ L 0.01-0.08 votn=082) IMMATURE GRANULOCYTES-RELATIVE PERCENT (BEAKER) 1 % 0-1 (test gctj=0116) POCT-GLUCOSE [id number] 22:01:00 Test Item Value Reference Range Comments POC-GLUCOSE METER (BEAKER) 166 mg/dL 70-110 TESTED AT [address] (test codt=0499) [place] [address] POCT-GLUCOSE [id number] 17:31:00 Test Item Value Reference Range Comments POC-GLUCOSE METER (BEAKER) 120 mg/dL 70-110 TESTED AT [address] (test srqp=7509) [place] [address] RAD, CHEST, 1 VIEW, NON [id number] 16:06:00Reason for exam:->chfShould this be performed at [...] Wheat Verified Date/Time: 03/19/2017 16:06:30 Reading Location: [facility] Radiology Reading Room POCT-GLUCOSE [id number] 12:02:00 Test Item Value Reference Range Comments POC-GLUCOSE METER (BEAKER) 219 mg/dL 70-110 TESTED AT [address] (test tllk=7401) [place] [address] CBC W/PLT COUNT & AUTO [id number] 08:05:00 Test Item Value Reference Range Comments WHITE BLOOD CELL COUNT (BEAKER) (test agqd=247) 13.1 K/ L 3.5-10.5 RED BLOOD CELL COUNT (BEAKER) (test cauk=908) 2.76 M/ L 4.63-6.08 HEMOGLOBIN (BEAKER) (test tgzq=983) 8.2 GM/DL 13.7-17.5 HEMATOCRIT (BEAKER) (test tjpn=178) 26.4 % 40.1-51.0 MEAN CORPUSCULAR VOLUME (BEAKER) (test qslz=428) 95.7 fL 79.0-92.2 MEAN CORPUSCULAR HEMOGLOBIN (BEAKER) (test 29.7 pg 25.7-32.2 vbsk=862) MEAN CORPUSCULAR HEMOGLOBIN CONC (BEAKER) (test 31.1 GM/DL 32.3-36.5 lihn=692) RED CELL DISTRIBUTION WIDTH (BEAKER) (test 18.5 % 11.6-14.4 crbi=587) PLATELET COUNT (BEAKER) (test xehl=375) 253 K/CU MM 150-450 MEAN PLATELET VOLUME (BEAKER) (test gkzq=692) 10.7 fL 9.4-12.4 NUCLEATED RED BLOOD CELLS (BEAKER) (test 0 /100 WBC 0-0 mfbp=204) NEUTROPHILS RELATIVE PERCENT (BEAKER) (test 76 % faev=910) LYMPHOCYTES RELATIVE PERCENT (BEAKER) (test 11 % qrbt=137) MONOCYTES RELATIVE PERCENT (BEAKER) (test 9 % cftf=939) EOSINOPHILS RELATIVE PERCENT (BEAKER) (test 3 % ojld=223) BASOPHILS RELATIVE PERCENT (BEAKER) (test 0 % nymu=246) NEUTROPHILS ABSOLUTE COUNT (BEAKER) (test 9.91 K/ L 1.78-5.38 rrqz=984) LYMPHOCYTES ABSOLUTE COUNT (BEAKER) (test 1.38 K/ L 1.32-3.57 zqbj=268) MONOCYTES ABSOLUTE COUNT (BEAKER) (test 1.17 K/ L 0.30-0.82 hgqn=257) EOSINOPHILS ABSOLUTE COUNT (BEAKER) (test 0.39 K/ L 0.04-0.54 sdkz=007) BASOPHILS ABSOLUTE COUNT (BEAKER) (test 0.02 K/ L 0.01-0.08 rwzw=142) IMMATURE GRANULOCYTES-RELATIVE PERCENT (BEAKER) 2 % 0-1 (test rpmu=3156) POCT-GLUCOSE [id number] 07:47:00 Test Item Value Reference Range Comments POC-GLUCOSE METER (BEAKER) 132 mg/dL 70-110 TESTED AT [address] (test qsux=3176) [place] [id number] BASIC METABOLIC [id number] 07:41:00 Test Item Value Reference Range Comments SODIUM (BEAKER) (test 142 meq/L 136-145 xbeb=077) POTASSIUM (BEAKER) (test 4.0 meq/L 3.5-5.1 dueb=721) CHLORIDE (BEAKER) (test 105 meq/L 98-107 qqmn=833) CO2 (BEAKER) (test 29 meq/L 22-29 ibge=203) BLOOD UREA NITROGEN 38 mg/dL 7-21 (BEAKER) (test aivj=825) CREATININE (BEAKER) (test 1.02 mg/dL 0.57-1.25 mpvp=709) GLUCOSE RANDOM (BEAKER) 114 mg/dL 70-105 (test gfsy=093) CALCIUM (BEAKER) (test 7.9 mg/dL 8.4-10.2 cpzi=810) EGFR (BEAKER) (test 71 mL/min/1.73 sq m ESTIMATED GFR IS NOT bdbn=8479) ACCURATE CREATININE CLEARANCE IN PREDICTING GLOMERULAR FILTRATION RATE. ESTIMATED GFR IS NOT APPLICABLE FOR DIALYSIS PATIENTS. [id number] 07:31:00 Test Item Value Reference Range Comments MAGNESIUM (BEAKER) (test nrzf=777) 1.5 mg/dL 1.6-2.6 POCT-GLUCOSE [id number] 22:20:00 Test Item Value Reference Range Comments POC-GLUCOSE METER (BEAKER) 161 mg/dL 70-110 TESTED AT [address] (test xsus=1349) [facility] [address] POCT-GLUCOSE [id number] 17:02:00 Test Item Value Reference Range Comments POC-GLUCOSE METER (BEAKER) 149 mg/dL 70-110 TESTED AT [address] (test rluz=5937) [facility] [address] POCT-GLUCOSE [id number] 12:17:00 Test Item Value Reference Range Comments POC-GLUCOSE METER (BEAKER) 145 mg/dL 70-110 TESTED AT [address] (test lrxu=3603) [place] [address] POCT-GLUCOSE [id number] 09:00:00 Test Item Value Reference Range Comments POC-GLUCOSE METER (BEAKER) 133 mg/dL 70-110 TESTED AT [facility] [address] (test nmcx=3790) [facility] [address] BASIC METABOLIC [id number] 06:55:00 Test Item Value Reference Range Comments SODIUM (BEAKER) (test 142 meq/L 136-145 dxmg=389) POTASSIUM (BEAKER) (test 4.6 meq/L 3.5-5.1 ysoy=014) CHLORIDE (BEAKER) (test 112 meq/L 98-107 tbir=702) CO2 (BEAKER) (test 24 meq/L 22-29 anii=010) BLOOD UREA NITROGEN 42 mg/dL 7-21 (BEAKER) (test izsb=492) CREATININE (BEAKER) (test 0.87 mg/dL 0.57-1.25 nsmt=589) GLUCOSE RANDOM (BEAKER) 121 mg/dL 70-105 (test qzvu=298) CALCIUM (BEAKER) (test 7.8 mg/dL 8.4-10.2 lngz=558) EGFR (BEAKER) (test 85 mL/min/1.73 sq m ESTIMATED GFR IS NOT kdmw=0580) ACCURATE CREATININE CLEARANCE IN PREDICTING GLOMERULAR FILTRATION RATE. ESTIMATED GFR IS NOT APPLICABLE FOR DIALYSIS PATIENTS. [id number] 06:53:00 Test Item Value Reference Range Comments MAGNESIUM (BEAKER) (test gbsr=468) 1.5 mg/dL 1.6-2.6 CBC W/PLT COUNT & AUTO [id number] 06:27:00 Test Item Value Reference Range Comments WHITE BLOOD CELL COUNT (BEAKER) (test qcoj=429) 12.9 K/ L 3.5-10.5 RED BLOOD CELL COUNT (BEAKER) (test juki=185) 2.60 M/ L 4.63-6.08 HEMOGLOBIN (BEAKER) (test bgzh=742) 7.7 GM/DL 13.7-17.5 HEMATOCRIT (BEAKER) (test zafv=974) 24.8 % 40.1-51.0 MEAN CORPUSCULAR VOLUME (BEAKER) (test blho=578) 95.4 fL 79.0-92.2 MEAN CORPUSCULAR HEMOGLOBIN (BEAKER) (test 29.6 pg 25.7-32.2 vpty=838) MEAN CORPUSCULAR HEMOGLOBIN CONC (BEAKER) (test 31.0 GM/DL 32.3-36.5 yalo=972) RED CELL DISTRIBUTION WIDTH (BEAKER) (test 18.1 % 11.6-14.4 glxv=619) PLATELET COUNT (BEAKER) (test ffbp=350) 222 K/CU MM 150-450 MEAN PLATELET VOLUME (BEAKER) (test hphr=117) 10.3 fL 9.4-12.4 NUCLEATED RED BLOOD CELLS (BEAKER) (test 0 /100 WBC 0-0 mkjl=065) NEUTROPHILS RELATIVE PERCENT (BEAKER) (test 77 % gwwx=024) LYMPHOCYTES RELATIVE PERCENT (BEAKER) (test 10 % ejzl=341) MONOCYTES RELATIVE PERCENT (BEAKER) (test 10 % sxma=604) EOSINOPHILS RELATIVE PERCENT (BEAKER) (test 2 % jagj=561) BASOPHILS RELATIVE PERCENT (BEAKER) (test 0 % zfhb=709) NEUTROPHILS ABSOLUTE COUNT (BEAKER) (test 9.86 K/ L 1.78-5.38 lfch=655) LYMPHOCYTES ABSOLUTE COUNT (BEAKER) (test 1.30 K/ L 1.32-3.57 tfhq=681) MONOCYTES ABSOLUTE COUNT (BEAKER) (test 1.30 K/ L 0.30-0.82 fdha=020) EOSINOPHILS ABSOLUTE COUNT (BEAKER) (test 0.25 K/ L 0.04-0.54 kvvt=647) BASOPHILS ABSOLUTE COUNT (BEAKER) (test 0.00 K/ L 0.01-0.08 vtcl=751) IMMATURE GRANULOCYTES-RELATIVE PERCENT (BEAKER) 1 % 0-1 (test emwx=1600) POCT-GLUCOSE [id number] 21:42:00 Test Item Value Reference Range Comments POC-GLUCOSE METER (BEAKER) 199 mg/dL 70-110 TESTED AT [address] (test hygx=0202) [facility] [address] POCT-GLUCOSE [id number] 17:08:00 Test Item Value Reference Range Comments POC-GLUCOSE METER (BEAKER) 189 mg/dL 70-110 TESTED AT [address] (test ayjo=2333) [facility] [address] POCT-GLUCOSE [id number] 12:58:00 Test Item Value Reference Range Comments POC-GLUCOSE METER (BEAKER) 185 mg/dL 70-110 TESTED AT [facility] [address] (test bcud=9659) [facility] [address] POCT-GLUCOSE [id number] 08:35:00 Test Item Value Reference Range Comments POC-GLUCOSE METER (BEAKER) 144 mg/dL 70-110 TESTED AT [facility] [address] (test nlcr=9892) [facility] [address] BASIC METABOLIC [id number] 05:38:00 Test Item Value Reference Range Comments SODIUM (BEAKER) (test 140 meq/L 136-145 veed=598) POTASSIUM (BEAKER) (test 4.7 meq/L 3.5-5.1 mncb=449) CHLORIDE (BEAKER) (test 111 meq/L 98-107 vdhe=602) CO2 (BEAKER) (test 24 meq/L 22-29 cetz=542) BLOOD UREA NITROGEN 46 mg/dL 7-21 (BEAKER) (test grpz=189) CREATININE (BEAKER) (test 0.97 mg/dL 0.57-1.25 aagg=920) GLUCOSE RANDOM (BEAKER) 136 mg/dL 70-105 (test sfeo=340) CALCIUM (BEAKER) (test 7.4 mg/dL 8.4-10.2 sdco=377) EGFR (BEAKER) (test 75 mL/min/1.73 sq m ESTIMATED GFR IS NOT cwwf=7204) ACCURATE CREATININE CLEARANCE IN PREDICTING GLOMERULAR FILTRATION RATE. ESTIMATED GFR IS NOT APPLICABLE FOR DIALYSIS PATIENTS. [id number] 05:33:00 Test Item Value Reference Range Comments MAGNESIUM (BEAKER) (test gpvz=229) 1.8 mg/dL 1.6-2.6 CBC W/PLT COUNT & AUTO [id number] 05:03:00 Test Item Value Reference Range Comments WHITE BLOOD CELL COUNT (BEAKER) (test iiaj=286) 12.4 K/ L 3.5-10.5 RED BLOOD CELL COUNT (BEAKER) (test fegt=171) 2.34 M/ L 4.63-6.08 HEMOGLOBIN (BEAKER) (test yipz=095) 7.1 GM/DL 13.7-17.5 HEMATOCRIT (BEAKER) (test zmpo=689) 22.1 % 40.1-51.0 MEAN CORPUSCULAR VOLUME (BEAKER) (test ijbd=327) 94.4 fL 79.0-92.2 MEAN CORPUSCULAR HEMOGLOBIN (BEAKER) (test 30.3 pg 25.7-32.2 bhhv=736) MEAN CORPUSCULAR HEMOGLOBIN CONC (BEAKER) (test 32.1 GM/DL 32.3-36.5 ynjj=575) RED CELL DISTRIBUTION WIDTH (BEAKER) (test 15.3 % 11.6-14.4 hmcl=398) PLATELET COUNT (BEAKER) (test iapm=655) 241 K/CU MM 150-450 MEAN PLATELET VOLUME (BEAKER) (test fcaz=903) 10.3 fL 9.4-12.4 NUCLEATED RED BLOOD CELLS (BEAKER) (test 1 /100 WBC 0-0 nygp=266) NEUTROPHILS RELATIVE PERCENT (BEAKER) (test 79 % mimm=101) LYMPHOCYTES RELATIVE PERCENT (BEAKER) (test 9 % okiy=103) MONOCYTES RELATIVE PERCENT (BEAKER) (test 10 % qphs=084) EOSINOPHILS RELATIVE PERCENT (BEAKER) (test 1 % akkn=804) BASOPHILS RELATIVE PERCENT (BEAKER) (test 0 % sjsv=413) NEUTROPHILS ABSOLUTE COUNT (BEAKER) (test 9.72 K/ L 1.78-5.38 vhng=593) LYMPHOCYTES ABSOLUTE COUNT (BEAKER) (test 1.07 K/ L 1.32-3.57 rxqo=096) MONOCYTES ABSOLUTE COUNT (BEAKER) (test 1.27 K/ L 0.30-0.82 dfzn=586) EOSINOPHILS ABSOLUTE COUNT (BEAKER) (test 0.11 K/ L 0.04-0.54 ngqq=632) BASOPHILS ABSOLUTE COUNT (BEAKER) (test 0.00 K/ L 0.01-0.08 yzdh=059) IMMATURE GRANULOCYTES-RELATIVE PERCENT (BEAKER) 2 % 0-1 (test nrcr=8630) POCT-GLUCOSE [id number] 21:31:00 Test Item Value Reference Range Comments POC-GLUCOSE METER (BEAKER) 234 mg/dL 70-110 TESTED AT [facility] [address] (test yqgi=3837) [facility] [facility] [address] CLOSTRIDIUM DIFFICILE TOXIN [id number] 14:08:00 Test Item Value Reference Range Comments CLOSTRIDIUM DIFFICILE TOXIN, PCR (BEAKER) (test Detected Not Detected ndqk=4976) This qualitative real-time polymerase chain reaction assay [...] of a positive result is not recommended.POCT-GLUCOSE [id number] 13:58:00 Test Item Value Reference Range Comments POC-GLUCOSE METER (Office Center) 186 mg/dL 70-110 TESTED AT [address] (test ehos=8235) [place] [address] POCT-GLUCOSE [id number] 12:45:00 Test Item Value Reference Range Comments POC-GLUCOSE METER (Office Center) 189 mg/dL 70-110 TESTED AT [address] (test unkf=1864) [place] [address] CBC W/PLT COUNT & AUTO [id number] 07:52:00 Test Item Value Reference Range Comments WHITE BLOOD CELL COUNT 14.0 K/ L 3.5-10.5 (BEAKER) (test evdp=263) RED BLOOD CELL COUNT (BEAKER) 2.91 M/ L 4.63-6.08 (test gpst=149) HEMOGLOBIN (BEAKER) (test 8.6 GM/DL 13.7-17.5 Discordant result compared rcfz=904) to previous result; clinical correlation required. HEMATOCRIT (BEAKER) (test 26.5 % 40.1-51.0 fpef=444) MEAN CORPUSCULAR VOLUME 91.1 fL 79.0-92.2 (BEAKER) (test zcqt=278) MEAN CORPUSCULAR HEMOGLOBIN 29.6 pg 25.7-32.2 (BEAKER) (test selm=744) MEAN CORPUSCULAR HEMOGLOBIN 32.5 GM/DL 32.3-36.5 CONC (BEAKER) (test xlgh=493) RED CELL DISTRIBUTION WIDTH 14.7 % 11.6-14.4 (BEAKER) (test rtov=358) PLATELET COUNT (BEAKER) (test 268 K/CU MM 150-450 Discordant result compared zdpy=082) to previous result; clinical correlation required. MEAN PLATELET VOLUME (BEAKER) 10.7 fL 9.4-12.4 (test whew=689) NUCLEATED RED BLOOD CELLS 0 /100 WBC 0-0 (BEAKER) (test weny=543) NEUTROPHILS RELATIVE PERCENT 78 % (BEAKER) (test xeqq=283) LYMPHOCYTES RELATIVE PERCENT 9 % (BEAKER) (test dgpq=744) MONOCYTES RELATIVE PERCENT 11 % (BEAKER) (test fmpc=106) EOSINOPHILS RELATIVE PERCENT 0 % (BEAKER) (test koxn=188) BASOPHILS RELATIVE PERCENT 0 % (BEAKER) (test oopn=680) NEUTROPHILS ABSOLUTE COUNT 10.94 K/ L 1.78-5.38 (BEAKER) (test lsvy=438) LYMPHOCYTES ABSOLUTE COUNT 1.19 K/ L 1.32-3.57 (BEAKER) (test wydg=030) MONOCYTES ABSOLUTE COUNT 1.52 K/ L 0.30-0.82 (BEAKER) (test cpfp=119) EOSINOPHILS ABSOLUTE COUNT 0.04 K/ L 0.04-0.54 (BEAKER) (test scbt=275) BASOPHILS ABSOLUTE COUNT 0.01 K/ L 0.01-0.08 (BEAKER) (test vuih=829) IMMATURE 2 % 0-1 GRANULOCYTES-RELATIVE PERCENT (BEAKER) (test tdhs=6162) BASIC METABOLIC [id number] 07:35:00 Test Item Value Reference Range Comments SODIUM (BEAKER) (test 143 meq/L 136-145 uvvy=310) POTASSIUM (BEAKER) (test 4.8 meq/L 3.5-5.1 bpow=540) CHLORIDE (BEAKER) (test 112 meq/L 98-107 naks=190) CO2 (BEAKER) (test 24 meq/L 22-29 fjfk=715) BLOOD UREA NITROGEN 67 mg/dL 7-21 (BEAKER) (test esyn=876) CREATININE (BEAKER) (test 1.03 mg/dL 0.57-1.25 wvby=576) GLUCOSE RANDOM (BEAKER) 139 mg/dL 70-105 (test woqo=069) CALCIUM (BEAKER) (test 7.5 mg/dL 8.4-10.2 ftsu=039) EGFR (BEAKER) (test 70 mL/min/1.73 sq m ESTIMATED GFR IS NOT gpbt=8832) ACCURATE CREATININE CLEARANCE IN PREDICTING GLOMERULAR FILTRATION RATE. ESTIMATED GFR IS NOT APPLICABLE FOR DIALYSIS PATIENTS. [id number] 07:27:00 Test Item Value Reference Range Comments MAGNESIUM (BEAKER) (test dfso=589) 2.0 mg/dL 1.6-2.6 POCT-GLUCOSE [id number] 21:41:00 Test Item Value Reference Range Comments POC-GLUCOSE METER (BEAKER) 182 mg/dL 70-110 TESTED AT [address] (test yorp=7320) [place] [id number] POCT-GLUCOSE [id number] 17:23:00 Test Item Value Reference Range Comments POC-GLUCOSE METER (BEAKER) 306 mg/dL 70-110 Notified SILVIA SIMS/TESTED AT [facility] (test dthp=1385) [address] [place], [place] [id number] POCT-GLUCOSE [id number] 12:16:00 Test Item Value Reference Range Comments POC-GLUCOSE METER (BEAKER) 220 mg/dL 70-110 TESTED AT [address] (test isft=1502) [facility] [address] BLOOD [id number] 11:00:00 Test Item Value Reference Range Comments CULTURE (BEAKER) (test algi=7198) No growth in 5 days BLOOD [id number] 11:00:00 Test Item Value Reference Range Comments CULTURE (BEAKER) (test couj=8280) No growth in 5 days HEMOGLOBIN AND [id number] 10:15:00 Test Item Value Reference Range Comments HEMOGLOBIN (BEAKER) (test lsxn=898) 5.6 GM/DL 13.7-17.5 HEMATOCRIT (BEAKER) (test wokr=834) 17.6 % 40.1-51.0 POCT-GLUCOSE [id number] 07:49:00 Test Item Value Reference Range Comments POC-GLUCOSE METER (BEAKER) 171 mg/dL 70-110 TESTED AT [address] (test wbhl=6251) [facility] [address] CBC W/PLT COUNT & AUTO [id number] 07:11:00 Test Item Value Reference Range Comments WHITE BLOOD CELL COUNT (BEAKER) (test lygr=796) 13.0 K/ L 3.5-10.5 RED BLOOD CELL COUNT (BEAKER) (test fcwz=919) 2.11 M/ L 4.63-6.08 HEMOGLOBIN (BEAKER) (test efrq=011) 6.3 GM/DL 13.7-17.5 HEMATOCRIT (BEAKER) (test naum=423) 19.4 % 40.1-51.0 MEAN CORPUSCULAR VOLUME (BEAKER) (test pvsy=115) 91.9 fL 79.0-92.2 MEAN CORPUSCULAR HEMOGLOBIN (BEAKER) (test 29.9 pg 25.7-32.2 mgsj=863) MEAN CORPUSCULAR HEMOGLOBIN CONC (BEAKER) (test 32.5 GM/DL 32.3-36.5 tyjj=167) RED CELL DISTRIBUTION WIDTH (BEAKER) (test 14.9 % 11.6-14.4 clvs=406) PLATELET COUNT (BEAKER) (test fulh=351) 335 K/CU MM 150-450 MEAN PLATELET VOLUME (BEAKER) (test xswk=855) 10.7 fL 9.4-12.4 NUCLEATED RED BLOOD CELLS (BEAKER) (test 0 /100 WBC 0-0 bxyl=594) NEUTROPHILS RELATIVE PERCENT (BEAKER) (test 80 % dlhl=261) LYMPHOCYTES RELATIVE PERCENT (BEAKER) (test 8 % dnkz=158) MONOCYTES RELATIVE PERCENT (BEAKER) (test 11 % slso=489) EOSINOPHILS RELATIVE PERCENT (BEAKER) (test 0 % dcti=801) BASOPHILS RELATIVE PERCENT (BEAKER) (test 0 % vwva=515) NEUTROPHILS ABSOLUTE COUNT (BEAKER) (test 10.37 K/ L 1.78-5.38 fakn=939) LYMPHOCYTES ABSOLUTE COUNT (BEAKER) (test 1.02 K/ L 1.32-3.57 fldy=270) MONOCYTES ABSOLUTE COUNT (BEAKER) (test 1.48 K/ L 0.30-0.82 ugje=260) EOSINOPHILS ABSOLUTE COUNT (BEAKER) (test 0.00 K/ L 0.04-0.54 btpz=997) BASOPHILS ABSOLUTE COUNT (BEAKER) (test 0.00 K/ L 0.01-0.08 sayc=457) IMMATURE GRANULOCYTES-RELATIVE PERCENT (BEAKER) 1 % 0-1 (test axsf=5159) CBC W/PLT COUNT & AUTO [id number] 04:21:00 Test Item Value Reference Range Comments WHITE BLOOD CELL COUNT (BEAKER) (test kqmp=949) 11.0 K/ L 3.5-10.5 RED BLOOD CELL COUNT (BEAKER) (test zjqc=599) 2.38 M/ L 4.63-6.08 HEMOGLOBIN (BEAKER) (test djws=224) 6.9 GM/DL 13.7-17.5 HEMATOCRIT (BEAKER) (test wggf=135) 21.3 % 40.1-51.0 MEAN CORPUSCULAR VOLUME (BEAKER) (test vccb=287) 89.5 fL 79.0-92.2 MEAN CORPUSCULAR HEMOGLOBIN (BEAKER) (test 29.0 pg 25.7-32.2 labu=865) MEAN CORPUSCULAR HEMOGLOBIN CONC (BEAKER) (test 32.4 GM/DL 32.3-36.5 bntm=142) RED CELL DISTRIBUTION WIDTH (BEAKER) (test 14.6 % 11.6-14.4 urzo=340) PLATELET COUNT (BEAKER) (test lpex=992) 342 K/CU MM 150-450 MEAN PLATELET VOLUME (BEAKER) (test twcv=223) 10.6 fL 9.4-12.4 NUCLEATED RED BLOOD CELLS (BEAKER) (test 0 /100 WBC 0-0 hmsb=197) NEUTROPHILS RELATIVE PERCENT (BEAKER) (test 84 % kpia=949) LYMPHOCYTES RELATIVE PERCENT (BEAKER) (test 4 % qdjh=792) MONOCYTES RELATIVE PERCENT (BEAKER) (test 11 % ypid=751) EOSINOPHILS RELATIVE PERCENT (BEAKER) (test 0 % cjap=919) BASOPHILS RELATIVE PERCENT (BEAKER) (test 0 % vbki=367) NEUTROPHILS ABSOLUTE COUNT (BEAKER) (test 9.22 K/ L 1.78-5.38 fcys=066) LYMPHOCYTES ABSOLUTE COUNT (BEAKER) (test 0.45 K/ L 1.32-3.57 gwvm=721) MONOCYTES ABSOLUTE COUNT (BEAKER) (test 1.18 K/ L 0.30-0.82 mntk=637) EOSINOPHILS ABSOLUTE COUNT (BEAKER) (test 0.00 K/ L 0.04-0.54 xtzv=499) BASOPHILS ABSOLUTE COUNT (BEAKER) (test 0.01 K/ L 0.01-0.08 ibdz=028) IMMATURE GRANULOCYTES-RELATIVE PERCENT (BEAKER) 1 % 0-1 (test ffcc=1305) BASIC METABOLIC [id number] 01:04:00 Test Item Value Reference Range Comments SODIUM (BEAKER) (test 138 meq/L 136-145 amma=181) POTASSIUM (BEAKER) (test 5.1 meq/L 3.5-5.1 gqsq=579) CHLORIDE (BEAKER) (test 107 meq/L 98-107 guon=830) CO2 (BEAKER) (test 25 meq/L 22-29 nuup=381) BLOOD UREA NITROGEN 88 mg/dL 7-21 (BEAKER) (test lmro=758) CREATININE (BEAKER) (test 1.20 mg/dL 0.57-1.25 tprk=350) GLUCOSE RANDOM (BEAKER) 191 mg/dL 70-105 (test tfss=873) CALCIUM (BEAKER) (test 7.2 mg/dL 8.4-10.2 stgu=562) EGFR (BEAKER) (test 59 mL/min/1.73 sq m ESTIMATED GFR IS NOT qylh=8734) ACCURATE CREATININE CLEARANCE IN PREDICTING GLOMERULAR FILTRATION RATE. ESTIMATED GFR IS NOT APPLICABLE FOR DIALYSIS PATIENTS. [id number] 00:54:00 Test Item Value Reference Range Comments MAGNESIUM (BEAKER) (test eobk=808) 2.3 mg/dL 1.6-2.6 POCT-GLUCOSE [id number] 21:30:00 Test Item Value Reference Range Comments POC-GLUCOSE METER (BEAKER) 212 mg/dL 70-110 TESTED AT [facility] [address] (test gzmp=3151) [place] [address] RAD, ABDOMEN/KUB, 1 VIEW [id number] 19:47:00Reason for exam:->abdominal painFINAL REPORT Comparison examination: None Abdomen: Nonspecific bowel gas pattern. Mildly distended air-filled stomach. Several partially fluid-filled loops of small bowel. No free intraperitoneal air. Posterior surgical constructs stabilize L3-L5. No acute skeletal abnormalities. IMPRESSION: Nonspecific bowel gas pattern. Impression: No acute abnormalities. Signed: Tejas Gomez MDReport Verified Date/Time: 03/14/2017 19:47:30 Reading Location: [facility] C013X Ortho Consult Reading Room POCT-GLUCOSE [id number] 18:07: 00 Test Item Value Reference Range Comments POC-GLUCOSE METER (BEAKER) 285 mg/dL 70-110 TESTED AT [address] (test fdns=8510) [place] [address] RAD, CHEST, 1 VIEW, NON [id number] 17:31:00Reason for exam:->shortness of breathShould this be performed at the bedside?->YesFINAL REPORT AP chest HISTORY: Shortness of breath COMPARISON: 03/11/2017 IMPRESSION:Cardiomegaly noted. Right arm PICC present with tip at upper SVC. No focal airspace disease, pleural effusion or pneumothorax. Signed: Lulú Rossort Verified Date/Time: 03/14/2017 17:31:55 Reading Location: [facility] C013X Ortho Consult Reading Room URINE [id number] 12:45:00 Test Item Value Reference Range Comments CULTURE (BEAKER) (test wxxa=5269) No growth POCT-GLUCOSE [id number] 12:15:00 Test Item Value Reference Range Comments POC-GLUCOSE METER (BEAKER) 194 mg/dL 70-110 TESTED AT [address] (test xfen=7515) [place] [address] HEMOGLOBIN AND [id number] 12:10:00 Test Item Value Reference Range Comments HEMOGLOBIN (BEAKER) (test idpu=145) 6.3 GM/DL 13.7-17.5 HEMATOCRIT (BEAKER) (test phfz=274) 20.2 % 40.1-51.0 OCCULT BLOOD, [id number] 08:38:00 Test Item Value Reference Range Comments FECAL OCCULT BLOOD (BEAKER) (test zvyq=770) Positive Negative POCT-GLUCOSE [id number] 07:50:00 Test Item Value Reference Range Comments POC-GLUCOSE METER (BEAKER) 170 mg/dL 70-110 TESTED AT [facility] [address] [facility] (test cnuv=1444) [facility] [address] BASIC METABOLIC [id number] 06:57:00 Test Item Value Reference Range Comments SODIUM (BEAKER) (test 136 meq/L 136-145 xztf=378) POTASSIUM (BEAKER) (test 4.2 meq/L 3.5-5.1 hvmp=519) CHLORIDE (BEAKER) (test 101 meq/L 98-107 daxw=934) CO2 (BEAKER) (test 25 meq/L 22-29 rhop=489) BLOOD UREA NITROGEN 83 mg/dL 7-21 (BEAKER) (test efqt=570) CREATININE (BEAKER) (test 1.43 mg/dL 0.57-1.25 mrry=688) GLUCOSE RANDOM (BEAKER) 142 mg/dL 70-105 (test ukfd=298) CALCIUM (BEAKER) (test 7.7 mg/dL 8.4-10.2 blxs=197) EGFR (BEAKER) (test 48 mL/min/1.73 sq m ESTIMATED GFR IS NOT ehpz=8150) ACCURATE CREATININE CLEARANCE IN PREDICTING GLOMERULAR FILTRATION RATE. ESTIMATED GFR IS NOT APPLICABLE FOR DIALYSIS PATIENTS. [id number] 06:37:00 Test Item Value Reference Range Comments MAGNESIUM (BEAKER) (test usdr=699) 2.3 mg/dL 1.6-2.6 CBC W/PLT COUNT & AUTO [id number] 05:33:00 Test Item Value Reference Range Comments WHITE BLOOD CELL COUNT (BEAKER) (test xtgz=044) 10.6 K/ L 3.5-10.5 RED BLOOD CELL COUNT (BEAKER) (test thov=820) 2.48 M/ L 4.63-6.08 HEMOGLOBIN (BEAKER) (test slpw=664) 7.1 GM/DL 13.7-17.5 HEMATOCRIT (BEAKER) (test mvlf=089) 22.5 % 40.1-51.0 MEAN CORPUSCULAR VOLUME (BEAKER) (test hgpy=580) 90.7 fL 79.0-92.2 MEAN CORPUSCULAR HEMOGLOBIN (BEAKER) (test 28.6 pg 25.7-32.2 nvzi=655) MEAN CORPUSCULAR HEMOGLOBIN CONC (BEAKER) (test 31.6 GM/DL 32.3-36.5 xtcy=144) RED CELL DISTRIBUTION WIDTH (BEAKER) (test 15.7 % 11.6-14.4 evvy=106) PLATELET COUNT (BEAKER) (test lyrd=109) 455 K/CU MM 150-450 MEAN PLATELET VOLUME (BEAKER) (test hemo=666) 10.7 fL 9.4-12.4 NUCLEATED RED BLOOD CELLS (BEAKER) (test 0 /100 WBC 0-0 qgrj=779) NEUTROPHILS RELATIVE PERCENT (BEAKER) (test 84 % ejzz=791) LYMPHOCYTES RELATIVE PERCENT (BEAKER) (test 4 % joxn=719) MONOCYTES RELATIVE PERCENT (BEAKER) (test 11 % yuef=057) EOSINOPHILS RELATIVE PERCENT (BEAKER) (test 0 % vixk=118) BASOPHILS RELATIVE PERCENT (BEAKER) (test 0 % grlz=164) NEUTROPHILS ABSOLUTE COUNT (BEAKER) (test 8.90 K/ L 1.78-5.38 lvdo=172) LYMPHOCYTES ABSOLUTE COUNT (BEAKER) (test 0.43 K/ L 1.32-3.57 yigr=851) MONOCYTES ABSOLUTE COUNT (BEAKER) (test 1.15 K/ L 0.30-0.82 jmyb=385) EOSINOPHILS ABSOLUTE COUNT (BEAKER) (test 0.01 K/ L 0.04-0.54 ncqy=096) BASOPHILS ABSOLUTE COUNT (BEAKER) (test 0.00 K/ L 0.01-0.08 ctcy=139) IMMATURE GRANULOCYTES-RELATIVE PERCENT (BEAKER) 1 % 0-1 (test oolp=5996) POCT-GLUCOSE [id number] 00:43:00 Test Item Value Reference Range Comments POC-GLUCOSE METER (BEAKER) 202 mg/dL 70-110 TESTED AT [facility] [address] (test zjbp=8727) [facility] [address] RAD, KNEE, COMPLETE (4 VIEWS), [id number] 17:53:00Reason for exam:-> right knee painFINAL REPORT Right knee, four views HISTORY: Knee pain COMPARISON: None. IMPRESSION: No acute displaced fracture or dislocation. Small knee effusion. Prominent vascular calcifications. Signed: Tico Aggarwal MDReport Verified Date/Time: 03/13/2017 17:53:33 Reading Location: [facility] B[facility] C013W Consult Reading Room POCT-GLUCOSE [id number] 17:04:00 Test Item Value Reference Range Comments POC-GLUCOSE METER (BEAKER) 212 mg/dL 70-110 TESTED AT [place] [id number] (test owaa=0242) [facility] [address] POCT-GLUCOSE [id number] 12:48:00 Test Item Value Reference Range Comments POC-GLUCOSE METER (BEAKER) 204 mg/dL 70-110 TESTED AT [address] (test qzax=4384) [facility] [address] POCT-GLUCOSE [id number] 08:31:00 Test Item Value Reference Range Comments POC-GLUCOSE METER (BEAKER) 175 mg/dL 70-110 TESTED AT [place] [id number] (test qlwq=3481) [facility] [address] [id number] 06:48:00 Test Item Value Reference Range Comments MAGNESIUM (BEAKER) (test simy=722) 2.3 mg/dL 1.6-2.6 BASIC METABOLIC [id number] 06:48:00 Test Item Value Reference Range Comments SODIUM (BEAKER) (test 136 meq/L 136-145 tauu=423) POTASSIUM (BEAKER) (test 4.2 meq/L 3.5-5.1 xxtr=117) CHLORIDE (BEAKER) (test 100 meq/L 98-107 okux=569) CO2 (BEAKER) (test 23 meq/L 22-29 tdte=229) BLOOD UREA NITROGEN 73 mg/dL 7-21 (BEAKER) (test uvfe=490) CREATININE (BEAKER) (test 1.67 mg/dL 0.57-1.25 wrgh=566) GLUCOSE RANDOM (BEAKER) 163 mg/dL 70-105 (test gjzb=457) CALCIUM (BEAKER) (test 8.1 mg/dL 8.4-10.2 mqgm=431) EGFR (BEAKER) (test 40 mL/min/1.73 sq m ESTIMATED GFR IS NOT hxvp=1545) ACCURATE CREATININE CLEARANCE IN PREDICTING GLOMERULAR FILTRATION RATE. ESTIMATED GFR IS NOT APPLICABLE FOR DIALYSIS PATIENTS. CBC W/PLT COUNT & AUTO [id number] 06:22:00 Test Item Value Reference Range Comments WHITE BLOOD CELL COUNT (BEAKER) (test oksx=523) 13.9 K/ L 3.5-10.5 RED BLOOD CELL COUNT (BEAKER) (test ezxp=029) 2.78 M/ L 4.63-6.08 HEMOGLOBIN (BEAKER) (test vsux=854) 7.9 GM/DL 13.7-17.5 HEMATOCRIT (BEAKER) (test bzqu=074) 25.2 % 40.1-51.0 MEAN CORPUSCULAR VOLUME (BEAKER) (test jyth=957) 90.6 fL 79.0-92.2 MEAN CORPUSCULAR HEMOGLOBIN (BEAKER) (test 28.4 pg 25.7-32.2 stok=657) MEAN CORPUSCULAR HEMOGLOBIN CONC (BEAKER) (test 31.3 GM/DL 32.3-36.5 gtwx=674) RED CELL DISTRIBUTION WIDTH (BEAKER) (test 15.7 % 11.6-14.4 eepl=002) PLATELET COUNT (BEAKER) (test spti=779) 451 K/CU MM 150-450 MEAN PLATELET VOLUME (BEAKER) (test tvve=221) 10.9 fL 9.4-12.4 NUCLEATED RED BLOOD CELLS (BEAKER) (test 0 /100 WBC 0-0 umye=449) NEUTROPHILS RELATIVE PERCENT (BEAKER) (test 88 % bdvi=285) LYMPHOCYTES RELATIVE PERCENT (BEAKER) (test 3 % gtzn=427) MONOCYTES RELATIVE PERCENT (BEAKER) (test 8 % abvj=472) EOSINOPHILS RELATIVE PERCENT (BEAKER) (test 0 % grdy=997) BASOPHILS RELATIVE PERCENT (BEAKER) (test 0 % fvln=193) NEUTROPHILS ABSOLUTE COUNT (BEAKER) (test 12.20 K/ L 1.78-5.38 dilp=306) LYMPHOCYTES ABSOLUTE COUNT (BEAKER) (test 0.48 K/ L 1.32-3.57 aoye=386) MONOCYTES ABSOLUTE COUNT (BEAKER) (test 1.16 K/ L 0.30-0.82 yodq=576) EOSINOPHILS ABSOLUTE COUNT (BEAKER) (test 0.00 K/ L 0.04-0.54 fprb=883) BASOPHILS ABSOLUTE COUNT (BEAKER) (test 0.01 K/ L 0.01-0.08 cdmx=743) IMMATURE GRANULOCYTES-RELATIVE PERCENT (BEAKER) 1 % 0-1 (test wozk=0097) POCT-GLUCOSE [id number] 21:09:00 Test Item Value Reference Range Comments POC-GLUCOSE METER (BEAKER) 285 mg/dL 70-110 TESTED AT [address] (test qigz=2780) [facility] [address] POCT-GLUCOSE [id number] 17:29:00 Test Item Value Reference Range Comments POC-GLUCOSE METER (BEAKER) 206 mg/dL 70-110 TESTED AT [address] (test quqw=4063) [facility] [address] POCT-GLUCOSE [id number] 12:35:00 Test Item Value Reference Range Comments POC-GLUCOSE METER (BEAKER) 175 mg/dL 70-110 TESTED AT [address] (test wuva=1997) [facility] [address] [id number] 12:02:00 Test Item Value Reference Range Comments FERRITIN (BEAKER) (test humc=950) 1371 ng/mL 5-275 VITAMIN B12 AND [id number] 12:02:00 Test Item Value Reference Range Comments VITAMIN B12 (BEAKER) (test jrtl=435) 773 pg/mL 213-816 FOLATE (BEAKER) (test ilco=374) 10.8 ng/mL >=7.0 IRON, TIBC, % SAT. (WITHOUT FERRITIN)[id number] 10:30:00 Test Item Value Reference Range Comments IRON (BEAKER) (test kber=121) 19 ug/dL 40-160 TOTAL IRON BINDING CAPACITY (BEAKER) (test 155 ug/dL 250-450 mody=005) IRON % SATURATION (2) (BEAKER) (test jwur=9122) 12 % 20-55 URIC [id number] 10:22:00 Test Item Value Reference Range Comments URIC ACID (BEAKER) (test wnsa=311) 11.6 mg/dL 2.6-7.2 [id number] 09:49:00 Test Item Value Reference Range Comments PARTIAL THROMBOPLASTIN TIME (BEAKER) (test 37.2 seconds 22.5-36.0 dwfr=001) HEMOGLOBIN AND [id number] 09:41:00 Test Item Value Reference Range Comments HEMOGLOBIN (BEAKER) (test zbuc=090) 8.1 GM/DL 13.7-17.5 HEMATOCRIT (BEAKER) (test ifqn=971) 25.9 % 40.1-51.0 POCT-GLUCOSE [id number] 08:44:00 Test Item Value Reference Range Comments POC-GLUCOSE METER (BEAKER) 135 mg/dL 70-110 TESTED AT [facility] [address] (test xakb=9209) [facility] [address] BASIC METABOLIC [id number] 07:17:00 Test Item Value Reference Range Comments SODIUM (BEAKER) (test 137 meq/L 136-145 zebl=146) POTASSIUM (BEAKER) (test 3.8 meq/L 3.5-5.1 frbb=426) CHLORIDE (BEAKER) (test 100 meq/L 98-107 nqss=534) CO2 (BEAKER) (test 27 meq/L 22-29 raan=533) BLOOD UREA NITROGEN 65 mg/dL 7-21 (BEAKER) (test phoo=567) CREATININE (BEAKER) (test 1.71 mg/dL 0.57-1.25 rmcy=953) GLUCOSE RANDOM (BEAKER) 125 mg/dL 70-105 (test wvei=473) CALCIUM (BEAKER) (test 7.7 mg/dL 8.4-10.2 orcz=443) EGFR (BEAKER) (test 39 mL/min/1.73 sq m ESTIMATED GFR IS NOT yrkj=6487) ACCURATE CREATININE CLEARANCE IN PREDICTING GLOMERULAR FILTRATION RATE. ESTIMATED GFR IS NOT APPLICABLE FOR DIALYSIS PATIENTS. CBC W/PLT COUNT & AUTO [id number] 07:11:00 Test Item Value Reference Range Comments WHITE BLOOD CELL COUNT (BEAKER) (test vwym=241) 13.6 K/ L 3.5-10.5 RED BLOOD CELL COUNT (BEAKER) (test ihqx=261) 2.52 M/ L 4.63-6.08 HEMOGLOBIN (BEAKER) (test shyq=438) 7.4 GM/DL 13.7-17.5 HEMATOCRIT (BEAKER) (test acdy=941) 23.2 % 40.1-51.0 MEAN CORPUSCULAR VOLUME (BEAKER) (test jefi=720) 92.1 fL 79.0-92.2 MEAN CORPUSCULAR HEMOGLOBIN (BEAKER) (test 29.4 pg 25.7-32.2 dsol=604) MEAN CORPUSCULAR HEMOGLOBIN CONC (BEAKER) (test 31.9 GM/DL 32.3-36.5 azno=408) RED CELL DISTRIBUTION WIDTH (BEAKER) (test 15.8 % 11.6-14.4 eozv=555) PLATELET COUNT (BEAKER) (test pgcg=863) 404 K/CU MM 150-450 MEAN PLATELET VOLUME (BEAKER) (test zltv=827) 11.1 fL 9.4-12.4 NUCLEATED RED BLOOD CELLS (BEAKER) (test 0 /100 WBC 0-0 hlgt=794) NEUTROPHILS RELATIVE PERCENT (BEAKER) (test 80 % bvbk=698) LYMPHOCYTES RELATIVE PERCENT (BEAKER) (test 6 % susy=996) MONOCYTES RELATIVE PERCENT (BEAKER) (test 12 % nswi=344) EOSINOPHILS RELATIVE PERCENT (BEAKER) (test 2 % noif=171) BASOPHILS RELATIVE PERCENT (BEAKER) (test 0 % zjgt=961) NEUTROPHILS ABSOLUTE COUNT (BEAKER) (test 10.89 K/ L 1.78-5.38 viug=420) LYMPHOCYTES ABSOLUTE COUNT (BEAKER) (test 0.76 K/ L 1.32-3.57 blmv=192) MONOCYTES ABSOLUTE COUNT (BEAKER) (test 1.61 K/ L 0.30-0.82 xwxr=032) EOSINOPHILS ABSOLUTE COUNT (BEAKER) (test 0.21 K/ L 0.04-0.54 vgph=320) BASOPHILS ABSOLUTE COUNT (BEAKER) (test 0.02 K/ L 0.01-0.08 tami=251) IMMATURE GRANULOCYTES-RELATIVE PERCENT (BEAKER) 1 % 0-1 (test hhjc=5433) [id number] 07:10:00 Test Item Value Reference Range Comments MAGNESIUM (BEAKER) (test nihy=644) 1.8 mg/dL 1.6-2.6 [id number] 01:45:00 Test Item Value Reference Range Comments PARTIAL THROMBOPLASTIN TIME (BEAKER) (test 64.3 seconds 22.5-36.0 pmee=162) POCT-GLUCOSE [id number] 21:25:00 Test Item Value Reference Range Comments POC-GLUCOSE METER (BEAKER) 193 mg/dL 70-110 TESTED AT [address] (test aazy=9897) [facility] [address] URINALYSIS W/ [id number] 19:13:00 Test Item Value Reference Range Comments COLOR (BEAKER) (test fbmm=917) Yellow CLARITY (BEAKER) (test acmr=119) Hazy SPECIFIC GRAVITY UA (BEAKER) (test etzg=924) 1.017 1.001-1.035 PH UA (BEAKER) (test bywb=977) 5.0 5.0-8.0 PROTEIN UA (BEAKER) (test fhbh=139) 30 mg/dL Negative GLUCOSE UA (BEAKER) (test djpq=076) Negative Negative KETONES UA (BEAKER) (test ptph=156) Trace Negative BILIRUBIN UA (BEAKER) (test ouis=195) Negative Negative BLOOD UA (BEAKER) (test fnym=898) Trace Negative NITRITE UA (BEAKER) (test jsnm=104) Negative Negative LEUKOCYTE ESTERASE UA (BEAKER) (test lwpb=523) Moderate Negative UROBILINOGEN UA (BEAKER) (test maoo=652) 2.0 mg/dL 0.2-1.0 RBC UA (BEAKER) (test rtfr=445) 6 /HPF WBC UA (BEAKER) (test nsjw=236) 31 /HPF BACTERIA (BEAKER) (test amrv=903) Occasional MUCUS (BEAKER) (test vgwi=4186) Few SQUAMOUS EPITHELIAL (BEAKER) (test edea=889) 2 /HPF HYALINE CASTS (BEAKER) (test ejvv=454) 10 /LPF SOURCE(BEAKER) (test awmk=5582) Urine, [place] [id number] 18:13:00 Test Item Value Reference Range Comments PARTIAL THROMBOPLASTIN TIME (BEAKER) (test 40.5 seconds 22.5-36.0 sbuv=854) Prior to initiating heparinPOCT-GLUCOSE [id number] 16:52:00 Test Item Value Reference Range Comments POC-GLUCOSE METER (BEAKER) 200 mg/dL 70-110 TESTED AT [address] (test ehbl=6771) [facility] [address] POCT-LACTIC ACID, [id number] 12:54:00 Test Item Value Reference Range Comments POC-LACTIC ACID, ARTERIAL 0.8 mmol/L 0.4-1.3 TESTED AT [address] (BEAKER) (test btfg=5057) [place] [address] POCT-BLOOD GASES, [id number] 12:54:00 Test Item Value Reference Range Comments TEMP, CELSIUS-POC (BEAKER) 37.0 (test mpie=4834) FIO2-POC (BEAKER) (test TESTED AT [address] qtrs=3215) [place] [address] PH, ARTERIAL-POC (BEAKER) 7.458 7.350-7.450 (test ayqe=1116) PCO2, ARTERIAL-POC (BEAKER) 42.0 mm Hg 35.0-45.0 (test zoak=7140) PO2, ARTERIAL-POC (BEAKER) 136.0 mm Hg 80.0-90.0 (test yubp=7124) SO2, ARTERIAL-POC (BEAKER) 99.0 % 96.0-97.0 (test ixan=2127) HCO3, ARTERIAL-POC (BEAKER) 29.7 meq/L 21.0-29.0 (test covc=9398) BASE EXCESS, ARTERIAL-POC 6.0 meq/L -2.0-3.0 (BEAKER) (test bexp=6105) [id number] 12:54:00 Test Item Value Reference Range Comments POC-SODIUM (BEAKER) (test 138 meq/L 135-148 TESTED AT [address] jtpc=8484) [place] [address] [id number] 12:54:00 Test Item Value Reference Range Comments POC-POTASSIUM (BEAKER) (test 3.7 meq/L 3.6-5.5 TESTED AT [address] umam=6776) [place] [address] [id number] 12:54:00 Test Item Value Reference Range Comments POC-GLUCOSE (BEAKER) (test 171 mg/dL 70-110 TESTED AT [address] wabe=8326) [place] [address] POCT-CALCIUM [id number] 12:54:00 Test Item Value Reference Range Comments POC-CALCIUM IONIZED (BEAKER) 1.08 mmol/L 1.12-1.27 TESTED AT [address] (test rnah=6235) [place] [address] [id number] 12:54:00 Test Item Value Reference Range Comments POC-HEMATOCRIT (BEAKER) (test 25 % 40-50 TESTED AT [address] qyct=8401) [place] [address] [id number] 12:54:00 Test Item Value Reference Range Comments POC-HEMOGLOBIN (BEAKER) 8.5 g/dL 13.0-16.8 TESTED AT [address] (test oxvc=4089) [place] [address] POCT-GLUCOSE [id number] 12:19:00 Test Item Value Reference Range Comments POC-GLUCOSE METER (BEAKER) 229 mg/dL 70-110 TESTED AT [address] (test xswk=6095) [place] [address] URINE [id number] 12:15:00 Test Item Value Reference Range Comments CULTURE (BEAKER) (test xbqx=0018) No growth RAD, CHEST, 1 VIEW, NON [id number] 11:46:00Reason for exam:->short of breathShould this be [...] Munoz Verified Date/Time: 03/11/2017 11:46:39 Reading Location: [facility] Radiology Reading Room 11: 46 AMPOCT-GLUCOSE [id number] 08:01:00 Test Item Value Reference Range Comments POC-GLUCOSE METER (BEAKER) 166 mg/dL 70-110 TESTED AT [address] (test tluv=1733) [facility] [address] BASIC METABOLIC [id number] 06:35:00 Test Item Value Reference Range Comments SODIUM (BEAKER) (test 140 meq/L 136-145 ujbx=830) POTASSIUM (BEAKER) (test 3.8 meq/L 3.5-5.1 ehnq=347) CHLORIDE (BEAKER) (test 102 meq/L 98-107 cpud=628) CO2 (BEAKER) (test 27 meq/L 22-29 lqqa=090) BLOOD UREA NITROGEN 57 mg/dL 7-21 (BEAKER) (test yril=011) CREATININE (BEAKER) (test 1.38 mg/dL 0.57-1.25 ocml=317) GLUCOSE RANDOM (BEAKER) 134 mg/dL 70-105 (test wkun=780) CALCIUM (BEAKER) (test 7.9 mg/dL 8.4-10.2 oadc=371) EGFR (BEAKER) (test 50 mL/min/1.73 sq m ESTIMATED GFR IS NOT aagf=6975) ACCURATE CREATININE CLEARANCE IN PREDICTING GLOMERULAR FILTRATION RATE. ESTIMATED GFR IS NOT APPLICABLE FOR DIALYSIS PATIENTS. [id number] 06:32:00 Test Item Value Reference Range Comments MAGNESIUM (BEAKER) (test ubhj=789) 1.9 mg/dL 1.6-2.6 CBC W/PLT COUNT & AUTO [id number] 06:18:00 Test Item Value Reference Range Comments WHITE BLOOD CELL COUNT (BEAKER) (test labg=157) 13.7 K/ L 3.5-10.5 RED BLOOD CELL COUNT (BEAKER) (test dtfi=516) 2.72 M/ L 4.63-6.08 HEMOGLOBIN (BEAKER) (test sekf=541) 8.0 GM/DL 13.7-17.5 HEMATOCRIT (BEAKER) (test umic=866) 25.4 % 40.1-51.0 MEAN CORPUSCULAR VOLUME (BEAKER) (test vqan=031) 93.4 fL 79.0-92.2 MEAN CORPUSCULAR HEMOGLOBIN (BEAKER) (test 29.4 pg 25.7-32.2 edfl=073) MEAN CORPUSCULAR HEMOGLOBIN CONC (BEAKER) (test 31.5 GM/DL 32.3-36.5 kvpn=522) RED CELL DISTRIBUTION WIDTH (BEAKER) (test 15.7 % 11.6-14.4 jvuq=532) PLATELET COUNT (BEAKER) (test fdsh=901) 390 K/CU MM 150-450 MEAN PLATELET VOLUME (BEAKER) (test yyvp=042) 10.6 fL 9.4-12.4 NUCLEATED RED BLOOD CELLS (BEAKER) (test 0 /100 WBC 0-0 pofd=842) NEUTROPHILS RELATIVE PERCENT (BEAKER) (test 81 % dflr=169) LYMPHOCYTES RELATIVE PERCENT (BEAKER) (test 5 % cduo=510) MONOCYTES RELATIVE PERCENT (BEAKER) (test 12 % wkae=741) EOSINOPHILS RELATIVE PERCENT (BEAKER) (test 1 % vhia=579) BASOPHILS RELATIVE PERCENT (BEAKER) (test 0 % obin=579) NEUTROPHILS ABSOLUTE COUNT (BEAKER) (test 11.16 K/ L 1.78-5.38 bwkc=374) LYMPHOCYTES ABSOLUTE COUNT (BEAKER) (test 0.63 K/ L 1.32-3.57 rxmx=346) MONOCYTES ABSOLUTE COUNT (BEAKER) (test 1.62 K/ L 0.30-0.82 xbzp=833) EOSINOPHILS ABSOLUTE COUNT (BEAKER) (test 0.19 K/ L 0.04-0.54 mmzj=031) BASOPHILS ABSOLUTE COUNT (BEAKER) (test 0.03 K/ L 0.01-0.08 gtei=110) IMMATURE GRANULOCYTES-RELATIVE PERCENT (BEAKER) 1 % 0-1 (test hnyh=4033) POCT-GLUCOSE [id number] 17:10:00 Test Item Value Reference Range Comments POC-GLUCOSE METER (BEAKER) 127 mg/dL 70-110 TESTED AT [address] (test gcic=6697) [place] [address] POCT-GLUCOSE [id number] 12:25:00 Test Item Value Reference Range Comments POC-GLUCOSE METER (BEAKER) 163 mg/dL 70-110 TESTED AT [address] (test zhoy=4318) [place] [id number] CBC W/PLT COUNT & AUTO [id number] 08:00:00 Test Item Value Reference Range Comments WHITE BLOOD CELL COUNT (BEAKER) (test hjby=308) 14.8 K/ L 3.5-10.5 RED BLOOD CELL COUNT (BEAKER) (test pehz=770) 2.91 M/ L 4.63-6.08 HEMOGLOBIN (BEAKER) (test xxcp=009) 8.4 GM/DL 13.7-17.5 HEMATOCRIT (BEAKER) (test jhss=297) 26.9 % 40.1-51.0 MEAN CORPUSCULAR VOLUME (BEAKER) (test yyte=363) 92.4 fL 79.0-92.2 MEAN CORPUSCULAR HEMOGLOBIN (BEAKER) (test 28.9 pg 25.7-32.2 xtbt=161) MEAN CORPUSCULAR HEMOGLOBIN CONC (BEAKER) (test 31.2 GM/DL 32.3-36.5 nsbg=443) RED CELL DISTRIBUTION WIDTH (BEAKER) (test 15.7 % 11.6-14.4 oryr=143) PLATELET COUNT (BEAKER) (test nkae=622) 381 K/CU MM 150-450 MEAN PLATELET VOLUME (BEAKER) (test gito=701) 11.0 fL 9.4-12.4 NUCLEATED RED BLOOD CELLS (BEAKER) (test 0 /100 WBC 0-0 jxwi=315) NEUTROPHILS RELATIVE PERCENT (BEAKER) (test 82 % grti=965) LYMPHOCYTES RELATIVE PERCENT (BEAKER) (test 5 % zzek=423) MONOCYTES RELATIVE PERCENT (BEAKER) (test 10 % qfmx=701) EOSINOPHILS RELATIVE PERCENT (BEAKER) (test 2 % gjin=201) BASOPHILS RELATIVE PERCENT (BEAKER) (test 0 % fhgm=837) NEUTROPHILS ABSOLUTE COUNT (BEAKER) (test 12.14 K/ L 1.78-5.38 siae=995) LYMPHOCYTES ABSOLUTE COUNT (BEAKER) (test 0.75 K/ L 1.32-3.57 qqrz=531) MONOCYTES ABSOLUTE COUNT (BEAKER) (test 1.48 K/ L 0.30-0.82 dvdt=488) EOSINOPHILS ABSOLUTE COUNT (BEAKER) (test 0.30 K/ L 0.04-0.54 qcaj=705) BASOPHILS ABSOLUTE COUNT (BEAKER) (test 0.03 K/ L 0.01-0.08 fhlg=624) IMMATURE GRANULOCYTES-RELATIVE PERCENT (BEAKER) 1 % 0-1 (test rkux=2771) BASIC METABOLIC [id number] 07:57:00 Test Item Value Reference Range Comments SODIUM (BEAKER) (test 138 meq/L 136-145 ehil=290) POTASSIUM (BEAKER) (test 3.5 meq/L 3.5-5.1 hzqn=655) CHLORIDE (BEAKER) (test 99 meq/L 98-107 vdbb=394) CO2 (BEAKER) (test 26 meq/L 22-29 xkkv=757) BLOOD UREA NITROGEN 55 mg/dL 7-21 (BEAKER) (test dzve=720) CREATININE (BEAKER) (test 1.50 mg/dL 0.57-1.25 mkpw=469) GLUCOSE RANDOM (BEAKER) 132 mg/dL 70-105 (test nfyn=559) CALCIUM (BEAKER) (test 7.9 mg/dL 8.4-10.2 vhwm=483) EGFR (BEAKER) (test 45 mL/min/1.73 sq m ESTIMATED GFR IS NOT uhad=4761) ACCURATE CREATININE CLEARANCE IN PREDICTING GLOMERULAR FILTRATION RATE. ESTIMATED GFR IS NOT APPLICABLE FOR DIALYSIS PATIENTS. [id number] 07:42:00 Test Item Value Reference Range Comments MAGNESIUM (BEAKER) (test htaj=704) 1.9 mg/dL 1.6-2.6 POCT-GLUCOSE [id number] 07:28:00 Test Item Value Reference Range Comments POC-GLUCOSE METER (BEAKER) 145 mg/dL 70-110 TESTED AT [address] (test tfsh=4721) [place] [address] POCT-GLUCOSE [id number] 22:13:00 Test Item Value Reference Range Comments POC-GLUCOSE METER (BEAKER) 170 mg/dL 70-110 TESTED AT [address] (test lvrb=1639) [place] [address] POCT-GLUCOSE [id number] 17:10:00 Test Item Value Reference Range Comments POC-GLUCOSE METER (BEAKER) 133 mg/dL 70-110 TESTED AT [address] (test tnjk=7501) [place] [address] URINALYSIS W/ REFLEX URINE [id number] 16:29:00 Test Item Value Reference Range Comments COLOR (BEAKER) (test bhva=617) Yellow CLARITY (BEAKER) (test sfzu=869) Clear SPECIFIC GRAVITY UA (BEAKER) (test gdzx=921) 1.009 1.001-1.035 PH UA (BEAKER) (test qzne=500) 5.0 5.0-8.0 PROTEIN UA (BEAKER) (test ceoc=386) 20 mg/dL Negative GLUCOSE UA (BEAKER) (test hdtm=650) Negative Negative KETONES UA (BEAKER) (test lzjq=198) Negative Negative BILIRUBIN UA (BEAKER) (test ufsw=540) Negative Negative BLOOD UA (BEAKER) (test tmki=061) Small Negative NITRITE UA (BEAKER) (test uxtq=561) Negative Negative LEUKOCYTE ESTERASE UA (BEAKER) (test vrfz=339) Moderate Negative UROBILINOGEN UA (BEAKER) (test mjry=291) 0.2 mg/dL 0.2-1.0 RBC UA (BEAKER) (test yjsp=875) 2 /HPF WBC UA (BEAKER) (test yolr=183) 9 /HPF BACTERIA (BEAKER) (test vhsb=166) Occasional SQUAMOUS EPITHELIAL (BEAKER) (test vbeo=928) 1 /HPF HYALINE CASTS (BEAKER) (test fzaw=774) 17 /LPF SOURCE(BEAKER) (test ylcs=8043) HEMOGLOBIN [id number] 11:49:00 Test Item Value Reference Range Comments HEMOGLOBIN A1C (BEAKER) (test mrtb=668) 6.0 % 4.3-6.1 POCT-GLUCOSE [id number] 09:00:00 Test Item Value Reference Range Comments POC-GLUCOSE METER (BEAKER) 139 mg/dL 70-110 TESTED AT [facility] [address] (test tcqw=5265) [facility] [address] RAD, CHEST, 1 VIEW, NON [id number] 08:51:00Reason for exam:->s/po cabgShould this be performed at the bedside?->YesFINAL REPORT Two frontal chest images compared to March 08, 2017 Discussion: Sternal wires, right PICC line, cardiac prominence are similar. Lungs grossly clear. No effusion orpneumothorax. IMPRESSIONS: No significant change Signed: Hiram Tavares Verified Date/Time: 03/09/2017 08:51:10 [facility] Electronically signedby: HIRAM TAVARES M.D. on 03/09/2017 08:51 AMB-TYPE NATRIURETIC FACTOR (BNP)2017-03-09 08: 33:00 Test Item Value Reference Range Comments B-TYPE NATRIURETIC PEPTIDE (BEAKER) (test 2872 pg/mL 0-100 tsgg=330) BASIC METABOLIC [id number] 08:30:00 Test Item Value Reference Range Comments SODIUM (BEAKER) (test 139 meq/L 136-145 kyay=807) POTASSIUM (BEAKER) (test 3.6 meq/L 3.5-5.1 lzlb=328) CHLORIDE (BEAKER) (test 100 meq/L 98-107 xitq=262) CO2 (BEAKER) (test 29 meq/L 22-29 ugxe=529) BLOOD UREA NITROGEN 50 mg/dL 7-21 (BEAKER) (test gxts=823) CREATININE (BEAKER) (test 1.45 mg/dL 0.57-1.25 yiyq=401) GLUCOSE RANDOM (BEAKER) 124 mg/dL 70-105 (test rpgb=434) CALCIUM (BEAKER) (test 7.9 mg/dL 8.4-10.2 idrh=605) EGFR (BEAKER) (test 47 mL/min/1.73 sq m ESTIMATED GFR IS NOT dqoi=0653) ACCURATE CREATININE CLEARANCE IN PREDICTING GLOMERULAR FILTRATION RATE. ESTIMATED GFR IS NOT APPLICABLE FOR DIALYSIS PATIENTS. [id number] 08:26:00 Test Item Value Reference Range Comments MAGNESIUM (BEAKER) (test agje=287) 1.9 mg/dL 1.6-2.6 CBC W/PLT COUNT & AUTO [id number] 07:33:00 Test Item Value Reference Range Comments WHITE BLOOD CELL COUNT (BEAKER) (test aiqm=490) 16.0 K/ L 3.5-10.5 RED BLOOD CELL COUNT (BEAKER) (test ckps=459) 2.97 M/ L 4.63-6.08 HEMOGLOBIN (BEAKER) (test tmyk=638) 8.6 GM/DL 13.7-17.5 HEMATOCRIT (BEAKER) (test zhzw=509) 27.2 % 40.1-51.0 MEAN CORPUSCULAR VOLUME (BEAKER) (test xbpt=041) 91.6 fL 79.0-92.2 MEAN CORPUSCULAR HEMOGLOBIN (BEAKER) (test 29.0 pg 25.7-32.2 levi=144) MEAN CORPUSCULAR HEMOGLOBIN CONC (BEAKER) (test 31.6 GM/DL 32.3-36.5 zzty=141) RED CELL DISTRIBUTION WIDTH (BEAKER) (test 15.9 % 11.6-14.4 ddwt=707) PLATELET COUNT (BEAKER) (test uqkj=150) 342 K/CU MM 150-450 MEAN PLATELET VOLUME (BEAKER) (test zrmz=109) 11.1 fL 9.4-12.4 NUCLEATED RED BLOOD CELLS (BEAKER) (test 0 /100 WBC 0-0 oowd=119) NEUTROPHILS RELATIVE PERCENT (BEAKER) (test 81 % ozdr=439) LYMPHOCYTES RELATIVE PERCENT (BEAKER) (test 5 % oimt=707) MONOCYTES RELATIVE PERCENT (BEAKER) (test 10 % fzsm=975) EOSINOPHILS RELATIVE PERCENT (BEAKER) (test 3 % yjcu=361) BASOPHILS RELATIVE PERCENT (BEAKER) (test 0 % kgvp=792) NEUTROPHILS ABSOLUTE COUNT (BEAKER) (test 12.95 K/ L 1.78-5.38 hlrj=225) LYMPHOCYTES ABSOLUTE COUNT (BEAKER) (test 0.87 K/ L 1.32-3.57 gyti=811) MONOCYTES ABSOLUTE COUNT (BEAKER) (test 1.57 K/ L 0.30-0.82 rokd=050) EOSINOPHILS ABSOLUTE COUNT (BEAKER) (test 0.43 K/ L 0.04-0.54 tvoe=906) BASOPHILS ABSOLUTE COUNT (BEAKER) (test 0.02 K/ L 0.01-0.08 rxpa=016) IMMATURE GRANULOCYTES-RELATIVE PERCENT (BEAKER) 1 % 0-1 (test dlar=4805) POCT-GLUCOSE [id number] 21:21:00 Test Item Value Reference Range Comments POC-GLUCOSE METER (BEAKER) 158 mg/dL 70-110 TESTED AT [address] (test wovb=1999) [facility] [address] CBC W/PLT COUNT & AUTO [id number] 07:48:00 Test Item Value Reference Range Comments WHITE BLOOD CELL COUNT (BEAKER) (test kxgp=820) 14.5 K/ L 3.5-10.5 RED BLOOD CELL COUNT (BEAKER) (test hovn=414) 3.06 M/ L 4.63-6.08 HEMOGLOBIN (BEAKER) (test fvuq=234) 8.9 GM/DL 13.7-17.5 HEMATOCRIT (BEAKER) (test anwg=962) 27.9 % 40.1-51.0 MEAN CORPUSCULAR VOLUME (BEAKER) (test lmmr=935) 91.2 fL 79.0-92.2 MEAN CORPUSCULAR HEMOGLOBIN (BEAKER) (test 29.1 pg 25.7-32.2 qzoo=794) MEAN CORPUSCULAR HEMOGLOBIN CONC (BEAKER) (test 31.9 GM/DL 32.3-36.5 wanl=637) RED CELL DISTRIBUTION WIDTH (BEAKER) (test 16.1 % 11.6-14.4 jrtz=429) PLATELET COUNT (BEAKER) (test umtk=003) 265 K/CU MM 150-450 MEAN PLATELET VOLUME (BEAKER) (test yxwf=768) 11.3 fL 9.4-12.4 NUCLEATED RED BLOOD CELLS (BEAKER) (test 0 /100 WBC 0-0 diip=434) NEUTROPHILS RELATIVE PERCENT (BEAKER) (test 78 % wzqz=975) LYMPHOCYTES RELATIVE PERCENT (BEAKER) (test 6 % bwvd=934) MONOCYTES RELATIVE PERCENT (BEAKER) (test 12 % uxlx=479) EOSINOPHILS RELATIVE PERCENT (BEAKER) (test 2 % tygk=179) BASOPHILS RELATIVE PERCENT (BEAKER) (test 0 % pthz=502) NEUTROPHILS ABSOLUTE COUNT (BEAKER) (test 11.31 K/ L 1.78-5.38 dife=799) LYMPHOCYTES ABSOLUTE COUNT (BEAKER) (test 0.90 K/ L 1.32-3.57 klhi=929) MONOCYTES ABSOLUTE COUNT (BEAKER) (test 1.73 K/ L 0.30-0.82 cuti=800) EOSINOPHILS ABSOLUTE COUNT (BEAKER) (test 0.35 K/ L 0.04-0.54 njkb=641) BASOPHILS ABSOLUTE COUNT (BEAKER) (test 0.03 K/ L 0.01-0.08 koye=774) IMMATURE GRANULOCYTES-RELATIVE PERCENT (BEAKER) 1 % 0-1 (test oitf=4691) BASIC METABOLIC [id number] 07:35:00 Test Item Value Reference Range Comments SODIUM (BEAKER) (test 139 meq/L 136-145 bhet=023) POTASSIUM (BEAKER) (test 3.7 meq/L 3.5-5.1 nbhl=108) CHLORIDE (BEAKER) (test 101 meq/L 98-107 dsuc=687) CO2 (BEAKER) (test 28 meq/L 22-29 suak=614) BLOOD UREA NITROGEN 40 mg/dL 7-21 (BEAKER) (test qhsa=208) CREATININE (BEAKER) (test 1.32 mg/dL 0.57-1.25 nwnk=669) GLUCOSE RANDOM (BEAKER) 121 mg/dL 70-105 (test uzfc=394) CALCIUM (BEAKER) (test 7.7 mg/dL 8.4-10.2 hnll=088) EGFR (BEAKER) (test 53 mL/min/1.73 sq m ESTIMATED GFR IS NOT lbbt=3539) ACCURATE CREATININE CLEARANCE IN PREDICTING GLOMERULAR FILTRATION RATE. ESTIMATED GFR IS NOT APPLICABLE FOR DIALYSIS PATIENTS. [id number] 07:34:00 Test Item Value Reference Range Comments MAGNESIUM (BEAKER) (test ugkm=931) 1.9 mg/dL 1.6-2.6 RAD, CHEST, 1 VIEW, NON [id number] 06:21:00Reason for exam:->s/po cabgShould this be performed at the bedside?->YesFINAL REPORT Comparison exam: 03/07/2017 No pneumothorax, focal pulmonary consolidation, or significant pleural effusion. Stable cardiomediastinal contours. Right PICC line terminates in the superior vena cava. Signed: Tejas Gomezeport Verified Date/Time: 03/08/2017 06:21:33 Reading Location : [address] Ortho Consult Reading Room RAD, CHEST, 1 VIEW, NON [id number] 06:58: 00Reason for exam:->s/po cabgShould this be performed at the bedside?-> YesFINAL REPORT Comparison exam: 03/06/2017 No pneumothorax, focal pulmonary consolidation, or significant pleural effusion. Stable cardiomediastinal contours. Right PICC line terminates in the superior vena cava. Signed: Tejas Gomezeport Verified Date/Time: 06:58:21 Reading Location: [address] Ortho Consult Reading Room BASIC METABOLIC [id number] 04:38:00 Test Item Value Reference Range Comments SODIUM (BEAKER) (test 140 meq/L 136-145 thir=093) POTASSIUM (BEAKER) (test 3.7 meq/L 3.5-5.1 jfqt=009) CHLORIDE (BEAKER) (test 101 meq/L 98-107 cvjc=921) CO2 (BEAKER) (test 28 meq/L 22-29 ysli=069) BLOOD UREA NITROGEN 44 mg/dL 7-21 (BEAKER) (test quiy=580) CREATININE (BEAKER) (test 1.41 mg/dL 0.57-1.25 pvtz=008) GLUCOSE RANDOM (BEAKER) 138 mg/dL 70-105 (test truy=297) CALCIUM (BEAKER) (test 7.9 mg/dL 8.4-10.2 uwne=699) EGFR (BEAKER) (test 49 mL/min/1.73 sq m ESTIMATED GFR IS NOT ncid=1079) ACCURATE CREATININE CLEARANCE IN PREDICTING GLOMERULAR FILTRATION RATE. ESTIMATED GFR IS NOT APPLICABLE FOR DIALYSIS PATIENTS. Specimen slightly [id number] 04:34:00 Test Item Value Reference Range Comments POTASSIUM (BEAKER) (test hnws=931) 3.7 meq/L 3.5-5.1 [id number] 04:34:00 Test Item Value Reference Range Comments MAGNESIUM (BEAKER) (test gloc=659) 2.1 mg/dL 1.6-2.6 B-TYPE NATRIURETIC FACTOR (BNP)2017-03-07 04:09:00 Test Item Value Reference Range Comments B-TYPE NATRIURETIC PEPTIDE (BEAKER) (test 2921 pg/mL 0-100 sckt=215) CBC W/PLT COUNT & AUTO [id number] 04:02:00 Test Item Value Reference Range Comments WHITE BLOOD CELL COUNT (BEAKER) (test xjpy=422) 13.0 K/ L 3.5-10.5 RED BLOOD CELL COUNT (BEAKER) (test urqw=627) 3.09 M/ L 4.63-6.08 HEMOGLOBIN (BEAKER) (test rrsf=251) 8.9 GM/DL 13.7-17.5 HEMATOCRIT (BEAKER) (test kzvv=873) 28.0 % 40.1-51.0 MEAN CORPUSCULAR VOLUME (BEAKER) (test cfal=771) 90.6 fL 79.0-92.2 MEAN CORPUSCULAR HEMOGLOBIN (BEAKER) (test 28.8 pg 25.7-32.2 vfbu=092) MEAN CORPUSCULAR HEMOGLOBIN CONC (BEAKER) (test 31.8 GM/DL 32.3-36.5 njif=958) RED CELL DISTRIBUTION WIDTH (BEAKER) (test 16.0 % 11.6-14.4 znwp=724) PLATELET COUNT (BEAKER) (test unrl=107) 231 K/CU MM 150-450 MEAN PLATELET VOLUME (BEAKER) (test kcyn=163) 11.4 fL 9.4-12.4 NUCLEATED RED BLOOD CELLS (BEAKER) (test 0 /100 WBC 0-0 dnzn=983) NEUTROPHILS RELATIVE PERCENT (BEAKER) (test 75 % jxoy=278) LYMPHOCYTES RELATIVE PERCENT (BEAKER) (test 8 % ewfw=101) MONOCYTES RELATIVE PERCENT (BEAKER) (test 14 % feus=254) EOSINOPHILS RELATIVE PERCENT (BEAKER) (test 3 % mzbf=294) BASOPHILS RELATIVE PERCENT (BEAKER) (test 0 % azle=385) NEUTROPHILS ABSOLUTE COUNT (BEAKER) (test 9.74 K/ L 1.78-5.38 tchr=563) LYMPHOCYTES ABSOLUTE COUNT (BEAKER) (test 0.99 K/ L 1.32-3.57 sxaw=348) MONOCYTES ABSOLUTE COUNT (BEAKER) (test 1.76 K/ L 0.30-0.82 vsaf=038) EOSINOPHILS ABSOLUTE COUNT (BEAKER) (test 0.37 K/ L 0.04-0.54 nyuz=448) BASOPHILS ABSOLUTE COUNT (BEAKER) (test 0.02 K/ L 0.01-0.08 tyeb=969) IMMATURE GRANULOCYTES-RELATIVE PERCENT (BEAKER) 1 % 0-1 (test agdv=8081) OXYGEN SATURATION, [id number] 03:27:00 Test Item Value Reference Range Comments O2 SATURATION (MEASURED) (BEAKER) (test xjwc=5605) 61.8 % BLOOD [id number] 00:00:00 Test Item Value Reference Range Comments CULTURE (BEAKER) (test jzpw=6693) No growth in 5 days BLOOD [id number] 00:00:00 Test Item Value Reference Range Comments CULTURE (BEAKER) (test voet=5964) No growth in 5 days [id number] 18:44:00 Test Item Value Reference Range Comments POTASSIUM (BEAKER) (test lncc=033) 4.0 meq/L 3.5-5.1 [id number] 18:44:00 Test Item Value Reference Range Comments MAGNESIUM (BEAKER) (test zjpz=529) 2.2 mg/dL 1.6-2.6 OXYGEN SATURATION, [id number] 18:19:00 Test Item Value Reference Range Comments O2 SATURATION (MEASURED) (BEAKER) (test tgsc=9713) 56.6 % [id number] 14:59:00 Test Item Value Reference Range Comments POTASSIUM (BEAKER) (test pdvw=071) 3.8 meq/L 3.5-5.1 [id number] 14:59:00 Test Item Value Reference Range Comments MAGNESIUM (BEAKER) (test xdge=294) 1.9 mg/dL 1.6-2.6 OXYGEN SATURATION, [id number] 14:42:00 Test Item Value Reference Range Comments O2 SATURATION (MEASURED) (BEAKER) (test gykb=4679) 54.4 % [id number] 07:20:00 Test Item Value Reference Range Comments POTASSIUM (BEAKER) (test gmuq=025) 3.7 meq/L 3.5-5.1 [id number] 07:20:00 Test Item Value Reference Range Comments MAGNESIUM (BEAKER) (test szgs=988) 2.2 mg/dL 1.6-2.6 RAD, CHEST, 1 VIEW, NON [id number] 07:02:00Reason for exam:->s/po cabgShould this be performed at the bedside?->YesFINAL REPORT Comparison exam: 03/05/2017 Mild pulmonary venous congestion unchanged. Stable cardiomediastinal contours. Right PICC line terminates in the superior vena cava. Signed: Tejas Gomez Verified Date/ Time: 03/06/2017 07:02:29 Reading Location: [address] Reading Room BASIC METABOLIC [id number] 04:31:00 Test Item Value Reference Range Comments SODIUM (BEAKER) (test 140 meq/L 136-145 lrur=040) POTASSIUM (BEAKER) (test 3.4 meq/L 3.5-5.1 dadp=031) CHLORIDE (BEAKER) (test 103 meq/L 98-107 hbsi=347) CO2 (BEAKER) (test 26 meq/L 22-29 frgv=736) BLOOD UREA NITROGEN 49 mg/dL 7-21 (BEAKER) (test srck=820) CREATININE (BEAKER) (test 1.47 mg/dL 0.57-1.25 nusl=270) GLUCOSE RANDOM (BEAKER) 136 mg/dL 70-105 (test zfcx=754) CALCIUM (BEAKER) (test 7.8 mg/dL 8.4-10.2 nfnm=292) EGFR (BEAKER) (test 46 mL/min/1.73 sq m ESTIMATED GFR IS NOT pcya=6528) ACCURATE CREATININE CLEARANCE IN PREDICTING GLOMERULAR FILTRATION RATE. ESTIMATED GFR IS NOT APPLICABLE FOR DIALYSIS PATIENTS. HEPATIC FUNCTION [id number] 04:25:00 Test Item Value Reference Range Comments TOTAL PROTEIN (BEAKER) (test unds=737) 5.1 gm/dL 6.0-8.3 ALBUMIN (BEAKER) (test bbnw=8265) 2.7 g/dL 3.5-5.0 BILIRUBIN TOTAL (BEAKER) (test oihv=470) 1.9 mg/dL 0.2-1.2 BILIRUBIN DIRECT (BEAKER) (test imdm=183) 1.2 mg/dL 0.1-0.5 ALKALINE PHOSPHATASE (BEAKER) (test qjdd=230) 65 U/L 40-150 AST (SGOT) (BEAKER) (test cgzi=987) 34 U/L 5-34 ALT (SGPT) (BEAKER) (test bxjj=092) 27 U/L 6-55 CBC W/PLT COUNT & AUTO [id number] 04:10:00 Test Item Value Reference Range Comments WHITE BLOOD CELL COUNT (BEAKER) (test olhk=994) 13.1 K/ L 3.5-10.5 RED BLOOD CELL COUNT (BEAKER) (test syad=946) 2.42 M/ L 4.63-6.08 HEMOGLOBIN (BEAKER) (test asqq=574) 7.2 GM/DL 13.7-17.5 HEMATOCRIT (BEAKER) (test zlbo=101) 22.6 % 40.1-51.0 MEAN CORPUSCULAR VOLUME (BEAKER) (test plze=268) 93.4 fL 79.0-92.2 MEAN CORPUSCULAR HEMOGLOBIN (BEAKER) (test 29.8 pg 25.7-32.2 wcik=756) MEAN CORPUSCULAR HEMOGLOBIN CONC (BEAKER) (test 31.9 GM/DL 32.3-36.5 rwdc=135) RED CELL DISTRIBUTION WIDTH (BEAKER) (test 15.6 % 11.6-14.4 tssm=378) PLATELET COUNT (BEAKER) (test mlzi=034) 178 K/CU MM 150-450 MEAN PLATELET VOLUME (BEAKER) (test rnzw=819) 11.8 fL 9.4-12.4 NUCLEATED RED BLOOD CELLS (BEAKER) (test 0 /100 WBC 0-0 bsto=226) NEUTROPHILS RELATIVE PERCENT (BEAKER) (test 76 % hbhd=115) LYMPHOCYTES RELATIVE PERCENT (BEAKER) (test 7 % uqns=881) MONOCYTES RELATIVE PERCENT (BEAKER) (test 13 % agjn=105) EOSINOPHILS RELATIVE PERCENT (BEAKER) (test 3 % gmyi=755) BASOPHILS RELATIVE PERCENT (BEAKER) (test 0 % kwrj=520) NEUTROPHILS ABSOLUTE COUNT (BEAKER) (test 9.94 K/ L 1.78-5.38 nhfz=535) LYMPHOCYTES ABSOLUTE COUNT (BEAKER) (test 0.91 K/ L 1.32-3.57 hhop=438) MONOCYTES ABSOLUTE COUNT (BEAKER) (test 1.68 K/ L 0.30-0.82 dwfy=865) EOSINOPHILS ABSOLUTE COUNT (BEAKER) (test 0.37 K/ L 0.04-0.54 fkih=262) BASOPHILS ABSOLUTE COUNT (BEAKER) (test 0.02 K/ L 0.01-0.08 hwlw=242) IMMATURE GRANULOCYTES-RELATIVE PERCENT (BEAKER) 2 % 0-1 (test rmnf=1229) [id number] 01:39:00 Test Item Value Reference Range Comments MAGNESIUM (BEAKER) (test 2.1 mg/dL 1.6-2.6 Specimen slightly hemolyzed mces=188) Check Serum Potassium level 2 hours after oral potassium replacement completed or 30 min after intravenous potassium replacement.[id number] 01:39:00 Test Item Value Reference Range Comments POTASSIUM (BEAKER) (test 3.7 meq/L 3.5-5.1 Specimen slightly hemolyzed utui=995) Check Serum Potassium level 2 hours after oral potassium replacement completed or 30 min after intravenous potassium replacement.OXYGEN SATURATION, [id number] 20:14:00 Test Item Value Reference Range Comments O2 SATURATION (MEASURED) (BEAKER) (test bumr=8604) 53.9 % POCT-GLUCOSE [id number] 18:21:00 Test Item Value Reference Range Comments POC-GLUCOSE METER (BEAKER) 168 mg/dL 70-110 TESTED AT [address] (test lwjd=6893) [place] [address] [id number] 17:33:00 Test Item Value Reference Range Comments POTASSIUM (BEAKER) (test xcid=798) 3.8 meq/L 3.5-5.1 [id number] 17:33:00 Test Item Value Reference Range Comments MAGNESIUM (BEAKER) (test yrvx=354) 1.7 mg/dL 1.6-2.6 OXYGEN SATURATION, [id number] 15:22:00 Test Item Value Reference Range Comments O2 SATURATION (MEASURED) (BEAKER) (test fznu=8372) 40.3 % POCT-GLUCOSE [id number] 12:30:00 Test Item Value Reference Range Comments POC-GLUCOSE METER (BEAKER) 146 mg/dL 70-110 TESTED AT [address] (test jhzq=3345) [place] [address] [id number] 09:28:00 Test Item Value Reference Range Comments POTASSIUM (BEAKER) (test grko=002) 3.5 meq/L 3.5-5.1 [id number] 09:28:00 Test Item Value Reference Range Comments MAGNESIUM (BEAKER) (test dghu=340) 2.1 mg/dL 1.6-2.6 POCT-GLUCOSE [id number] 07:37:00 Test Item Value Reference Range Comments POC-GLUCOSE METER (BEAKER) 156 mg/dL 70-110 TESTED AT [address] (test fmtv=2176) [place] [address] BLOOD GAS, [id number] 05:50:00 Test Item Value Reference Range Comments PH ARTERIAL (BEAKER) (test kwaj=614) 7.57 7.35-7.45 PCO2 ARTERIAL (BEAKER) (test fheo=061) 31 mmHg 35-45 PO2 ARTERIAL (BEAKER) (test tzsd=535) 75 mmHg 80-90 O2 SATURATION ARTERIAL (BEAKER) (test vefs=664) 96.9 % 96.0-97.0 HCO3 ARTERIAL (BEAKER) (test phpt=764) 27 mmol/L 21-29 BASE EXCESS ARTERIAL (BEAKER) (test unlp=105) 5.2 mmol/L -2.0-3.0 PATIENT TEMPERATURE (BEAKER) (test jxks=2242) 36.6 C FIO2 (BEAKER) (test fdlr=7754) 75.0 % BASIC METABOLIC [id number] 05:07:00 Test Item Value Reference Range Comments SODIUM (BEAKER) (test 141 meq/L 136-145 atxe=169) POTASSIUM (BEAKER) (test 3.7 meq/L 3.5-5.1 qzjj=682) CHLORIDE (BEAKER) (test 103 meq/L 98-107 mjze=548) CO2 (BEAKER) (test 24 meq/L 22-29 reqm=091) BLOOD UREA NITROGEN 55 mg/dL 7-21 (BEAKER) (test szul=938) CREATININE (BEAKER) (test 1.67 mg/dL 0.57-1.25 qtet=317) GLUCOSE RANDOM (BEAKER) 163 mg/dL 70-105 (test mvyq=650) CALCIUM (BEAKER) (test 8.3 mg/dL 8.4-10.2 mhqy=691) EGFR (BEAKER) (test 40 mL/min/1.73 sq m ESTIMATED GFR IS NOT bhuc=4747) ACCURATE CREATININE CLEARANCE IN PREDICTING GLOMERULAR FILTRATION RATE. ESTIMATED GFR IS NOT APPLICABLE FOR DIALYSIS PATIENTS. Specimen slightly ictericCBC W/PLT COUNT & AUTO [id number] 04:43 :00 Test Item Value Reference Range Comments WHITE BLOOD CELL COUNT (BEAKER) (test mvac=569) 13.7 K/ L 3.5-10.5 RED BLOOD CELL COUNT (BEAKER) (test sdjp=665) 2.74 M/ L 4.63-6.08 HEMOGLOBIN (BEAKER) (test izbq=057) 8.1 GM/DL 13.7-17.5 HEMATOCRIT (BEAKER) (test yqxb=447) 25.0 % 40.1-51.0 MEAN CORPUSCULAR VOLUME (BEAKER) (test mugg=216) 91.2 fL 79.0-92.2 MEAN CORPUSCULAR HEMOGLOBIN (BEAKER) (test 29.6 pg 25.7-32.2 ltwz=788) MEAN CORPUSCULAR HEMOGLOBIN CONC (BEAKER) (test 32.4 GM/DL 32.3-36.5 ekpw=486) RED CELL DISTRIBUTION WIDTH (BEAKER) (test 15.5 % 11.6-14.4 hlbz=948) PLATELET COUNT (BEAKER) (test ntdu=780) 158 K/CU MM 150-450 MEAN PLATELET VOLUME (BEAKER) (test xoac=043) 11.7 fL 9.4-12.4 NUCLEATED RED BLOOD CELLS (BEAKER) (test 1 /100 WBC 0-0 mzdk=482) NEUTROPHILS RELATIVE PERCENT (BEAKER) (test 79 % zgsh=575) LYMPHOCYTES RELATIVE PERCENT (BEAKER) (test 6 % ioio=883) MONOCYTES RELATIVE PERCENT (BEAKER) (test 13 % hluk=758) EOSINOPHILS RELATIVE PERCENT (BEAKER) (test 1 % xysi=403) BASOPHILS RELATIVE PERCENT (BEAKER) (test 0 % vmcu=348) NEUTROPHILS ABSOLUTE COUNT (BEAKER) (test 10.84 K/ L 1.78-5.38 pjey=166) LYMPHOCYTES ABSOLUTE COUNT (BEAKER) (test 0.80 K/ L 1.32-3.57 queb=446) MONOCYTES ABSOLUTE COUNT (BEAKER) (test 1.76 K/ L 0.30-0.82 edlc=189) EOSINOPHILS ABSOLUTE COUNT (BEAKER) (test 0.09 K/ L 0.04-0.54 nucs=097) BASOPHILS ABSOLUTE COUNT (BEAKER) (test 0.01 K/ L 0.01-0.08 dbqf=831) IMMATURE GRANULOCYTES-RELATIVE PERCENT (BEAKER) 1 % 0-1 (test krzr=5924) CALCIUM, [id number] 04:43:00 Test Item Value Reference Range Comments CALCIUM IONIZED (BEAKER) (test qkyf=394) 1.07 mmol/L 1.12-1.27 PH, BLOOD (BEAKER) (test jnuy=8114) 7.57 RAD, CHEST, 1 VIEW, NON [id number] 04:23:00Reason for exam:->s/po cabgShould this be performed [...] MDReport Verified Date/Time: 03/05/2017 04:23:47 Reading Location: [address] Reading Room [id number] 02:54:00 Test Item Value Reference Range Comments POTASSIUM (BEAKER) (test vfel=849) 3.6 meq/L 3.5-5.1 [id number] 02:54:00 Test Item Value Reference Range Comments MAGNESIUM (BEAKER) (test qisu=067) 2.3 mg/dL 1.6-2.6 POCT-GLUCOSE [id number] 22:50:00 Test Item Value Reference Range Comments POC-GLUCOSE METER (BEAKER) 158 mg/dL 70-110 TESTED AT [facility] [address] (test fyrp=5734) [facility] [address] [id number] 21:22:00 Test Item Value Reference Range Comments POTASSIUM (BEAKER) (test ucfn=396) 3.7 meq/L 3.5-5.1 [id number] 21:22:00 Test Item Value Reference Range Comments MAGNESIUM (BEAKER) (test zhrr=000) 1.9 mg/dL 1.6-2.6 CALCIUM, [id number] 20:22:00 Test Item Value Reference Range Comments CALCIUM IONIZED (BEAKER) (test clee=039) 1.06 mmol/L 1.12-1.27 PH, BLOOD (BEAKER) (test zpsd=7380) 7.50 Check serum Ionized Calcium level after 4 hours after IV Calcium replacement.POCT-GLUCOSE [id number] 17:16:00 Test Item Value Reference Range Comments POC-GLUCOSE METER (BEAKER) 143 mg/dL 70-110 TESTED AT [address] (test optg=2237) [place] [address] POCT-GLUCOSE [id number] 17:14:00 Test Item Value Reference Range Comments POC-GLUCOSE METER (BEAKER) 133 mg/dL 70-110 TESTED AT [address] (test kwuc=1931) [place] [address] CALCIUM, [id number] 14:57:00 Test Item Value Reference Range Comments CALCIUM IONIZED (BEAKER) (test whuz=145) 1.06 mmol/L 1.12-1.27 PH, BLOOD (BEAKER) (test nasf=4024) 7.56 Check serum Ionized Calcium level after 4 hours after IV Calcium replacement.POCT-GLUCOSE [id number] 12:54:00 Test Item Value Reference Range Comments POC-GLUCOSE METER (BEAKER) 96 mg/dL 70-110 TESTED AT [address] (test zmtj=2874) [place] [address] [id number] 11:52:00 Test Item Value Reference Range Comments POTASSIUM (BEAKER) (test bqmg=608) 3.7 meq/L 3.5-5.1 [id number] 11:52:00 Test Item Value Reference Range Comments MAGNESIUM (BEAKER) (test mfgv=638) 2.4 mg/dL 1.6-2.6 POCT-GLUCOSE [id number] 11:05:00 Test Item Value Reference Range Comments POC-GLUCOSE METER (BEAKER) 116 mg/dL 70-110 TESTED AT [address] (test tnkg=8667) [place] [address] POCT-GLUCOSE [id number] 09:27:00 Test Item Value Reference Range Comments POC-GLUCOSE METER (BEAKER) 127 mg/dL 70-110 TESTED AT [address] (test svvi=6476) [place] [id number] CALCIUM, [id number] 08:34:00 Test Item Value Reference Range Comments CALCIUM IONIZED (BEAKER) (test yjqb=075) 1.07 mmol/L 1.12-1.27 PH, BLOOD (BEAKER) (test aivi=4722) 7.53 OXYGEN SATURATION, [id number] 07:36:00 Test Item Value Reference Range Comments O2 SATURATION (MEASURED) (BEAKER) (test feur=3320) 68.8 % [id number] 07:23:00 Test Item Value Reference Range Comments POTASSIUM (BEAKER) (test pzul=902) 3.7 meq/L 3.5-5.1 [id number] 07:23:00 Test Item Value Reference Range Comments MAGNESIUM (BEAKER) (test krbm=180) 1.9 mg/dL 1.6-2.6 POCT-GLUCOSE [id number] 06:49:00 Test Item Value Reference Range Comments POC-GLUCOSE METER (BEAKER) 121 mg/dL 70-110 TESTED AT [address] (test tlxg=8765) [place] [address] RAD, CHEST, 1 VIEW, NON [id number] 05:49:00Reason for exam:->s/po cabgShould this be performed at the bedside?->YesFINAL REPORT Comparison exam: 03/03/2017 Pulmonary venous congestion and retrocardiac left lower lobe atelectasis/consolidation unchanged. Stable cardiomediastinal contours. Right PICC line terminates in the superior vena cava. Signed: Tejas Gomez MDReport Verified Date/Time: 03/04/2017 05:49: 17 Reading Location: [address] Ortho Consult Reading Room BASIC METABOLIC [id number] 05:00:00 Test Item Value Reference Range Comments SODIUM (BEAKER) (test 140 meq/L 136-145 ikxn=935) POTASSIUM (BEAKER) (test 3.6 meq/L 3.5-5.1 vgkj=077) CHLORIDE (BEAKER) (test 103 meq/L 98-107 cgrg=638) CO2 (BEAKER) (test 26 meq/L 22-29 jjcn=422) BLOOD UREA NITROGEN 54 mg/dL 7-21 (BEAKER) (test jrmh=176) CREATININE (BEAKER) (test 1.79 mg/dL 0.57-1.25 xayu=908) GLUCOSE RANDOM (BEAKER) 118 mg/dL 70-105 (test osus=673) CALCIUM (BEAKER) (test 8.3 mg/dL 8.4-10.2 nipp=067) EGFR (BEAKER) (test 37 mL/min/1.73 sq m ESTIMATED GFR IS NOT jsjz=9858) ACCURATE CREATININE CLEARANCE IN PREDICTING GLOMERULAR FILTRATION RATE. ESTIMATED GFR IS NOT APPLICABLE FOR DIALYSIS PATIENTS. CBC W/PLT COUNT & AUTO [id number] 04:58:00 Test Item Value Reference Range Comments WHITE BLOOD CELL COUNT (BEAKER) (test erfn=065) 14.3 K/ L 3.5-10.5 RED BLOOD CELL COUNT (BEAKER) (test ndbn=157) 2.66 M/ L 4.63-6.08 HEMOGLOBIN (BEAKER) (test auxh=689) 7.8 GM/DL 13.7-17.5 HEMATOCRIT (BEAKER) (test gozp=285) 24.1 % 40.1-51.0 MEAN CORPUSCULAR VOLUME (BEAKER) (test oldn=264) 90.6 fL 79.0-92.2 MEAN CORPUSCULAR HEMOGLOBIN (BEAKER) (test 29.3 pg 25.7-32.2 htbm=075) MEAN CORPUSCULAR HEMOGLOBIN CONC (BEAKER) (test 32.4 GM/DL 32.3-36.5 yubq=762) RED CELL DISTRIBUTION WIDTH (BEAKER) (test 15.2 % 11.6-14.4 jjax=829) PLATELET COUNT (BEAKER) (test wmsf=489) 110 K/CU MM 150-450 MEAN PLATELET VOLUME (BEAKER) (test mjfo=058) 12.0 fL 9.4-12.4 NUCLEATED RED BLOOD CELLS (BEAKER) (test 2 /100 WBC 0-0 wqsx=056) NEUTROPHILS RELATIVE PERCENT (BEAKER) (test 78 % rcxp=797) LYMPHOCYTES RELATIVE PERCENT (BEAKER) (test 6 % xfwr=509) MONOCYTES RELATIVE PERCENT (BEAKER) (test 14 % exxn=942) EOSINOPHILS RELATIVE PERCENT (BEAKER) (test 1 % dsbb=403) BASOPHILS RELATIVE PERCENT (BEAKER) (test 0 % mvkc=109) NEUTROPHILS ABSOLUTE COUNT (BEAKER) (test 11.13 K/ L 1.78-5.38 zfqh=810) LYMPHOCYTES ABSOLUTE COUNT (BEAKER) (test 0.82 K/ L 1.32-3.57 ibkq=375) MONOCYTES ABSOLUTE COUNT (BEAKER) (test 1.99 K/ L 0.30-0.82 tgrw=785) EOSINOPHILS ABSOLUTE COUNT (BEAKER) (test 0.11 K/ L 0.04-0.54 bzib=662) BASOPHILS ABSOLUTE COUNT (BEAKER) (test 0.01 K/ L 0.01-0.08 bfyd=249) IMMATURE GRANULOCYTES-RELATIVE PERCENT (BEAKER) 2 % 0-1 (test rwvb=0051) [id number] 04:55:00 Test Item Value Reference Range Comments PROTIME (BEAKER) (test xtnu=186) 16.5 seconds 11.7-14.7 INR (BEAKER) (test ruhp=449) 1.3 <=5.9 PARTIAL THROMBOPLASTIN TIME (BEAKER) (test 34.6 seconds 22.5-36.0 qayn=837) RECOMMENDED COUMADIN/WARFARIN INR THERAPY RANGESSTANDARD DOSE: 2.0 - 3.0 Includes: PROPHYLAXIS forvenous thrombosis, systemic embolization; TREATMENT for venous thrombosis and/or pulmonary embolus.HIGH RISK: Target INR is 2.5-3.5 for patients with mechanical heart valves.PROTHROMBIN [id number] 04:54: 00 Test Item Value Reference Range Comments PROTIME (BEAKER) (test pdfr=779) 16.5 seconds 11.7-14.7 INR (BEAKER) (test xrok=833) 1.3 <=5.9 RECOMMENDED COUMADIN/WARFARIN INR THERAPY RANGESSTANDARD DOSE: 2.0 - 3.0 Includes: PROPHYLAXIS forvenous thrombosis, systemic embolization; TREATMENT for venous thrombosis and/or pulmonary embolus.HIGH RISK: Target INR is 2.5-3.5 for patients with mechanical heart valves.POCT-GLUCOSE [id number] 04:35:00 Test Item Value Reference Range Comments POC-GLUCOSE METER (BEAKER) 129 mg/dL 70-110 TESTED AT [address] (test jogt=7714) [place] [id number] POCT-GLUCOSE [id number] 02:41:00 Test Item Value Reference Range Comments POC-GLUCOSE METER (BEAKER) 112 mg/dL 70-110 TESTED AT [address] (test uohr=6352) [place] [address] BLOOD [id number] 01:00:00 Test Item Value Reference Range Comments CULTURE (BEAKER) (test xkli=5108) No growth in 5 days [id number] 00:21:00 Test Item Value Reference Range Comments POTASSIUM (BEAKER) (test zjys=593) 3.7 meq/L 3.5-5.1 [id number] 00:21:00 Test Item Value Reference Range Comments MAGNESIUM (BEAKER) (test xqus=791) 2.2 mg/dL 1.6-2.6 POCT-GLUCOSE [id number] 00:09:00 Test Item Value Reference Range Comments POC-GLUCOSE METER (BEAKER) 125 mg/dL 70-110 TESTED AT [address] (test mmfd=5270) [place] [address] POCT-GLUCOSE [id number] 22:16:00 Test Item Value Reference Range Comments POC-GLUCOSE METER (BEAKER) 105 mg/dL 70-110 TESTED AT [address] (test axhk=9884) [place] [address] CBC (HEMOGRAM ONLY)2017-03-03 21:16:00 Test Item Value Reference Range Comments WHITE BLOOD CELL COUNT (BEAKER) (test utwh=749) 13.4 K/ L 3.5-10.5 RED BLOOD CELL COUNT (BEAKER) (test hmtz=812) 2.70 M/ L 4.63-6.08 HEMOGLOBIN (BEAKER) (test xtvs=529) 8.0 GM/DL 13.7-17.5 HEMATOCRIT (BEAKER) (test vvvk=989) 24.5 % 40.1-51.0 MEAN CORPUSCULAR VOLUME (BEAKER) (test rsqr=576) 90.7 fL 79.0-92.2 MEAN CORPUSCULAR HEMOGLOBIN (BEAKER) (test 29.6 pg 25.7-32.2 szly=068) MEAN CORPUSCULAR HEMOGLOBIN CONC (BEAKER) (test 32.7 GM/DL 32.3-36.5 jtcg=379) RED CELL DISTRIBUTION WIDTH (BEAKER) (test 15.1 % 11.6-14.4 niyu=926) PLATELET COUNT (BEAKER) (test bvsv=764) 94 K/CU MM 150-450 MEAN PLATELET VOLUME (BEAKER) (test ndeg=412) 11.6 fL 9.4-12.4 NUCLEATED RED BLOOD CELLS (BEAKER) (test 2 /100 WBC 0-0 agcf=117) CALCIUM, [id number] 21:05:00 Test Item Value Reference Range Comments CALCIUM IONIZED (BEAKER) (test ukil=731) 1.03 mmol/L 1.12-1.27 PH, BLOOD (BEAKER) (test xfrq=4296) 7.56 POCT-GLUCOSE [id number] 20:57:00 Test Item Value Reference Range Comments POC-GLUCOSE METER (BEAKER) 110 mg/dL 70-110 TESTED AT [address] (test odlz=4063) [place] [address] OXYGEN SATURATION, [id number] 19:00:00 Test Item Value Reference Range Comments O2 SATURATION (MEASURED) (BEAKER) (test fook=2827) 77.0 % [id number] 18:41:00 Test Item Value Reference Range Comments POTASSIUM (BEAKER) (test pqgn=822) 3.3 meq/L 3.5-5.1 [id number] 18:41:00 Test Item Value Reference Range Comments MAGNESIUM (BEAKER) (test oblt=412) 2.1 mg/dL 1.6-2.6 POCT-GLUCOSE [id number] 16:26:00 Test Item Value Reference Range Comments POC-GLUCOSE METER (BEAKER) 112 mg/dL 70-110 TESTED AT [address] (test tbmq=3396) [place] [id number] POCT-GLUCOSE [id number] 13:14:00 Test Item Value Reference Range Comments POC-GLUCOSE METER (BEAKER) 112 mg/dL 70-110 TESTED AT [address] (test zfjg=5828) [place] [address] [id number] 13:12:00 Test Item Value Reference Range Comments POTASSIUM (BEAKER) (test weyb=312) 3.2 meq/L 3.5-5.1 [id number] 13:12:00 Test Item Value Reference Range Comments MAGNESIUM (BEAKER) (test lqox=856) 2.3 mg/dL 1.6-2.6 OXYGEN SATURATION, [id number] 12:35:00 Test Item Value Reference Range Comments O2 SATURATION (MEASURED) (BEAKER) (test yyoc=5701) 70.6 % RAD, CHEST, 1 VIEW, NON [id number] 11:20:00Reason for exam:->post picc line insertionShould this be performed at the bedside?->YesFINAL REPORT Chest one view. Clinical history: post picc line insertion Comparison: 03/03/2017 Discussion: A frontal chest is provided. There is interval placement of a right PICC line, tip projects over the SVC. [place] catheter is in stable position. Cardiomediastinal contours are unchanged. No pneumothorax. No significant effusion. Retrocardiac opacity may reflect atelectasis or consolidation. Signed: Alayna Munoz Verified Date/Time: 11:20:30 Reading Location: [facility] Radiology Reading Room POCT-GLUCOSE [id number] 11:02:00 Test Item Value Reference Range Comments POC-GLUCOSE METER (BEAKER) 127 mg/dL 70-110 TESTED AT [address] (test cjts=4640) [facility] [address] RAD, CHEST, 1 VIEW, NON [id number] 10:25:00Reason for exam:->s/po cabgShould this be performed at the bedside?->YesFINAL REPORT Chest one view. Clinical history: s/po cabg Comparison: 03/02/2017 Discussion: A frontal chest is provided. [place] catheter is in stable position. Cardiomediastinal contours are unchanged. No new consolidation, no pneumothorax, or significant effusion. Signed: Tammy, Alayna MDReport Verified Date/ Time: 03/03/2017 10:25:58 Reading Location: [facility] Radiology Reading Room POCT -GLUCOSE [id number] 09:13:00 Test Item Value Reference Range Comments POC-GLUCOSE METER (BEAKER) 136 mg/dL 70-110 TESTED AT [address] (test uysh=4081) [facility] [address] POCT-GLUCOSE [id number] 07:00:00 Test Item Value Reference Range Comments POC-GLUCOSE METER (BEAKER) 132 mg/dL 70-110 TESTED AT [address] (test qqxa=8757) [facility] [address] POCT-GLUCOSE [id number] 05:36:00 Test Item Value Reference Range Comments POC-GLUCOSE METER (BEAKER) 145 mg/dL 70-110 TESTED AT [address] (test ruom=2160) [facility] [address] POCT-GLUCOSE [id number] 05:36:00 Test Item Value Reference Range Comments POC-GLUCOSE METER (BEAKER) 142 mg/dL 70-110 TESTED AT [address] (test kaqk=4706) [facility] [address] OXYGEN SATURATION, [id number] 05:21:00 Test Item Value Reference Range Comments O2 SATURATION (MEASURED) (BEAKER) (test wxtf=8470) 51.5 % CALCIUM, [id number] 05:13:00 Test Item Value Reference Range Comments CALCIUM IONIZED (BEAKER) (test wxry=800) 1.03 mmol/L 1.12-1.27 PH, BLOOD (BEAKER) (test fklp=2486) 7.48 [id number] 04:09:00 Test Item Value Reference Range Comments MAGNESIUM (BEAKER) (test zgjh=930) 2.2 mg/dL 1.6-2.6 BASIC METABOLIC [id number] 04:09:00 Test Item Value Reference Range Comments SODIUM (BEAKER) (test 141 meq/L 136-145 wkjv=163) POTASSIUM (BEAKER) (test 3.5 meq/L 3.5-5.1 rtqn=232) CHLORIDE (BEAKER) (test 101 meq/L 98-107 wqyk=551) CO2 (BEAKER) (test 26 meq/L 22-29 vuxj=176) BLOOD UREA NITROGEN 69 mg/dL 7-21 (BEAKER) (test bycd=781) CREATININE (BEAKER) (test 2.14 mg/dL 0.57-1.25 rlbi=040) GLUCOSE RANDOM (BEAKER) 126 mg/dL 70-105 (test dyfo=960) CALCIUM (BEAKER) (test 8.0 mg/dL 8.4-10.2 sceo=000) EGFR (BEAKER) (test 30 mL/min/1.73 sq m ESTIMATED GFR IS NOT jmig=1983) ACCURATE CREATININE CLEARANCE IN PREDICTING GLOMERULAR FILTRATION RATE. ESTIMATED GFR IS NOT APPLICABLE FOR DIALYSIS PATIENTS. HEPATIC FUNCTION [id number] 04:09:00 Test Item Value Reference Range Comments TOTAL PROTEIN (BEAKER) (test qpaw=653) 5.4 gm/dL 6.0-8.3 ALBUMIN (BEAKER) (test pazs=9484) 3.0 g/dL 3.5-5.0 BILIRUBIN TOTAL (BEAKER) (test vufc=696) 2.1 mg/dL 0.2-1.2 BILIRUBIN DIRECT (BEAKER) (test ypjt=942) 1.4 mg/dL 0.1-0.5 ALKALINE PHOSPHATASE (BEAKER) (test jehw=322) 56 U/L 40-150 AST (SGOT) (BEAKER) (test xutr=112) 39 U/L 5-34 ALT (SGPT) (BEAKER) (test cvde=873) 22 U/L 6-55 LACTATE DEHYDROGENASE (LDH)2017-03-03 04:09:00 Test Item Value Reference Range Comments LACTATE DEHYDROGENASE (BEAKER) (test ftio=810) 688 U/L 125-220 [id number] 03:58:00 Test Item Value Reference Range Comments PROTIME (BEAKER) (test jlro=265) 17.5 seconds 11.7-14.7 INR (BEAKER) (test yzvv=371) 1.4 <=5.9 PARTIAL THROMBOPLASTIN TIME (BEAKER) (test 37.8 seconds 22.5-36.0 kcsb=834) RECOMMENDED COUMADIN/WARFARIN INR THERAPY RANGESSTANDARD DOSE: 2.0 - 3.0 Includes: PROPHYLAXIS forvenous thrombosis, systemic embolization; TREATMENT for venous thrombosis and/or pulmonary embolus.HIGH RISK: Target INR is 2.5-3.5 for patients with mechanical heart valves.PROTHROMBIN [id number] 03:57: 00 Test Item Value Reference Range Comments PROTIME (BEAKER) (test gevm=086) 17.5 seconds 11.7-14.7 INR (BEAKER) (test yyno=566) 1.4 <=5.9 RECOMMENDED COUMADIN/WARFARIN INR THERAPY RANGESSTANDARD DOSE: 2.0 - 3.0 Includes: PROPHYLAXIS forvenous thrombosis, systemic embolization; TREATMENT for venous thrombosis and/or pulmonary embolus.HIGH RISK: Target INR is 2.5-3.5 for patients with mechanical heart valves.CBC W/PLT COUNT & AUTO [id number] 03:56:00 Test Item Value Reference Range Comments WHITE BLOOD CELL COUNT (BEAKER) (test ypya=912) 17.1 K/ L 3.5-10.5 RED BLOOD CELL COUNT (BEAKER) (test drhu=415) 2.57 M/ L 4.63-6.08 HEMOGLOBIN (BEAKER) (test wffv=184) 7.5 GM/DL 13.7-17.5 HEMATOCRIT (BEAKER) (test yanw=650) 23.4 % 40.1-51.0 MEAN CORPUSCULAR VOLUME (BEAKER) (test uyva=811) 91.1 fL 79.0-92.2 MEAN CORPUSCULAR HEMOGLOBIN (BEAKER) (test 29.2 pg 25.7-32.2 cepg=314) MEAN CORPUSCULAR HEMOGLOBIN CONC (BEAKER) (test 32.1 GM/DL 32.3-36.5 yams=601) RED CELL DISTRIBUTION WIDTH (BEAKER) (test 15.5 % 11.6-14.4 rvjw=111) PLATELET COUNT (BEAKER) (test doyi=966) 77 K/CU MM 150-450 MEAN PLATELET VOLUME (BEAKER) (test zhqc=754) 11.8 fL 9.4-12.4 NUCLEATED RED BLOOD CELLS (BEAKER) (test 3 /100 WBC 0-0 kwvm=071) NEUTROPHILS RELATIVE PERCENT (BEAKER) (test 80 % ngml=226) LYMPHOCYTES RELATIVE PERCENT (BEAKER) (test 6 % oder=124) MONOCYTES RELATIVE PERCENT (BEAKER) (test 13 % wlrh=287) EOSINOPHILS RELATIVE PERCENT (BEAKER) (test 1 % itoy=165) BASOPHILS RELATIVE PERCENT (BEAKER) (test 0 % rsjo=842) NEUTROPHILS ABSOLUTE COUNT (BEAKER) (test 13.62 K/ L 1.78-5.38 uggg=706) LYMPHOCYTES ABSOLUTE COUNT (BEAKER) (test 1.06 K/ L 1.32-3.57 cysu=316) MONOCYTES ABSOLUTE COUNT (BEAKER) (test qveu=558) 2.15 K/ L 0.30-0.82 EOSINOPHILS ABSOLUTE COUNT (BEAKER) (test 0.13 K/ L 0.04-0.54 yecf=990) BASOPHILS ABSOLUTE COUNT (BEAKER) (test cllw=438) 0.02 K/ L 0.01-0.08 IMMATURE GRANULOCYTES-RELATIVE PERCENT (BEAKER) 1 % 0-1 (test zntr=1527) POCT-GLUCOSE [id number] 03:23:00 Test Item Value Reference Range Comments POC-GLUCOSE METER (BEAKER) 133 mg/dL 70-110 TESTED AT [address] (test feoz=2733) [place] [address] POCT-GLUCOSE [id number] 02:07:00 Test Item Value Reference Range Comments POC-GLUCOSE METER (BEAKER) 161 mg/dL 70-110 TESTED AT [address] (test bubm=2989) [place] [address] [id number] 01:02:00 Test Item Value Reference Range Comments POTASSIUM (BEAKER) (test 4.0 meq/L 3.5-5.1 Specimen slightly hemolyzed dibo=651) POCT-GLUCOSE [id number] 00:43:00 Test Item Value Reference Range Comments POC-GLUCOSE METER (BEAKER) 147 mg/dL 70-110 TESTED AT [address] (test tlux=2185) [place] [address] POCT-GLUCOSE [id number] 00:06:00 Test Item Value Reference Range Comments POC-GLUCOSE METER (BEAKER) 172 mg/dL 70-110 TESTED AT [address] (test nhca=0593) [place] [address] [id number] 23:12:00 Test Item Value Reference Range Comments MAGNESIUM (BEAKER) (test xqhe=586) 2.4 mg/dL 1.6-2.6 POCT-GLUCOSE [id number] 23:08:00 Test Item Value Reference Range Comments POC-GLUCOSE METER (BEAKER) 173 mg/dL 70-110 TESTED AT [address] (test zmpg=0703) [facility] [address] RAD, CHEST, 1 VIEW, NON [id number] 23:00:00Reason for exam:->acute pulmonary edemaFINAL REPORT Comparison: 03/02/2017 at 8: 00 AM TECHNIQUE: Single view of the chest FINDINGS: Interval removal of bilateral chest tubes. No other significant change. No gross pneumothorax. Signed: Jonh Machado Verified Date/Time: 03/02/2017 23:00:14 Reading Location: [address] Consult Reading Room BLOOD GAS, [id number] 22:58:00 Test Item Value Reference Range Comments PH ARTERIAL (BEAKER) (test nexf=487) 7.51 7.35-7.45 PCO2 ARTERIAL (BEAKER) (test doek=070) 37 mmHg 35-45 PO2 ARTERIAL (BEAKER) (test xlns=328) 95 mmHg 80-90 O2 SATURATION ARTERIAL (BEAKER) (test qzlo=627) 97.9 % 96.0-97.0 HCO3 ARTERIAL (BEAKER) (test qaop=234) 29 mmol/L 21-29 BASE EXCESS ARTERIAL (BEAKER) (test ekup=749) 5.2 mmol/L -2.0-3.0 PATIENT TEMPERATURE (BEAKER) (test yfcs=1195) 36.8 C FIO2 (BEAKER) (test lswf=2888) 100.0 % CALCIUM, [id number] 22:58:00 Test Item Value Reference Range Comments CALCIUM IONIZED (BEAKER) (test fqcj=265) 1.02 mmol/L 1.12-1.27 PH, BLOOD (BEAKER) (test oulp=6980) 7.51 POCT-GLUCOSE [id number] 21:29:00 Test Item Value Reference Range Comments POC-GLUCOSE METER (BEAKER) 178 mg/dL 70-110 TESTED AT [address] (test mxkb=6423) [facility] [address] [id number] 20:42:00 Test Item Value Reference Range Comments POTASSIUM (BEAKER) (test ucws=394) 4.1 meq/L 3.5-5.1 Check Serum Potassium level 2 hours after oral potassium replacement completed or 30 min after intravenous potassium replacement.CBC (HEMOGRAM ONLY)2017-03-02 20:27:00 Test Item Value Reference Range Comments WHITE BLOOD CELL COUNT (BEAKER) (test suws=550) 16.1 K/ L 3.5-10.5 RED BLOOD CELL COUNT (BEAKER) (test atnz=952) 2.63 M/ L 4.63-6.08 HEMOGLOBIN (BEAKER) (test rdpv=861) 7.8 GM/DL 13.7-17.5 HEMATOCRIT (BEAKER) (test shlu=185) 24.2 % 40.1-51.0 MEAN CORPUSCULAR VOLUME (BEAKER) (test atmu=376) 92.0 fL 79.0-92.2 MEAN CORPUSCULAR HEMOGLOBIN (BEAKER) (test 29.7 pg 25.7-32.2 azhe=137) MEAN CORPUSCULAR HEMOGLOBIN CONC (BEAKER) (test 32.2 GM/DL 32.3-36.5 loax=347) RED CELL DISTRIBUTION WIDTH (BEAKER) (test 15.8 % 11.6-14.4 wibs=409) PLATELET COUNT (BEAKER) (test zdjc=979) 82 K/CU MM 150-450 MEAN PLATELET VOLUME (BEAKER) (test ooaa=592) 11.8 fL 9.4-12.4 NUCLEATED RED BLOOD CELLS (BEAKER) (test 2 /100 WBC 0-0 sqnf=846) POCT-GLUCOSE [id number] 20:16:00 Test Item Value Reference Range Comments POC-GLUCOSE METER (BEAKER) 203 mg/dL 70-110 TESTED AT [address] (test muez=6026) [place] [id number] POCT-GLUCOSE [id number] 18:55:00 Test Item Value Reference Range Comments POC-GLUCOSE METER (BEAKER) 154 mg/dL 70-110 TESTED AT [address] (test nwcf=6046) [place] [id number] 17:41:00 Test Item Value Reference Range Comments MAGNESIUM (BEAKER) (test gwyv=737) 2.1 mg/dL 1.6-2.6 [id number] 17:41:00 Test Item Value Reference Range Comments POTASSIUM (BEAKER) (test jcjf=788) 3.6 meq/L 3.5-5.1 BASIC METABOLIC [id number] 17:41:00 Test Item Value Reference Range Comments SODIUM (BEAKER) (test 146 meq/L 136-145 dqco=269) POTASSIUM (BEAKER) (test 3.6 meq/L 3.5-5.1 bdav=239) CHLORIDE (BEAKER) (test 107 meq/L 98-107 gzev=744) CO2 (BEAKER) (test 26 meq/L 22-29 ibie=492) BLOOD UREA NITROGEN 65 mg/dL 7-21 (BEAKER) (test wtqd=640) CREATININE (BEAKER) (test 2.05 mg/dL 0.57-1.25 truo=015) GLUCOSE RANDOM (BEAKER) 118 mg/dL 70-105 (test vptc=658) CALCIUM (BEAKER) (test 7.7 mg/dL 8.4-10.2 srkt=609) EGFR (BEAKER) (test 32 mL/min/1.73 sq m ESTIMATED GFR IS NOT zsjh=4648) ACCURATE CREATININE CLEARANCE IN PREDICTING GLOMERULAR FILTRATION RATE. ESTIMATED GFR IS NOT APPLICABLE FOR DIALYSIS PATIENTS. LACTIC ACID, ARTERIAL, WHOLE [id number] 17:39:00 Test Item Value Reference Range Comments LACTATE BLOOD ARTERIAL (2) (BEAKER) (test 1.2 mmol/L 0.5-2.2 jhuk=8217) Effective 09/12/2015: Units/Reference Range ChangeNew: 0.5-2.2 mmol/L Previous: 5 -20 mg/dLPOCT-GLUCOSE [id number] 16:59:00 Test Item Value Reference Range Comments POC-GLUCOSE METER (BEAKER) 135 mg/dL 70-110 TESTED AT [facility] [address] (test ronk=3497) [facility] [address] HEMOGLOBIN AND [id number] 16:50:00 Test Item Value Reference Range Comments HEMOGLOBIN (BEAKER) (test jixn=820) 8.0 g/dL 13.0-16.8 HEMATOCRIT (BEAKER) (test lqkx=351) 24.0 % 40.0-50.0 CALCIUM, [id number] 16:48:00 Test Item Value Reference Range Comments CALCIUM IONIZED (BEAKER) (test yoml=589) 0.96 mmol/L 1.12-1.27 PH, BLOOD (BEAKER) (test qbbp=4204) 7.48 OXYGEN SATURATION, [id number] 16:48:00 Test Item Value Reference Range Comments O2 SATURATION (MEASURED) (BEAKER) (test vmsf=5133) 46.5 % POCT-GLUCOSE [id number] 13:38:00 Test Item Value Reference Range Comments POC-GLUCOSE METER (BEAKER) 187 mg/dL 70-110 TESTED AT [address] (test izyj=4382) [facility] [address] POCT-GLUCOSE [id number] 13:38:00 Test Item Value Reference Range Comments POC-GLUCOSE METER (BEAKER) 110 mg/dL 70-110 TESTED AT [address] (test hvta=5530) [facility] [address] OXYGEN SATURATION, [id number] 09:23:00 Test Item Value Reference Range Comments O2 SATURATION (MEASURED) (BEAKER) (test mrjv=4945) 47.2 % LACTIC ACID, ARTERIAL, WHOLE [id number] 09:15:00 Test Item Value Reference Range Comments LACTATE BLOOD ARTERIAL (2) (BEAKER) (test 0.9 mmol/L 0.5-2.2 scij=7259) Effective 09/12/2015: Units/Reference Range ChangeNew: 0.5-2.2 mmol/L Previous: 5 -20 mg/dLGLUCOSE-STAT [id number] 09:01:00 Test Item Value Reference Range Comments GLUCOSE RANDOM (BEAKER) (test ryby=912) 99 mg/dL 70-110 BLOOD GAS, [id number] 09:01:00 Test Item Value Reference Range Comments PH ARTERIAL (BEAKER) (test kdlu=179) 7.50 7.35-7.45 PCO2 ARTERIAL (BEAKER) (test tqca=386) 42 mmHg 35-45 PO2 ARTERIAL (BEAKER) (test ixqs=395) 169 mmHg 80-90 O2 SATURATION ARTERIAL (BEAKER) (test yxss=858) 99.3 % 96.0-97.0 HCO3 ARTERIAL (BEAKER) (test iolg=131) 32 mmol/L 21-29 BASE EXCESS ARTERIAL (BEAKER) (test bjhd=336) 8.0 mmol/L -2.0-3.0 PATIENT TEMPERATURE (BEAKER) (test oycv=8986) 36.9 C FIO2 (BEAKER) (test hamx=8829) 100.0 % RAD, CHEST, 1 VIEW, NON [id number] 08:13:00Reason for exam:->eval pulmonary edema/atelectasisFINAL REPORT Chest [...] MDReport Verified Date/Time: 03/02/2017 08:13:35 Reading Location: [facility] Radiology Reading Room RAD, CHEST, 1 VIEW, NON [id number] 06:26:00Reason for exam:->s/po cabgShould this be performed [...] MDReport Verified Date/Time: 03/02/2017 06:26:05 Reading Location: [facility] B1 C013Y CT Body Reading Room VANCOMYCIN LEVEL, [id number] 04:57:00 Test Item Value Reference Range Comments VANCOMYCIN RANDOM (BEAKER) (test ikzw=335) 27.4 ug/mL Reference Range: No NormalsCBC W/PLT COUNT & AUTO [id number] 04: 57:00 Test Item Value Reference Range Comments WHITE BLOOD CELL COUNT (BEAKER) (test dstf=938) 15.1 K/ L 3.5-10.5 RED BLOOD CELL COUNT (BEAKER) (test tlcl=081) 2.80 M/ L 4.63-6.08 HEMOGLOBIN (BEAKER) (test eego=647) 8.0 GM/DL 13.7-17.5 HEMATOCRIT (BEAKER) (test yegu=255) 25.6 % 40.1-51.0 MEAN CORPUSCULAR VOLUME (BEAKER) (test rosp=922) 91.4 fL 79.0-92.2 MEAN CORPUSCULAR HEMOGLOBIN (BEAKER) (test 28.6 pg 25.7-32.2 lmck=747) MEAN CORPUSCULAR HEMOGLOBIN CONC (BEAKER) (test 31.3 GM/DL 32.3-36.5 fgny=058) RED CELL DISTRIBUTION WIDTH (BEAKER) (test 15.7 % 11.6-14.4 nvtb=030) PLATELET COUNT (BEAKER) (test jbsk=248) 89 K/CU MM 150-450 MEAN PLATELET VOLUME (BEAKER) (test ggcc=723) 11.9 fL 9.4-12.4 NUCLEATED RED BLOOD CELLS (BEAKER) (test 1 /100 WBC 0-0 qdcg=758) NEUTROPHILS RELATIVE PERCENT (BEAKER) (test 82 % xybw=626) LYMPHOCYTES RELATIVE PERCENT (BEAKER) (test 5 % wwmm=889) MONOCYTES RELATIVE PERCENT (BEAKER) (test 12 % ryat=933) EOSINOPHILS RELATIVE PERCENT (BEAKER) (test 0 % dggo=280) BASOPHILS RELATIVE PERCENT (BEAKER) (test 0 % vqzb=619) NEUTROPHILS ABSOLUTE COUNT (BEAKER) (test 12.37 K/ L 1.78-5.38 totk=235) LYMPHOCYTES ABSOLUTE COUNT (BEAKER) (test 0.78 K/ L 1.32-3.57 yjiw=381) MONOCYTES ABSOLUTE COUNT (BEAKER) (test xgvq=677) 1.79 K/ L 0.30-0.82 EOSINOPHILS ABSOLUTE COUNT (BEAKER) (test 0.01 K/ L 0.04-0.54 rpyv=586) BASOPHILS ABSOLUTE COUNT (BEAKER) (test wumg=178) 0.02 K/ L 0.01-0.08 IMMATURE GRANULOCYTES-RELATIVE PERCENT (BEAKER) 1 % 0-1 (test qzih=7645) [id number] 04:55:00 Test Item Value Reference Range Comments PROTIME (BEAKER) (test lbvx=208) 18.2 seconds 11.7-14.7 INR (BEAKER) (test ilds=656) 1.5 <=5.9 PARTIAL THROMBOPLASTIN TIME (BEAKER) (test 37.0 seconds 22.5-36.0 thdf=296) RECOMMENDED COUMADIN/WARFARIN INR THERAPY RANGESSTANDARD DOSE: 2.0 - 3.0 Includes: PROPHYLAXIS forvenous thrombosis, systemic embolization; TREATMENT for venous thrombosis and/or pulmonary embolus.HIGH RISK: Target INR is 2.5-3.5 for patients with mechanical heart valves.BASIC METABOLIC [id number] 04:54: 00 Test Item Value Reference Range Comments SODIUM (BEAKER) (test 149 meq/L 136-145 omjq=214) POTASSIUM (BEAKER) (test 4.1 meq/L 3.5-5.1 Specimen slightly igzb=786) hemolyzed CHLORIDE (BEAKER) (test 106 meq/L 98-107 eukh=045) CO2 (BEAKER) (test 30 meq/L 22-29 lvfn=350) BLOOD UREA NITROGEN 62 mg/dL 7-21 (BEAKER) (test txug=355) CREATININE (BEAKER) (test 2.04 mg/dL 0.57-1.25 Specimen slightly uuob=415) hemolyzed GLUCOSE RANDOM (BEAKER) 121 mg/dL 70-105 (test fmyt=620) CALCIUM (BEAKER) (test 8.0 mg/dL 8.4-10.2 hmrk=139) EGFR (BEAKER) (test 32 mL/min/1.73 sq m ESTIMATED GFR IS NOT jkwz=6472) ACCURATE CREATININE CLEARANCE IN PREDICTING GLOMERULAR FILTRATION RATE. ESTIMATED GFR IS NOT APPLICABLE FOR DIALYSIS PATIENTS. Specimen slightly ictericHEPATIC FUNCTION [id number] 04:54:00 Test Item Value Reference Range Comments TOTAL PROTEIN (BEAKER) (test 6.1 gm/dL 6.0-8.3 Specimen slightly hemolyzed jruq=886) ALBUMIN (BEAKER) (test 3.2 g/dL 3.5-5.0 Specimen slightly hemolyzed vzss=1584) BILIRUBIN TOTAL (BEAKER) (test 3.1 mg/dL 0.2-1.2 Specimen slightly hemolyzed ynji=061) BILIRUBIN DIRECT (BEAKER) (test 1.5 mg/dL 0.1-0.5 Specimen slightly hemolyzed aphu=151) ALKALINE PHOSPHATASE (BEAKER) 50 U/L 40-150 (test aqvo=261) AST (SGOT) (BEAKER) (test 58 U/L 5-34 Specimen slightly hemolyzed bshx=596) ALT (SGPT) (BEAKER) (test 23 U/L 6-55 Specimen slightly hemolyzed yzhc=439) Specimen slightly ictericLACTATE DEHYDROGENASE (LDH)2017-03-02 04:54:00 Test Item Value Reference Range Comments LACTATE DEHYDROGENASE (BEAKER) 877 U/L 125-220 Specimen slightly hemolyzed (test tyne=417) GLUCOSE-STAT [id number] 04:48:00 Test Item Value Reference Range Comments GLUCOSE RANDOM (BEAKER) (test oihx=304) 112 mg/dL 70-110 CALCIUM, [id number] 04:47:00 Test Item Value Reference Range Comments CALCIUM IONIZED (BEAKER) (test kklx=607) 0.97 mmol/L 1.12-1.27 PH, BLOOD (BEAKER) (test rndc=7687) 7.47 OXYGEN SATURATION, [id number] 04:46:00 Test Item Value Reference Range Comments O2 SATURATION (MEASURED) (BEAKER) (test detu=9844) 55.3 % POCT-GLUCOSE [id number] 03:51:00 Test Item Value Reference Range Comments POC-GLUCOSE METER (BEAKER) 118 mg/dL 70-110 TESTED AT [facility] [address] (test qvbq=9312) [facility] [address] POCT-GLUCOSE [id number] 00:07:00 Test Item Value Reference Range Comments POC-GLUCOSE METER (BEAKER) 137 mg/dL 70-110 TESTED AT [address] (test ftym=7819) [facility] [address] POCT-GLUCOSE [id number] 22:02:00 Test Item Value Reference Range Comments POC-GLUCOSE METER (BEAKER) 156 mg/dL 70-110 TESTED AT [address] (test eeva=7301) [facility] [address] POCT-GLUCOSE [id number] 20:52:00 Test Item Value Reference Range Comments POC-GLUCOSE METER (BEAKER) 150 mg/dL 70-110 TESTED AT [address] (test laxo=5774) [facility] [address] CBC W/PLT COUNT & AUTO [id number] 20:14:00 Test Item Value Reference Range Comments WHITE BLOOD CELL COUNT (BEAKER) (test qwbi=563) 14.4 K/ L 3.5-10.5 RED BLOOD CELL COUNT (BEAKER) (test ityu=578) 2.54 M/ L 4.63-6.08 HEMOGLOBIN (BEAKER) (test ssqo=993) 7.7 GM/DL 13.7-17.5 HEMATOCRIT (BEAKER) (test aqkg=504) 23.4 % 40.1-51.0 MEAN CORPUSCULAR VOLUME (BEAKER) (test nwoc=467) 92.1 fL 79.0-92.2 MEAN CORPUSCULAR HEMOGLOBIN (BEAKER) (test 30.3 pg 25.7-32.2 dotu=002) MEAN CORPUSCULAR HEMOGLOBIN CONC (BEAKER) (test 32.9 GM/DL 32.3-36.5 rqap=300) RED CELL DISTRIBUTION WIDTH (BEAKER) (test 15.4 % 11.6-14.4 tpgd=538) PLATELET COUNT (BEAKER) (test vicn=143) 89 K/CU MM 150-450 MEAN PLATELET VOLUME (BEAKER) (test ccbk=862) 10.9 fL 9.4-12.4 NUCLEATED RED BLOOD CELLS (BEAKER) (test 1 /100 WBC 0-0 ghik=432) NEUTROPHILS RELATIVE PERCENT (BEAKER) (test 80 % lppt=136) LYMPHOCYTES RELATIVE PERCENT (BEAKER) (test 6 % kmgg=872) MONOCYTES RELATIVE PERCENT (BEAKER) (test 13 % fdea=350) EOSINOPHILS RELATIVE PERCENT (BEAKER) (test 0 % qfbf=864) BASOPHILS RELATIVE PERCENT (BEAKER) (test 0 % geit=874) NEUTROPHILS ABSOLUTE COUNT (BEAKER) (test 11.49 K/ L 1.78-5.38 dzan=933) LYMPHOCYTES ABSOLUTE COUNT (BEAKER) (test 0.92 K/ L 1.32-3.57 mvqi=417) MONOCYTES ABSOLUTE COUNT (BEAKER) (test mpwy=517) 1.87 K/ L 0.30-0.82 EOSINOPHILS ABSOLUTE COUNT (BEAKER) (test 0.00 K/ L 0.04-0.54 kjkd=713) BASOPHILS ABSOLUTE COUNT (BEAKER) (test tsgv=833) 0.02 K/ L 0.01-0.08 IMMATURE GRANULOCYTES-RELATIVE PERCENT (BEAKER) 1 % 0-1 (test oora=1652) (MANUAL DIFFERENTIAL)2017-03-01 20:14:00 Test Item Value Reference Range Comments TOTAL COUNTED (BEAKER) (test wryv=2130) WBC MORPHOLOGY (BEAKER) (test ckhu=937) Normal PLT MORPHOLOGY (BEAKER) (test odfy=172) Normal RBC MORPHOLOGY (BEAKER) (test wvfc=220) Normal OXYGEN SATURATION, [id number] 19:51:00 Test Item Value Reference Range Comments O2 SATURATION (MEASURED) (BEAKER) (test wbso=4268) 58.4 % CALCIUM, [id number] 19:37:00 Test Item Value Reference Range Comments CALCIUM IONIZED (BEAKER) (test izsu=346) 1.00 mmol/L 1.12-1.27 PH, BLOOD (BEAKER) (test alkl=1420) 7.53 OXYGEN SATURATION, [id number] 19:08:00 Test Item Value Reference Range Comments O2 SATURATION (MEASURED) (BEAKER) (test jwnu=0191) 58.9 % LACTIC ACID, ARTERIAL, WHOLE [id number] 18:33:00 Test Item Value Reference Range Comments LACTATE BLOOD ARTERIAL (2) (BEAKER) (test 1.5 mmol/L 0.5-2.2 jsik=5327) Effective 09/12/2015: Units/Reference Range ChangeNew: 0.5-2.2 mmol/L Previous: 5 -20 mg/[id number] 18:11:00 Test Item Value Reference Range Comments POTASSIUM (BEAKER) (test swqe=575) 3.8 meq/L 3.5-5.1 OXYGEN SATURATION, [id number] 18:01:00 Test Item Value Reference Range Comments O2 SATURATION (MEASURED) (BEAKER) (test qarj=9221) 98.1 % HEMOGLOBIN AND [id number] 17:59:00 Test Item Value Reference Range Comments HEMOGLOBIN (BEAKER) (test plnq=843) 7.4 GM/DL 13.7-17.5 HEMATOCRIT (BEAKER) (test thxi=609) 23.2 % 40.1-51.0 POCT-GLUCOSE [id number] 17:05:00 Test Item Value Reference Range Comments POC-GLUCOSE METER (BEAKER) 146 mg/dL 70-110 TESTED AT [address] (test srcp=7822) [facility] [address] POCT-GLUCOSE [id number] 15:53:00 Test Item Value Reference Range Comments POC-GLUCOSE METER (BEAKER) 146 mg/dL 70-110 TESTED AT [address] (test vbrs=7386) [facility] [address] URINALYSIS W/ REFLEX URINE [id number] 15:05:00 Test Item Value Reference Range Comments COLOR (BEAKER) (test qgpx=589) Light Yellow CLARITY (BEAKER) (test gvdu=214) Clear SPECIFIC GRAVITY UA (BEAKER) (test rfts=400) 1.006 1.001-1.035 PH UA (BEAKER) (test bowi=778) 5.5 5.0-8.0 PROTEIN UA (BEAKER) (test aean=250) Negative Negative GLUCOSE UA (BEAKER) (test cbrp=985) Negative Negative KETONES UA (BEAKER) (test edxt=229) Negative Negative BILIRUBIN UA (BEAKER) (test iuxe=864) Negative Negative BLOOD UA (BEAKER) (test gkew=746) Moderate Negative NITRITE UA (BEAKER) (test gygm=131) Negative Negative LEUKOCYTE ESTERASE UA (BEAKER) (test llxp=104) Negative Negative UROBILINOGEN UA (BEAKER) (test trrr=411) 0.2 mg/dL 0.2-1.0 RBC UA (BEAKER) (test hzjo=635) 1 /HPF WBC UA (BEAKER) (test ppxt=030) 2 /HPF BACTERIA (BEAKER) (test cbvt=046) Occasional MUCUS (BEAKER) (test ymtt=9036) Rare SQUAMOUS EPITHELIAL (BEAKER) (test qxvl=952) < /HPF HYALINE CASTS (BEAKER) (test qbkn=172) 2 /LPF SOURCE(BEAKER) (test nech=8024) BASIC METABOLIC [id number] 14:10:00 Test Item Value Reference Range Comments SODIUM (BEAKER) (test 149 meq/L 136-145 axhi=825) POTASSIUM (BEAKER) (test 4.0 meq/L 3.5-5.1 dffu=234) CHLORIDE (BEAKER) (test 105 meq/L 98-107 swfu=315) CO2 (BEAKER) (test 31 meq/L 22-29 uwaq=233) BLOOD UREA NITROGEN 51 mg/dL 7-21 (BEAKER) (test nnar=465) CREATININE (BEAKER) (test 1.97 mg/dL 0.57-1.25 onkk=166) GLUCOSE RANDOM (BEAKER) 128 mg/dL 70-105 (test lslf=119) CALCIUM (BEAKER) (test 8.5 mg/dL 8.4-10.2 vmgw=554) EGFR (BEAKER) (test 33 mL/min/1.73 sq m ESTIMATED GFR IS NOT rcgs=7081) ACCURATE CREATININE CLEARANCE IN PREDICTING GLOMERULAR FILTRATION RATE. ESTIMATED GFR IS NOT APPLICABLE FOR DIALYSIS PATIENTS. Specimen slightly ictericPOCT-GLUCOSE [id number] 13:38:00 Test Item Value Reference Range Comments POC-GLUCOSE METER (BEAKER) 119 mg/dL 70-110 TESTED AT [address] (test otpy=6023) [place] [id number] POCT-GLUCOSE [id number] 13:38:00 Test Item Value Reference Range Comments POC-GLUCOSE METER (BEAKER) 112 mg/dL 70-110 TESTED AT [address] (test hytq=2313) [place] [address] POCT-GLUCOSE [id number] 13:38:00 Test Item Value Reference Range Comments POC-GLUCOSE METER (BEAKER) 106 mg/dL 70-110 TESTED AT [address] (test utwg=2516) [place] [address] POCT-GLUCOSE [id number] 13:38:00 Test Item Value Reference Range Comments POC-GLUCOSE METER (BEAKER) 123 mg/dL 70-110 TESTED AT [address] (test xdbm=0020) [place] [id number] VANCOMYCIN LEVEL, [id number] 12:53:00 Test Item Value Reference Range Comments VANCOMYCIN TROUGH (BEAKER) (test laep=687) 39.8 ug/mL 10.0-20.0 BLOOD GAS, [id number] 12:07:00 Test Item Value Reference Range Comments PH ARTERIAL (BEAKER) (test otrh=074) 7.56 7.35-7.45 PCO2 ARTERIAL (BEAKER) (test rbvk=923) 38 mmHg 35-45 PO2 ARTERIAL (BEAKER) (test fogo=550) 104 mmHg 80-90 O2 SATURATION ARTERIAL (BEAKER) (test qlke=168) 98.3 % 96.0-97.0 HCO3 ARTERIAL (BEAKER) (test fadv=222) 33 mmol/L 21-29 BASE EXCESS ARTERIAL (BEAKER) (test gifr=888) 9.9 mmol/L -2.0-3.0 PATIENT TEMPERATURE (BEAKER) (test fivs=0274) 37.0 C FIO2 (BEAKER) (test yfxd=9097) 100.0 % HGB/HCT (H&H) - STAT [id number] 12:07:00 Test Item Value Reference Range Comments HEMOGLOBIN (BEAKER) (test foas=075) 9.2 g/dL 13.0-16.8 HEMATOCRIT (BEAKER) (test zhzs=822) 27.0 % 40.0-50.0 SODIUM NA-STAT [id number] 12:05:00 Test Item Value Reference Range Comments SODIUM (BEAKER) (test jexo=729) 145 meq/L 135-148 POCT-GLUCOSE [id number] 09:28:00 Test Item Value Reference Range Comments POC-GLUCOSE METER (BEAKER) 131 mg/dL 70-110 TESTED AT [address] (test axta=8831) [place] [id number] CBC W/PLT COUNT & AUTO [id number] 08:05:00 Test Item Value Reference Range Comments WHITE BLOOD CELL COUNT (BEAKER) (test fmlm=720) 16.1 K/ L 3.5-10.5 RED BLOOD CELL COUNT (BEAKER) (test vwfj=709) 2.94 M/ L 4.63-6.08 HEMOGLOBIN (BEAKER) (test uycp=909) 8.8 GM/DL 13.7-17.5 HEMATOCRIT (BEAKER) (test zydo=663) 26.5 % 40.1-51.0 MEAN CORPUSCULAR VOLUME (BEAKER) (test nitr=539) 90.1 fL 79.0-92.2 MEAN CORPUSCULAR HEMOGLOBIN (BEAKER) (test 29.9 pg 25.7-32.2 jbax=884) MEAN CORPUSCULAR HEMOGLOBIN CONC (BEAKER) (test 33.2 GM/DL 32.3-36.5 tzyz=808) RED CELL DISTRIBUTION WIDTH (BEAKER) (test 15.7 % 11.6-14.4 ogbz=942) PLATELET COUNT (BEAKER) (test cnee=659) 119 K/CU MM 150-450 MEAN PLATELET VOLUME (BEAKER) (test atqv=367) 11.3 fL 9.4-12.4 NUCLEATED RED BLOOD CELLS (BEAKER) (test 1 /100 WBC 0-0 xmfz=965) IMMATURE GRANULOCYTES-RELATIVE PERCENT (BEAKER) 1 % 0-1 (test yskp=9567) (MANUAL DIFFERENTIAL)2017-03-01 08:05:00 Test Item Value Reference Range Comments NEUTROPHILS - REL (DIFF) (BEAKER) (test 80 % xlzg=5965) LYMPHOCYTES - REL (DIFF) (BEAKER) (test 5 % bkzu=3133) MONOCYTES - REL (DIFF) (BEAKER) (test xwry=3694) 8 % BANDS - REL (DIFF) (BEAKER) (test tfrg=5491) 7 % 0-10 NEUTROPHILS - ABS (DIFF) (BEAKER) (test 12.88 K/ L 1.80-8.00 vhbd=1011) LYMPHOCYTES - ABS (DIFF) (BEAKER) (test 0.81 K/ L 1.48-4.50 gtop=7188) MONOCYTES - ABS (DIFF) (BEAKER) (test uudi=8790) 1.29 K/ L 0.00-1.30 BANDS-ABS (DIFF) (BEAKER) (test qibc=1250) 1.1 K/ L 0.0-0.8 TOTAL COUNTED (BEAKER) (test xmms=1982) 100 BANDS + SEGMENTED NEUTROPHILS (BEAKER) (test 14.01 psdz=6835) MANUAL NRBC PER 100 CELLS (BEAKER) (test 2 /100 WBC 0-0 stkj=0355) WBC MORPHOLOGY (BEAKER) (test bdse=145) Normal PLT MORPHOLOGY (BEAKER) (test ylnx=707) Normal RBC MORPHOLOGY (BEAKER) (test timf=150) Normal POCT-GLUCOSE [id number] 06:45:00 Test Item Value Reference Range Comments POC-GLUCOSE METER (BEAKER) 183 mg/dL 70-110 TESTED AT [facility] [address] (test bzbg=3273) [facility] [address] RAD, CHEST, 1 VIEW, NON [id number] 06:37:00Reason for exam:->s/po cabgShould this be performed [...] MDReport Verified Date/Time: 03/01/2017 06:37:36 Reading Location: [facility] C013Y CT Body Reading Room [id number] 04: 52:00 Test Item Value Reference Range Comments MAGNESIUM (BEAKER) (test dqwk=426) 2.1 mg/dL 1.6-2.6 BASIC METABOLIC [id number] 04:52:00 Test Item Value Reference Range Comments SODIUM (BEAKER) (test 145 meq/L 136-145 uyar=451) POTASSIUM (BEAKER) (test 3.9 meq/L 3.5-5.1 quuc=045) CHLORIDE (BEAKER) (test 104 meq/L 98-107 svzz=488) CO2 (BEAKER) (test 31 meq/L 22-29 mcgk=086) BLOOD UREA NITROGEN 47 mg/dL 7-21 (BEAKER) (test elcg=023) CREATININE (BEAKER) (test 1.90 mg/dL 0.57-1.25 bwdu=793) GLUCOSE RANDOM (BEAKER) 138 mg/dL 70-105 (test vthq=148) CALCIUM (BEAKER) (test 8.4 mg/dL 8.4-10.2 mgzc=995) EGFR (BEAKER) (test 35 mL/min/1.73 sq m ESTIMATED GFR IS NOT qpdf=6954) ACCURATE CREATININE CLEARANCE IN PREDICTING GLOMERULAR FILTRATION RATE. ESTIMATED GFR IS NOT APPLICABLE FOR DIALYSIS PATIENTS. Specimen slightly ictericLACTATE DEHYDROGENASE (LDH)2017-03-01 04:52:00 Test Item Value Reference Range Comments LACTATE DEHYDROGENASE (BEAKER) (test pubo=140) 940 U/L 125-220 [id number] 04:30:00 Test Item Value Reference Range Comments PROTIME (BEAKER) (test yhjt=017) 16.9 seconds 11.7-14.7 INR (BEAKER) (test bngf=098) 1.4 <=5.9 PARTIAL THROMBOPLASTIN TIME (BEAKER) (test 28.2 seconds 22.5-36.0 tucd=682) RECOMMENDED COUMADIN/WARFARIN INR THERAPY RANGESSTANDARD DOSE: 2.0 - 3.0 Includes: PROPHYLAXIS forvenous thrombosis, systemic embolization; TREATMENT for venous thrombosis and/or pulmonary embolus.HIGH RISK: Target INR is 2.5-3.5 for patients with mechanical heart valves.PROTHROMBIN [id number] 04:29: 00 Test Item Value Reference Range Comments PROTIME (BEAKER) (test marw=105) 16.9 seconds 11.7-14.7 INR (BEAKER) (test knlz=997) 1.4 <=5.9 RECOMMENDED COUMADIN/WARFARIN INR THERAPY RANGESSTANDARD DOSE: 2.0 - 3.0 Includes: PROPHYLAXIS forvenous thrombosis, systemic embolization; TREATMENT for venous thrombosis and/or pulmonary embolus.HIGH RISK: Target INR is 2.5-3.5 for patients with mechanical heart valves.POCT-GLUCOSE [id number] 04:12:00 Test Item Value Reference Range Comments POC-GLUCOSE METER (BEAKER) 151 mg/dL 70-110 TESTED AT [address] (test wezw=8172) [facility] [address] POCT-GLUCOSE [id number] 02:41:00 Test Item Value Reference Range Comments POC-GLUCOSE METER (BEAKER) 145 mg/dL 70-110 TESTED AT [address] (test crvg=9652) [facility] [address] POCT-GLUCOSE [id number] 00:27:00 Test Item Value Reference Range Comments POC-GLUCOSE METER (BEAKER) 145 mg/dL 70-110 TESTED AT [address] (test coue=3237) [facility] [address] POCT-GLUCOSE [id number] 18:47:00 Test Item Value Reference Range Comments POC-GLUCOSE METER (BEAKER) 159 mg/dL 70-110 TESTED AT [address] (test yjge=8315) [facility] [address] POCT-GLUCOSE [id number] 17:13:00 Test Item Value Reference Range Comments POC-GLUCOSE METER (BEAKER) 147 mg/dL 70-110 TESTED AT [address] (test hjfq=6707) [facility] [address] POCT-GLUCOSE [id number] 15:28:00 Test Item Value Reference Range Comments POC-GLUCOSE METER (BEAKER) 135 mg/dL 70-110 TESTED AT [address] (test tjtw=6327) [facility] [address] POCT-GLUCOSE [id number] 13:32:00 Test Item Value Reference Range Comments POC-GLUCOSE METER (BEAKER) 140 mg/dL 70-110 TESTED AT [address] (test smia=6127) [facility] [address] POCT-GLUCOSE [id number] 13:32:00 Test Item Value Reference Range Comments POC-GLUCOSE METER (BEAKER) 118 mg/dL 70-110 TESTED AT [address] (test bxhc=5663) [facility] [address] POCT-GLUCOSE [id number] 10:37:00 Test Item Value Reference Range Comments POC-GLUCOSE METER (BEAKER) 102 mg/dL 70-110 TESTED AT [address] (test phks=2951) [place] [id number] POCT-GLUCOSE [id number] 09:19:00 Test Item Value Reference Range Comments POC-GLUCOSE METER (BEAKER) 136 mg/dL 70-110 TESTED AT [address] (test vfmk=6957) [place] [address] POCT-GLUCOSE [id number] 08:11:00 Test Item Value Reference Range Comments POC-GLUCOSE METER (BEAKER) 150 mg/dL 70-110 TESTED AT [address] (test sypz=5820) [place] [address] POCT-GLUCOSE [id number] 07:32:00 Test Item Value Reference Range Comments POC-GLUCOSE METER (BEAKER) 131 mg/dL 70-110 TESTED AT [address] (test qajt=2630) [place] [address] POCT-GLUCOSE [id number] 07:32:00 Test Item Value Reference Range Comments POC-GLUCOSE METER (BEAKER) 147 mg/dL 70-110 TESTED AT [address] (test njxa=0917) [place] [id number] BASIC METABOLIC [id number] 06:26:00 Test Item Value Reference Range Comments SODIUM (BEAKER) (test 143 meq/L 136-145 mvyi=403) POTASSIUM (BEAKER) (test 4.5 meq/L 3.5-5.1 vfcd=501) CHLORIDE (BEAKER) (test 109 meq/L 98-107 vqxz=146) CO2 (BEAKER) (test 26 meq/L 22-29 vopl=132) BLOOD UREA NITROGEN 45 mg/dL 7-21 (BEAKER) (test ilkz=628) CREATININE (BEAKER) (test 1.89 mg/dL 0.57-1.25 xhhe=433) GLUCOSE RANDOM (BEAKER) 138 mg/dL 70-105 (test wjfq=369) CALCIUM (BEAKER) (test 7.9 mg/dL 8.4-10.2 jdov=684) EGFR (BEAKER) (test 35 mL/min/1.73 sq m ESTIMATED GFR IS NOT zxzi=5325) ACCURATE CREATININE CLEARANCE IN PREDICTING GLOMERULAR FILTRATION RATE. ESTIMATED GFR IS NOT APPLICABLE FOR DIALYSIS PATIENTS. [id number] 06:25:00 Test Item Value Reference Range Comments MAGNESIUM (BEAKER) (test aigy=608) 2.4 mg/dL 1.6-2.6 HEPATIC FUNCTION [id number] 06:25:00 Test Item Value Reference Range Comments TOTAL PROTEIN (BEAKER) (test duuz=429) 4.8 gm/dL 6.0-8.3 ALBUMIN (BEAKER) (test oeol=6622) 2.8 g/dL 3.5-5.0 BILIRUBIN TOTAL (BEAKER) (test pxha=393) 2.4 mg/dL 0.2-1.2 BILIRUBIN DIRECT (BEAKER) (test sgqu=971) 1.8 mg/dL 0.1-0.5 ALKALINE PHOSPHATASE (BEAKER) (test bptd=355) 44 U/L 40-150 AST (SGOT) (BEAKER) (test afml=830) 161 U/L 5-34 ALT (SGPT) (BEAKER) (test ihav=475) 35 U/L 6-55 LACTATE DEHYDROGENASE (LDH)2017-02-28 06:25:00 Test Item Value Reference Range Comments LACTATE DEHYDROGENASE (BEAKER) (test xucv=544) 989 U/L 125-220 [id number] 06:19:00 Test Item Value Reference Range Comments GLUCOSE RANDOM (BEAKER) (test omkn=801) 137 mg/dL 70-105 PRN - repeat glucose levels every 1 hour or as specified by insulin titration orders until glucose level is less than 450 mg/dLCBC W/PLT COUNT & AUTO [id number] 06:07:00 Test Item Value Reference Range Comments WHITE BLOOD CELL COUNT (BEAKER) (test lxbg=317) 14.3 K/ L 3.5-10.5 RED BLOOD CELL COUNT (BEAKER) (test ulhm=892) 2.76 M/ L 4.63-6.08 HEMOGLOBIN (BEAKER) (test bwbo=959) 8.3 GM/DL 13.7-17.5 HEMATOCRIT (BEAKER) (test sfuk=899) 24.4 % 40.1-51.0 MEAN CORPUSCULAR VOLUME (BEAKER) (test fxix=051) 88.4 fL 79.0-92.2 MEAN CORPUSCULAR HEMOGLOBIN (BEAKER) (test 30.1 pg 25.7-32.2 ovpi=406) MEAN CORPUSCULAR HEMOGLOBIN CONC (BEAKER) (test 34.0 GM/DL 32.3-36.5 iinj=715) RED CELL DISTRIBUTION WIDTH (BEAKER) (test 16.0 % 11.6-14.4 tqtl=522) PLATELET COUNT (BEAKER) (test ffhg=372) 114 K/CU MM 150-450 MEAN PLATELET VOLUME (BEAKER) (test pavc=000) 10.9 fL 9.4-12.4 NUCLEATED RED BLOOD CELLS (BEAKER) (test 0 /100 WBC 0-0 nryt=524) NEUTROPHILS RELATIVE PERCENT (BEAKER) (test 81 % nvgk=375) LYMPHOCYTES RELATIVE PERCENT (BEAKER) (test 6 % cnuo=158) MONOCYTES RELATIVE PERCENT (BEAKER) (test 13 % kodn=362) EOSINOPHILS RELATIVE PERCENT (BEAKER) (test 0 % ctoo=869) BASOPHILS RELATIVE PERCENT (BEAKER) (test 0 % jrla=120) NEUTROPHILS ABSOLUTE COUNT (BEAKER) (test 11.53 K/ L 1.78-5.38 wfcm=738) LYMPHOCYTES ABSOLUTE COUNT (BEAKER) (test 0.79 K/ L 1.32-3.57 slfu=339) MONOCYTES ABSOLUTE COUNT (BEAKER) (test 1.87 K/ L 0.30-0.82 gptl=922) EOSINOPHILS ABSOLUTE COUNT (BEAKER) (test 0.00 K/ L 0.04-0.54 gpub=971) BASOPHILS ABSOLUTE COUNT (BEAKER) (test 0.01 K/ L 0.01-0.08 zikr=339) IMMATURE GRANULOCYTES-RELATIVE PERCENT (BEAKER) 0 % 0-1 (test ejup=2604) CALCIUM, [id number] 06:05:00 Test Item Value Reference Range Comments CALCIUM IONIZED (BEAKER) (test izyc=049) 1.07 mmol/L 1.12-1.27 PH, BLOOD (BEAKER) (test oyos=2370) 7.45 [id number] 06:04:00 Test Item Value Reference Range Comments PROTIME (BEAKER) (test zwgs=380) 17.1 seconds 11.7-14.7 INR (BEAKER) (test tuuq=499) 1.4 <=5.9 PARTIAL THROMBOPLASTIN TIME (BEAKER) (test 32.1 seconds 22.5-36.0 bzgh=346) RECOMMENDED COUMADIN/WARFARIN INR THERAPY RANGESSTANDARD DOSE: 2.0 - 3.0 Includes: PROPHYLAXIS forvenous thrombosis, systemic embolization; TREATMENT for venous thrombosis and/or pulmonary embolus.HIGH RISK: Target INR is 2.5-3.5 for patients with mechanical heart valves.BLOOD GAS, [id number] 05:48:00 Test Item Value Reference Range Comments PH ARTERIAL (BEAKER) (test yzzy=541) 7.44 7.35-7.45 PCO2 ARTERIAL (BEAKER) (test vocy=703) 42 mmHg 35-45 PO2 ARTERIAL (BEAKER) (test mqor=657) 167 mmHg 80-90 O2 SATURATION ARTERIAL (BEAKER) (test yetc=540) 99.1 % 96.0-97.0 HCO3 ARTERIAL (BEAKER) (test tnvr=162) 28 mmol/L 21-29 BASE EXCESS ARTERIAL (BEAKER) (test ixsm=472) 3.3 mmol/L -2.0-3.0 PATIENT TEMPERATURE (BEAKER) (test dpoo=1362) 38.0 C FIO2 (BEAKER) (test xsng=3179) 55.0 % OXYGEN SATURATION, [id number] 05:45:00 Test Item Value Reference Range Comments O2 SATURATION (MEASURED) (BEAKER) (test ekat=5761) 59.3 % For occult hypoperfusionRAD, CHEST, 1 VIEW, NON [id number] 04:53:00Reason for exam:->s/po cabgShould this be performed [...] Verified Date/Time: 02/28/2017 04:53:29 Reading Location : [address] Reading Room [id number] 01:07:00 Test Item Value Reference Range Comments MAGNESIUM (BEAKER) (test qqrc=159) 2.4 mg/dL 1.6-2.6 LACTIC ACID, ARTERIAL, WHOLE [id number] 01:04:00 Test Item Value Reference Range Comments LACTATE BLOOD ARTERIAL (2) (BEAKER) (test 2.4 mmol/L 0.5-2.2 vhay=3851) Effective 09/12/2015: Units/Reference Range ChangeNew: 0.5-2.2 mmol/L Previous: 5 -20 mg/dLBLOOD GAS, [id number] 00:32:00 Test Item Value Reference Range Comments PH ARTERIAL (BEAKER) (test vntx=119) 7.42 7.35-7.45 PCO2 ARTERIAL (BEAKER) (test kyll=828) 42 mmHg 35-45 PO2 ARTERIAL (BEAKER) (test teoz=913) 103 mmHg 80-90 O2 SATURATION ARTERIAL (BEAKER) (test miam=658) 97.7 % 96.0-97.0 HCO3 ARTERIAL (BEAKER) (test aven=767) 27 mmol/L 21-29 BASE EXCESS ARTERIAL (BEAKER) (test sxun=504) 2.0 mmol/L -2.0-3.0 PATIENT TEMPERATURE (BEAKER) (test nhvy=0986) 37.3 C FIO2 (BEAKER) (test idjp=3743) 60.0 % GLUCOSE-STAT [id number] 00:32:00 Test Item Value Reference Range Comments GLUCOSE RANDOM (BEAKER) (test nsql=094) 209 mg/dL 70-110 HGB/HCT (H&H) - STAT [id number] 00:32:00 Test Item Value Reference Range Comments HEMOGLOBIN (BEAKER) (test fuwz=443) 8.7 g/dL 13.0-16.8 HEMATOCRIT (BEAKER) (test oxay=139) 26.0 % 40.0-50.0 CALCIUM, [id number] 00:32:00 Test Item Value Reference Range Comments CALCIUM IONIZED (BEAKER) (test sxai=249) 1.09 mmol/L 1.12-1.27 PH, BLOOD (BEAKER) (test ktpn=0938) 7.43 SODIUM NA-STAT [id number] 00:31:00 Test Item Value Reference Range Comments SODIUM (BEAKER) (test bmfy=731) 139 meq/L 135-148 POTASSIUM-STAT [id number] 00:31:00 Test Item Value Reference Range Comments POTASSIUM (BEAKER) (test bebb=391) 4.1 meq/L 3.6-5.5 CBC (HEMOGRAM ONLY)2017-02-27 21:05:00 Test Item Value Reference Range Comments WHITE BLOOD CELL COUNT (BEAKER) (test mczy=612) 12.4 K/ L 3.5-10.5 RED BLOOD CELL COUNT (BEAKER) (test bvsm=231) 2.80 M/ L 4.63-6.08 HEMOGLOBIN (BEAKER) (test mqcc=387) 8.4 GM/DL 13.7-17.5 HEMATOCRIT (BEAKER) (test kadk=612) 24.7 % 40.1-51.0 MEAN CORPUSCULAR VOLUME (BEAKER) (test yomx=980) 88.2 fL 79.0-92.2 MEAN CORPUSCULAR HEMOGLOBIN (BEAKER) (test 30.0 pg 25.7-32.2 xrbk=091) MEAN CORPUSCULAR HEMOGLOBIN CONC (BEAKER) (test 34.0 GM/DL 32.3-36.5 fjdx=207) RED CELL DISTRIBUTION WIDTH (BEAKER) (test 15.6 % 11.6-14.4 nssv=093) PLATELET COUNT (BEAKER) (test tpbn=135) 106 K/CU MM 150-450 MEAN PLATELET VOLUME (BEAKER) (test eqkk=417) 10.1 fL 9.4-12.4 NUCLEATED RED BLOOD CELLS (BEAKER) (test 0 /100 WBC 0-0 omcq=666) GLUCOSE-STAT [id number] 21:01:00 Test Item Value Reference Range Comments GLUCOSE RANDOM (BEAKER) (test ptiq=718) 233 mg/dL 70-110 BLOOD GAS, [id number] 21:01:00 Test Item Value Reference Range Comments PH ARTERIAL (BEAKER) (test bxum=595) 7.46 7.35-7.45 PCO2 ARTERIAL (BEAKER) (test mjvc=724) 34 mmHg 35-45 PO2 ARTERIAL (BEAKER) (test aarq=004) 120 mmHg 80-90 O2 SATURATION ARTERIAL (BEAKER) (test aaah=249) 98.6 % 96.0-97.0 HCO3 ARTERIAL (BEAKER) (test etst=847) 24 mmol/L 21-29 BASE EXCESS ARTERIAL (BEAKER) (test byyg=641) 0.2 mmol/L -2.0-3.0 PATIENT TEMPERATURE (BEAKER) (test fint=1528) 36.6 C FIO2 (BEAKER) (test jmbr=2948) 75.0 % RAD, CHEST, 1 VIEW, NON [id number] 16:07:00Reason for exam:->s/p sternotomyShould this be performed at the bedside?->YesFINAL REPORT Portable chest. MEDICAL HISTORY: Status post sternotomy. COMPARISON STUDY: February 27, 2017. FINDINGS: The cardiac silhouette is enlarged. The patient is status poststernotomy. A [place] catheter, bilateral chest tubes, nasogastric tube, mediastinal drain and endotracheal tube are seen. Mild interstitial markings are noted with scattered atelectatic changes. No pleural effusion or pneumothorax is seen. IMPRESSION: Status post sternotomy with multiple support lines in place. Signed: Josiah Lopez Verified Date/Time: 02/27/2017 16:07:39 Reading Location: [address] Ortho Consult Reading Room RAD, CHEST, 1 VIEW, NON [id number] 15:44:00Reason for exam:-> post op cabgShould this be performed at the bedside?->YesFINAL REPORT Chest one view Discussion: IABP marker 5 cm below the aortic knob. Pulmonary catheter, support tubes, drainage tubes in place. Mild pulmonary congestion. No effusionor pneumothorax. Signed: Hiram Tavares Verified Date/Time: 02/27/2017 15:44:40 Reading Location: [facility] [id number] Consult Reading Room 03 :44 PMCALCIUM, [id number] 15:40:00 Test Item Value Reference Range Comments CALCIUM IONIZED (BEAKER) (test esrf=392) 1.10 mmol/L 1.12-1.27 PH, BLOOD (BEAKER) (test boxd=1177) 7.40 SODIUM NA-STAT [id number] 15:40:00 Test Item Value Reference Range Comments SODIUM (BEAKER) (test xelr=515) 141 meq/L 135-148 BLOOD GAS, [id number] 15:40:00 Test Item Value Reference Range Comments PH ARTERIAL (BEAKER) (test bzbm=166) 7.40 7.35-7.45 PCO2 ARTERIAL (BEAKER) (test fiqb=437) 34 mmHg 35-45 PO2 ARTERIAL (BEAKER) (test zjjf=077) 91 mmHg 80-90 O2 SATURATION ARTERIAL (BEAKER) (test jfvh=469) 97.4 % 96.0-97.0 HCO3 ARTERIAL (BEAKER) (test crhh=845) 21 mmol/L 21-29 BASE EXCESS ARTERIAL (BEAKER) (test xopw=669) -3.5 mmol/L -2.0-3.0 PATIENT TEMPERATURE (BEAKER) (test mqtr=0550) 35.7 C FIO2 (BEAKER) (test dpbg=9169) 75.0 % POTASSIUM-STAT [id number] 15:40:00 Test Item Value Reference Range Comments POTASSIUM (BEAKER) (test rldj=143) 2.9 meq/L 3.6-5.5 GLUCOSE-STAT [id number] 15:40:00 Test Item Value Reference Range Comments GLUCOSE RANDOM (BEAKER) (test eerh=546) 223 mg/dL 70-110 HGB/HCT (H&H) - STAT [id number] 15:40:00 Test Item Value Reference Range Comments HEMOGLOBIN (BEAKER) (test azrs=621) 8.4 g/dL 13.0-16.8 HEMATOCRIT (BEAKER) (test akkn=949) 25.0 % 40.0-50.0 CBC W/PLT COUNT & AUTO [id number] 15:32:00 Test Item Value Reference Range Comments WHITE BLOOD CELL COUNT (BEAKER) (test vsmz=508) 14.7 K/ L 3.5-10.5 RED BLOOD CELL COUNT (BEAKER) (test dfod=064) 2.52 M/ L 4.63-6.08 HEMOGLOBIN (BEAKER) (test nkvr=017) 7.6 GM/DL 13.7-17.5 HEMATOCRIT (BEAKER) (test dmhl=306) 23.1 % 40.1-51.0 MEAN CORPUSCULAR VOLUME (BEAKER) (test kfxi=884) 91.7 fL 79.0-92.2 MEAN CORPUSCULAR HEMOGLOBIN (BEAKER) (test 30.2 pg 25.7-32.2 ywnk=858) MEAN CORPUSCULAR HEMOGLOBIN CONC (BEAKER) (test 32.9 GM/DL 32.3-36.5 qeip=408) RED CELL DISTRIBUTION WIDTH (BEAKER) (test 15.2 % 11.6-14.4 wjlv=255) PLATELET COUNT (BEAKER) (test txua=054) 136 K/CU MM 150-450 MEAN PLATELET VOLUME (BEAKER) (test oqnd=825) 10.3 fL 9.4-12.4 NUCLEATED RED BLOOD CELLS (BEAKER) (test 0 /100 WBC 0-0 jpoo=842) NEUTROPHILS RELATIVE PERCENT (BEAKER) (test 80 % bywq=313) LYMPHOCYTES RELATIVE PERCENT (BEAKER) (test 5 % kcmp=737) MONOCYTES RELATIVE PERCENT (BEAKER) (test 14 % vfwz=872) EOSINOPHILS RELATIVE PERCENT (BEAKER) (test 0 % kdqi=196) BASOPHILS RELATIVE PERCENT (BEAKER) (test 0 % lwpq=868) NEUTROPHILS ABSOLUTE COUNT (BEAKER) (test 11.69 K/ L 1.78-5.38 rrrv=983) LYMPHOCYTES ABSOLUTE COUNT (BEAKER) (test 0.77 K/ L 1.32-3.57 uqrl=323) MONOCYTES ABSOLUTE COUNT (BEAKER) (test 2.09 K/ L 0.30-0.82 eixl=061) EOSINOPHILS ABSOLUTE COUNT (BEAKER) (test 0.01 K/ L 0.04-0.54 nkzq=099) BASOPHILS ABSOLUTE COUNT (BEAKER) (test 0.01 K/ L 0.01-0.08 zbix=320) IMMATURE GRANULOCYTES-RELATIVE PERCENT (BEAKER) 1 % 0-1 (test iwgi=4955) THROMBOELASTOGRAPH (TEG)2017-02-27 15:25:00 Test Item Value Reference Range Comments TEG ACTIVATED CLOTTING TIME (BEAKER) (test 5.5 minutes 4.0-7.0 dhog=3098) TEG FIBRINOGEN ACTIVITY (BEAKER) (test 68.4 degrees 61.0-73.0 inyx=6649) TEG PLT. AGGREGATION (BEAKER) (test olze=3791) 63.9 MM 55.0-65.0 TEG FIBRINOLYSIS (BEAKER) (test olsq=3067) 0.0 % 0.0-5.0 TGH ACTIVATED CLOTTING TIME (BEAKER) (test 5.3 minutes 4.0-7.0 nhgg=3740) TGH FIBRINOGEN ACTIVITY (BEAKER) (test 70.6 degrees 61.0-73.0 mdhz=8221) TGH PLT. AGGREGATION (BEAKER) (test fllt=4604) 62.9 MM 55.0-65.0 TGH FIBRINOLYSIS (BEAKER) (test xduh=9465) 0.0 % 0.0-5.0 [id number] 15:09:00 Test Item Value Reference Range Comments MAGNESIUM (BEAKER) (test 2.9 mg/dL 1.6-2.6 Specimen slightly hemolyzed zxga=569) COMPREHENSIVE METABOLIC [id number] 15:09:00 Test Item Value Reference Range Comments TOTAL PROTEIN (BEAKER) 4.9 gm/dL 6.0-8.3 Specimen slightly (test zfuy=885) hemolyzed ALBUMIN (BEAKER) (test 3.0 g/dL 3.5-5.0 Specimen slightly fcsn=0233) hemolyzed ALKALINE PHOSPHATASE 40 U/L 40-150 (BEAKER) (test amxv=293) BILIRUBIN TOTAL (BEAKER) 2.2 mg/dL 0.2-1.2 Specimen slightly (test cbxs=247) hemolyzed SODIUM (BEAKER) (test 146 meq/L 136-145 hlrm=889) POTASSIUM (BEAKER) (test 3.4 meq/L 3.5-5.1 Specimen slightly bkfj=032) hemolyzed CHLORIDE (BEAKER) (test 108 meq/L 98-107 lgpm=467) CO2 (BEAKER) (test 22 meq/L 22-29 ljbl=439) BLOOD UREA NITROGEN 43 mg/dL 7-21 (BEAKER) (test fkrh=260) CREATININE (BEAKER) (test 1.86 mg/dL 0.57-1.25 Specimen slightly zvfw=024) hemolyzed GLUCOSE RANDOM (BEAKER) 209 mg/dL 70-105 (test veld=778) CALCIUM (BEAKER) (test 8.0 mg/dL 8.4-10.2 clvh=020) AST (SGOT) (BEAKER) (test 140 U/L 5-34 Specimen slightly ezie=347) hemolyzed ALT (SGPT) (BEAKER) (test 24 U/L 6-55 Specimen slightly ucdo=861) hemolyzed EGFR (BEAKER) (test 35 mL/min/1.73 sq m ESTIMATED GFR IS NOT fbbd=6605) ACCURATE CREATININE CLEARANCE IN PREDICTING GLOMERULAR FILTRATION RATE. ESTIMATED GFR IS NOT APPLICABLE FOR DIALYSIS PATIENTS. LACTIC ACID, ARTERIAL, WHOLE [id number] 15:03:00 Test Item Value Reference Range Comments LACTATE BLOOD ARTERIAL (2) 8.1 mmol/L 0.5-2.2 Specimen slightly hemolyzed (BEAKER) (test ydxv=6995) Effective 09/12/2015: Units/Reference Range ChangeNew: 0.5-2.2 mmol/L Previous: 5 -20 mg/[id number] 14:38:00 Test Item Value Reference Range Comments PARTIAL THROMBOPLASTIN TIME (BEAKER) (test 41.1 seconds 22.5-36.0 ykkl=225) [id number] 14:37:00 Test Item Value Reference Range Comments FIBRINOGEN LEVEL (BEAKER) (test sgwu=076) 317 mg/dl 225-434 PROTHROMBIN [id number] 14:36:00 Test Item Value Reference Range Comments PROTIME (BEAKER) (test ohuu=710) 18.7 seconds 11.7-14.7 INR (BEAKER) (test fyqy=938) 1.6 <=5.9 RECOMMENDED COUMADIN/WARFARIN INR THERAPY RANGESSTANDARD DOSE: 2.0 - 3.0 Includes: PROPHYLAXIS forvenous thrombosis, systemic embolization; TREATMENT for venous thrombosis and/or pulmonary embolus.HIGH RISK: Target INR is 2.5-3.5 for patients with mechanical heart valves.OXYGEN SATURATION, [id number] 14:22:00 Test Item Value Reference Range Comments O2 SATURATION (MEASURED) (BEAKER) (test nkng=4764) 61.7 % BLOOD GAS, [id number] 14:22:00 Test Item Value Reference Range Comments PH ARTERIAL (BEAKER) (test ctsi=249) 7.35 7.35-7.45 PCO2 ARTERIAL (BEAKER) (test ammz=256) 42 mmHg 35-45 PO2 ARTERIAL (BEAKER) (test ozog=270) 52 mmHg 80-90 O2 SATURATION ARTERIAL (BEAKER) (test sygi=244) 87.7 % 96.0-97.0 HCO3 ARTERIAL (BEAKER) (test takw=580) 23 mmol/L 21-29 BASE EXCESS ARTERIAL (BEAKER) (test hrha=855) -2.9 mmol/L -2.0-3.0 PATIENT TEMPERATURE (BEAKER) (test pxzm=4129) 35.4 C FIO2 (BEAKER) (test twkh=9819) 60.0 % GLUCOSE-STAT [id number] 14:22:00 Test Item Value Reference Range Comments GLUCOSE RANDOM (BEAKER) (test siyk=112) 197 mg/dL 70-110 POTASSIUM-STAT [id number] 14:22:00 Test Item Value Reference Range Comments POTASSIUM (BEAKER) (test aoge=011) 3.2 meq/L 3.6-5.5 HGB/HCT (H&H) - STAT [id number] 14:22:00 Test Item Value Reference Range Comments HEMOGLOBIN (BEAKER) (test bdoh=346) 9.5 g/dL 13.0-16.8 HEMATOCRIT (BEAKER) (test dvat=025) 28.0 % 40.0-50.0 CALCIUM, [id number] 14:22:00 Test Item Value Reference Range Comments CALCIUM IONIZED (BEAKER) (test kzfi=621) 1.08 mmol/L 1.12-1.27 PH, BLOOD (BEAKER) (test uyjp=0327) 7.35 SODIUM NA-STAT [id number] 14:21:00 Test Item Value Reference Range Comments SODIUM (BEAKER) (test osnh=697) 141 meq/L 135-148 [id number] 13:11:00 Test Item Value Reference Range Comments PARTIAL THROMBOPLASTIN TIME (BEAKER) (test 41.4 seconds 22.5-36.0 yaax=053) PROTHROMBIN TIME/[id number] 13:10:00 Test Item Value Reference Range Comments PROTIME (BEAKER) (test bxnc=511) 18.9 seconds 11.7-14.7 INR (BANNER) (test zhwt=741) 1.6 <=5.9 RECOMMENDED COUMADIN/WARFARIN INR THERAPY RANGESSTANDARD DOSE: 2.0 - 3.0 Includes: PROPHYLAXIS forvenous thrombosis, systemic embolization; TREATMENT for venous thrombosis and/or pulmonary embolus.HIGH RISK: Target INR is 2.5-3.5 for patients with mechanical heart valves.[id number] 13:10:00 Test Item Value Reference Range Comments FIBRINOGEN LEVEL (BANNER) (test pzhq=649) 434 mg/dl 225-434 [id number] 13:08:00 Test Item Value Reference Range Comments ACTIVATED CLOTTING TIME 125 sec TESTED AT [address] (BANNER) (test lwxp=483) [place] [address] [id number] 13:08:00 Test Item Value Reference Range Comments ACTIVATED CLOTTING TIME 659 sec TESTED AT [address] ([place]) (test lblb=350) [place] [address] [id number] 13:08:00 Test Item Value Reference Range Comments ACTIVATED CLOTTING TIME 648 sec TESTED AT [address] ([place]) (test tdld=160) [place] [address] [id number] 13:08:00 Test Item Value Reference Range Comments ACTIVATED CLOTTING TIME 742 sec TESTED AT [address] ([place]) (test rzte=123) [place] [address] [id number] 13:08:00 Test Item Value Reference Range Comments ACTIVATED CLOTTING TIME > sec OUTSIDE MEASURING RANGETESTED (BANNER) (test ybwe=595) AT [place] [address] PLATELET [id number] 13:02:00 Test Item Value Reference Range Comments PLATELET COUNT (BANNER) (test bhrn=532) 151 K/CU MM 150-450 CALCIUM, [id number] 12:21:00 Test Item Value Reference Range Comments CALCIUM IONIZED (BANNER) (test erfa=396) 1.19 mmol/L 1.12-1.27 PH, BLOOD (BANNER) (test xicz=7966) 7.23 THROMBOELASTOGRAPH (TEG)2017-02-27 11:31:00 Test Item Value Reference Range Comments TEG ACTIVATED CLOTTING TIME (BEAKER) (test 11.7 minutes 4.0-7.0 sjpn=1866) TEG FIBRINOGEN ACTIVITY (BEAKER) (test 60.9 degrees 61.0-73.0 opcc=3318) TEG PLT. AGGREGATION (BEAKER) (test ppck=6002) 57.8 MM 55.0-65.0 TGH ACTIVATED CLOTTING TIME (BEAKER) (test 11.3 minutes 4.0-7.0 syzd=6857) TGH FIBRINOGEN ACTIVITY (BEAKER) (test 61.3 degrees 61.0-73.0 tgnb=7675) TGH PLT. AGGREGATION (BEAKER) (test tkle=3716) 57.1 MM 55.0-65.0 SODIUM NA-STAT [id number] 11:27:00 Test Item Value Reference Range Comments SODIUM (BEAKER) (test wxfw=045) 137 meq/L 135-148 POTASSIUM-STAT [id number] 11:27:00 Test Item Value Reference Range Comments POTASSIUM (BEAKER) (test cuhk=042) 4.3 meq/L 3.6-5.5 BLOOD GAS, [id number] 11:27:00 Test Item Value Reference Range Comments PH ARTERIAL (BEAKER) (test dpgo=278) 7.24 7.35-7.45 PCO2 ARTERIAL (BEAKER) (test pydr=903) 53 mmHg 35-45 PO2 ARTERIAL (BEAKER) (test mstw=773) 70 mmHg 80-90 O2 SATURATION ARTERIAL (BEAKER) (test auyy=175) 91.9 % 96.0-97.0 HCO3 ARTERIAL (BEAKER) (test bhlv=220) 22 mmol/L 21-29 BASE EXCESS ARTERIAL (BEAKER) (test jics=847) -5.3 mmol/L -2.0-3.0 PATIENT TEMPERATURE (BEAKER) (test hbvm=9498) 36.3 C FIO2 (BEAKER) (test ikug=2390) 96.0 % GLUCOSE-STAT [id number] 11:27:00 Test Item Value Reference Range Comments GLUCOSE RANDOM (BEAKER) (test gmdb=252) 224 mg/dL 70-110 HGB/HCT (H&H) - STAT [id number] 11:27:00 Test Item Value Reference Range Comments HEMOGLOBIN (BEAKER) (test pgbw=526) 10.3 g/dL 13.0-16.8 HEMATOCRIT (BEAKER) (test wltx=394) 30.0 % 40.0-50.0 [id number] 10:50:00 Test Item Value Reference Range Comments FIBRINOGEN LEVEL (BEAKER) (test cwkj=196) 325 mg/dl 225-434 [id number] 10:50:00 Test Item Value Reference Range Comments PARTIAL THROMBOPLASTIN TIME (BEAKER) (test 37.6 seconds 22.5-36.0 cedy=251) PLATELET [id number] 10:50:00 Test Item Value Reference Range Comments PLATELET COUNT (BEAKER) (test vsdb=736) 74 K/CU MM 150-450 PROTHROMBIN TIME/[id number] 10:49:00 Test Item Value Reference Range Comments PROTIME (BEAKER) (test fvar=547) 24.5 seconds 11.7-14.7 INR (BEAKER) (test pldn=554) 2.2 <=5.9 RECOMMENDED COUMADIN/WARFARIN INR THERAPY RANGESSTANDARD DOSE: 2.0 - 3.0 Includes: PROPHYLAXIS forvenous thrombosis, systemic embolization; TREATMENT for venous thrombosis and/or pulmonary embolus.HIGH RISK: Target INR is 2.5-3.5 for patients with mechanical heart valves.POTASSIUM-STAT [id number] 10:29:00 Test Item Value Reference Range Comments POTASSIUM (BEAKER) (test hsjp=955) 4.4 meq/L 3.6-5.5 BLOOD GAS, [id number] 10:29:00 Test Item Value Reference Range Comments PH ARTERIAL (BEAKER) (test wqkg=698) 7.25 7.35-7.45 PCO2 ARTERIAL (BEAKER) (test zxyl=743) 45 mmHg 35-45 PO2 ARTERIAL (BEAKER) (test nrxz=119) 140 mmHg 80-90 O2 SATURATION ARTERIAL (BEAKER) (test aglh=553) 98.4 % 96.0-97.0 HCO3 ARTERIAL (BEAKER) (test jerk=375) 20 mmol/L 21-29 BASE EXCESS ARTERIAL (BEAKER) (test mqqi=729) -7.2 mmol/L -2.0-3.0 PATIENT TEMPERATURE (BEAKER) (test bskp=1226) 36.8 C FIO2 (BEAKER) (test nswl=7895) 100.0 % SODIUM NA-STAT [id number] 10:29:00 Test Item Value Reference Range Comments SODIUM (BEAKER) (test xehm=751) 134 meq/L 135-148 GLUCOSE-STAT [id number] 10:29:00 Test Item Value Reference Range Comments GLUCOSE RANDOM (BEAKER) (test ywwf=776) 225 mg/dL 70-110 HGB/HCT (H&H) - STAT [id number] 10:29:00 Test Item Value Reference Range Comments HEMOGLOBIN (BEAKER) (test ukxh=835) 9.4 g/dL 13.0-16.8 HEMATOCRIT (BEAKER) (test ucpr=824) 28.0 % 40.0-50.0 CALCIUM, [id number] 10:29:00 Test Item Value Reference Range Comments CALCIUM IONIZED (BEAKER) (test ohjm=634) 1.05 mmol/L 1.12-1.27 PH, BLOOD (BEAKER) (test snlb=4376) 7.25 SODIUM NA-STAT [id number] 09:37:00 Test Item Value Reference Range Comments SODIUM (BEAKER) (test tqzj=372) 132 meq/L 135-148 POTASSIUM-STAT [id number] 09:37:00 Test Item Value Reference Range Comments POTASSIUM (BEAKER) (test jhot=521) 5.6 meq/L 3.6-5.5 HGB/HCT (H&H) - STAT [id number] 09:37:00 Test Item Value Reference Range Comments HEMOGLOBIN (BEAKER) (test iqsl=277) 8.7 g/dL 13.0-16.8 HEMATOCRIT (BEAKER) (test azkg=672) 26.0 % 40.0-50.0 BLOOD GAS, [id number] 09:36:00 Test Item Value Reference Range Comments PH ARTERIAL (BEAKER) (test pghv=668) 7.35 7.35-7.45 PCO2 ARTERIAL (BEAKER) (test ickb=378) 44 mmHg 35-45 PO2 ARTERIAL (BEAKER) (test aywf=469) 324 mmHg 80-90 O2 SATURATION ARTERIAL (BEAKER) (test pjhp=073) 99.7 % 96.0-97.0 HCO3 ARTERIAL (BEAKER) (test impf=405) 24 mmol/L 21-29 BASE EXCESS ARTERIAL (BEAKER) (test bmzv=897) -2.0 mmol/L -2.0-3.0 PATIENT TEMPERATURE (BEAKER) (test pmps=9451) 36.3 C FIO2 (BEAKER) (test drqp=0128) 75.0 % GLUCOSE-STAT [id number] 09:36:00 Test Item Value Reference Range Comments GLUCOSE RANDOM (BEAKER) (test pvzx=326) 183 mg/dL 70-110 GLUCOSE-STAT [id number] 09:20:00 Test Item Value Reference Range Comments GLUCOSE RANDOM (BEAKER) (test dpsl=517) 172 mg/dL 70-110 SODIUM NA-STAT [id number] 09:20:00 Test Item Value Reference Range Comments SODIUM (BEAKER) (test obpm=122) 132 meq/L 135-148 POTASSIUM-STAT [id number] 09:20:00 Test Item Value Reference Range Comments POTASSIUM (BEAKER) (test nxqh=041) 5.8 meq/L 3.6-5.5 HGB/HCT (H&H) - STAT [id number] 09:20:00 Test Item Value Reference Range Comments HEMOGLOBIN (BEAKER) (test dwgm=516) 8.4 g/dL 13.0-16.8 HEMATOCRIT (BEAKER) (test oqru=529) 25.0 % 40.0-50.0 BLOOD GAS, [id number] 09:19:00 Test Item Value Reference Range Comments PH ARTERIAL (BEAKER) (test jbye=357) 7.41 7.35-7.45 PCO2 ARTERIAL (BEAKER) (test gbch=192) 38 mmHg 35-45 PO2 ARTERIAL (BEAKER) (test lhps=665) 304 mmHg 80-90 O2 SATURATION ARTERIAL (BEAKER) (test aefm=882) 99.7 % 96.0-97.0 HCO3 ARTERIAL (BEAKER) (test xwon=165) 24 mmol/L 21-29 BASE EXCESS ARTERIAL (BEAKER) (test zkcw=307) -1.5 mmol/L -2.0-3.0 PATIENT TEMPERATURE (BEAKER) (test sidr=4251) 33.5 C FIO2 (BEAKER) (test qhnz=2215) 70.0 % GLUCOSE-STAT [id number] 08:56:00 Test Item Value Reference Range Comments GLUCOSE RANDOM (BEAKER) (test dsfo=145) 172 mg/dL 70-110 SODIUM NA-STAT [id number] 08:56:00 Test Item Value Reference Range Comments SODIUM (BEAKER) (test ttmc=678) 132 meq/L 135-148 HGB/HCT (H&H) - STAT [id number] 08:56:00 Test Item Value Reference Range Comments HEMOGLOBIN (BEAKER) (test mjqd=646) 6.9 g/dL 13.0-16.8 HEMATOCRIT (BEAKER) (test qgqv=828) 20.0 % 40.0-50.0 BLOOD GAS, [id number] 08:55:00 Test Item Value Reference Range Comments PH ARTERIAL (BEAKER) (test eofp=289) 7.31 7.35-7.45 PCO2 ARTERIAL (BEAKER) (test mqhv=801) 54 mmHg 35-45 PO2 ARTERIAL (BEAKER) (test xeoc=946) 424 mmHg 80-90 O2 SATURATION ARTERIAL (BEAKER) (test zbht=804) 99.8 % 96.0-97.0 HCO3 ARTERIAL (BEAKER) (test zpys=447) 28 mmol/L 21-29 BASE EXCESS ARTERIAL (BEAKER) (test gdkq=072) 0.5 mmol/L -2.0-3.0 PATIENT TEMPERATURE (BEAKER) (test ddhb=4256) 31.0 C FIO2 (BEAKER) (test ndyo=5916) 80.0 % POTASSIUM-STAT [id number] 08:54:00 Test Item Value Reference Range Comments POTASSIUM (BEAKER) (test iofu=863) 5.0 meq/L 3.6-5.5 BLOOD GAS, [id number] 08:38:00 Test Item Value Reference Range Comments PH VENOUS (BEAKER) (test sloa=225) 7.15 7.32-7.42 PCO2 VENOUS (BEAKER) (test ktih=605) 65 mmHg 41-51 PO2 VENOUS (BEAKER) (test rwoh=945) 49 mmHg 25-40 O2 SATURATION VENOUS (BEAKER) (test afka=771) 73.8 % 40.0-70.0 HCO3 VENOUS (BEAKER) (test txtp=542) 22 mmol/L 21-29 BASE EXCESS VENOUS (BEAKER) (test hjxj=158) -6.4 mmol/L -2.0-3.0 PATIENT TEMPERATURE (BEAKER) (test lneh=7650) 36.5 C FIO2 (BEAKER) (test mdie=4108) 80.0 % BLOOD GAS, [id number] 08:37:00 Test Item Value Reference Range Comments PH ARTERIAL (BEAKER) (test aqqo=941) 7.17 7.35-7.45 PCO2 ARTERIAL (BEAKER) (test dlwv=756) 60 mmHg 35-45 PO2 ARTERIAL (BEAKER) (test jyrq=256) 362 mmHg 80-90 O2 SATURATION ARTERIAL (BEAKER) (test luyx=431) 99.7 % 96.0-97.0 HCO3 ARTERIAL (BEAKER) (test jiht=586) 22 mmol/L 21-29 BASE EXCESS ARTERIAL (BEAKER) (test snyf=291) -6.5 mmol/L -2.0-3.0 PATIENT TEMPERATURE (BEAKER) (test mqid=2206) 36.5 C FIO2 (BEAKER) (test wwak=2642) 80.0 % HGB/HCT (H&H) - STAT [id number] 08:37:00 Test Item Value Reference Range Comments HEMOGLOBIN (BEAKER) (test iysj=450) 5.8 g/dL 13.0-16.8 HEMATOCRIT (BEAKER) (test qkyv=292) 17.0 % 40.0-50.0 SODIUM NA-STAT [id number] 08:36:00 Test Item Value Reference Range Comments SODIUM (BEAKER) (test qiho=212) 131 meq/L 135-148 GLUCOSE-STAT [id number] 08:36:00 Test Item Value Reference Range Comments GLUCOSE RANDOM (BEAKER) (test glfo=985) 165 mg/dL 70-110 POTASSIUM-STAT [id number] 08:35:00 Test Item Value Reference Range Comments POTASSIUM (BEAKER) (test rzug=079) 4.4 meq/L 3.6-5.5 TROPONIN [id number] 08:03:00 Test Item Value Reference Range Comments TROPONIN I (BEAKER) (test qwbx=654) 76.70 ng/mL 0.00-0.03 Troponin I (TnI) levels [...] acute neurological disease, and persistent tachyarrhythmia.BLOOD GAS, [id number] 07:58:00 Test Item Value Reference Range Comments PH ARTERIAL (BEAKER) (test yoyo=874) 7.36 7.35-7.45 PCO2 ARTERIAL (BEAKER) (test viej=278) 43 mmHg 35-45 PO2 ARTERIAL (BEAKER) (test mfmc=794) 194 mmHg 80-90 O2 SATURATION ARTERIAL (BEAKER) (test binv=424) 99.3 % 96.0-97.0 HCO3 ARTERIAL (BEAKER) (test xluv=463) 24 mmol/L 21-29 BASE EXCESS ARTERIAL (BEAKER) (test sbfo=517) -1.7 mmol/L -2.0-3.0 PATIENT TEMPERATURE (BEAKER) (test wzji=6318) 36.0 C FIO2 (BEAKER) (test zoyf=7112) 100.0 % SODIUM NA-STAT [id number] 07:58:00 Test Item Value Reference Range Comments SODIUM (BEAKER) (test yksv=767) 132 meq/L 135-148 GLUCOSE-STAT [id number] 07:58:00 Test Item Value Reference Range Comments GLUCOSE RANDOM (BEAKER) (test abni=425) 146 mg/dL 70-110 HGB/HCT (H&H) - STAT [id number] 07:58:00 Test Item Value Reference Range Comments HEMOGLOBIN (BEAKER) (test xgmq=347) 9.8 g/dL 13.0-16.8 HEMATOCRIT (BEAKER) (test mgem=293) 29.0 % 40.0-50.0 POTASSIUM-STAT [id number] 07:57:00 Test Item Value Reference Range Comments POTASSIUM (BEAKER) (test tlyn=235) 4.3 meq/L 3.6-5.5 CREATINE KINASE (CK), TOTAL AND [id number] 07:56:00 Test Item Value Reference Range Comments CREATINE KINASE TOTAL (BEAKER) (test ctdj=702) 3294 U/L 29-200 CREATINE KINASE-MB (BEAKER) (test fzun=771) 349.7 ng/mL 0.0-6.6 CREATINE KINASE-MB INDEX (BEAKER) (test 10.6 % ofjg=687) CK-MB Reference Range:<6.7 Normal6.7-10.0 Borderline>10.0 AbnormalB-TYPE NATRIURETIC FACTOR (BNP)2017-02-27 06:42:00 Test Item Value Reference Range Comments B-TYPE NATRIURETIC PEPTIDE (BEAKER) (test 2050 pg/mL 0-100 unqe=378) BASIC METABOLIC [id number] 06:35:00 Test Item Value Reference Range Comments SODIUM (BEAKER) (test 137 meq/L 136-145 gfft=020) POTASSIUM (BEAKER) (test 4.9 meq/L 3.5-5.1 Specimen slightly pepw=518) hemolyzed CHLORIDE (BEAKER) (test 106 meq/L 98-107 awsf=739) CO2 (BEAKER) (test 22 meq/L 22-29 pspb=362) BLOOD UREA NITROGEN 46 mg/dL 7-21 (BEAKER) (test uxlv=913) CREATININE (BEAKER) (test 1.99 mg/dL 0.57-1.25 Specimen slightly ydqo=620) hemolyzed GLUCOSE RANDOM (BEAKER) 162 mg/dL 70-105 (test tybj=125) CALCIUM (BEAKER) (test 7.9 mg/dL 8.4-10.2 vwxr=193) EGFR (BEAKER) (test 33 mL/min/1.73 sq m ESTIMATED GFR IS NOT krjd=9600) ACCURATE CREATININE CLEARANCE IN PREDICTING GLOMERULAR FILTRATION RATE. ESTIMATED GFR IS NOT APPLICABLE FOR DIALYSIS PATIENTS. LACTATE DEHYDROGENASE (LDH)2017-02-27 06:35:00 Test Item Value Reference Range Comments LACTATE DEHYDROGENASE (BEAKER) 905 U/L 125-220 Specimen slightly hemolyzed (test vaic=069) [id number] 06:20:00 Test Item Value Reference Range Comments MAGNESIUM (BEAKER) (test 2.8 mg/dL 1.6-2.6 Specimen slightly hemolyzed tjlc=534) HEPATIC FUNCTION [id number] 06:20:00 Test Item Value Reference Range Comments TOTAL PROTEIN (BEAKER) (test 6.0 gm/dL 6.0-8.3 Specimen slightly hemolyzed zhzh=378) ALBUMIN (BEAKER) (test 3.2 g/dL 3.5-5.0 Specimen slightly hemolyzed dthf=4515) BILIRUBIN TOTAL (BEAKER) (test 0.9 mg/dL 0.2-1.2 Specimen slightly hemolyzed epxb=177) BILIRUBIN DIRECT (BEAKER) (test 0.4 mg/dL 0.1-0.5 Specimen slightly hemolyzed cvav=621) ALKALINE PHOSPHATASE (BEAKER) 55 U/L 40-150 (test mbhh=036) AST (SGOT) (BEAKER) (test 196 U/L 5-34 Specimen slightly hemolyzed xorq=282) ALT (SGPT) (BEAKER) (test 43 U/L 6-55 Specimen slightly hemolyzed lyyc=105) [id number] 06:06:00 Test Item Value Reference Range Comments PROTIME (BEAKER) (test vyfi=592) 15.9 seconds 11.7-14.7 INR (BEAKER) (test cgll=550) 1.3 <=5.9 PARTIAL THROMBOPLASTIN TIME (BEAKER) (test 51.9 seconds 22.5-36.0 fdom=266) RECOMMENDED COUMADIN/WARFARIN INR THERAPY RANGESSTANDARD DOSE: 2.0 - 3.0 Includes: PROPHYLAXIS forvenous thrombosis, systemic embolization; TREATMENT for venous thrombosis and/or pulmonary embolus.HIGH RISK: Target INR is 2.5-3.5 for patients with mechanical heart valves.CBC W/PLT COUNT & AUTO [id number] 05:56:00 Test Item Value Reference Range Comments WHITE BLOOD CELL COUNT (BEAKER) (test eyoh=451) 13.2 K/ L 3.5-10.5 RED BLOOD CELL COUNT (BEAKER) (test taxi=928) 3.07 M/ L 4.63-6.08 HEMOGLOBIN (BEAKER) (test ktjf=958) 9.1 GM/DL 13.7-17.5 HEMATOCRIT (BEAKER) (test znto=764) 28.9 % 40.1-51.0 MEAN CORPUSCULAR VOLUME (BEAKER) (test ceci=485) 94.1 fL 79.0-92.2 MEAN CORPUSCULAR HEMOGLOBIN (BEAKER) (test 29.6 pg 25.7-32.2 ubll=323) MEAN CORPUSCULAR HEMOGLOBIN CONC (BEAKER) (test 31.5 GM/DL 32.3-36.5 yxkg=964) RED CELL DISTRIBUTION WIDTH (BEAKER) (test 13.7 % 11.6-14.4 qyya=203) PLATELET COUNT (BEAKER) (test vgjk=338) 198 K/CU MM 150-450 MEAN PLATELET VOLUME (BEAKER) (test elvd=164) 10.9 fL 9.4-12.4 NUCLEATED RED BLOOD CELLS (BEAKER) (test 0 /100 WBC 0-0 wyjs=433) NEUTROPHILS RELATIVE PERCENT (BEAKER) (test 82 % mqsa=994) LYMPHOCYTES RELATIVE PERCENT (BEAKER) (test 7 % rrsg=070) MONOCYTES RELATIVE PERCENT (BEAKER) (test 11 % zpgv=125) EOSINOPHILS RELATIVE PERCENT (BEAKER) (test 0 % uypi=558) BASOPHILS RELATIVE PERCENT (BEAKER) (test 0 % opck=040) NEUTROPHILS ABSOLUTE COUNT (BEAKER) (test 10.83 K/ L 1.78-5.38 vgpf=750) LYMPHOCYTES ABSOLUTE COUNT (BEAKER) (test 0.91 K/ L 1.32-3.57 jbmh=707) MONOCYTES ABSOLUTE COUNT (BEAKER) (test 1.39 K/ L 0.30-0.82 ppoy=123) EOSINOPHILS ABSOLUTE COUNT (BEAKER) (test 0.00 K/ L 0.04-0.54 uztt=258) BASOPHILS ABSOLUTE COUNT (BEAKER) (test 0.01 K/ L 0.01-0.08 rick=777) IMMATURE GRANULOCYTES-RELATIVE PERCENT (BEAKER) 1 % 0-1 (test wuzj=7031) RAD, CHEST, 1 VIEW, NON [id number] 05:16:00Reason for exam:->s/p impellaShould this be performed [...] Robert MDReport VerifiedDate/Time: 02/27/2017 05:16:25 Reading Location: [facility] C013Y CT Body Reading Room Electronically signed by: BRADY SHARMA on 05:16 [id number] 03:21:00 Test Item Value Reference Range Comments PARTIAL THROMBOPLASTIN TIME (BEAKER) (test 46.1 seconds 22.5-36.0 hdlh=976) TROPONIN [id number] 00:34:00 Test Item Value Reference Range Comments TROPONIN I (BEAKER) (test rsca=561) 44.29 ng/mL 0.00-0.03 Troponin I (TnI) levels [...] 681 U/L 125-220 Specimen slightly hemolyzed (test kevx=135) CREATINE KINASE (CK), TOTAL AND [id number] 00:29:00 Test Item Value Reference Range Comments CREATINE KINASE TOTAL (BEAKER) (test duej=362) 2390 U/L 29-200 CREATINE KINASE-MB (BEAKER) (test wkvw=754) 287.4 ng/mL 0.0-6.6 CREATINE KINASE-MB INDEX (BEAKER) (test 12.0 % mtgv=808) CK-MB Reference Range:<6.7 Normal6.7-10.0 Borderline>10.0 AbnormalHEPATIC FUNCTION [id number] 00:29:00 Test Item Value Reference Range Comments TOTAL PROTEIN (BEAKER) (test 6.2 gm/dL 6.0-8.3 Specimen slightly hemolyzed vcin=580) ALBUMIN (BEAKER) (test 3.3 g/dL 3.5-5.0 Specimen slightly hemolyzed tknq=4783) BILIRUBIN TOTAL (BEAKER) (test 0.8 mg/dL 0.2-1.2 Specimen slightly hemolyzed rzjb=987) BILIRUBIN DIRECT (BEAKER) (test 0.3 mg/dL 0.1-0.5 Specimen slightly hemolyzed bneq=900) ALKALINE PHOSPHATASE (BEAKER) 55 U/L 40-150 (test aebm=504) AST (SGOT) (BEAKER) (test 145 U/L 5-34 Specimen slightly hemolyzed mtyc=500) ALT (SGPT) (BEAKER) (test 37 U/L 6-55 Specimen slightly hemolyzed rjym=773) OXYGEN SATURATION, [id number] 23:56:00 Test Item Value Reference Range Comments O2 SATURATION (MEASURED) (BEAKER) (test askd=8110) 28.1 % BASIC METABOLIC [id number] 23:54:00 Test Item Value Reference Range Comments SODIUM (BEAKER) (test 135 meq/L 136-145 oxth=573) POTASSIUM (BEAKER) (test 5.4 meq/L 3.5-5.1 Specimen slightly crhw=726) hemolyzed CHLORIDE (BEAKER) (test 105 meq/L 98-107 jwan=066) CO2 (BEAKER) (test 19 meq/L 22-29 ypgh=605) BLOOD UREA NITROGEN 44 mg/dL 7-21 (BEAKER) (test cmto=816) CREATININE (BEAKER) (test 2.07 mg/dL 0.57-1.25 Specimen slightly rdqv=193) hemolyzed GLUCOSE RANDOM (BEAKER) 192 mg/dL 70-105 (test lnjf=571) CALCIUM (BEAKER) (test 7.9 mg/dL 8.4-10.2 zdkw=887) EGFR (BEAKER) (test 31 mL/min/1.73 sq m ESTIMATED GFR IS NOT blhu=4117) ACCURATE CREATININE CLEARANCE IN PREDICTING GLOMERULAR FILTRATION RATE. ESTIMATED GFR IS NOT APPLICABLE FOR DIALYSIS PATIENTS. RAD, CHEST, 1 VIEW, NON [id number] 23:34:00Reason for exam:->s/p impellaShould this be performed [...] MDReport Verified Date/Time: 02/26/2017 23:34:49 Reading Location: [facility] C013W Consult Reading Room [id number] 22:56:00 Test Item Value Reference Range Comments PARTIAL THROMBOPLASTIN TIME (BEAKER) (test 156.3 seconds 22.5-36.0 zpqc=064) Prior to initiating heparinPROTHROMBIN TIME/[id number] 22:48:00 Test Item Value Reference Range Comments PROTIME (BEAKER) (test hecr=129) 18.0 seconds 11.7-14.7 INR (BEAKER) (test czqa=905) 1.5 <=5.9 RECOMMENDED COUMADIN/WARFARIN INR THERAPY RANGESSTANDARD DOSE: 2.0 - 3.0 Includes: PROPHYLAXIS forvenous thrombosis, systemic embolization; TREATMENT for venous thrombosis and/or pulmonary embolus.HIGH RISK: Target INR is 2.5-3.5 for patients with mechanical heart valves.Prior to initiating heparinCBC W/PLT COUNT & AUTO [id number] 22:44:00 Test Item Value Reference Range Comments WHITE BLOOD CELL COUNT (BEAKER) (test trhv=721) 15.4 K/ L 3.5-10.5 RED BLOOD CELL COUNT (BEAKER) (test ztpt=992) 3.42 M/ L 4.63-6.08 HEMOGLOBIN (BEAKER) (test cncm=957) 10.5 GM/DL 13.7-17.5 HEMATOCRIT (BEAKER) (test pmkg=052) 32.3 % 40.1-51.0 MEAN CORPUSCULAR VOLUME (BEAKER) (test fvmz=363) 94.4 fL 79.0-92.2 MEAN CORPUSCULAR HEMOGLOBIN (BEAKER) (test 30.7 pg 25.7-32.2 mbfn=216) MEAN CORPUSCULAR HEMOGLOBIN CONC (BEAKER) (test 32.5 GM/DL 32.3-36.5 qxus=179) RED CELL DISTRIBUTION WIDTH (BEAKER) (test 13.5 % 11.6-14.4 wjzh=265) PLATELET COUNT (BEAKER) (test gdxa=520) 223 K/CU MM 150-450 MEAN PLATELET VOLUME (BEAKER) (test vktd=530) 11.0 fL 9.4-12.4 NUCLEATED RED BLOOD CELLS (BEAKER) (test 0 /100 WBC 0-0 whwx=365) NEUTROPHILS RELATIVE PERCENT (BEAKER) (test 85 % evdl=037) LYMPHOCYTES RELATIVE PERCENT (BEAKER) (test 5 % vpag=824) MONOCYTES RELATIVE PERCENT (BEAKER) (test 10 % psoy=265) EOSINOPHILS RELATIVE PERCENT (BEAKER) (test 0 % hgmg=021) BASOPHILS RELATIVE PERCENT (BEAKER) (test 0 % psrn=652) NEUTROPHILS ABSOLUTE COUNT (BEAKER) (test 12.99 K/ L 1.78-5.38 fthi=066) LYMPHOCYTES ABSOLUTE COUNT (BEAKER) (test 0.76 K/ L 1.32-3.57 vndd=821) MONOCYTES ABSOLUTE COUNT (BEAKER) (test 1.51 K/ L 0.30-0.82 hptu=418) EOSINOPHILS ABSOLUTE COUNT (BEAKER) (test 0.00 K/ L 0.04-0.54 slkv=387) BASOPHILS ABSOLUTE COUNT (BEAKER) (test 0.02 K/ L 0.01-0.08 mtvc=314) IMMATURE GRANULOCYTES-RELATIVE PERCENT (BEAKER) 1 % 0-1 (test sncb=1208) [id number] 21:03:00 Test Item Value Reference Range Comments ACTIVATED CLOTTING TIME 219 sec TESTED AT [facility] [address] (BEAKER) (test vsjo=278) [place] [address] TROPONIN [id number] 20:41:00 Test Item Value Reference Range Comments TROPONIN I (BEAKER) (test shhe=129) 19.84 ng/mL 0.00-0.03 Troponin I (TnI) levels [...] and persistent tachyarrhythmia.CREATINE KINASE (CK), TOTAL AND [id number] 20:38:00 Test Item Value Reference Range Comments CREATINE KINASE TOTAL (BEAKER) (test qesi=971) 2092 U/L 29-200 CREATINE KINASE-MB (BEAKER) (test eiif=266) 275.4 ng/mL 0.0-6.6 CREATINE KINASE-MB INDEX (BEAKER) (test 13.2 % mwvw=422) CK-MB Reference Range:<6.7 Normal6.7-10.0 Borderline>10.0 Abnormal
[2017-08-24 15:53] VITALS: BMI 23.1
[2017-08-24] MEDS ORDERED: MORPHINE 2 MG/ML SYR IV PRN (16:32)
[2017-08-24] MEDS ORDERED: BISACODYL 10 MG RECTAL SUPP PR PRN (16:36)
[2017-08-24] MEDS ORDERED: ACETAMINOPHEN 650MG/RECT SUPP PR PRN (16:37)
[2017-08-24] MEDS: LORazepam 2 MG/ML VIAL IV PRN (16:58)
[2017-08-24] MEDS: SCOPOLAMINE HYDROBROMIDE PATCH TD SCH (16:58)
[2017-08-24] MEDS: ATROPINE 1% OPTH DROPS 5ML SL PRN ×2 (16:58→22:12)
[2017-08-25] MEDS: ATROPINE 1% OPTH DROPS 5ML SL PRN ×4 (02:19→15:17)
[2017-08-25] MEDS: MORPHINE 4 MG/ML SYR IV PRN ×3 (09:47→21:58)
[2017-08-25] MEDS: SCOPOLAMINE HYDROBROMIDE PATCH TD SCH (15:17)
[2017-08-25] MEDS: LORazepam 2 MG/ML VIAL IV PRN (20:51)
[2017-08-26] MEDS: MORPHINE 4 MG/ML SYR IV PRN ×2 (05:41→10:04)
[2017-08-26] MEDS: ATROPINE 1% OPTH DROPS 5ML SL PRN ×3 (08:30→20:39)
[2017-08-26] MEDS: LORazepam 2 MG/ML VIAL IV PRN ×2 (08:31→11:39)
[2017-08-27] MEDS: ATROPINE 1% OPTH DROPS 5ML SL PRN ×3 (01:23→21:28)
[2017-08-27] MEDS: MORPHINE 4 MG/ML SYR IV PRN (07:44)
[2017-08-27] MEDS: SCOPOLAMINE HYDROBROMIDE PATCH TD SCH (08:31)
[2017-08-27] MEDS: Morphine 2 MG/2 ML SYR IV PRN (23:02)
[2017-08-28] MEDS: LORazepam 2 MG/ML VIAL IV PRN (00:29)
[2017-08-28] MEDS: ATROPINE 1% OPTH DROPS 5ML SL PRN ×2 (01:33→08:30)
[2017-08-28] MEDS: Morphine 2 MG/2 ML SYR IV PRN (08:35)
[2017-08-28] MEDS ORDERED: SCOPOLAMINE HYDROBROMIDE PATCH TD SCH (10:00)
[2017-08-28] MEDS: Morphine 2 MG/2 ML SYR IV SCH ×4 (10:31→22:05)
[2017-08-28] MEDS: ATROPINE 1% OPTH DROPS 5ML OPTH SCH ×4 (10:33→22:06)
[2017-08-28 20:22] VITALS: TEMP 97.8
[2017-08-28 22:41] VITALS: BP 112/46
[2017-08-29 01:36] VITALS: O2SAT 66
[2017-08-29] MEDS: ATROPINE 1% OPTH DROPS 5ML OPTH SCH ×2 (03:13→06:00)
[2017-08-29] MEDS: Morphine 2 MG/2 ML SYR IV SCH ×2 (03:13→06:44)
== END 2017-08-29 07:36 | disposition expired | DRG 951 ==
LOC: 2ND 13:00
PROVIDERS: ADMIT Internal Medicine Hematology & Oncology; ATTEND Internal Medicine Hematology & Oncology
DX: Z51.5 Encounter for palliative care (principal); J96.90 Respiratory failure, unspecified, unspecified whether with hypoxia or hypercapnia
CPT/HCPCS: J2270